=== PATIENT | female | born 1965 | race Caucasian/White ===

== ENCOUNTER 2021-02-16 09:24 | Inpatient (IN) | payer OTHER, SELFPAY ==
[2021-02-16] VITALS (8 sets, daily range): BP systolic 98–135; BP diastolic 56–70; PULSE 87–105; RESP 15–20; TEMP 36.3–37.2; O2SAT 93–98; BMI 42.5
--- NOTE | ~2021-02-16 | CT_ITS ---
EXAMINATION: CT ABDOMEN AND PELVIS WITHOUT CONTRAST CLINICAL INFORMATION: Bloody stool and abdominal pain COMPARISON: None TECHNIQUE: Multidetector volumetric imaging was performed from the superior aspect of the liver through the pubic symphysis. Sagittal and coronal reformatted images were obtained on the technologist's workstation. This CT examination was performed using dose optimization techniques as appropriate, variously including the following: *Automated exposure control *Adjustment of mA and/or kV according to patient size (this includes techniques or standardized protocols for targeted exams where dose is matched to indication/reason for exam; i.e. extremities or head) *Use of iterative reconstruction technique DLP: 972 mGy-cm FINDINGS: LUNG BASES: The visualized lung bases are unremarkable. LIVER, GALLBLADDER, AND BILIARY TREE: The liver is normal in size, shape, and attenuation. No focal hepatic lesion or biliary ductal dilatation is present. The gallbladder has been removed. The PANCREAS: Unremarkable. SPLEEN: Unremarkable. ADRENAL GLANDS: Unremarkable. KIDNEYS AND URETERS: There is a small 2 mm stone in the upper pole of the right kidney. There are 3 small stones in the lower pole of the left kidney, largest measuring 2 x 3 mm. The. Kidneys are otherwise normal. BLADDER: Unremarkable. GASTROINTESTINAL TRACT: The small and large bowel are unremarkable. The appendix is unremarkable. There is a moderate-sized esophageal hernia. ABDOMINAL WALL: There is a small umbilical hernia containing fat. There is small upper midline ventral hernia containing fat.. LYMPH NODES: Normal. VASCULAR: Unremarkable. PELVIC VISCERA: Unremarkable. OSSEOUS STRUCTURES: There are mild degenerative changes of the spine. There is curvature of the lumbar spine to the left. CT/CT abdomen pelvis wo con IMPRESSION: Small bilateral renal stones. Moderate size esophageal hernia.
--- NOTE | ~2021-02-16 | XR_ITS ---
EXAMINATION: XR CHEST CLINICAL INFORMATION: Shortness of breath COMPARISON: None TECHNIQUE: Frontal view of the chest was obtained. FINDINGS: The cardiac silhouette does not appear enlarged. There is an air structure that projects over the lower thoracic spine and cardiac silhouette questionable for an esophageal hernia or air in the distal esophagus. Hilar and mediastinal structures are otherwise unremarkable. The lungs are clear. There is no pleural effusion or pneumothorax. Visualized bony structures are unremarkable. XR/XR chest 1V IMPRESSION: Vertical air density projecting over the lower central chest questionable for an esophageal hernia or air in the distal thoracic esophagus. Otherwise unremarkable exam.
--- NOTE | 2021-02-16 11:47 | ECG_ITS ---
Test Reason : SOB Blood Pressure : / mmHG Vent. Rate : 102 BPM Atrial Rate : 102 BPM P-R Int : 142 ms QRS Dur : 074 ms QT Int : 368 ms P-R-T Axes : 055 035 033 degrees QTc Int : 479 ms Sinus tachycardia Otherwise normal ECG When compared with ECG of 06-FEB-2016 10:42, Vent. rate has increased BY 39 BPM QT has lengthened Referred By: Wallace Stokes Electronically Signed By:NEAL QUARLES
--- NOTE | 2021-02-16 12:09 | ED_ITS ---
HPI - SOB/Dyspnea General Chief Complaint: Dyspnea Stated Complaint: difficulty breathing Time Seen by Provider: 02/16/21 11:37 Source: patient Mode of arrival: ambulatory Limitations: no limitations History of Present Illness HPI Narrative: 55-year-old female history of COPD/asthma, active smoker presented with shortness of breath, patient moved into [facility] recently and ran out of her inhaler wound see her PCP for 3 weeks. Patient has been wheezing since yesterday with difficulty breathing. Patient also has a history of anemia that required transfusion few weeks ago at [facility], patient stated that her hemoglobin initially was 4.1 and after day infusion was 8.7, patient had CT/upper and lower endoscopy at [facility] reportedly the workup was negative. Patient stated that she has been having generalized weakness and fatigue lately, and have noticed dark stool for the past couple days. Related Data Home Medications Medication Instructions Recorded Confirmed albuterol sulfate 2 puff INHALATION Q4H PRN 02/16/21 02/16/21 pxbdmpkiv-krepnale-hpfclzw ala 1 tab PO DAILY 02/16/21 02/16/21 [Biktarvy] bupropion HCl 300 mg PO DAILY 02/16/21 02/16/21 clonazepam 1 mg PO TID 02/16/21 02/16/21 duloxetine 30 mg PO DAILY 02/16/21 02/16/21 duloxetine 60 mg PO DAILY 02/16/21 02/16/21 gabapentin 400 mg PO TID 02/16/21 02/16/21 melatonin 3 mg PO BEDTIME 02/16/21 02/16/21 omeprazole 20 mg PO DAILY@0630 02/16/21 02/16/21 prazosin 2 mg PO BEDTIME 02/16/21 02/16/21 quetiapine [Seroquel] 300 mg PO BEDTIME 02/16/21 02/16/21 sofosbuvir-velpatasvir 1 tab PO DAILY 02/16/21 02/16/21 trazodone 100 - 200 mg PO BEDTIME PRN 02/16/21 02/16/21 ziprasidone HCl 40 mg PO BID 02/16/21 02/16/21 Allergies Allergy/AdvReac Type Severity Reaction Status Date / Time Penicillins [PENICILLINS] Allergy Unknown SOB/HIVES Verified 02/16/21 13:05 codeine AdvReac Nausea and Verified 02/16/21 13:05 Vomiting ketorolac [From Toradol] AdvReac Nausea and Verified 02/16/21 13:05 Vomiting Review of Systems Review of Systems: All other systems are reviewed and are negative Constitutional: Reports as per HPI and Reports no additional constitutional complaints Eyes: Reports as per HPI and Reports no additional eye complaints Reports system reviewed and no additional complaints, except as documented Cardiovascular: Reports as per HPI and Reports no additional cardiovascular c omplaints Respiratory: Reports as per HPI and Reports no additional respiratory complaints Gastrointestinal: Reports as per HPI and Reports no additional gastrointestinal complaints Genitourinary: Reports no additional female genitourinary complaints Musculoskeletal: Reports no additional musculoskeletal complaints Skin/Breast: Reports system reviewed and no additional complaints, except as docu Psychiatric: Reports no additional psychiatric complaints Endocrine: Reports no additional endocrine complaints Hematologic/Lymphatic: Reports no additional hematologic/lymphatic complaints Allergic/Immunologic: Reports no additional allergic/immunologic complaints Reports system reviewed and no additional complaints, except as documented and Reports Abnormal speech present [facility] Past Medical History Medical History Anemia Anxiety Asthma Bipolar 1 disorder Cholecystectomy planned Gastric reflux PTSD (post-traumatic stress disorder) Social History Social History Advance Directives: No Advance Directives Information Provided: Yes Physical Exam Vital Signs: Vital Signs: Last Vital Signs Temp 97.6 F 02/16/21 09:40 Pulse 93 02/16/21 15:02 Resp 20 02/16/21 09:40 BP 115/70 02/16/21 09:40 Pulse Ox 98 02/16/21 09:40 Body Mass Index 42.5 Vital signs have been reviewed as appeared to be correct. Blood pressure normal. Heart rate is elevated. Respiration rate normal. Temperature normal. Oxygen saturation normal. Appearance: Alert. Oriented X3. No acute distress. Head: Normal external exam. Normocephalic. Atraumatic. No Sanchez signs noted. No raccoon eyes noted Eyes: PERRLA. EOMI. Pale Conjunctiva and sclera normal. Eyelids normal. ENT: TM's Normal. Pharynx normal. Uvula midline. Moist mucous membranes. No trismus noted. No drooling noted. No muffled voice noted. Neck: Normal inspection. Neck supple. FROM. No adenopathy. Thyroid Normal. No meningeal signs. No neck mass noted. CVS: Normal heart rate and rhythm. Heart sound normal. No murmurs noted. Pulses normal throughout. Respiratory: No respiratory distress. Painless inspiration. Breath sounds normal. Diffuse bilateral expiratory wheezing, with decreased breathing sounds bilaterally, no rhonchi noted. Chest nontender. Abdomen: Soft and nontender. Bowel sounds normal in all 4 quadrants. No distent ion noted. No organomegaly noted. No visible injury noted. Rectal exam: Dark black stool, guaiac positive Back: No CVA tenderness. Full range of motion noted. Skin: Skin warm and dry. Pale. Normal skin turgor. No rashes/lesions/lacerations noted. Extremities: No lower extremity edema. Extremities exhibit normal range of motion. Extremities nontender. Neuro: Oriented X 3. No motor deficit. No sensory deficit. Reflexes normal. Course Course Course Narrative: Assessment and plan. 55-year-old female came in with symptoms of generalized weakness and fatigue, dark stool, patient found to be anemic. Similar presentation few weeks ago require GI workup reportedly was negative. Will admit the patient for blood transfusion and serial CBC, and GI consult. Patient with history of asthma lung exam with wheezing, patient received bronchodilator. With improvement of the wheezing. Reevaluation(s) Reevaluation #1: Because patient has persistent abdominal pain and decided to repeat CT abdomen pelvis which is unremarkable for reason for her abdominal pain. Will admit the patient Time: 14:16 MDM - SOB/Dyspnea Lab Data Attestation: I reviewed the patient's lab results. Result diagrams: 02/16/21 12:48 02/16/21 12:48 Labs: Lab Results 02/16/21 02/16/21 02/16/21 Range/Units 12:48 12:48 12:48 WBC 3.3 L (4.8-10.8) X10*3/uL RBC 2.60 L (4.20-5.50) X10*6/uL Hgb 6.3 L* (12.0-16.0) g/dl Hct 22.1 L (37-47) % MCV 85.0 (80-98) fL MCH 24.2 L (27.0-33.0) pg MCHC 28.5 L (31.0-35.0) g/dl RDW 14.3 (11.0-16.0) % Plt Count 225 (160-400) X10*3/uL MPV Not Reportable Immature Gran % (Auto) 0.3 (0.0-0.4) % Neut % (Auto) 59.3 (45-73) % Lymph % (Auto) 25.7 (20-40) % Norman % (Auto) 10.2 (2-11) % Eos % (Auto) 3.3 (0-4) % Baso % (Auto) 1.2 (0-2) % Lymph # (Auto) 0.9 L (1.2-4.9) X10*3/uL Norman # (Auto) 0.3 (0.1-1.2) X10*3/uL Eos # (Auto) 0.1 (0.0-0.4) X10*3/uL Baso # (Auto) 0.0 (0.0-0.2) X10*3/uL Abs Immat Gran (auto) 0.01 (0.00-0.03) X10*3/uL Absolute Neuts (auto) 2.0 (2.0-8.3) X10*3/uL Absolute Nucleated RBC 0.020 H (0.0-0.012) X10*3/uL Nucleated RBC % (auto) 0.6 H (0.0-0.2) /100WBC Smear Tech's Comments VERIFIED PT (10.8-13.0) SEC INR (0.9-1.1) APTT (24.1-38.0) SEC Sodium 137 (135-145) mmol/L Potassium 4.0 (3.3-5.1) mmol/L Chloride 103 (96-108) mmol/L Carbon Dioxide 27 (22-29) mmol/L Anion Gap 11 L (12-20) BUN 14 (9-16) mg/dL Creatinine 0.94 (0.5-1.4) mg/dL Estim Creat Clear Calc 81.9 Estimated GFR > 60 Random Glucose 115 (60-115) mg/dL Calcium 8.7 (8.4-10.2) mg/dL Troponin I High Sens < 3.5 (<3.5-17.0) ng/L B-Natriuretic Peptide 26 (<100) pg/mL Lipase 38 (8-78) U/L Stool Occult Blood (NEGATIVE) COVID-19 (ELSI) (Negative) COVID-19 Clin Com Crossmatch 02/16/21 02/16/21 02/16/21 Range/Units 12:48 12:49 13:13 WBC (4.8-10.8) X10*3/uL RBC (4.20-5.50) X10*6/uL Hgb (12.0-16.0) g/dl Hct (37-47) % MCV (80-98) fL MCH (27.0-33.0) pg MCHC (31.0-35.0) g/dl RDW (11.0-16.0) % Plt Count (160-400) X10*3/uL MPV Immature Gran % (Auto) (0.0-0.4) % Neut % (Auto) (45-73) % Lymph % (Auto) (20-40) % Norman % (Auto) (2-11) % Eos % (Auto) (0-4) % Baso % (Auto) (0-2) % Lymph # (Auto) (1.2-4.9) X10*3/uL Norman # (Auto) (0.1-1.2) X10*3/uL Eos # (Auto) (0.0-0.4) X10*3/uL Baso # (Auto) (0.0-0.2) X10*3/uL Abs Immat Gran (auto) (0.00-0.03) X10*3/uL Absolute Neuts (auto) (2.0-8.3) X10*3/uL Absolute Nucleated RBC (0.0-0.012) X10*3/uL Nucleated RBC % (auto) (0.0-0.2) /100WBC Smear Tech's Comments PT 11.2 (10.8-13.0) SEC INR 0.9 (0.9-1.1) APTT 24.7 (24.1-38.0) SEC Sodium (135-145) mmol/L Potassium (3.3-5.1) mmol/L Chloride (96-108) mmol/L Carbon Dioxide (22-29) mmol/L Anion Gap (12-20) BUN (9-16) mg/dL Creatinine (0.5-1.4) mg/dL Estim Creat Clear Calc Estimated GFR Random Glucose (60-115) mg/dL Calcium (8.4-10.2) mg/dL Troponin I High Sens (<3.5-17.0) ng/L B-Natriuretic Peptide (<100) pg/mL Lipase (8-78) U/L Stool Occult Blood POSITIVE (NEGATIVE) COVID-19 (ELSI) Negative (Negative) COVID-19 Clin Com See Note Crossmatch 02/16/21 Range/Units 14:59 WBC (4.8-10.8) X10*3/uL RBC (4.20-5.50) X10*6/uL Hgb (12.0-16.0) g/dl Hct (37-47) % MCV (80-98) fL MCH (27.0-33.0) pg MCHC (31.0-35.0) g/dl RDW (11.0-16.0) % Plt Count (160-400) X10*3/uL MPV Immature Gran % (Auto) (0.0-0.4) % Neut % (Auto) (45-73) % Lymph % (Auto) (20-40) % Norman % (Auto) (2-11) % Eos % (Auto) (0-4) % Baso % (Auto) (0-2) % Lymph # (Auto) (1.2-4.9) X10*3/uL Norman # (Auto) (0.1-1.2) X10*3/uL Eos # (Auto) (0.0-0.4) X10*3/uL Baso # (Auto) (0.0-0.2) X10*3/uL Abs Immat Gran (auto) (0.00-0.03) X10*3/uL Absolute Neuts (auto) (2.0-8.3) X10*3/uL Absolute Nucleated RBC (0.0-0.012) X10*3/uL Nucleated RBC % (auto) (0.0-0.2) /100WBC Smear Tech's Comments PT (10.8-13.0) SEC INR (0.9-1.1) APTT (24.1-38.0) SEC Sodium (135-145) mmol/L Potassium (3.3-5.1) mmol/L Chloride (96-108) mmol/L Carbon Dioxide (22-29) mmol/L Anion Gap (12-20) BUN (9-16) mg/dL Creatinine (0.5-1.4) mg/dL Estim Creat Clear Calc Estimated GFR Random Glucose (60-115) mg/dL Calcium (8.4-10.2) mg/dL Troponin I High Sens (<3.5-17.0) ng/L B-Natriuretic Peptide (<100) pg/mL Lipase (8-78) U/L Stool Occult Blood (NEGATIVE) COVID-19 (ELSI) (Negative) COVID-19 Clin Com Crossmatch See Detail Imaging Data Chest x-ray: Radiologist's impression: The cardiac silhouette does not appear enlarged. There is an air structure that projects over the lower thoracic spine and cardiac silhouette questionable for an esophageal hernia or air in the distal esophagus. Hilar and mediastinal structures are otherwise unremarkable. The lungs are clear. There is no pleural effusion or pneumothorax. Visualized bony structures are unremarkable. CT scan - abdomen: Radiologist's impression: Small bilateral renal stones. Moderate size esophageal hernia. ECG Data Interpretation: Sinus tachycardia at 102 beats per minute, normal axis deviation, normal intervals, no ST-T changes. Critical Care Time Critical Care Time Critical Care Time: Yes Total Critical Care Time: 40 Attestation: I spent 40 minutes providing critical care service to the patient, this including time spent at the bedside to evaluate the patient, reassess the patient, monitoring vital signs, review labs, and radiographic studies, counseling the patient/family, discussing the case with consultants, disposition the patient. Discharge Plan Discharge Clinical Impression: Asthma with exacerbation, Melena, Anemia Patient Disposition: Admitted As Inpatient
[2021-02-16 13:01] LABS: Imm Gran Abs Auto 0.01 X10*3/uL (0.00-0.03); Imm Gran Pct Auto 0.3 % (0.0-0.4); MANUAL DIFF FLAG SCAN; NRBC Pct Auto 0.6 /100WBC (0.0-0.2); PLT CLUMP 1; SCAN SMEAR FLAG 1
[2021-02-16 13:02] LABS: Basophils Percent Auto 1.2 % (0-2); Eosinophils Absolute Auto 0.1 X10*3/uL (0.0-0.4); Eosinophils Percent Auto 3.3 % (0-4); Hematocrit 22.1 % (37-47); Lymphocytes Absolute Auto 0.9 X10*3/uL (1.2-4.9); Lymphocytes Percent Auto 25.7 % (20-40); Mean Corpuscular HGB Conc 28.5 g/dl (31.0-35.0); Monocytes Absolute Auto 0.3 X10*3/uL (0.1-1.2); Monocytes Percent Auto 10.2 % (2-11); Neutrophils Percent Auto 59.3 % (45-73); Red Cell Distribution Width 14.3 % (11.0-16.0); White Blood Count 3.3 X10*3/uL (4.8-10.8)
[2021-02-16] MEDS: Morphine Sulfate 2 MG/ML CARTRIDGE 1 MG IVPUSH ×2 (13:06→15:32)
[2021-02-16 13:08] LABS: INTERNATIONAL NORM RATIO 0.9 (0.9-1.1); Prothrombin Time 11.2 SEC (10.8-13.0)
[2021-02-16] MEDS: predniSONE 20 MG TABLET 40 MG PO (13:09)
[2021-02-16] MEDS: 0.9 % Sodium Chloride 1,000 ML 999 ML IVCONT (13:10)
[2021-02-16 13:11] LABS: Partial Thromboplastin Time 24.7 SEC (24.1-38.0)
[2021-02-16 13:15] LABS: COVID-19 Test Negative (Negative)
[2021-02-16 13:17] LABS: OBS Int Ctl Valid YES; OBS1 POSITIVE (NEGATIVE)
[2021-02-16 13:22] LABS: Hemoglobin 6.3 g/dl (12.0-16.0)
[2021-02-16 13:24] LABS: Mean Corpuscular Hemoglobin 24.2 pg (27.0-33.0)
[2021-02-16 13:33] LABS: Anion Gap 11 (12-20); Blood Urea Nitrogen 14 mg/dL (9-16); Calcium 8.7 mg/dL (8.4-10.2); Carbon Dioxide 27 mmol/L (22-29); Chloride 103 mmol/L (96-108); Creatinine Clr Calc Pharmacy 81.9; Estimated Glomerular Filt Rate > 60; Glucose Random 115 mg/dL (60-115); Lipase 38 U/L (8-78); Sodium 137 mmol/L (135-145)
[2021-02-16 13:36] LABS: B Type Natriuretic Peptide 26 pg/mL (<100); Platelet Count 225 X10*3/uL (160-400); Troponin-I High Sensitivity < 3.5 ng/L (<3.5-17.0)
[2021-02-16 13:37] LABS: SLIDE REVIEW VERIFIED
[2021-02-16] MEDS: Albuterol/Iprat 2.5/0.5MG 3 ML AMPUL.NEB INHALE (15:01)
--- NOTE | 2021-02-16 15:03 | P.HPHOSP_ITS ---
History of Present Illness Date of Service: 02/16/21 55-year-old female patient with a past medical history of chronic anemia, asthma/COPD, GERD, HIV, hep C and bipolar disorder who presents here with melana and anemia. She has history of chronic anemia. She underwent EGD on December 04 2020 with finding suggestive of grade B esophagitis. She had colonoscopy on December 08, 2020 with finding of internal hemorrhoids. She received blood transfusion for symptomatic anemia at that time. Today, her hemoglobin is 6.4 and Hematocrit is 22. She is hemodynamically Review of Systems Review of Systems: Constitutional: No fever Cardiovascular:No chest pain,pressure or discomfort. No palpitations or pedal edema. Respiratory:No shortness of breath, cough or sputum production. Gastrointestinal: Reports no nausea, vomiting or diarrhea. reports melana and abdominal pain Genitourinary: No burning micturition. No urinary frequency or incontinence. Neurologic: No headache, dizziness, syncope, unilateral weakness, numbness or tingling in the extremities. Musculoskeletal: No muscle pain, back pain, joint pain or stiffness. Hematologic: No bleeding or bruising. Psychiatric: depression Endocrine: No reports of sweating. No cold or heat intolerance. No polyuria or polydipsia. All other systems were reviewed and are negative. [facility] Medical History Anemia Anxiety Asthma Bipolar 1 disorder Cholecystectomy planned COPD (chronic obstructive pulmonary disease) Gastric reflux Hepatitis C HIV (human immunodeficiency virus infection) Morbid (severe) obesity due to excess calories PTSD (post-traumatic stress disorder) Surgical History Hx of cholecystectomy Social History Household Members: None Housing: Other Housing Other:: [facility] residential [facility]. Do you presently have visiting nurse or other home services: No Smoking Status: Current some day smoker Tobacco Type: Cigarette Packs Per Day: 0.5 Cigarettes Per Day: 10.0 Years Smoked: 20 Smoked in Last 30 Days: Yes Patient Interested in Nicotine Replacement: No Patient Given Instructions on How to Stop Smoking: No (refused) Second Hand Smoke Exposure: No Use of substances other than those prescribed or required for medical reasons: No Currently Displaying Signs/Symptoms of Drug Intoxication Withdrawal: No Any prior treatment program specific to substance use: Yes Have you been hit, kicked, punched, or otherwise hurt by someone within the past year? If so, by whom?: No Do you feel safe in your current relationship?: No Current Relationship Is there a partner from a previous relationship who is making you feel unsafe now?: No Are you made to feel afraid or neglected: No Spiritual Healthcare Practices: no Adventism Healthcare Practices: no Cultural Healthcare Practices: no Are you DNR?: No Advance Directives: No Advance Directives Information Provided: Yes Do you have thoughts of harming others: None Do you have a plan to hurt others: No Plan Recently lost weight without trying: No Nutrition Risks: No Nutritional Risk Patient : No : No Poor oral hygiene: No service: No Current occupational status: disabled Meds Allergies Allergy/AdvReac Type Severity Reaction Status Date / Time Penicillins [PENICILLINS] Allergy Unknown SOB/HIVES Verified 02/16/21 13:05 codeine AdvReac Nausea and Verified 02/16/21 13:05 Vomiting ketorolac [From Toradol] AdvReac Nausea and Verified 02/16/21 13:05 Vomiting Active Medications: Current Medications Generic Name Dose Route Start Last Admin Trade Name Freq PRN Reason Stop Dose Admin Pharmacy Consult 1 each 02/16/21 11:46 Consult Rx Perform Med Rec MISCELLANE ONCE PRN Consult order Home Medications Medication Instructions Recorded Confirmed Last Taken Type albuterol sulfate 2 puff INHALATION Q4H PRN 02/16/21 02/16/21 Unknown History ddpcamgxy-bgnakjue-ylixhom ala 1 tab PO DAILY 02/16/21 02/16/21 02/16/21 History [Biktarvy] bupropion HCl 300 mg PO DAILY 02/16/21 02/16/21 02/16/21 History clonazepam 1 mg PO TID 02/16/21 02/16/21 02/16/21 History duloxetine 30 mg PO DAILY 02/16/21 02/16/21 02/16/21 History duloxetine 60 mg PO DAILY 02/16/21 02/16/21 02/16/21 History gabapentin 400 mg PO TID 02/16/21 02/16/21 02/16/21 History melatonin 3 mg PO BEDTIME 02/16/21 02/16/21 02/15/21 History omeprazole 20 mg PO DAILY@0630 02/16/21 02/16/21 02/16/21 History prazosin 2 mg PO BEDTIME 02/16/21 02/16/21 02/15/21 History quetiapine [Seroquel] 300 mg PO BEDTIME 02/16/21 02/16/21 02/15/21 History sofosbuvir-velpatasvir 1 tab PO DAILY 02/16/21 02/16/21 02/16/21 History trazodone 100 - 200 mg PO BEDTIME PRN 02/16/21 02/16/21 Unknown History ziprasidone HCl 40 mg PO BID 02/16/21 02/16/21 02/16/21 History Physical Exam Vital Signs and Narrative: Vital Signs: Last Vital Signs Temp 97.6 F 02/16/21 09:40 Pulse 105 H 02/16/21 09:40 Resp 20 02/16/21 09:40 BP 115/70 02/16/21 09:40 Pulse Ox 98 02/16/21 09:40 Body Mass Index 42.5 Constitutional Awake and Alert, No apparent distress Neck Supple, No lymphadenopathy Cardiovascular RRR, No M/R/G, S1 S2, No S3 S4, No pedal edema Respiratory Lungs clear, No respiratory distress Gastrointestinal Non tender, Non-distended Skin No rash Neurological Alert & oriented x3 Psychological Appropriate affect Results Labs CBC and Chem 7: 02/17/21 07:56 02/16/21 12:48 Labs: Laboratory Results - last 24 hr 02/16/21 02/16/21 02/16/21 12:48 12:48 12:48 MCV 85.0 MCH 24.2 L MCHC 28.5 L RDW 14.3 Plt Count 225 MPV Not Reportable Immature Gran % (Auto) 0.3 Neut % (Auto) 59.3 Lymph % (Auto) 25.7 Daniels % (Auto) 10.2 Eos % (Auto) 3.3 Baso % (Auto) 1.2 Lymph # (Auto) 0.9 L Daniels # (Auto) 0.3 Eos # (Auto) 0.1 Baso # (Auto) 0.0 Abs Immat Gran (auto) 0.01 Absolute Neuts (auto) 2.0 Absolute Nucleated RBC 0.020 H Nucleated RBC % (auto) 0.6 H Smear Tech's Comments VERIFIED PT INR APTT Anion Gap 11 L Estim Creat Clear Calc 81.9 Estimated GFR > 60 Random Glucose 115 Calcium 8.7 Troponin I High Sens < 3.5 B-Natriuretic Peptide 26 Lipase 38 Stool Occult Blood COVID-19 (ELSI) COVID-19 Clin Com 02/16/21 02/16/21 02/16/21 12:48 12:49 13:13 MCV MCH MCHC RDW Plt Count MPV Immature Gran % (Auto) Neut % (Auto) Lymph % (Auto) Daniels % (Auto) Eos % (Auto) Baso % (Auto) Lymph # (Auto) Daniels # (Auto) Eos # (Auto) Baso # (Auto) Abs Immat Gran (auto) Absolute Neuts (auto) Absolute Nucleated RBC Nucleated RBC % (auto) Smear Tech's Comments PT 11.2 INR 0.9 APTT 24.7 Anion Gap Estim Creat Clear Calc Estimated GFR Random Glucose Calcium Troponin I High Sens B-Natriuretic Peptide Lipase Stool Occult Blood POSITIVE COVID-19 (ELSI) Negative COVID-19 Clin Com See Note Imaging Radiologist's Impressions: Impressions Chest X-Ray 02/16/21 11:47 IMPRESSION: Vertical air density projecting over the lower central chest questionable for an esophageal hernia or air in the distal thoracic esophagus. Otherwise unremarkable exam. Abdomen/Pelvis CT 02/16/21 13:23 IMPRESSION: Small bilateral renal stones. Moderate size esophageal hernia. Assessment and Plan (1) HIV (human immunodeficiency virus infection): Status: Inactive (2) Acute blood loss anemia: Status: Acute (3) Anemia: Status: Acute (4) Melena: Status: Acute (5) Asthma with exacerbation: Status: Acute (6) COPD (chronic obstructive pulmonary disease): Status: Acute 55-year-old female patient with a past medical history of chronic anemia, asthma/COPD, GERD, HIV, hep C here with Melana, acute blood loss anemia Acute blood loss anemia/Melana. Hemodynamically stable. Transfused 2 units. GI consult. Clear liquid diet and NPO overnight for likely procedure tomorrow. Esophagitis with gastritis (K29.70): Recent EGD suggestive of grade B esophagitis. IV ppi COPD mixed type (J44.9): Stable, no exacerbation Hepatitis C (B19.20): Continue her home medication sofosbuvir/velpatasvir HIV infection (B20): Continue her on Biktarvy MDD (major depressive disorder) (F32.9)/PTSD--continue home medication. Morbid obesity--weight loss advice through exercise and diet watch and DVT prophylaxis; no heparin or Lovenox. Compression device
[2021-02-16] MEDS: ondansetron HCL 4 MG/2 ML VIAL IVPUSH (15:33)
--- NOTE | 2021-02-16 15:35 | PC.NURSE ---
Pt medicated for pain and nausea. Blood band in place and awaiting blood to be ready from blood bank at this time.
[2021-02-16 16:22] LABS: Glucose Urine UA NEG (NEG); Leukocyte Esterase Urine NEG (NEG); Nitrite Urine NEG (NEG); Specific Gravity - Urine 1.025 (1.005-1.025); Urine Blood NEG (NEG); Urine Ketones NEG (NEG); Urine Protein NEG (NEG-TRACE)
--- NOTE | 2021-02-16 16:25 | P.CNGI_ITS ---
History of Present Illness Data of Consult Service Date: 02/16/21 Requesting physician: Lexx Cohen Primary Care Provider: Raul De La Paz MD HPI Reason for consult: Recurrent anemia, GI Bleed 55 YF seen at [facility] earlier today with fatigue and shortness of breath: 55-year-old female history of COPD/asthma, active smoker presented with shortness of breath, patient moved into [facility] recently and ran out of her inhaler wound see her PCP for 3 weeks. Patient has been wheezing since yesterday with difficulty breathing. Patient also has a history of anemia that required transfusion few weeks ago at [facility], patient stated that her hemoglobin initially was 4.1 and after day infusion was 8.7, patient had CT/upper and lower endoscopy at [facility] reportedly the workup was negative. Patient stated that she has been having generalized weakness and fatigue lately, and have noticed dark stool for the past couple days. Patient reports being admitted to [facility] in Nov, 2020 with weakness and dark stools. She had EGD and Colon as noted below. Pt was discharged with outpatient follow-up. Pt did not follow-up since she had to go out of town. She noted fatigue, dizziness and worsening shortness of breath over the past few few days and came to [facility] Patient has a history of COPD and continues to smoke half pack per day. Patient denies use of aspirin or nonsteroidals. She admits to history of peptic ulcer disease a year ago complicated by GI bleed and was started on omeprazole and continues to take it Patient denies known family history of colon polyps, colon cancer or other GI malignancies. 02/16/[address] SCAN SHOWED: Small bilateral renal stones. Moderate size esophageal hernia. PAST GI HISTORY BY REVIEW OF MEDICAL RECORDS: 12/04/20 EGD at [facility] showed: Grade B esophagitis at the GE junction compatible with esophagitis. A large size hiatal hernia from 31 to 37 cm from the incisors A single non-bleeding diverticulum with a large opening was seen in the 2nd portion of the duodenum. This diverticulum was felt to be likely due to healed prior ulcers. 12/08/20 COLONOSCOPY showed small non bleeding internal hemorrhoids. No evidence of lower GI bleeding caustic mailed a of recent bleed identified during colonoscopy. TI was not intubated. Patient was discharged and advised outpatient GI follow-up. Review of Systems Constitutional: Constitutional: Denies fever(s), Denies headache(s) and Denies weight loss Eyes: Eyes: Denies eye discharge and Denies irritation ENT: Reports Normal hearing present, Denies dysphagia, Denies dizziness and Denies headache(s) Cardiovascular: Cardiovascular: Denies chest pain, Denies leg edema, Reports dyspnea and Reports dyspnea on exertion Respiratory: Respiratory: Denies cough, Reports dyspnea, Reports dyspnea on exertion and Reports wheezing Gastrointestinal: Gastrointestinal: Reports abdominal pain, Reports melena, Denies change in bowel habits, Denies dysphagia and Denies heartburn Genitourinary: Genitourinary: Denies difficulty voiding and Denies dysuria Musculoskeletal: Musculoskeletal: Denies back pain and Denies arthralgias Integumentary/Breasts: Skin/Breast: Denies pruritus, Denies rash and Denies jaundice Neurologic: Reports Normal hearing present, Denies Abnormal speech present, Denies dizziness, Denies headache(s) and Denies seizure-like activity Psychiatric: Psychiatric: Denies anxiety, Denies depression and Denies panic attacks Endocrine: Endocrine: Denies cold intolerance, Denies flushing and Denies heat intolerance Hematologic/Lymphatic: Hematologic/Lymphatic: Denies easy bleeding and Denies easy bruising Allergic/Immunologic: Allergic/Immunologic: Reports wheezing PMFSH Past Medical History Medical History Anemia Anxiety Arthritis Asthma Bilateral renal stones Bipolar 1 disorder Chronic anemia COPD (chronic obstructive pulmonary disease) COVID-19 vaccine administered Depression GERD (gastroesophageal reflux disease) Hiatal hernia without gangrene and obstruction HIV (human immunodeficiency virus infection) Hx of anxiety disorder Hx of hepatitis C Morbid (severe) obesity due to excess calories Nicotine dependence, cigarettes, uncomplicated PTSD (post-traumatic stress disorder) Family History Family History Mother Respiratory arrest Father Congestive heart failure Sister No problems noted. Brother No problems noted. Daughter No problems noted. Son No problems noted. Surgical History Surgical History History of section, classical History of cholecystectomy History of colonoscopy (~2020) History of endoscopy (~2020) History of repair of hiatal hernia History of tonsillectomy and adenoidectomy Social History Social History Household Members: None Housing: House Housing Other:: resides at [facility]-will return there post-op Are you a primary pet care assistant to a significant other at home: No Do you presently have visiting nurse or other home services: No Alcohol intake: never Patient Tobacco Use Status: Current everyday Tobacco user Tobacco use type: Cigarette Cigarette Packs Per Day: 0.5 Cigarettes Per Day: 10.0 Years Smoked: 20 Smoked in Last 30 Days: Yes Patient Interested in Nicotine Replacement: Yes Second Hand Smoke Exposure: No Advance Directives: Yes Advance Directives Information Provided: No Advance Directives on File: No Advance Directives Date on File: 03/18/21 service: No Current occupational status: unemployed and disabled Meds Allergies Allergy/AdvReac Type Severity Reaction Status Date / Time Penicillins [PENICILLINS] Allergy Intermediate SOB/HIVES Verified 05/25/21 13:41 codeine AdvReac Intermediate Nausea and Verified 05/25/21 13:41 Vomiting ketorolac [From Toradol] AdvReac Intermediate Nausea and Verified 05/25/21 13:41 Vomiting Active Medications: Current Medications Generic Name Dose Route Start Last Admin Trade Name Freq PRN Reason Stop Dose Admin Pantoprazole Sodium 40 mg 02/16/21 16:00 Pantoprazole Sodium 40 Mg/10 Ml Vial IVPUSH DAILY@0630 [facility] Consult 1 each 02/16/21 11:46 Consult Rx Perform Med Rec MISCELLANE ONCE PRN Consult order Home Medications Medication Instructions Recorded Confirmed Last Taken Type albuterol sulfate 90 mcg/actuation 2 puff INHALATION Q4H PRN 02/16/21 06/25/21 06/25/21 History aerosol inhaler bictegravir 50 mg-emtricitabine 1 tab PO DAILY 02/16/21 06/25/21 06/25/21 History 200 mg-tenofovir alafenam 25 mg tablet (Biktarvy) bupropion HCl 300 mg 24 hr tablet, 300 mg PO DAILY 02/16/21 06/25/21 06/25/21 History extended release clonazepam 1 mg tablet 1 mg PO TID 02/16/21 06/25/21 06/25/21 History duloxetine 30 mg capsule,delayed 30 mg PO DAILY 02/16/21 06/25/21 06/25/21 History release duloxetine 60 mg capsule,delayed 60 mg PO DAILY 02/16/21 06/25/21 06/25/21 History release gabapentin 400 mg capsule 400 mg PO TID 02/16/21 06/25/21 06/25/21 History prazosin 2 mg capsule 4 mg PO BEDTIME 02/16/21 06/25/21 06/24/21 History budesonide-formoterol HFA 80 2 puff INHALATION BID 04/30/21 06/25/21 06/25/21 History mcg-4.5 mcg/actuation aerosol inhaler (Symbicort) quetiapine 400 mg tablet 2 tab PO BEDTIME 05/25/21 06/25/21 06/24/21 History Physical Exam Vital Signs: Vital Signs: Last Vital Signs Temp 99.0 F 02/16/21 15:35 Pulse 94 02/16/21 15:35 Resp 18 02/16/21 15:35 BP 116/69 02/16/21 15:35 Pulse Ox 93 02/16/21 15:35 Body Mass Index 42.5 Const: General: healthy appearing and no acute distress Nutritional Appearance: obese Orientation/consciousness: patient oriented x3 Limitations: no limitations HENMT: Head: Yes normal to inspection Ears: hearing grossly normal bilaterally Mouth: Normal oral and palatal mucosa present Eyes: Sclerae: sclerae normal Pupils: Equal, round and reactive pupils present Neck: Neck: Yes normal visual inspection Chest: Chest palpation & inspection: normal inspection of the chest Resp: Effort & Inspection: normal respiratory effort Auscultation: clear to auscultation bilaterally Cardio: Palpation: normal PMI Rate: regular rate Rhythm: regular rhythm Heart sounds: S1 normal heart sound present, S2 normal heart sound present and no murmurs GI: Palpation (GI): Soft to palpation, Tenderness to palpation present (GI) (upper abdominal tenderness) and No hepatosplenomegaly present Auscultation: normal bowel sounds Rectal Exam - Female: deferred Skin: General skin exam: no rashes or lesions noted Neuro: General: patient oriented x3, gait normal and moves all extremities Cranial nerves: Yes Equal, round and reactive pupils present and Yes Normal hearing present Speech: No Abnormal speech present Psych: Appearance: grossly normal Mental Status: mental status grossly normal Results Labs CBC & Chem 7: 02/18/21 05:49 02/16/21 12:48 Labs: Short CBC 02/16/21 Range/Units 12:48 WBC 3.3 L (4.8-10.8) X10*3/uL Hgb 6.3 L* (12.0-16.0) g/dl Hct 22.1 L (37-47) % Plt Count 225 (160-400) X10*3/uL BMP 02/16/21 12:48 Sodium 137 Potassium 4.0 Chloride 103 Carbon Dioxide 27 BUN 14 Creatinine 0.94 Calcium 8.7 Assessment and Plan (1) Acute blood loss anemia: Status: Resolved (2) COPD (chronic obstructive pulmonary disease): 55 YF with asthma, COPD, HIV, hx of PUD admitted with recurrent anemia, abdominal pain, melena and heme-positive stool. 12/04/20 EGD at [facility] showed a large HH, Grade B esophagitis and a single non- bleeding diverticulum in the 2nd portion of the duodenum. Source of anemia is unclear - she may have recurrent PUD, GI AVM or possible bleeding from duodenal diverticulum RECOMMENDATIONS: 1. Follow H & H and transfuse prn 2. Proceed with Upper endoscopy with SB enteroscopy in the am. Procedure and potential complications including bleeding, perforation, drug reaction, aspiration and misdiagnosis were reviewed with the patient. 3. If small-bowel enteroscopy is non revealing further evaluation with capsule endoscopy will be scheduled
[2021-02-16] MEDS: Pantoprazole Sodium 40 MG/10 ML VIAL IVPUSH (16:27)
[2021-02-16 17:05] LABS: Appearance Urine CLEAR; Color Urine YELLOW
[2021-02-16] MEDS: traMADoL HCL 50 MG TABLET PO (17:38)
--- NOTE | 2021-02-16 17:39 | PC.NURSE ---
Pt medicated for pain and report called to RN on s3. Pt to be transported upstairs by PCT.
[2021-02-16] MEDS: 0.9 % Sodium Chloride Flush 3 ML SYRINGE IVFLUSH ×2 (18:40→23:06)
[2021-02-16] MEDS: Ziprasidone 40 MG CAPSULE PO (20:03)
[2021-02-16] MEDS: Prazosin HCL 1 MG CAPSULE 2 MG PO (20:04)
[2021-02-16] MEDS: clonazePAM 1 MG TABLET PO (20:04)
[2021-02-16] MEDS: QUEtiapine Fumarate 300 MG TABLET PO (20:04)
[2021-02-16] MEDS: Melatonin 3 MG TABLET PO (20:05)
[2021-02-16] MEDS: Gabapentin 400 MG CAPSULE PO (20:05)
[2021-02-16] MEDS: oxyCODONE HCl Immed Release 5 MG TABLET PO (20:52)
[2021-02-17] VITALS (18 sets, daily range): BP systolic 93–150; BP diastolic 50–90; PULSE 78–93; RESP 16–20; TEMP 35.8–36.7; O2SAT 90–99
[2021-02-17] MEDS: Pantoprazole Sodium 40 MG/10 ML VIAL IVPUSH (06:15)
[2021-02-17] MEDS: Ziprasidone 40 MG CAPSULE PO ×2 (08:18→20:03)
[2021-02-17] MEDS: clonazePAM 1 MG TABLET PO ×3 (08:18→20:02)
[2021-02-17] MEDS: Gabapentin 400 MG CAPSULE PO ×3 (08:18→20:04)
[2021-02-17] MEDS: DULoxetine HCl 60 MG CAPSULE.DR PO (08:18)
[2021-02-17] MEDS: DULoxetine HCl 30 MG CAPSULE.DR PO (08:18)
[2021-02-17] MEDS: buPROPion HCl XL 300 MG TAB.ER.24H PO (08:18)
[2021-02-17] MEDS: traMADoL HCL 50 MG TABLET PO (08:18)
[2021-02-17] MEDS: 0.9 % Sodium Chloride Flush 3 ML SYRINGE IVFLUSH (08:19)
[2021-02-17 08:45] LABS: Hematocrit 23.8 % (37-47); Mean Corpuscular HGB Conc 29.4 g/dl (31.0-35.0); Mean Corpuscular Hemoglobin 25.5 pg (27.0-33.0); Mean Corpuscular Volume 86.5 fL (80-98); Mean Platelet Volume 10.2 fL (9.4-12.3); NRBC Pct Auto 0.6 /100WBC (0.0-0.2); Platelet Count 213 X10*3/uL (160-400); Red Blood Count 2.75 X10*6/uL (4.20-5.50); Red Cell Distribution Width 15.1 % (11.0-16.0); White Blood Count 3.5 X10*3/uL (4.8-10.8)
--- NOTE | 2021-02-17 08:54 | MHC.CM.PN ---
PATIENT IS INDEPENDENT WITH ADLS. NO DME OR VNA SERVICES. SHE IS HOPING TO DC WITH NO NEED FOR SERVICES. CASE MANAGEMENT AVAILABLE FOR ANY DISCHARGE NEEDS. HCP DOCUMENTATION IMPORTANCE DISCUSSED. PATIENT WILL CONSIDER AND REACH OUT TO THIS OVERHEAD CRANE TECHNICIAN SHE WAS PREPARING TO LEAVE THE FLOOR FOR A PROCEDURE.
--- NOTE | 2021-02-17 09:20 | P.CONAN_ITS ---
[facility] Active Problems Active Problems: All Active Problems (Updated 02/16/21 @ 15:37 by Lexx hathaway MD) COPD (chronic obstructive pulmonary disease) (Acute) Acute blood loss anemia (Acute) COPD (chronic obstructive pulmonary disease) (Acute) Asthma with exacerbation (Acute) Melena (Acute) Anemia (Acute) Past Medical History Medical History Anemia Anxiety Asthma Bipolar 1 disorder Cholecystectomy planned COPD (chronic obstructive pulmonary disease) Gastric reflux Hepatitis C HIV (human immunodeficiency virus infection) Morbid (severe) obesity due to excess calories PTSD (post-traumatic stress disorder) Surgical History Surgical History Hx of cholecystectomy Social History Social History Household Members: None Housing: Other Housing Other:: [facility] residential program. Do you presently have visiting nurse or other home services: No Smoking Status: Current some day smoker Tobacco Type: Cigarette Packs Per Day: 0.5 Cigarettes Per Day: 10.0 Years Smoked: 20 Smoked in Last 30 Days: Yes Patient Interested in Nicotine Replacement: No Patient Given Instructions on How to Stop Smoking: No (refused) Second Hand Smoke Exposure: No Use of substances other than those prescribed or required for medical reasons: No Currently Displaying Signs/Symptoms of Drug Intoxication Withdrawal: No Any prior treatment program specific to substance use: Yes Have you been hit, kicked, punched, or otherwise hurt by someone within the past year? If so, by whom?: No Do you feel safe in your current relationship?: No Current Relationship Is there a partner from a previous relationship who is making you feel unsafe now?: No Are you made to feel afraid or neglected: No Spiritual Healthcare Practices: no Pentecostal Healthcare Practices: no Cultural Healthcare Practices: no Are you DNR?: No Advance Directives: No Advance Directives Information Provided: Yes Do you have thoughts of harming others: None Do you have a plan to hurt others: No Plan Recently lost weight without trying: No Nutrition Risks: No Nutritional Risk Patient : No : No Poor oral hygiene: No service: No Current occupational status: disabled Meds Allergies Allergy/AdvReac Type Severity Reaction Status Date / Time Penicillins [PENICILLINS] Allergy Unknown SOB/HIVES Verified 02/16/21 13:05 codeine AdvReac Nausea and Verified 02/16/21 13:05 Vomiting ketorolac [From Toradol] AdvReac Nausea and Verified 02/16/21 13:05 Vomiting Active Medications: Current Medications Generic Name Dose Route Start Last Admin Trade Name Freq PRN Reason Stop Dose Admin Albuterol Sulfate 2 puff 02/16/21 18:12 Albuterol Sulfate 90 Mcg 8 Gm Inhaler INHALE Q4H PRN Respiratory Distress Bictegravir/Emtricitabine/Tenofovir 1 tab 02/17/21 09:00 02/17/21 08:18 Bictegrav/Emtricit/Tenofov Ala 1 Tab Tablet PO 1 tab DAILY GEOVANNA Administration Bupropion HCl 300 mg 02/17/21 09:00 02/17/21 08:18 Bupropion Hcl Xl 300 Mg Tab.Er.24h PO 300 mg DAILY GEOVANNA Administration Clonazepam 1 mg 02/16/21 21:00 02/17/21 08:18 Clonazepam 1 Mg Tablet PO 1 mg TID GEOVANNA Administration Duloxetine HCl 30 mg 02/17/21 09:00 02/17/21 08:18 Duloxetine Hcl 30 Mg Capsule. PO 30 mg DAILY GEOVANNA Administration Duloxetine HCl 60 mg 02/17/21 09:00 02/17/21 08:18 Duloxetine Hcl 60 Mg Capsule. PO 60 mg DAILY GEOVANNA Administration Gabapentin 400 mg 02/16/21 21:00 02/17/21 08:18 Gabapentin 400 Mg Capsule PO 400 mg TID GEOVANNA Administration Melatonin 3 mg 02/16/21 21:00 02/16/21 20:05 Melatonin 3 Mg Tablet PO 3 mg BEDTIME GEOVANNA Administration Non-Formulary Medication 1 tab 02/17/21 09:00 Sofosbuvir-Velpatasvir PO DAILY GEOVANNA Omeprazole 20 mg 02/17/21 06:30 Omeprazole 20 Mg Capsule. PO DAILY@0630 [facility] Pantoprazole Sodium 40 mg 02/16/21 16:00 02/17/21 06:15 Pantoprazole Sodium 40 Mg/10 Ml Vial IVPUSH 40 mg DAILY@0630 [facility] Administration Pharmacy Consult 1 each 02/16/21 11:46 Consult Rx Perform Med Rec MISCELLANE ONCE PRN Consult order Prazosin HCl 2 mg 02/16/21 21:00 02/16/21 20:04 Prazosin Hcl 1 Mg Capsule PO 2 mg BEDTIME GEOVANNA Administration Protocol Quetiapine Fumarate 300 mg 02/16/21 21:00 02/16/21 20:04 Quetiapine Fumarate 300 Mg Tablet PO 300 mg BEDTIME GEOVANNA Administration Sodium Chloride 3 ml 02/16/21 18:12 02/17/21 08:19 0.9 % Sodium Chloride Flush 3 Ml Syringe IVFLUSH 3 ml QSHIFT GEOVANNA Administration Tramadol HCl 50 mg 02/16/21 17:17 02/17/21 08:18 Tramadol Hcl 50 Mg Tablet PO 50 mg Q6H PRN Administration Pain, Severe (Pain Scale 7-10) Trazodone HCl 100 - 200 mg 02/16/21 18:12 Trazodone Hcl 100 Mg Tablet PO BEDTIME PRN Sleep Ziprasidone 40 mg 02/16/21 21:00 02/17/21 08:18 Ziprasidone 40 Mg Capsule PO 40 mg BID GEOVANNA Administration Home Medications Medication Instructions Recorded Confirmed Last Taken Type albuterol sulfate 2 puff INHALATION Q4H PRN 02/16/21 02/16/21 Unknown History ytnrnwqnh-atdhwjzk-vmazyck ala 1 tab PO DAILY 02/16/21 02/16/21 02/16/21 History [Biktarvy] bupropion HCl 300 mg PO DAILY 02/16/21 02/16/21 02/16/21 History clonazepam 1 mg PO TID 02/16/21 02/16/21 02/16/21 History duloxetine 30 mg PO DAILY 02/16/21 02/16/21 02/16/21 History duloxetine 60 mg PO DAILY 02/16/21 02/16/21 02/16/21 History gabapentin 400 mg PO TID 02/16/21 02/16/21 02/16/21 History melatonin 3 mg PO BEDTIME 02/16/21 02/16/21 02/15/21 History omeprazole 20 mg PO DAILY@0630 02/16/21 02/16/21 02/16/21 History prazosin 2 mg PO BEDTIME 02/16/21 02/16/21 02/15/21 History quetiapine [Seroquel] 300 mg PO BEDTIME 02/16/21 02/16/21 02/15/21 History sofosbuvir-velpatasvir 1 tab PO DAILY 02/16/21 02/16/21 02/16/21 History trazodone 100 - 200 mg PO BEDTIME PRN 02/16/21 02/16/21 Unknown History ziprasidone HCl 40 mg PO BID 02/16/21 02/16/21 02/16/21 History Exam Exam Date and Time: February 17, 2021 09 Height,Weight and Vital Signs: Height 5 ft 3 in Weight 108.862 kg Last Vital Signs Temp 97.6 F 02/17/21 09:05 Pulse 91 02/17/21 09:05 Resp 20 02/17/21 09:05 BP 109/66 02/17/21 09:05 Pulse Ox 90 L 02/17/21 09:05 Pertinent Lab Results Pertinent Lab Results: Laboratory Tests 02/16/21 02/16/21 02/16/21 12:48 12:48 12:48 WBC 3.3 L RBC 2.60 L Hgb 6.3 L* Hct 22.1 L MCV 85.0 MCH 24.2 L MCHC 28.5 L RDW 14.3 Plt Count 225 MPV Not Reportable Immature Gran % (Auto) 0.3 Neut % (Auto) 59.3 Lymph % (Auto) 25.7 [place] % (Auto) 10.2 Eos % (Auto) 3.3 Baso % (Auto) 1.2 Lymph # (Auto) 0.9 L [place] # (Auto) 0.3 Eos # (Auto) 0.1 Baso # (Auto) 0.0 Abs Immat Gran (auto) 0.01 Absolute Neuts (auto) 2.0 Absolute Nucleated RBC 0.020 H Nucleated RBC % (auto) 0.6 H Smear Tech's Comments VERIFIED PT INR APTT Sodium 137 Potassium 4.0 Chloride 103 Carbon Dioxide 27 Anion Gap 11 L BUN 14 Creatinine 0.94 Estim Creat Clear Calc 81.9 Estimated GFR > 60 Random Glucose 115 Calcium 8.7 Troponin I High Sens < 3.5 B-Natriuretic Peptide 26 Lipase 38 Urine Color Urine Appearance Urine pH Ur Specific [place] Urine Protein Urine Glucose (UA) Urine Ketones Urine Blood Urine Nitrite Ur Leukocyte Esterase Stool Occult Blood COVID-19 (ELSI) COVID-19 Clin Com Blood Type Antibody Screen Antibody Identification Crossmatch Crossmatch ([facility]) Blood Bank Comment 02/16/21 02/16/21 02/16/21 12:48 12:49 13:13 WBC RBC Hgb Hct MCV MCH MCHC RDW Plt Count MPV Immature Gran % (Auto) Neut % (Auto) Lymph % (Auto) [place] % (Auto) Eos % (Auto) Baso % (Auto) Lymph # (Auto) [place] # (Auto) Eos # (Auto) Baso # (Auto) Abs Immat Gran (auto) Absolute Neuts (auto) Absolute Nucleated RBC Nucleated RBC % (auto) Smear Tech's Comments PT 11.2 INR 0.9 APTT 24.7 Sodium Potassium Chloride Carbon Dioxide Anion Gap BUN Creatinine Estim Creat Clear Calc Estimated GFR Random Glucose Calcium Troponin I High Sens B-Natriuretic Peptide Lipase Urine Color Urine Appearance Urine pH Ur Specific [place] Urine Protein Urine Glucose (UA) Urine Ketones Urine Blood Urine Nitrite Ur Leukocyte Esterase Stool Occult Blood POSITIVE COVID-19 (ELSI) Negative COVID-[facility] Com See Note Blood Type Antibody Screen Antibody Identification Crossmatch Crossmatch ([facility]) Blood Bank Comment 02/16/21 02/16/21 02/17/21 14:59 15:57 07:56 WBC 3.5 L RBC 2.75 L Hgb 7.0 L* Hct 23.8 L MCV 86.5 MCH 25.5 L MCHC 29.4 L RDW 15.1 Plt Count 213 MPV 10.2 Immature Gran % (Auto) Neut % (Auto) Lymph % (Auto) [place] % (Auto) Eos % (Auto) Baso % (Auto) Lymph # (Auto) [place] # (Auto) Eos # (Auto) Baso # (Auto) Abs Immat Gran (auto) Absolute Neuts (auto) Absolute Nucleated RBC 0.020 H Nucleated RBC % (auto) 0.6 H Smear Tech's Comments PT INR APTT Sodium Potassium Chloride Carbon Dioxide Anion Gap BUN Creatinine Estim Creat Clear Calc Estimated GFR Random Glucose Calcium Troponin I High Sens B-Natriuretic Peptide Lipase Urine Color YELLOW Urine Appearance CLEAR Urine pH 6.0 Ur Specific [place] 1.025 Urine Protein NEG Urine Glucose (UA) NEG Urine Ketones NEG Urine Blood NEG Urine Nitrite NEG Ur Leukocyte Esterase NEG Stool Occult Blood COVID-19 ([facility]SI) COVID-[facility] Com Blood Type O Positive Antibody Screen POSITIVE Antibody Identification Anti-c Crossmatch See Detail Crossmatch ([facility]) See Detail Blood Bank Comment Technical Airway Mallampati Class: II TM Dist: >3cm Neck ROM: Full Loose/Missing/Broken Teeth: No Heart: RRR Lungs: CTA Assessment and Plan Assessment Anesthesia Assessment: Anesthesia Plan Discussed and Chart Reviewed Final Anesthetic Review NPO: Yes ASA Class: III Final Preanesthetic Review: Meds/Allgs Chart Reviewed, Consent Obtained/Reviewed and Anes Risks/Benef Reviewed Patient Risk: Intermediate Procedure Risk: Intermediate Anesthetic Plan Anesthetic Plan: MAC: Disposition: Standard PACU
[2021-02-17] MEDS: Lactated Ringers 1,000 ML 50 ML IV ×2 (09:45→22:12)
--- NOTE | 2021-02-17 09:51 | P.BOP_ITS ---
Brief Operative Note Date of Service: 02/17/21 Procedure: FLEXIBLE TRANSORAL UPPER GASTROINTESTINAL ENDOSCOPY Consent: Indications for the procedure and potential complications of bleeding, perforation, reaction to medications and missed diagnosis were discussed with the patient and informed consent was obtained. Instrument: Olympus GIF H 190 mid size upper endoscope Monitoring: Vital signs and clinical assessment, continuous EKG monitoring, Pulse oximetry, Carbon Dioxide monitoring and blood pressure monitoring were done throughout the procedure. Procedure: The patient was placed in the left lateral decubitis position and pre-procedure medications were administered and a bite block was placed. The endoscope was inserted into the mouth and advanced under direct vision to the third part of duodenum. A careful inspection was made as the upper endoscope was withdrawn including a retroflexed examination of the proximal stomach; Findings and interventions are described below. Findings: Larynx: Esophagus: GE junction at []. No esophagitis or Mtz Stomach: Mild gastric erythema. Biopsies were obtained. Grade 2 flap valve on retroflexed examination of the cardia. Duodenum: Normal bulb and descending duodenum Intervention: Biopsies as noted above Impression and Post Procedure Diagnosis: Endoscopy Findings: LARYNX: [] ESOPHAGUS: [] STOMACH: [] DUODENUM: [] Plan: Await pathology results Patient has an appointment on []in the GI Clinic with [RONEN Hawk] [Shannon Marie NP] [Alena Martinez M.D.]-. Above findings were reviewed with the patient and [GERD] and [Gastritis] handouts were given in the discharge area Surgeon: Alena Martinez MD Was an Cemetery Keeper used for this Procedure?: No
--- NOTE | 2021-02-17 09:52 | MHC.SHP ---
Pre-Procedural Eval Section A The patient is an INPATIENT: Yes Changes since office visit: Yes New Medical Problems, Yes Changes in Medication and Yes Patient answered all questions; No Cold of Flu in the past 2 weeks The History & Physical has been completed within 30 days and I have reviewed it.: Yes Section B Chief Complaint: GIB, ACUTE BLOOD LOSS ANEMIA Allergies: Allergies Allergy/AdvReac Type Severity Reaction Status Date / Time Penicillins [PENICILLINS] Allergy Unknown SOB/HIVES Verified 02/16/21 13:05 codeine AdvReac Nausea and Verified 02/16/21 13:05 Vomiting ketorolac [From Toradol] AdvReac Nausea and Verified 02/16/21 13:05 Vomiting Plan I have reviewed the history and physical and performed a pertinent physical examination on my patient. No changes have occurred unless specified.
--- NOTE | 2021-02-17 10:00 | PC.NURSE ---
DR Schroeder reviewed. no blood tx from her at this time/hospitalist to handle. resp tx rec. sats 90-93 room air. asthma/copd. lungs little better after treatment per Dr. Schroeder decision with DR. Martinez to postpone at this time until lung sounds are better.
--- NOTE | 2021-02-17 10:09 | HO.ANESPROP2 ---
COUNTS INCLUDE 234 BEDS AT THE [facility] Past Medical History Medical History Anemia Anxiety Asthma Bipolar 1 disorder Cholecystectomy planned COPD (chronic obstructive pulmonary disease) Gastric reflux Hepatitis C HIV (human immunodeficiency virus infection) Morbid (severe) obesity due to excess calories PTSD (post-traumatic stress disorder) Surgical History Surgical History Hx of cholecystectomy Social History Social History Household Members: None Housing: Other Housing Other:: [facility] residential program. Do you presently have visiting nurse or other home services: No Smoking Status: Current some day smoker Tobacco Type: Cigarette Packs Per Day: 0.5 Cigarettes Per Day: 10.0 Years Smoked: 20 Smoked in Last 30 Days: Yes Patient Interested in Nicotine Replacement: No Patient Given Instructions on How to Stop Smoking: No (refused) Second Hand Smoke Exposure: No Use of substances other than those prescribed or required for medical reasons: No Currently Displaying Signs/Symptoms of Drug Intoxication Withdrawal: No Any prior treatment program specific to substance use: Yes Have you been hit, kicked, punched, or otherwise hurt by someone within the past year? If so, by whom?: No Do you feel safe in your current relationship?: No Current Relationship Is there a partner from a previous relationship who is making you feel unsafe now?: No Are you made to feel afraid or neglected: No Spiritual Healthcare Practices: no Zoroastrianism Healthcare Practices: no Cultural Healthcare Practices: no Are you DNR?: No Advance Directives: No Advance Directives Information Provided: Yes Do you have thoughts of harming others: None Do you have a plan to hurt others: No Plan Recently lost weight without trying: No Nutrition Risks: No Nutritional Risk Patient : No : No Poor oral hygiene: No service: No Current occupational status: disabled Meds Allergies Allergy/AdvReac Type Severity Reaction Status Date / Time Penicillins [PENICILLINS] Allergy Unknown SOB/HIVES Verified 02/16/21 13:05 codeine AdvReac Nausea and Verified 02/16/21 13:05 Vomiting ketorolac [From Toradol] AdvReac Nausea and Verified 02/16/21 13:05 Vomiting Home Medications Medication Instructions Recorded Confirmed Last Taken Type albuterol sulfate 2 puff INHALATION Q4H PRN 02/16/21 02/16/21 Unknown History asveqkpms-bokpibvl-kaiwgvb ala 1 tab PO DAILY 02/16/21 02/16/21 02/16/21 History [Biktarvy] bupropion HCl 300 mg PO DAILY 02/16/21 02/16/21 02/16/21 History clonazepam 1 mg PO TID 02/16/21 02/16/21 02/16/21 History duloxetine 30 mg PO DAILY 02/16/21 02/16/21 02/16/21 History duloxetine 60 mg PO DAILY 02/16/21 02/16/21 02/16/21 History gabapentin 400 mg PO TID 02/16/21 02/16/21 02/16/21 History melatonin 3 mg PO BEDTIME 02/16/21 02/16/21 02/15/21 History omeprazole 20 mg PO DAILY@0630 02/16/21 02/16/21 02/16/21 History prazosin 2 mg PO BEDTIME 02/16/21 02/16/21 02/15/21 History quetiapine [Seroquel] 300 mg PO BEDTIME 02/16/21 02/16/21 02/15/21 History sofosbuvir-velpatasvir 1 tab PO DAILY 02/16/21 02/16/21 02/16/21 History trazodone 100 - 200 mg PO BEDTIME PRN 02/16/21 02/16/21 Unknown History ziprasidone HCl 40 mg PO BID 02/16/21 02/16/21 02/16/21 History Exam Airway Mallampati Class: II TM Dist: >3cm Neck ROM: Full Heart: RRR Lungs: CTA Assessment and Plan Assessment Anesthesia Assessment: Anesthesia Plan Discussed and Chart Reviewed Final Anesthetic Review NPO: Yes (Sip water with meds) ASA Class: III Final Preanesthetic Review: No Changes in Pt Med Stat and Consent Obtained/Reviewed Patient Risk: Intermediate Procedure Risk: Intermediate Anesthetic Plan Anesthetic Plan: MAC: Disposition: Standard PACU
--- NOTE | 2021-02-17 11:28 | MHC.CM.PN ---
PER HOSPITALIST ROUNDS, PATIENT WAS SCHEDULED FOR A COLONOSCOPY/EGD, BUT IT WAS CANCELLED FOR TODAY SECONDARY TO PATIENT WHEEZING. ATTEMPT TO BE MADE TOMORROW (02/18/21)
--- NOTE | 2021-02-17 11:45 | HO.PM.IMPN ---
Subjective Subjective Date of Service: 02/17/21 Interval History: Seen in f/u for gib, acute blood loss anemia. Went down for EGD/colo but was cancelled because she was wheezing no further report of rectal bleeding, Review of Systems Gen: no fever Resp: no sob, no cough, wheeze CV: no chest, no PICKETT, no leg edema GI: No n/v, no abd pain Neuro: No confusion Physical Exam Vital Signs: Vital Signs: Last Vital Signs Temp 97.6 F 02/17/21 09:05 Pulse 91 02/17/21 09:05 Resp 20 02/17/21 09:05 BP 109/66 02/17/21 09:05 Pulse Ox 90 L 02/17/21 09:05 Body Mass Index 42.5 Constitutional Awake and Alert, No apparent distress Neck Supple, No lymphadenopathy Cardiovascular RRR, No M/R/G, S1 S2, No S3 S4, No pedal edema Respiratory wheezes, no acessory Gastrointestinal Non tender, Non-distended Skin No rash Neurological Alert & oriented x3 Psychological Appropriate affect Objective Data Current Medications Generic Name Dose Route Start Last Admin Trade Name Freq PRN Reason Stop Dose Admin Albuterol Sulfate 2 puff 02/16/21 18:12 Albuterol Sulfate 90 Mcg 8 Gm Inhaler INHALE Q4H PRN Respiratory Distress Albuterol/Ipratropium 3 ml 02/17/21 12:00 Albuterol/Iprat 2.5/0.5mg 3 Ml Ampul.Neb INHALE RQ4H WHILE AWAKE GEOVANNA Bictegravir/Emtricitabine/Tenofovir 1 tab 02/17/21 09:00 02/17/21 08:18 Bictegrav/Emtricit/Tenofov Ala 1 Tab Tablet PO 1 tab DAILY GEOVANNA Administration Bupropion HCl 300 mg 02/17/21 09:00 02/17/21 08:18 Bupropion Hcl Xl 300 Mg Tab.Er.24h PO 300 mg DAILY GEOVANNA Administration Clonazepam 1 mg 02/16/21 21:00 02/17/21 08:18 Clonazepam 1 Mg Tablet PO 1 mg TID GEOVANNA Administration Duloxetine HCl 30 mg 02/17/21 09:00 02/17/21 08:18 Duloxetine Hcl 30 Mg Capsule.Dr PO 30 mg DAILY GEOVANNA Administration Duloxetine HCl 60 mg 02/17/21 09:00 02/17/21 08:18 Duloxetine Hcl 60 Mg Capsule. PO 60 mg DAILY GEOVANNA Administration Gabapentin 400 mg 02/16/21 21:00 02/17/21 08:18 Gabapentin 400 Mg Capsule PO 400 mg TID GEOVANNA Administration Lactated Ringer's 1,000 mls @ 50 mls/hr 02/17/21 10:00 02/17/21 09:45 Lr IV 50 mls/hr .Q20H GEOVANNA Administration Melatonin 3 mg 02/16/21 21:00 02/16/21 20:05 Melatonin 3 Mg Tablet PO 3 mg BEDTIME GEOVANNA Administration Non-Formulary Medication 1 tab 02/17/21 09:00 Sofosbuvir-Velpatasvir PO DAILY GEOVANNA Omeprazole 20 mg 02/17/21 06:30 Omeprazole 20 Mg Capsule. PO DAILY@0630 [facility] Pantoprazole Sodium 40 mg 02/16/21 16:00 02/17/21 06:15 Pantoprazole Sodium 40 Mg/10 Ml Vial IVPUSH 40 mg DAILY@0630 [facility] Administration Pharmacy Consult 1 each 02/16/21 11:46 Consult Rx Perform Med Rec MISCELLANE ONCE PRN Consult order Prazosin HCl 2 mg 02/16/21 21:00 02/16/21 20:04 Prazosin Hcl 1 Mg Capsule PO 2 mg BEDTIME GEOVANNA Administration Protocol Quetiapine Fumarate 300 mg 02/16/21 21:00 02/16/21 20:04 Quetiapine Fumarate 300 Mg Tablet PO 300 mg BEDTIME GEOVANNA Administration Sodium Chloride 3 ml 02/16/21 18:12 02/17/21 08:19 0.9 % Sodium Chloride Flush 3 Ml Syringe IVFLUSH 3 ml QSHIFT GEOVANNA Administration Tramadol HCl 50 mg 02/16/21 17:17 02/17/21 08:18 Tramadol Hcl 50 Mg Tablet PO 50 mg Q6H PRN Administration Pain, Severe (Pain Scale 7-10) Trazodone HCl 100 - 200 mg 02/16/21 18:12 Trazodone Hcl 100 Mg Tablet PO BEDTIME PRN Sleep Ziprasidone 40 mg 02/16/21 21:00 02/17/21 08:18 Ziprasidone 40 Mg Capsule PO 40 mg BID GEOVANNA Administration Labs CBC & Chem 7: 02/17/21 07:56 02/16/21 12:48 Assessment and Plan (1) HIV (human immunodeficiency virus infection): Status: Inactive (2) Acute blood loss anemia: Status: Acute (3) Anemia: Status: Acute (4) Melena: Status: Acute (5) Asthma with exacerbation: Status: Acute (6) COPD (chronic obstructive pulmonary disease): Status: Acute Assessment and Plan: 55-year-old female patient with a past medical history of chronic anemia, asthma/COPD, GERD, HIV, hep C here with Melana, acute blood loss anemia Acute blood loss anemia/Melana. Hemodynamically stable. H/H went up slighly after transfusion with 1 unit Transfuse 1 more unit Esophagitis with gastritis (K29.70): Recent EGD suggestive of grade B esophagitis. IV ppi COPD mixed type (J44.9): now with exacerbtion, sukhwinder, consider iv steroid Hepatitis C (B19.20): Continue her home medication sofosbuvir/velpatasvir HIV infection (B20): Continue her on Biktarvy MDD (major depressive disorder) (F32.9)/PTSD--continue home medication. Morbid obesity--weight loss advice through exercise and diet watch and DVT prophylaxis; no heparin or Lovenox. Compression device
[2021-02-17] MEDS: Albuterol Sulfate (0.083%) 2.5 MG/3 ML VIAL.NEB INHALE (14:11)
[2021-02-17] MEDS: Albuterol/Iprat 2.5/0.5MG 3 ML AMPUL.NEB INHALE ×2 (16:07→20:30)
[2021-02-17] MEDS: Prazosin HCL 1 MG CAPSULE 2 MG PO (20:02)
[2021-02-17] MEDS: QUEtiapine Fumarate 300 MG TABLET PO (20:03)
[2021-02-17] MEDS: Melatonin 3 MG TABLET PO (20:03)
[2021-02-17] MEDS: traZODone HCL 100 MG TABLET PO (20:03)
[2021-02-17] MEDS: Lactated Ringers 1,000 ML 50 ML IVCONT (22:30)
[2021-02-18] VITALS (7 sets, daily range): BP systolic 99–148; BP diastolic 61–93; PULSE 79–92; RESP 16–22; TEMP 36.1–36.9; O2SAT 94–100
--- NOTE | 2021-02-18 02:27 | PC.NURSE ---
Addendum entered by Sharon Ontiveros RN 02/18/21 03:19: TO CONTINUE WITH PREVIOUS NOTE CONCERNING BLOOD TRANSFUSIONS ON THIS PT, AFTER TALKING WITH NSG SHIFT MANAGER AND THE WAY ORDER PRESENTS, WENT DOWN TO LAB AT 0315 AND SPOKE WITH CANDIS TO CLARIFY PREVIOUS LAB CALL AND SHE STATED NO FURTHER UNITS FOR NOW, PT HAS DIFFERENT ANTIBODIES AND EXTRA UNITS WERE ORDERED FROM [facility]ICULT TO GET IF NEEDED AGAIN. SHE FURTHER STATED SOMETHING ABOUT THEIR CODING SYSTEM TO HAVE THE ORDER LOOK READY . NSG SHIFT MANAGER AND MD UPDATED Original Note: NOTED WITH THIS PATIENT DURING NURSE TO NURSE REPORT AT 2300 THAT SAID PATIENT RECEIVED 2 UNITS RBC'S ON 12-25 TIME. NOTED FOR BLOOD READY IN TAR SECTION AND WHEN 12-25 RN QUESTIONED ABOUT NEED FOR ADDITIONAL, SHE RESPONDED PATIENT ALL SET, MD JUST WANTED THE 2 UNITS, AND ALSO 7-3 RN HAD ALSO RELAYED THAT SAME MESSAGE. DID PLACE CALL TO LAB TO MAKE SURE AND FEMALE WORKER STATED THAT YES THATS IT FOR NOW AND OTHER UNITS ARE IN WAITING , BUT SHE WOULD LOOK FURTHER AND ALERT THIS CAMERA REPAIRER IF ANY CHANGE. ALSO SENT NOTE TO HOSPITALIST ON DUTY TO READ NOTE AND CLARIFY. MD WROTE BACK WILL DEPEND ON NEXT HGB, AND MADE AWARE TO MD THAT WAS SCHEDULED FOR AM. NURSING SHIFT MANAGER ALSO LOOKED AT ORDERS AND UPDATED. SO OVERALL NO CALL BACK FROM LAB, BLOOD PRODUCTS IN WAITING WILL FOLLOW UP IF ADDITIONAL INFORMATION COMES IN, PRESENTLY NOW 0235
[2021-02-18] MEDS: Pantoprazole Sodium 40 MG/10 ML VIAL IVPUSH (05:54)
[2021-02-18 06:49] LABS: Hematocrit 28.6 % (37-47); Hemoglobin 8.9 g/dl (12.0-16.0); Mean Corpuscular HGB Conc 31.1 g/dl (31.0-35.0); Mean Corpuscular Volume 86.7 fL (80-98); Mean Platelet Volume 10.3 fL (9.4-12.3); NRBC Pct Auto 0.7 /100WBC (0.0-0.2); Platelet Count 201 X10*3/uL (160-400); White Blood Count 3.1 X10*3/uL (4.8-10.8)
[2021-02-18] MEDS: Albuterol/Iprat 2.5/0.5MG 3 ML AMPUL.NEB INHALE (08:19)
[2021-02-18] MEDS: clonazePAM 1 MG TABLET PO (09:52)
[2021-02-18] MEDS: Gabapentin 400 MG CAPSULE PO (09:52)
[2021-02-18] MEDS: DULoxetine HCl 60 MG CAPSULE.DR PO (09:52)
[2021-02-18] MEDS: DULoxetine HCl 30 MG CAPSULE.DR PO (09:52)
[2021-02-18] MEDS: buPROPion HCl XL 300 MG TAB.ER.24H PO (09:52)
--- NOTE | 2021-02-18 11:04 | MHC.SHP ---
Pre-Procedural Eval Section A The patient is an INPATIENT: Yes The History & Physical has been completed within 30 days and I have reviewed it.: Yes Section B Chief Complaint: GIB, ACUTE BLOOD LOSS ANEMIA Allergies: Allergies Allergy/AdvReac Type Severity Reaction Status Date / Time Penicillins [PENICILLINS] Allergy Unknown SOB/HIVES Verified 02/16/21 13:05 codeine AdvReac Nausea and Verified 02/16/21 13:05 Vomiting ketorolac [From Toradol] AdvReac Nausea and Verified 02/16/21 13:05 Vomiting Plan Diagnosis/Plan: Unchanged I have reviewed the history and physical and performed a pertinent physical examination on my patient. No changes have occurred unless specified. EGD with possible push enteroscopy
--- NOTE | 2021-02-18 11:16 | PM.OP ---
Brief Operative Note Date of Service: 02/18/21 Pre-op diagnosis: melena Post-op diagnosis: same Procedure: see op note Surgeon: Ana Paula Gregg MD Anesthesia: MAC Was an Baked And Graphite Inspector used for this Procedure?: No Estimated blood loss (mL): 0 Condition: stable Disposition: PACU
--- NOTE | 2021-02-18 11:16 | W.PM.OPN ---
Operative Note Operative Note Date of Service: 02/18/21 Narrative: Procedure Description: EGD FLEXIBLE TRANSORAL UPPER GASTROINTESTINAL ENDOSCOPY UPPER ENDOSCOPY and push enteroscopy Consent: Indications for the procedure and potential complications of bleeding, perforation, reaction to medications and missed diagnosis were discussed with the patient and informed consent was obtained. Instrument: Olympus GIF H 190 J mid size upper endoscope and pediatric colonoscope Monitoring: Vital signs and clinical assessment, continuous EKG monitoring, Pulse oximetry, Carbon Dioxide monitoring and blood pressure monitoring were done throughout the procedure. Procedure: The patient was placed in the left lateral decubitis position and pre-procedure medications were administered and a bite block was placed. The endoscope was inserted into the mouth and advanced under direct vision to the third part of duodenum. A careful inspection was made as the upper endoscope was withdrawn including a retroflexed examination of the proximal stomach; Findings and interventions are described below. Findings: Larynx:normal Esophagus: GE junction and top of gastric folds at 35 cm, diaphragm hiatus at 40 cm, no varices or esophagitis. Stomach: Normal mucosa. Grade 2 flap valve on retroflexed examination of the cardia. 5 cm sliding hiatal hernia noted. Duodenum: Normal bulb and descending duodenum, large diverticulum noted in second part of proximal duodenum Jejunum: Normal, no blood seen, most distal point reached was marked with Ashly Ink Intervention: none, Ashly ink marking Impression/Findings: hiatal hernia duodenal diverticulum PLAN: o/p capsule endoscopy--can go home if she is stable and HGB is maintained.
--- NOTE | 2021-02-18 12:33 | PM.DS ---
DS: Providers Provider Date of Service: 02/18/21 Date of admission: 02/16/21 15:01 Primary care physician: Raul De La Paz MD Consults: 02/16/21 14:56 Consult to Gastroenterology Routine Consulting Provider: [facility] Reason for consultation: GIB, acute blood loss anemia DS: Diagnosis Discharge Diagnosis (1) Acute blood loss anemia: Status: Acute (2) Melena: Status: Acute (3) Anemia: Status: Acute (4) HIV (human immunodeficiency virus infection): Status: Inactive (5) COPD (chronic obstructive pulmonary disease): Status: Acute DS: Medications Discharge Medications Home Medications: Home Medications Medication Instructions Recorded Confirmed albuterol sulfate 2 puff INHALATION Q4H PRN 02/16/21 02/16/21 hzpokekzd-bpgwyzsm-acnndwl ala 1 tab PO DAILY 02/16/21 02/16/21 [Biktarvy] bupropion HCl 300 mg PO DAILY 02/16/21 02/16/21 clonazepam 1 mg PO TID 02/16/21 02/16/21 duloxetine 30 mg PO DAILY 02/16/21 02/16/21 duloxetine 60 mg PO DAILY 02/16/21 02/16/21 gabapentin 400 mg PO TID 02/16/21 02/16/21 melatonin 3 mg PO BEDTIME 02/16/21 02/16/21 omeprazole 20 mg PO DAILY@0630 02/16/21 02/16/21 prazosin 2 mg PO BEDTIME 02/16/21 02/16/21 quetiapine [Seroquel] 300 mg PO BEDTIME 02/16/21 02/16/21 sofosbuvir-velpatasvir 1 tab PO DAILY 02/16/21 02/16/21 trazodone 100 - 200 mg PO BEDTIME PRN 02/16/21 02/16/21 ziprasidone HCl 40 mg PO BID 02/16/21 02/16/21 DS: Summary Hospital Course Hospital Course: Date of Service: 02/16/21 55-year-old female patient with a past medical history of chronic anemia, asthma/COPD, GERD, HIV, hep C and bipolar disorder who presents here with melana and anemia. She has history of chronic anemia. She underwent EGD on December 04 2020 with finding suggestive of grade B esophagitis. She had colonoscopy on December 08, 2020 with finding of internal hemorrhoids. She received blood transfusion for symptomatic anemia at that time. Today, her hemoglobin is 6.4 and Hematocrit is 22. She is hemodynamically. Hospital course: This patient has history of chronic anemia etiology of which is unclear and has had previous workup at [facility] as stated above with EGD and colonoscopy. She presented yet again with self-report of rectal bleeding and hemoglobin of 6.3. She has been transfused 3 units of RBC and her hemoglobin has significantly improved to 8.9 now, and she has not experienced any bleeding during her hospitalization. She was seen in consultation by Dr. Gregg and he underwent EGD today showing no source of bleed. Dr. Gregg is recommending further testing be done on outpatient basis with a capsule endoscopy. It is of note that she this has some period of a wheezing during hospitalization and was treated with bronchodilators and did not required steroid, she has history of COPD and I will prescribed Albuterol HFA upon discharge. Advised weight loss Time Spent with Patient Time attestation: Total time spent providing and/or coordinating discharge services: Discharge coordination time: Greater than 30 minutes Physical Exam Vital Signs: Vital Signs: Last Vital Signs Temp 97.3 F 02/18/21 12:00 Pulse 79 02/18/21 12:00 Resp 16 02/18/21 12:00 BP 144/85 H 02/18/21 12:00 Pulse Ox 97 02/18/21 12:00 Body Mass Index 42.5 Constitutional Awake and Alert, No apparent distress Neck Supple, No lymphadenopathy Cardiovascular RRR, No M/R/G, S1 S2, No S3 S4, No pedal edema Respiratory Lungs clear, No respiratory distress, no more wheezes Gastrointestinal Non tender, Non-distended Skin No rash Neurological Alert & oriented x3 Psychological Appropriate affect DS: Data Data Completed and Pending Labs on day of discharge: Laboratory Results - last 24 hr 02/16/21 02/18/21 14:59 05:49 WBC 3.1 L RBC 3.30 L Hgb 8.9 L D Hct 28.6 L D MCV 86.7 MCH 27.0 MCHC 31.1 RDW 15.0 Plt Count 201 MPV 10.3 Absolute Nucleated RBC 0.020 H Nucleated RBC % (auto) 0.7 H Blood Type O Positive Antibody Screen POSITIVE Antibody Identification Anti-c Crossmatch See Detail Crossmatch (AHG) See Detail Blood Bank Comment Technical Discharge Plan Discharge Anticipated Discharge Date/Time: 02/18/21 12:24 Patient Disposition: Home, Self-Care Discharge Diagnosis: Acute blood loss anemia, rectal bleed Referrals: Ana Paula Gregg MD [Physician] - 1 Week (follow up on gib and to set) Raul De La Paz MD [Primary Care Provider] - 1 Week Discharge Medications: New albuterol sulfate 90 mcg/actuation HFA aerosol inhaler 2 inh inhalation Q6-8H PRN (Reason: shortness of breath or wheezing) Qty: 18 RF: 0 Continued melatonin 3 mg Tablet 3 mg PO BEDTIME RF: 0 trazodone 100 mg Tablet 100 - 200 mg PO BEDTIME PRN (Reason: Sleep) RF: 0 omeprazole 20 mg Capsule,Delayed Release(Dr/Ec) 20 mg PO DAILY@0630 RF: 0 bupropion HCl 300 mg Tablet Extended Release 24 Hr 300 mg PO DAILY RF: 0 duloxetine 30 mg Capsule,Delayed Release(Dr/Ec) 30 mg PO DAILY RF: 0 duloxetine 60 mg Capsule,Delayed Release(Dr/Ec) 60 mg PO DAILY RF: 0 Biktarvy 50-200-25 mg Tablet 1 tab PO DAILY RF: 0 gabapentin 400 mg Capsule 400 mg PO TID RF: 0 clonazepam 1 mg Tablet 1 mg PO TID RF: 0 prazosin 2 mg Capsule 2 mg PO BEDTIME RF: 0 ziprasidone HCl 40 mg Capsule 40 mg PO BID RF: 0 quetiapine [Seroquel] 300 mg Tablet 300 mg PO BEDTIME RF: 0 albuterol sulfate 90 mcg/actuation Hfa Aerosol Inhaler 2 puff INHALATION Q4H PRN (Reason: Respiratory Distress) RF: 0 sofosbuvir-velpatasvir 400-100 mg Tablet 1 tab PO DAILY RF: 0 Discharge Orders: Discharge Order (Routine); Ordered 02/18/21 Ordered By: Lexx Cohen Diet: advance to usual diet Activity on Discharge: As tolerated Stand Alone Forms: Patient Portal Discharge page Care Plan Goals: Acute on chronic anemia, rectal bleed source not clear and will need a further workup in office Health Concerns: Chronic anemia, COPD Plan of Treatment: Follow-up with has signed for capsule endoscopy Assessment: Same as above.
== END 2021-02-18 14:30 | disposition home or self-care (01) | DRG 244 ==
LOC: HO.ED 14:17 → HO.EDOVER 15:09 → HO.S3 16:25
PROVIDERS: Anesthesiology; Internal Medicine Gastroenterology; Admitting Provider Internal Medicine; Emergency Provider Emergency Medicine; PCP Internal Medicine; Visit Provider Internal Medicine
PROC: 0DJ08ZZ Inspection of Upper Intestinal Tract, Via Natural or Artificial Opening Endoscopic (ICD-10-PCS; CPT 43235; principal; 2021-02-18 14:50)
DX: K57.11 Diverticulosis of small intestine without perforation or abscess with bleeding (principal); D62 Acute posthemorrhagic anemia; J44.1 Chronic obstructive pulmonary disease with (acute) exacerbation; J45.901 Unspecified asthma with (acute) exacerbation; E66.01 Morbid (severe) obesity due to excess calories; Z68.41 Body mass index [BMI] 40.0-44.9, adult; F17.210 Nicotine dependence, cigarettes, uncomplicated; F32.9 Major depressive disorder, single episode, unspecified; F43.10 Post-traumatic stress disorder, unspecified; K44.9 Diaphragmatic hernia without obstruction or gangrene; K21.9 Gastro-esophageal reflux disease without esophagitis; Z71.6 Tobacco abuse counseling; Z21 Asymptomatic human immunodeficiency virus [HIV] infection status; Z20.822 Contact with and (suspected) exposure to COVID-19; Z88.0 Allergy status to penicillin; Z88.5 Allergy status to narcotic agent; Z79.899 Other long term (current) drug therapy
CPT/HCPCS: 36415; 71045; 74176; 80048; 81003; 82272; 83690; 83880; 84484; 85025; 85027; 85060; 85610; 85730; 86850; 86870; 86885; 86900; 86901; 86902; 86920; 86922; 87635; 93005; 94640; 96374; 96375; 99285; 99291; J2270; J2405; P9016

== ENCOUNTER → 2021-03-06 08:15 | Outpatient (BNVA) | payer OTHER, SELFPAY | PROVIDERS: PCP Internal Medicine; Visit Provider Internal Medicine Gastroenterology | DX: D64.9 Anemia, unspecified (principal) | CPT/HCPCS: 91110 ==

== ENCOUNTER 2021-03-17 18:28 | Emergency (ER) | payer OTHER, SELFPAY | END 2021-03-17 20:07 | disposition left against medical advice (07) | PROVIDERS: Emergency Provider Emergency Medicine; PCP Internal Medicine | DX: R42 Dizziness and giddiness (principal) ==

== ENCOUNTER 2021-03-18 08:21 | Inpatient (IN) | payer OTHER, SELFPAY ==
[2021-03-18] VITALS (12 sets, daily range): BP systolic 96–122; BP diastolic 26–98; PULSE 83–104; RESP 16–20; TEMP 36.2–36.7; O2SAT 90–98; BMI 38.2
--- NOTE | ~2021-03-18 | XR_ITS ---
EXAMINATION: XR CHEST CLINICAL INFORMATION: Coffee-ground emesis. COMPARISON: Chest 02/16/2021 TECHNIQUE: Frontal view of the chest was obtained. FINDINGS: No significant abnormality is noted involving the heart, lungs, mediastinum, bony thorax or soft tissues. XR/XR chest 1V IMPRESSION: Unremarkable chest exam. No change from 02/16/2021
--- NOTE | 2021-03-18 09:01 | ECG_ITS ---
Test Reason : DIZZINESS Blood Pressure : / mmHG Vent. Rate : 090 BPM Atrial Rate : 090 BPM P-R Int : 162 ms QRS Dur : 078 ms QT Int : 366 ms P-R-T Axes : 038 030 030 degrees QTc Int : 447 ms Normal sinus rhythm Low voltage QRS Borderline ECG When compared with ECG of 16-FEB-2021 12:13, No significant change was found Referred By: Nga Albarado Electronically Signed By:Daniel Muir
[2021-03-18 09:42] LABS: Glucose Urine UA NEG (NEG); Leukocyte Esterase Urine NEG (NEG); Nitrite Urine NEG (NEG); Urine Blood NEG (NEG); Urine Ketones NEG (NEG); Urine Protein NEG (NEG-TRACE)
[2021-03-18 09:45] LABS: Basophils Percent Auto 1.2 % (0-2); Eosinophils Absolute Auto 0.1 X10*3/uL (0.0-0.4); Eosinophils Percent Auto 2.7 % (0-4); Hematocrit 31.3 % (37-47); Hemoglobin 9.6 g/dl (12.0-16.0); Imm Gran Abs Auto 0.01 X10*3/uL (0.00-0.03); Imm Gran Pct Auto 0.4 % (0.0-0.4); Lymphocytes Absolute Auto 0.8 X10*3/uL (1.2-4.9); Lymphocytes Percent Auto 30.4 % (20-40); MANUAL DIFF FLAG SCAN; Mean Corpuscular HGB Conc 30.7 g/dl (31.0-35.0); Mean Corpuscular Hemoglobin 26.1 pg (27.0-33.0); Mean Corpuscular Volume 85.1 fL (80-98); Monocytes Absolute Auto 0.3 X10*3/uL (0.1-1.2); Monocytes Percent Auto 10.9 % (2-11); Neutrophils Absolute Auto 1.4 X10*3/uL (2.0-8.3); Neutrophils Percent Auto 54.4 % (45-73); PLT CLUMP 1; Red Blood Count 3.68 X10*6/uL (4.20-5.50); Red Cell Distribution Width 16.2 % (11.0-16.0); SCAN SMEAR FLAG 1
[2021-03-18 09:47] LABS: OBS Int Ctl Valid YES; OBS1 NEGATIVE (NEGATIVE)
[2021-03-18 09:48] LABS: Appearance Urine CLEAR; Color Urine YELLOW
[2021-03-18 09:51] LABS: Partial Thromboplastin Time 36.3 SEC (24.1-38.0)
[2021-03-18 10:00] LABS: Lactic Acid 1.2 mmol/L (0.5-2.0)
[2021-03-18 10:02] LABS: COVID-19 Test Negative (Negative); IDNOW Serial# 08D9AD1C
[2021-03-18 10:05] LABS: Amphetamine Screen Urine Not Detected (Not Detect); Barbiturates, Urine Not Detected (Not Detect); Benzodiazepines Screen Urine POSITIVE (Not Detect); Cannabinoid Screen Urine Not Detected (Not Detect); Cocaine Screen Urine Not Detected (Not Detect); Opiate Screen Urine Not Detected (Not Detect); Phencyclidine Screen Urine Not Detected (Not Detect)
[2021-03-18] MEDS: 0.9 % Sodium Chloride 1,000 ML 999 ML IVCONT ×2 (10:11→13:22)
[2021-03-18] MEDS: ondansetron HCL 4 MG/2 ML VIAL IVPUSH ×2 (10:11→15:53)
[2021-03-18] MEDS: Magnesium Hydrox/Alum Hydrox 30 ML ORAL.SUSP PO (10:12)
[2021-03-18] MEDS: Lidocaine HCl Viscous 2 % 15 ML SOLUTION MUCOUS MEM (10:12)
[2021-03-18] MEDS: Famotidine/PF 20 MG/2 ML VIAL IVPUSH (10:12)
[2021-03-18 10:18] LABS: Alanine Aminotransferase 16 U/L (0-31); Albumin Level 4.2 g/dL (3.5-5.0); Alkaline Phosphatase 84 U/L (39-117); Anion Gap 13 (12-20); Aspartate Amino Transferase 26 U/L (5-31); Bilirubin Direct 0.2 mg/dL (0.0-0.5); Bilirubin Total 0.5 mg/dL (0.0-1.0); Blood Urea Nitrogen 10 mg/dL (9-16); Calcium 9.3 mg/dL (8.4-10.2); Carbon Dioxide 27 mmol/L (22-29); Chloride 103 mmol/L (96-108); Creatinine Clr Calc Pharmacy 74.7; Estimated Glomerular Filt Rate > 60; Glucose Random 105 mg/dL (60-115); Lipase 25 U/L (8-78); Magnesium 1.9 mg/dL (1.6-2.6); Sodium 139 mmol/L (135-145)
--- NOTE | 2021-03-18 10:20 | ED.GENADULT ---
HPI - General Adult General Chief complaint: General Medical Stated complaint: weakness, dizziness, abd pain Time Seen by Provider: 03/18/21 08:48 Source: patient Mode of arrival: ambulatory History of Present Illness HPI narrative: 55-year-old female with a past medical history of anemia, anxiety, asthma, bipolar, cholecystectomy, COPD, hepatitis-C, HIV, melena, morbid obesity, PTSD, presenting to the ED complaining of coffee-ground emesis x1 week, upper abdominal pain, and lightheadedness. Reports generalized fatigue. Denies taking anticoagulation. Denies diarrhea, constipation, melena, hematochezia, chest pain, shortness of breath, dysuria/hematuria Of note patient was recently admitted to our facility for anemia/with unknown source of bleeding requiring blood transfusions, prior to this admission was at [place] for similar incidents. Onset (ago): week(s) Related Data Home Medications Medication Instructions Recorded Confirmed Biktarvy 1 tab PO DAILY 02/16/21 03/18/21 albuterol sulfate 2 puff INHALATION Q4H PRN 02/16/21 03/18/21 bupropion HCl 300 mg PO DAILY 02/16/21 03/18/21 clonazepam 1 mg PO TID 02/16/21 03/18/21 duloxetine 30 mg PO DAILY 02/16/21 03/18/21 duloxetine 60 mg PO DAILY 02/16/21 03/18/21 gabapentin 400 mg PO TID 02/16/21 03/18/21 melatonin 3 mg PO BEDTIME 02/16/21 03/18/21 omeprazole 20 mg PO DAILY@0630 02/16/21 03/18/21 prazosin 2 mg PO BEDTIME 02/16/21 03/18/21 quetiapine [Seroquel] 300 mg PO BEDTIME 02/16/21 03/18/21 trazodone 100 - 200 mg PO BEDTIME PRN 02/16/21 03/18/21 ziprasidone HCl 40 mg PO BID 02/16/21 03/18/21 Allergies Allergy/AdvReac Type Severity Reaction Status Date / Time Penicillins [PENICILLINS] Allergy Unknown SOB/HIVES Verified 03/06/21 08:53 codeine AdvReac Nausea and Verified 03/06/21 08:53 Vomiting ketorolac [From Toradol] AdvReac Nausea and Verified 03/06/21 08:53 Vomiting Review of Systems Review of Systems: Constitutional: No Fever, No Chills, + Fatigue, No Malaise ENT/Mouth: No Ear Pain, No sore throat, No Swallowing Difficulty Eyes: No Eye Pain, No Vision Changes Cardiovascular: No Chest Pain, No SOB, No Edema Respiratory: No Cough, No Dyspnea Gastrointestinal: + Nausea, + Vomiting, No Diarrhea, No Constipation, + Abdominal pain, No Hematochezia, No Melena Genitourinary: No Dysuria, No Urinary Frequency, No Hematuria Musculoskeletal: No joint pain, No Myalgias, No Joint Swelling Skin: No Skin Lesions, No rash Neuro: No Weakness, No Numbness, No Paresthesias, + Lightheadedness, No Headache Yes all other systems are reviewed and are negative [facility] Past Medical History Attestation statement: The following information was validated with the patient. Medical History Anemia Anemia Anxiety Asthma Bipolar 1 disorder Cholecystectomy planned COPD (chronic obstructive pulmonary disease) COPD (chronic obstructive pulmonary disease) Gastric reflux Hepatitis C HIV (human immunodeficiency virus infection) Melena Morbid (severe) obesity due to excess calories PTSD (post-traumatic stress disorder) Surgical History Hx of cholecystectomy Social History Social History Household Members: None Housing: Other Housing Other:: [facility] residential program. Do you presently have visiting nurse or other home services: No Alcohol intake: never Patient Tobacco Use Status: Current everyday Tobacco user Cigarette Packs Per Day: 0.5 Cigarettes Per Day: 10.0 Years Smoked: 20 Second Hand Smoke Exposure: No Use of substances other than those prescribed or required for medical reasons: No Advance Directives: Yes Advance Directives Information Provided: Yes Advance Directives on File: No Patient : No service: No Current occupational status: disabled Physical Exam Vital Signs: Vital Signs: Last Vital Signs Temp 98.0 F 03/18/21 14:06 Pulse 93 03/18/21 14:06 Resp 17 03/18/21 14:06 BP 116/63 03/18/21 14:06 Pulse Ox 96 06/02/21 14:06 Body Mass Index 38.2 Const: General: cooperative, healthy appearing and no acute distress Orientation/consciousness: patient oriented x3 Limitations: no limitations HENMT: Head: Yes normal to inspection Ears: hearing grossly normal bilaterally General nose exam: Normal external nose present Face and sinus: Yes normal facial exam Eyes: General: appearance normal, both eyes and all related structures EOM: EOMs intact bilaterally Neck: Neck: Yes normal visual inspection Resp: Effort & Inspection: normal respiratory effort Auscultation: clear to auscultation bilaterally, no rales, no rhonchi and wheezes expiratory wheezes and lower bilaterally Cardio: Rate: regular rate Heart sounds: S1 normal heart sound present and S2 normal heart sound present GI: Inspection: Yes normal to inspection Palpation (GI): Soft to palpation, Tenderness to palpation present (GI) in the epigastrum, no guarding and not rigid Rectal Exam - Female: heme negative stool : General: Yes no CVA tenderness Back/Spine/Pelvis: Back: no CVA tenderness Skin: Rashes: no rashes Wounds: no wounds Neuro: General: patient oriented x3 Gait exam (Neuro): Normal gait present Extrem: General: Yes normal to inspection Course Course Course Narrative: -chronic leukopenia 2.6, H&H better than baseline with a hemoglobin 9.6/31.3, occult stool negative >> due to patient's symptoms will obtain 4 hour repeat -labs otherwise unremarkable XR chest 1V IMPRESSION: Unremarkable chest exam. No change from 02/16/2021 -1432--H&H to a slight drop to 8.8/29.2 after about 1.5L IVF. Case discussed with patient's GI MD Marysol who recommended admission for EGD tomorrow. Patient will be NPO -1500--patient admitted to hospitalist team for further management Medical Decision Making MDM Narrative Medical decision making narrative: 55-year-old female with a past medical history of anemia, anxiety, asthma, bipolar, cholecystectomy, COPD, hepatitis-C, HIV, melena, morbid obesity, PTSD, presenting to the ED complaining of coffee-ground emesis x1 week, upper abdominal pain, and lightheadedness. On exam VSS, NAD, nontoxic, abdomen soft with epigastric TTP, no melena/red stool on rectal. Concern for UGIB vs occult GIB vs anemia. Rule out metabolic/infectious etiology. Low concern for, appendicitis, diverticulitis Plan: EKG, labs, UA, IVF, occult stool, reassessed. Will refrain from repeat CT at this time as patient recently with CT due to similar symptoms both at [facility] and [place] that were unremarkable Lab Data Result diagrams: 03/18/21 13:56 03/18/21 09:29 Labs: Lab Results 03/18/21 03/18/21 03/18/21 Range/Units 09:19 09:19 09:20 WBC (4.8-10.8) X10*3/uL RBC (4.20-5.50) X10*6/uL Hgb (12.0-16.0) g/dl Hct (37-47) % MCV (80-98) fL MCH (27.0-33.0) pg MCHC (31.0-35.0) g/dl RDW (11.0-16.0) % Plt Count MPV Immature Gran % (Auto) (0.0-0.4) % Neut % (Auto) (45-73) % Lymph % (Auto) (20-40) % [place] % (Auto) (2-11) % Eos % (Auto) (0-4) % Baso % (Auto) (0-2) % Lymph # (Auto) (1.2-4.9) X10*3/uL [place] # (Auto) (0.1-1.2) X10*3/uL Eos # (Auto) (0.0-0.4) X10*3/uL Baso # (Auto) (0.0-0.2) X10*3/uL Abs Immat Gran (auto) (0.00-0.03) X10*3/uL Absolute Neuts (auto) (2.0-8.3) X10*3/uL Absolute Nucleated RBC (0.0-0.012) X10*3/uL Nucleated RBC % (auto) (0.0-0.2) /100WBC Smear Tech's Comments PT (10.8-13.0) SEC INR (0.9-1.1) APTT (24.1-38.0) SEC Sodium (135-145) mmol/L Potassium (3.3-5.1) mmol/L Chloride (96-108) mmol/L Carbon Dioxide (22-29) mmol/L Anion Gap (12-20) BUN (9-16) mg/dL Creatinine (0.5-1.4) mg/dL Estim Creat Clear Calc Estimated GFR Random Glucose (60-115) mg/dL Lactic Acid (0.5-2.0) mmol/L Calcium (8.4-10.2) mg/dL Magnesium (1.6-2.6) mg/dL Total Bilirubin (0.0-1.0) mg/dL Direct Bilirubin (0.0-0.5) mg/dL AST (5-31) U/L ALT (0-31) U/L Alkaline Phosphatase (39-117) U/L Troponin I High Sens (<3.5-17.0) ng/L Total Protein (6.5-8.0) g/dL Albumin (3.5-5.0) g/dL Lipase (8-78) U/L Urine Color YELLOW Urine Appearance CLEAR Urine pH 6.0 (5.0-8.0) Ur Specific [place] 1.010 (1.005-1.025) Urine Protein NEG (NEG-TRACE) MG/DL Urine Glucose (UA) NEG (NEG) MG/DL Urine Ketones NEG (NEG) MG/DL Urine Blood NEG (NEG) Urine Nitrite NEG (NEG) Ur Leukocyte Esterase NEG (NEG) Stool Occult Blood (NEGATIVE) Urine Opiates Screen Not Detected (Not Detect) Ur Barbiturates Screen Not Detected (Not Detect) Ur Phencyclidine Scrn Not Detected (Not Detect) Ur Amphetamines Screen Not Detected (Not Detect) U Benzodiazepines Scrn POSITIVE H (Not Detect) Urine Cocaine Screen Not Detected (Not Detect) U Marijuana (THC) Screen Not Detected (Not Detect) COVID-19 (ELSI) Negative (Negative) COVID-19 Clin Com See Note Blood Type Antibody Screen Antibody Identification Crossmatch (AHG) 03/18/21 03/18/21 03/18/21 Range/Units 09:29 09:29 09:29 WBC 2.6 L (4.8-10.8) X10*3/uL RBC 3.68 L (4.20-5.50) X10*6/uL Hgb 9.6 L (12.0-16.0) g/dl Hct 31.3 L (37-47) % MCV 85.1 (80-98) fL MCH 26.1 L (27.0-33.0) pg MCHC 30.7 L (31.0-35.0) g/dl RDW 16.2 H (11.0-16.0) % Plt Count TNP MPV TNP Immature Gran % (Auto) 0.4 (0.0-0.4) % Neut % (Auto) 54.4 (45-73) % Lymph % (Auto) 30.4 (20-40) % [place] % (Auto) 10.9 (2-11) % Eos % (Auto) 2.7 (0-4) % Baso % (Auto) 1.2 (0-2) % Lymph # (Auto) 0.8 L (1.2-4.9) X10*3/uL [place] # (Auto) 0.3 (0.1-1.2) X10*3/uL Eos # (Auto) 0.1 (0.0-0.4) X10*3/uL Baso # (Auto) 0.0 (0.0-0.2) X10*3/uL Abs Immat Gran (auto) 0.01 (0.00-0.03) X10*3/uL Absolute Neuts (auto) 1.4 L (2.0-8.3) X10*3/uL Absolute Nucleated RBC 0.000 (0.0-0.012) X10*3/uL Nucleated RBC % (auto) 0.0 (0.0-0.2) /100WBC Smear Tech's Comments VERIFIED PT 12.0 (10.8-13.0) SEC INR 1.0 (0.9-1.1) APTT 36.3 D (24.1-38.0) SEC Sodium 139 (135-145) mmol/L Potassium 4.0 (3.3-5.1) mmol/L Chloride 103 (96-108) mmol/L Carbon Dioxide 27 (22-29) mmol/L Anion Gap 13 (12-20) BUN 10 (9-16) mg/dL Creatinine 0.97 (0.5-1.4) mg/dL Estim Creat Clear Calc 74.7 Estimated GFR > 60 Random Glucose 105 (60-115) mg/dL Lactic Acid (0.5-2.0) mmol/L Calcium 9.3 D (8.4-10.2) mg/dL Magnesium 1.9 (1.6-2.6) mg/dL Total Bilirubin 0.5 (0.0-1.0) mg/dL Direct Bilirubin 0.2 (0.0-0.5) mg/dL AST 26 (5-31) U/L ALT 16 (0-31) U/L Alkaline Phosphatase 84 (39-117) U/L Troponin I High Sens (<3.5-17.0) ng/L Total Protein 7.0 (6.5-8.0) g/dL Albumin 4.2 (3.5-5.0) g/dL Lipase 25 (8-78) U/L Urine Color Urine Appearance Urine pH (5.0-8.0) Ur Specific [place] (1.005-1.025) Urine Protein (NEG-TRACE) MG/DL Urine Glucose (UA) (NEG) MG/DL Urine Ketones (NEG) MG/DL Urine Blood (NEG) Urine Nitrite (NEG) Ur Leukocyte Esterase (NEG) Stool Occult Blood (NEGATIVE) Urine Opiates Screen (Not Detect) Ur Barbiturates Screen (Not Detect) Ur Phencyclidine Scrn (Not Detect) Ur Amphetamines Screen (Not Detect) U Benzodiazepines Scrn (Not Detect) Urine Cocaine Screen (Not Detect) U Marijuana (THC) Screen (Not Detect) COVID-19 (ELSI) (Negative) COVID-19 Clin Com Blood Type Antibody Screen Antibody Identification Crossmatch (AHG) 03/18/21 03/18/21 03/18/21 Range/Units 09:29 09:29 09:29 WBC (4.8-10.8) X10*3/uL RBC (4.20-5.50) X10*6/uL Hgb (12.0-16.0) g/dl Hct (37-47) % MCV (80-98) fL MCH (27.0-33.0) pg MCHC (31.0-35.0) g/dl RDW (11.0-16.0) % Plt Count MPV Immature Gran % (Auto) (0.0-0.4) % Neut % (Auto) (45-73) % Lymph % (Auto) (20-40) % [place] % (Auto) (2-11) % Eos % (Auto) (0-4) % Baso % (Auto) (0-2) % Lymph # (Auto) (1.2-4.9) X10*3/uL [place] # (Auto) (0.1-1.2) X10*3/uL Eos # (Auto) (0.0-0.4) X10*3/uL Baso # (Auto) (0.0-0.2) X10*3/uL Abs Immat Gran (auto) (0.00-0.03) X10*3/uL Absolute Neuts (auto) (2.0-8.3) X10*3/uL Absolute Nucleated RBC (0.0-0.012) X10*3/uL Nucleated RBC % (auto) (0.0-0.2) /100WBC Smear Tech's Comments PT (10.8-13.0) SEC INR (0.9-1.1) APTT (24.1-38.0) SEC Sodium (135-145) mmol/L Potassium (3.3-5.1) mmol/L Chloride (96-108) mmol/L Carbon Dioxide (22-29) mmol/L Anion Gap (12-20) BUN (9-16) mg/dL Creatinine (0.5-1.4) mg/dL Estim Creat Clear Calc Estimated GFR Random Glucose (60-115) mg/dL Lactic Acid 1.2 (0.5-2.0) mmol/L Calcium (8.4-10.2) mg/dL Magnesium (1.6-2.6) mg/dL Total Bilirubin (0.0-1.0) mg/dL Direct Bilirubin (0.0-0.5) mg/dL AST (5-31) U/L ALT (0-31) U/L Alkaline Phosphatase (39-117) U/L Troponin I High Sens < 3.5 (<3.5-17.0) ng/L Total Protein (6.5-8.0) g/dL Albumin (3.5-5.0) g/dL Lipase (8-78) U/L Urine Color Urine Appearance Urine pH (5.0-8.0) Ur Specific [place] (1.005-1.025) Urine Protein (NEG-TRACE) MG/DL Urine Glucose (UA) (NEG) MG/DL Urine Ketones (NEG) MG/DL Urine Blood (NEG) Urine Nitrite (NEG) Ur Leukocyte Esterase (NEG) Stool Occult Blood (NEGATIVE) Urine Opiates Screen (Not Detect) Ur Barbiturates Screen (Not Detect) Ur Phencyclidine Scrn (Not Detect) Ur Amphetamines Screen (Not Detect) U Benzodiazepines Scrn (Not Detect) Urine Cocaine Screen (Not Detect) U Marijuana (THC) Screen (Not Detect) COVID-19 (ELSI) (Negative) COVID-19 Clin Com Blood Type O Positive Antibody Screen POSITIVE Antibody Identification Anti-c Crossmatch (AHG) See Detail 03/18/21 03/18/21 Range/Units 09:35 13:56 WBC 2.7 L (4.8-10.8) X10*3/uL RBC 3.36 L (4.20-5.50) X10*6/uL Hgb 8.8 L (12.0-16.0) g/dl Hct 29.2 L (37-47) % MCV 86.9 (80-98) fL MCH 26.2 L (27.0-33.0) pg MCHC 30.1 L (31.0-35.0) g/dl RDW 16.1 H (11.0-16.0) % Plt Count 145 L D MPV 10.0 Immature Gran % (Auto) 0.4 (0.0-0.4) % Neut % (Auto) 50.9 (45-73) % Lymph % (Auto) 32.5 (20-40) % [place] % (Auto) 11.3 H (2-11) % Eos % (Auto) 3.4 (0-4) % Baso % (Auto) 1.5 (0-2) % Lymph # (Auto) 0.9 L (1.2-4.9) X10*3/uL [place] # (Auto) 0.3 (0.1-1.2) X10*3/uL Eos # (Auto) 0.1 (0.0-0.4) X10*3/uL Baso # (Auto) 0.0 (0.0-0.2) X10*3/uL Abs Immat Gran (auto) 0.01 (0.00-0.03) X10*3/uL Absolute Neuts (auto) 1.4 L (2.0-8.3) X10*3/uL Absolute Nucleated RBC 0.000 (0.0-0.012) X10*3/uL Nucleated RBC % (auto) 0.0 (0.0-0.2) /100WBC Smear Tech's Comments PT (10.8-13.0) SEC INR (0.9-1.1) APTT (24.1-38.0) SEC Sodium (135-145) mmol/L Potassium (3.3-5.1) mmol/L Chloride (96-108) mmol/L Carbon Dioxide (22-29) mmol/L Anion Gap (12-20) BUN (9-16) mg/dL Creatinine (0.5-1.4) mg/dL Estim Creat Clear Calc Estimated GFR Random Glucose (60-115) mg/dL Lactic Acid (0.5-2.0) mmol/L Calcium (8.4-10.2) mg/dL Magnesium (1.6-2.6) mg/dL Total Bilirubin (0.0-1.0) mg/dL Direct Bilirubin (0.0-0.5) mg/dL AST (5-31) U/L ALT (0-31) U/L Alkaline Phosphatase (39-117) U/L Troponin I High Sens (<3.5-17.0) ng/L Total Protein (6.5-8.0) g/dL Albumin (3.5-5.0) g/dL Lipase (8-78) U/L Urine Color Urine Appearance Urine pH (5.0-8.0) Ur Specific [place] (1.005-1.025) Urine Protein (NEG-TRACE) MG/DL Urine Glucose (UA) (NEG) MG/DL Urine Ketones (NEG) MG/DL Urine Blood (NEG) Urine Nitrite (NEG) Ur Leukocyte Esterase (NEG) Stool Occult Blood NEGATIVE (NEGATIVE) Urine Opiates Screen (Not Detect) Ur Barbiturates Screen (Not Detect) Ur Phencyclidine Scrn (Not Detect) Ur Amphetamines Screen (Not Detect) U Benzodiazepines Scrn (Not Detect) Urine Cocaine Screen (Not Detect) U Marijuana (THC) Screen (Not Detect) COVID-19 (ELSI) (Negative) COVID-19 Clin Com Blood Type Antibody Screen Antibody Identification Crossmatch (AHG) Discharge Plan Discharge Clinical Impression: Anemia Qualifiers: Anemia type: unspecified type Qualified Code(s): D64.9 - Anemia, unspecified Patient Disposition: Admitted As Inpatient
[2021-03-18 10:39] LABS: White Blood Count 2.6 X10*3/uL (4.8-10.8)
[2021-03-18 10:41] LABS: SLIDE REVIEW VERIFIED
[2021-03-18] MEDS: Albuterol/Iprat 2.5/0.5MG 3 ML AMPUL.NEB INHALE (10:44)
[2021-03-18 11:30] LABS: Troponin-I High Sensitivity < 3.5 ng/L (<3.5-17.0)
[2021-03-18 14:00] LABS: MANUAL DIFF FLAG NO
[2021-03-18 14:06] LABS: Basophils Percent Auto 1.5 % (0-2); Eosinophils Absolute Auto 0.1 X10*3/uL (0.0-0.4); Eosinophils Percent Auto 3.4 % (0-4); Hematocrit 29.2 % (37-47); Hemoglobin 8.8 g/dl (12.0-16.0); Imm Gran Abs Auto 0.01 X10*3/uL (0.00-0.03); Imm Gran Pct Auto 0.4 % (0.0-0.4); Lymphocytes Absolute Auto 0.9 X10*3/uL (1.2-4.9); Lymphocytes Percent Auto 32.5 % (20-40); Mean Corpuscular HGB Conc 30.1 g/dl (31.0-35.0); Mean Corpuscular Hemoglobin 26.2 pg (27.0-33.0); Mean Corpuscular Volume 86.9 fL (80-98); Monocytes Absolute Auto 0.3 X10*3/uL (0.1-1.2); Monocytes Percent Auto 11.3 % (2-11); Neutrophils Absolute Auto 1.4 X10*3/uL (2.0-8.3); Neutrophils Percent Auto 50.9 % (45-73); Platelet Count 145 X10*3/uL (160-400); Red Blood Count 3.36 X10*6/uL (4.20-5.50); Red Cell Distribution Width 16.1 % (11.0-16.0); White Blood Count 2.7 X10*3/uL (4.8-10.8)
[2021-03-18 15:25] LABS: COVID-19 Test Negative (Negative); IDNOW Serial# 08D9AD1C
[2021-03-18] MEDS: Pantoprazole Sodium 40 MG/10 ML VIAL 80 MG IVPUSH (15:52)
[2021-03-18] MEDS: Pantoprazole Sodium 80 MG in 0.9 % Sodium Chloride 80 ML 10 MG IV ×2 (15:52→20:16)
--- NOTE | 2021-03-18 16:12 | P.HPHOSP_ITS ---
History of Present Illness Date of Service: 03/18/21 Chief Complaint: coffee-ground emesis. 55-year-old female patient with a past medical history of chronic anemia, asthma/COPD, GERD, HIV, hep C and bipolar disorder who presents here with coffee ground emesis per her report. She underwent EGD at [facility] on December 04 2020 with finding suggestive of grade B esophagitis. She had colonoscopy at [facility] on December 08, 2020 with finding of internal hemorrhoids. She was admitted [facility] to 02/18 with melana, anemia that required transfusion for Hgb of 6 and underwent EGD at time by Dr. Gregg and noted to have duodenal diverticula and no bleeding. She had outpatient capsule endoscopy on outpatient basis and found to be unremarkable. She presents today stating that she has been having coffee ground emesis for a week, her H/H is well within he baseline and no such episode noted in the ED. He is getting IV PPI and Dr. Gregg is planing another EGD tomorrow. She is complaining of some stomach pain. There is no air under the diaphram on CXR and seems comfortable and hemodynamically stable without tachycardia. Review of Systems 2 Review of Systems: Gen: no fever Resp: no sob, no cough CV: no chest, no PICKETT, no leg edema GI: + n/v, + abd pain Neuro: No confusion Yes all other systems are reviewed and are negative [facility] Medical History (Updated 03/18/21 @ 16:28 by Lexx Cohen MD) Anemia Anxiety Asthma Bipolar 1 disorder Cholecystectomy planned COPD (chronic obstructive pulmonary disease) COPD (chronic obstructive pulmonary disease) Gastric reflux Hepatitis C HIV (human immunodeficiency virus infection) Melena Morbid (severe) obesity due to excess calories PTSD (post-traumatic stress disorder) Surgical History Hx of cholecystectomy Social History Household Members: None Housing: Other Housing Other:: [facility] residential program. Do you presently have visiting nurse or other home services: No Alcohol intake: never Patient Tobacco Use Status: Current everyday Tobacco user Cigarette Packs Per Day: 0.5 Cigarettes Per Day: 10.0 Years Smoked: 20 Second Hand Smoke Exposure: No Use of substances other than those prescribed or required for medical reasons: No Advance Directives: Yes Advance Directives Information Provided: Yes Advance Directives on File: No Patient : No service: No Current occupational status: disabled Meds Allergies Allergy/AdvReac Type Severity Reaction Status Date / Time Penicillins [PENICILLINS] Allergy Unknown SOB/HIVES Verified 03/06/21 08:53 codeine AdvReac Nausea and Verified 03/06/21 08:53 Vomiting ketorolac [From Toradol] AdvReac Nausea and Verified 03/06/21 08:53 Vomiting Active Medications: Current Medications Generic Name Dose Route Start Last Admin Trade Name Freq PRN Reason Stop Dose Admin Pantoprazole Sodium 80 mg/ 100 mls @ 10 mls/hr 03/18/21 15:45 03/18/21 15:52 Sodium Chloride IV 8 mg/hr .Q10H GEOVANNA 10 mls/hr Administration 8 MG/HR Pharmacy Consult 1 each 03/18/21 08:59 Consult Rx Perform Med Rec MISCELLANE ONCE PRN Consult order Sodium Chloride 3 ml 03/19/21 00:00 0.9 % Sodium Chloride Flush 3 Ml [facility] Medications Medication Instructions Recorded Confirmed Last Taken Type Biktarvy 1 tab PO DAILY 02/16/21 03/18/21 03/18/21 History albuterol sulfate 2 puff INHALATION Q4H PRN 02/16/21 03/18/21 Unknown History bupropion HCl 300 mg PO DAILY 02/16/21 03/18/21 03/18/21 History clonazepam 1 mg PO TID 02/16/21 03/18/21 03/18/21 History duloxetine 30 mg PO DAILY 02/16/21 03/18/21 03/18/21 History duloxetine 60 mg PO DAILY 02/16/21 03/18/21 03/18/21 History gabapentin 400 mg PO TID 02/16/21 03/18/21 03/18/21 History melatonin 3 mg PO BEDTIME 02/16/21 03/18/21 03/17/21 History omeprazole 20 mg PO DAILY@0630 02/16/21 03/18/21 03/18/21 History prazosin 2 mg PO BEDTIME 02/16/21 03/18/21 03/17/21 History quetiapine [Seroquel] 300 mg PO BEDTIME 02/16/21 03/18/21 03/17/21 History trazodone 100 - 200 mg PO BEDTIME PRN 02/16/21 03/18/21 Unknown History ziprasidone HCl 40 mg PO BID 02/16/21 03/18/21 03/18/21 History Physical Exam Vital Signs and Narrative: Vital Signs: Last Vital Signs Temp 98.0 F 03/18/21 14:06 Pulse 88 03/18/21 15:08 Resp 16 03/18/21 15:08 BP 122/69 03/18/21 15:08 Pulse Ox 96 03/18/21 15:08 Body Mass Index 38.2 Const: Other: Constitutional Awake and Alert, No apparent distress Neck Supple, No lymphadenopathy Cardiovascular RRR, No M/R/G, S1 S2, No S3 S4, No pedal edema Respiratory Lungs clear, No respiratory distress Gastrointestinal Non tender, Non-distended, rectal exam deffered Skin No rash Neurological Alert & oriented x3 Psychological Appropriate affect Results Labs CBC and Chem 7: 03/18/21 13:56 03/18/21 09:29 Labs: Laboratory Results - last 24 hr 03/18/21 03/18/21 03/18/21 09:19 09:19 09:20 Hgb MCV MCH MCHC RDW Plt Count MPV Immature Gran % (Auto) Neut % (Auto) Lymph % (Auto) [place] % (Auto) Eos % (Auto) Baso % (Auto) Lymph # (Auto) [place] # (Auto) Eos # (Auto) Baso # (Auto) Abs Immat Gran (auto) Absolute Neuts (auto) Absolute Nucleated RBC Nucleated RBC % (auto) Smear Tech's Comments PT INR APTT Anion Gap Estim Creat Clear Calc Estimated GFR Random Glucose Lactic Acid Calcium Magnesium Total Bilirubin Direct Bilirubin AST ALT Alkaline Phosphatase Troponin I High Sens Total Protein Albumin Lipase Urine Color YELLOW Urine Appearance CLEAR Urine pH 6.0 Ur Specific [place] 1.010 Urine Protein NEG Urine Glucose (UA) NEG Urine Ketones NEG Urine Blood NEG Urine Nitrite NEG Ur Leukocyte Esterase NEG Stool Occult Blood Urine Opiates Screen Not Detected Ur Barbiturates Screen Not Detected Ur Phencyclidine Scrn Not Detected Ur Amphetamines Screen Not Detected U Benzodiazepines Scrn POSITIVE H Urine Cocaine Screen Not Detected U Marijuana (THC) Screen Not Detected COVID-19 (ELSI) Negative COVID-19 Clin Com See Note Blood Type Antibody Screen Antibody Identification Crossmatch ([facility]) 03/18/21 03/18/21 03/18/21 09:29 09:29 09:29 Hgb 9.6 L MCV 85.1 MCH 26.1 L MCHC 30.7 L RDW 16.2 H Plt Count TNP MPV TNP Immature Gran % (Auto) 0.4 Neut % (Auto) 54.4 Lymph % (Auto) 30.4 [place] % (Auto) 10.9 Eos % (Auto) 2.7 Baso % (Auto) 1.2 Lymph # (Auto) 0.8 L [place] # (Auto) 0.3 Eos # (Auto) 0.1 Baso # (Auto) 0.0 Abs Immat Gran (auto) 0.01 Absolute Neuts (auto) 1.4 L Absolute Nucleated RBC 0.000 Nucleated RBC % (auto) 0.0 Smear Tech's Comments VERIFIED PT 12.0 INR 1.0 APTT 36.3 D Anion Gap 13 Estim Creat Clear Calc 74.7 Estimated GFR > 60 Random Glucose 105 Lactic Acid Calcium 9.3 D Magnesium 1.9 Total Bilirubin 0.5 Direct Bilirubin 0.2 AST 26 ALT 16 Alkaline Phosphatase 84 Troponin I High Sens Total Protein 7.0 Albumin 4.2 Lipase 25 Urine Color Urine Appearance Urine pH Ur Specific [place] Urine Protein Urine Glucose (UA) Urine Ketones Urine Blood Urine Nitrite Ur Leukocyte Esterase Stool Occult Blood Urine Opiates Screen Ur Barbiturates Screen Ur Phencyclidine Scrn Ur Amphetamines Screen U Benzodiazepines Scrn Urine Cocaine Screen U Marijuana (THC) Screen COVID-19 ([facility]) COVID-19 Clin Com Blood Type Antibody Screen Antibody Identification Crossmatch ([facility]) 03/18/21 03/18/21 03/18/21 09:29 09:29 09:29 Hgb MCV MCH MCHC RDW Plt Count MPV Immature Gran % (Auto) Neut % (Auto) Lymph % (Auto) [place] % (Auto) Eos % (Auto) Baso % (Auto) Lymph # (Auto) [place] # (Auto) Eos # (Auto) Baso # (Auto) Abs Immat Gran (auto) Absolute Neuts (auto) Absolute Nucleated RBC Nucleated RBC % (auto) Smear Tech's Comments PT INR APTT Anion Gap Estim Creat Clear Calc Estimated GFR Random Glucose Lactic Acid 1.2 Calcium Magnesium Total Bilirubin Direct Bilirubin AST ALT Alkaline Phosphatase Troponin I High Sens < 3.5 Total Protein Albumin Lipase Urine Color Urine Appearance Urine pH Ur Specific [place] Urine Protein Urine Glucose (UA) Urine Ketones Urine Blood Urine Nitrite Ur Leukocyte Esterase Stool Occult Blood Urine Opiates Screen Ur Barbiturates Screen Ur Phencyclidine Scrn Ur Amphetamines Screen U Benzodiazepines Scrn Urine Cocaine Screen U Marijuana (THC) Screen COVID-19 ([facility]SI) COVID-19 Clin Com Blood Type O Positive Antibody Screen POSITIVE Antibody Identification Anti-c Crossmatch ([facility]) See Detail 03/18/21 03/18/21 03/18/21 09:35 13:56 15:04 Hgb 8.8 L MCV 86.9 MCH 26.2 L MCHC 30.1 L RDW 16.1 H Plt Count 145 L D MPV 10.0 Immature Gran % (Auto) 0.4 Neut % (Auto) 50.9 Lymph % (Auto) 32.5 [place] % (Auto) 11.3 H Eos % (Auto) 3.4 Baso % (Auto) 1.5 Lymph # (Auto) 0.9 L [place] # (Auto) 0.3 Eos # (Auto) 0.1 Baso # (Auto) 0.0 Abs Immat Gran (auto) 0.01 Absolute Neuts (auto) 1.4 L Absolute Nucleated RBC 0.000 Nucleated RBC % (auto) 0.0 Smear Tech's Comments PT INR APTT Anion Gap Estim Creat Clear Calc Estimated GFR Random Glucose Lactic Acid Calcium Magnesium Total Bilirubin Direct Bilirubin AST ALT Alkaline Phosphatase Troponin I High Sens Total Protein Albumin Lipase Urine Color Urine Appearance Urine pH Ur Specific [place] Urine Protein Urine Glucose (UA) Urine Ketones Urine Blood Urine Nitrite Ur Leukocyte Esterase Stool Occult Blood NEGATIVE Urine Opiates Screen Ur Barbiturates Screen Ur Phencyclidine Scrn Ur Amphetamines Screen U Benzodiazepines Scrn Urine Cocaine Screen U Marijuana (THC) Screen COVID-19 (ELSI) Negative COVID-19 Clin Com See Note Blood Type Antibody Screen Antibody Identification Crossmatch ([facility]) Imaging Radiologist's Impressions: Impressions Chest X-Ray 03/18/21 09:02 IMPRESSION: Unremarkable chest exam. No change from 02/16/2021 Assessment and Plan (1) Anemia: Qualifiers: Anemia type: unspecified type Qualified Code(s): D64.9 - Anemia, unspec ified Status: Acute (2) Coffee ground emesis: Status: Acute 55-year-old female patient with a past medical history of chronic anemia, asthma/COPD, GERD, HIV, hep C here with coffee ground emesis and chronic anemia Acute on chronic anemia Hemodynamically stable. She has has had multiple work up in the past as stated. Presently would hold transfusion. Treat with IV PPI. EGD planned for tomorrow. Check H/H frequently, avoid ASA, heparin. Transfuse if Hgb < 7, Clear liquid diet and NPO overnight for EGD tomorrow. Esophagitis with gastritis (K29.70): history of esophagitis, PPI COPD mixed type (J44.9): Stable, no exacerbation Hepatitis C (B19.20): Continue her home medication sofosbuvir/velpatasvir HIV infection (B20): Continue her on Biktarvy MDD (major depressive disorder) (F32.9)/PTSD--continue home medication. Morbid obesity--weight loss advice through exercise and diet watch DVT: compression device, Full code
[2021-03-18] MEDS: Gabapentin 400 MG CAPSULE PO (20:25)
[2021-03-18] MEDS: traZODone HCL 100 MG TABLET PO (20:25)
[2021-03-18] MEDS: Ziprasidone 40 MG CAPSULE PO (20:26)
[2021-03-18] MEDS: Melatonin 3 MG TABLET PO (20:26)
[2021-03-18] MEDS: QUEtiapine Fumarate 300 MG TABLET PO (20:26)
[2021-03-18] MEDS: clonazePAM 1 MG TABLET PO (20:26)
[2021-03-18] MEDS: Prazosin HCL 1 MG CAPSULE 2 MG PO (20:27)
--- NOTE | 2021-03-18 23:54 | PM.GICN ---
History of Present Illness Data of Consult Service Date: 03/18/21 Requesting physician: Lexx Cohen Primary Care Provider: Raul De La Paz MD HPI Reason for consult: coffee ground emesis 55-year-old female w hx of chronic anemia, asthma/COPD, GERD, HIV, hep C and bipolar disorder who I am seeing for assessment for coffee ground emesis Patient has had epigastric pain without radiaiton for last several days with nausea and coffee ground emesis. Denies dysphagia, fevers, or chills. no jaundice or dark urine. no constipation or diarrhea. Had been doing ok prior to this, Not been on iron supplement or taking pepto bismuth. Denies taking aspirin or nsaids before today She had EGD 02/2021 for severe anemia and melena with no active bleeding source seen, hiatal hernia was noted with duodenal diverticulum. Capsule endoscopy was also done recently, again no lesions or bleeding was noted. She underwent EGD at [facility] on December 04 2020 with finding suggestive of grade B esophagitis. She had colonoscopy at [facility] on December 08, 2020 with finding of internal hemorrhoids. Labs-chronic anemia- Hgb around 9 g/dl similar to last lab from prior d/c 02/2021 Review of Systems Review of Systems: Constitutional : No Weight loss, No Fever, No Chills ENT/Mouth : No sore throat, No Rhinorrhea Eyes: No Swelling, No Redness Cardiovascular : No Chest Pain, No SOB, No Edema Respiratory : No Cough, No Sputum, No Wheezing Gastrointestinal : see HPI Genitourinary : NO Dysuria, No Urinary Frequency, No Hematuria, No Urgency Musculoskeletal : No joint pain, No Myalgias, No Joint Swelling Skin : No Skin Lesions, No rash Neuro : No Weakness, No Numbness, No Dizziness, No Headache Psych : No Anxiety/Panic, No Depression at this time Heme/Lymph: No Bruising, No Lymphadenopathy Endocrine : No Polyuria, No Polydipsia All other systems reviewed and are negative. [facility] Past Medical History Medical History (Updated 03/18/21 @ 16:28 by Lexx Cohen MD) Anemia Anxiety Asthma Bipolar 1 disorder Cholecystectomy planned COPD (chronic obstructive pulmonary disease) COPD (chronic obstructive pulmonary disease) Gastric reflux Hepatitis C HIV (human immunodeficiency virus infection) Melena Morbid (severe) obesity due to excess calories PTSD (post-traumatic stress disorder) Surgical History Surgical History Hx of cholecystectomy Social History Social History Household Members: None Housing: House Housing Other:: [facility] residential program. Do you presently have visiting nurse or other home services: No Alcohol intake: never Patient Tobacco Use Status: Current everyday Tobacco user Cigarette Packs Per Day: 0.5 Cigarettes Per Day: 10.0 Years Smoked: 20 Smoked in Last 30 Days: Yes Patient Interested in Nicotine Replacement: No Patient Given Instructions on How to Stop Smoking: No Second Hand Smoke Exposure: No Use of substances other than those prescribed or required for medical reasons: No Currently Displaying Signs/Symptoms of Drug Intoxication Withdrawal: No Have you been hit, kicked, punched, or otherwise hurt by someone within the past year? If so, by whom?: No Do you feel safe in your current relationship?: Yes Is there a partner from a previous relationship who is making you feel unsafe now?: No Are you made to feel afraid or neglected: No Advance Directives: Yes Advance Directives Information Provided: Yes Advance Directives on File: No Advance Directives Date on File: 03/18/21 Do you have thoughts of harming others: None Do you have a plan to hurt others: No Plan Recently lost weight without trying: No Nutrition Risks: No Nutritional Risk Patient : No : No Poor oral hygiene: No service: No Current occupational status: disabled Meds Allergies Allergy/AdvReac Type Severity Reaction Status Date / Time Penicillins [PENICILLINS] Allergy Unknown SOB/HIVES Verified 03/06/21 08:53 codeine AdvReac Nausea and Verified 03/06/21 08:53 Vomiting ketorolac [From Toradol] AdvReac Nausea and Verified 03/06/21 08:53 Vomiting Active Medications: Current Medications Generic Name Dose Route Start Last Admin Trade Name Freq PRN Reason Stop Dose Admin Albuterol Sulfate 2 puff 03/18/21 16:34 Albuterol Sulfate 90 Mcg 8 Gm Inhaler INHALE Q4H PRN Respiratory Distress Bictegravir/Emtricitabine/Tenofovir 1 tab 03/19/21 09:00 Bictegrav/Emtricit/Tenofov Ala 1 Tab Tablet PO DAILY GEOVANNA Bupropion HCl 300 mg 03/19/21 09:00 Bupropion Hcl Xl 300 Mg Tab.Er.24h PO DAILY GEOVANNA Clonazepam 1 mg 03/18/21 21:00 03/18/21 20:26 Clonazepam 1 Mg Tablet PO 1 mg TID GEOVANNA Administration Duloxetine HCl 30 mg 03/19/21 09:00 Duloxetine Hcl 30 Mg Capsule. PO DAILY GEOVANNA Duloxetine HCl 60 mg 03/19/21 09:00 Duloxetine Hcl 60 Mg Capsule. PO DAILY GEOVANNA Gabapentin 400 mg 03/18/21 21:00 03/18/21 20:25 Gabapentin 400 Mg Capsule PO 400 mg TID GEOVANNA Administration Pantoprazole Sodium 80 mg/ 100 mls @ 10 mls/hr 03/18/21 20:00 03/18/21 20:16 Sodium Chloride IV 8 mg/hr .Q10H GEOVANNA 10 mls/hr Administration 8 MG/HR Melatonin 3 mg 03/18/21 21:00 03/18/21 20:26 Melatonin 3 Mg Tablet PO 3 mg BEDTIME GEOVANNA Administration Omeprazole 20 mg 03/19/21 06:30 Omeprazole 20 Mg Capsule. PO DAILY@0630 [facility] Pharmacy Consult 1 each 03/18/21 08:59 Consult Rx Perform Med Rec MISCELLANE ONCE PRN Consult order Prazosin HCl 2 mg 03/18/21 21:00 03/18/21 20:27 Prazosin Hcl 1 Mg Capsule PO 2 mg BEDTIME GEOVANNA Administration Protocol Quetiapine Fumarate 300 mg 03/18/21 21:00 03/18/21 20:26 Quetiapine Fumarate 300 Mg Tablet PO 300 mg BEDTIME GEOVANNA Administration Sodium Chloride 3 ml 03/19/21 00:00 0.9 % Sodium Chloride Flush 3 Ml Syringe IVFLUSH QSHIFT [facility] Trazodone HCl 100 - 200 mg 03/18/21 16:34 03/18/21 20:25 Trazodone Hcl 100 Mg Tablet PO 200 mg BEDTIME PRN Administration Sleep Ziprasidone 40 mg 03/18/21 21:00 03/18/21 20:26 Ziprasidone 40 Mg Capsule PO 40 mg BID GEOVANNA Administration Home Medications Medication Instructions Recorded Confirmed Last Taken Type Biktarvy 1 tab PO DAILY 02/16/21 03/18/21 03/18/21 History albuterol sulfate 2 puff INHALATION Q4H PRN 02/16/21 03/18/21 Unknown History bupropion HCl 300 mg PO DAILY 02/16/21 03/18/21 03/18/21 History clonazepam 1 mg PO TID 02/16/21 03/18/21 03/18/21 History duloxetine 30 mg PO DAILY 02/16/21 03/18/21 03/18/21 History duloxetine 60 mg PO DAILY 02/16/21 03/18/21 03/18/21 History gabapentin 400 mg PO TID 02/16/21 03/18/21 03/18/21 History melatonin 3 mg PO BEDTIME 02/16/21 03/18/21 03/17/21 History omeprazole 20 mg PO DAILY@0630 02/16/21 03/18/21 03/18/21 History prazosin 2 mg PO BEDTIME 02/16/21 03/18/21 03/17/21 History quetiapine [Seroquel] 300 mg PO BEDTIME 02/16/21 03/18/21 03/17/21 History trazodone 100 - 200 mg PO BEDTIME PRN 02/16/21 03/18/21 Unknown History ziprasidone HCl 40 mg PO BID 02/16/21 03/18/21 03/18/21 History Physical Exam Vital Signs: Vital Signs: Last Vital Signs Temp 97.2 F 03/18/21 19:33 Pulse 83 03/18/21 20:27 Resp 20 03/18/21 19:33 BP 115/59 L 03/18/21 20:27 Pulse Ox 98 03/18/21 19:33 Body Mass Index 38.2 Const: General: cooperative, healthy appearing and no acute distress Orientation/consciousness: patient oriented x3 Limitations: no limitations HENMT: Head: Yes normal to inspection Ears: hearing grossly normal bilaterally General nose exam: Normal external nose present Face and sinus: Yes normal facial exam Eyes: General: appearance normal, both eyes and all related structures EOM: EOMs intact bilaterally Neck: Neck: Yes normal visual inspection Resp: Effort & Inspection: normal respiratory effort Auscultation: clear to auscultation bilaterally, no rales, no rhonchi and wheezes expiratory wheezes and lower bilaterally Cardio: Rate: regular rate Heart sounds: S1 normal heart sound present and S2 normal heart sound present GI: Inspection: Yes normal to inspection Palpation (GI): Soft to palpation, Tenderness to palpation present (GI) in the epigastrum, no guarding and not rigid Rectal Exam - Female: heme negative stool : General: Yes no CVA tenderness Back/Spine/Pelvis: Back: no CVA tenderness Skin: Rashes: no rashes Wounds: no wounds Neuro: General: patient oriented x3 Gait exam (Neuro): Normal gait present Extrem: General: Yes normal to inspection Psych: Appearance: grossly normal Results Labs CBC & Chem 7: 03/18/21 13:56 03/18/21 09:29 Labs: Short CBC 03/18/21 03/18/21 Range/Units 09:29 13:56 WBC 2.6 L 2.7 L (4.8-10.8) X10*3/uL Hgb 9.6 L 8.8 L (12.0-16.0) g/dl Hct 31.3 L 29.2 L (37-47) % Plt Count TNP 145 L D BMP 03/18/21 09:29 Sodium 139 Potassium 4.0 Chloride 103 Carbon Dioxide 27 BUN 10 Creatinine 0.97 Calcium 9.3 D Liver Function 03/18/21 Range/Units 09:29 Total Bilirubin 0.5 (0.0-1.0) mg/dL Direct Bilirubin 0.2 (0.0-0.5) mg/dL AST 26 (5-31) U/L ALT 16 (0-31) U/L Alkaline Phosphatase 84 (39-117) U/L Albumin 4.2 (3.5-5.0) g/dL Urine 03/18/21 Range/Units 09:19 Urine Color YELLOW Urine Appearance CLEAR Urine pH 6.0 (5.0-8.0) Ur Specific [place] 1.010 (1.005-1.025) Urine Protein NEG (NEG-TRACE) MG/DL Urine Glucose (UA) NEG (NEG) MG/DL Assessment and Plan (1) Coffee ground emesis: Status: Acute (2) Anemia: Qualifiers: Anemia type: unspecified type Qualified Code(s): D64.9 - Anemia, unspecified Status: Acute 1/ Recurrent upper GI sx with melena in past and chronic anemia, does have moderate sized hiatal hernia, may have ariana erosions or dieulafoy not seen on recent testing, or MW tear and nausea from the hernia or medications PLAN / anti emetics 2/ transfuse if HGB<7 g/dl 3/ repeat EGD tomorrow for evaluation 4/ check iron studies, b12, folate, trend CBC Procedures Date of Service Date of Service: 03/18/21
[2021-03-19] VITALS: BP 96/60; PULSE 89; RESP 16; TEMP 36.2; O2SAT 94
[2021-03-19] MEDS: Pantoprazole Sodium 80 MG in 0.9 % Sodium Chloride 80 ML 10 MG IV (05:46)
[2021-03-19 07:21] VITALS: BP 104/59; PULSE 100; RESP 17; TEMP 36.3; O2SAT 95
[2021-03-19 07:22] LABS: Hematocrit 30.5 % (37-47); Mean Corpuscular HGB Conc 29.5 g/dl (31.0-35.0); Mean Corpuscular Hemoglobin 25.6 pg (27.0-33.0); Mean Corpuscular Volume 86.9 fL (80-98); Mean Platelet Volume 9.4 fL (9.4-12.3); Platelet Count 185 X10*3/uL (160-400); Red Blood Count 3.51 X10*6/uL (4.20-5.50)
[2021-03-19 07:28] LABS: White Blood Count 2.4 X10*3/uL (4.8-10.8)
--- NOTE | 2021-03-19 09:54 | MHC.CM.PN ---
CM MET WITH PT WHO REPORTS SHE IS CURRENTLY LIVING IN A [facility] IN [place]. PT REPORTS SHE IS ALSO ACTIVE WITH [facility], PT REPORTS SHE USES A NEBULIZER AND NO OTHER DME. PT CONFIRMS HER PCP IS MARISELA MARTIN. PT DOES NOT HAVE A HCP AND DECLINES TO COMPLETE ONE TODAY. CURRENT DC PLAN IS TO RETURN TO [facility] VIA PROGRAM STAFF
[2021-03-19 11:57] VITALS: BP 114/82; PULSE 84; RESP 18; TEMP 36.9; O2SAT 94
--- NOTE | 2021-03-19 12:47 | MHC.SHP ---
Pre-Procedural Eval Section A The patient is an INPATIENT: Yes The History & Physical has been completed within 30 days and I have reviewed it.: Yes Section B Chief Complaint: Coffee Ground Emesis, anemia Allergies: Allergies Allergy/AdvReac Type Severity Reaction Status Date / Time Penicillins [PENICILLINS] Allergy Unknown SOB/HIVES Verified 03/06/21 08:53 codeine AdvReac Nausea and Verified 03/06/21 08:53 Vomiting ketorolac [From Toradol] AdvReac Nausea and Verified 03/06/21 08:53 Vomiting Plan I have reviewed the history and physical and performed a pertinent physical examination on my patient. No changes have occurred unless specified.
--- NOTE | 2021-03-19 12:48 | P.BOP_ITS ---
Brief Operative Note Date of Service: 03/19/21 Pre-op diagnosis: coffee ground emesis Post-op diagnosis: same Procedure: see op note Surgeon: Ana Paula Gregg MD Anesthesia: MAC Was an Outdoor [employer] used for this Procedure?: No Estimated blood loss (mL): 0 Condition: stable Disposition: PACU
--- NOTE | 2021-03-19 12:49 | W.PM.OPN ---
Operative Note Operative Note Date of Service: 03/19/21 Narrative: Procedure Description: EGD FLEXIBLE TRANSORAL UPPER GASTROINTESTINAL ENDOSCOPY UPPER ENDOSCOPY Consent: Indications for the procedure and potential complications of bleeding, perforation, reaction to medications and missed diagnosis were discussed with the patient and informed consent was obtained. Instrument: Olympus GIF H 190 J mid size upper endoscope Monitoring: Vital signs and clinical assessment, continuous EKG monitoring, Pulse oximetry, Carbon Dioxide monitoring and blood pressure monitoring were done throughout the procedure. Procedure: The patient was placed in the left lateral decubitis position and pre-procedure medications were administered and a bite block was placed. The endoscope was inserted into the mouth and advanced under direct vision to the third part of duodenum. A careful inspection was made as the upper endoscope was withdrawn including a retroflexed examination of the proximal stomach; Findings and interventions are described below. Findings: Larynx:normal Esophagus: GE junction at 43 cm, diaphragm hiatus at 35 cm, no varices or esophagitis. 8 cm fixed hiatal hernia noted, no bleeding or blood noted. Stomach: Normal mucosa. hiatal hernia noted on retroflexion. Duodenum: Normal bulb and descending duodenum, large diverticulum noted in second part of proximal duodenum Intervention: none Impression/Findings: large hiatal hernia, maybe causing her symptoms PLAN: GERD precautions hi dose PPi and sucralfate BID refer Dr Luna for eval for hernia repair, may help her symptoms.
[2021-03-19 13:23] VITALS: BP 119/72; PULSE 88; RESP 16; TEMP 36.7; O2SAT 93
--- NOTE | 2021-03-19 13:32 | HO.ANESPROP2 ---
[facility] Active Problems Active Problems: All Active Problems (Updated 03/18/21 @ 16:28 by Lexx Cohen MD) Coffee ground emesis (Acute) Anemia (Acute) COPD (chronic obstructive pulmonary disease) (Acute) Past Medical History Medical History Anemia Anxiety Asthma Bipolar 1 disorder Cholecystectomy planned COPD (chronic obstructive pulmonary disease) COPD (chronic obstructive pulmonary disease) Gastric reflux Hepatitis C HIV (human immunodeficiency virus infection) Melena Morbid (severe) obesity due to excess calories PTSD (post-traumatic stress disorder) Surgical History Surgical History Hx of cholecystectomy Social History Social History Household Members: None Housing: House Housing Other:: [facility] residential program. Do you presently have visiting nurse or other home services: No Alcohol intake: never Patient Tobacco Use Status: Current everyday Tobacco user Cigarette Packs Per Day: 0.5 Cigarettes Per Day: 10.0 Years Smoked: 20 Smoked in Last 30 Days: Yes Patient Interested in Nicotine Replacement: No Patient Given Instructions on How to Stop Smoking: No Second Hand Smoke Exposure: No Use of substances other than those prescribed or required for medical reasons: No Currently Displaying Signs/Symptoms of Drug Intoxication Withdrawal: No Have you been hit, kicked, punched, or otherwise hurt by someone within the past year? If so, by whom?: No Do you feel safe in your current relationship?: Yes Is there a partner from a previous relationship who is making you feel unsafe now?: No Are you made to feel afraid or neglected: No Are you DNR?: No Advance Directives: Yes Advance Directives Information Provided: Yes Advance Directives on File: No Advance Directives Date on File: 03/18/21 Do you have thoughts of harming others: None Do you have a plan to hurt others: No Plan Recently lost weight without trying: No Nutrition Risks: No Nutritional Risk Patient : No : No Poor oral hygiene: No service: No Current occupational status: unemployed and disabled Meds Allergies Allergy/AdvReac Type Severity Reaction Status Date / Time Penicillins [PENICILLINS] Allergy Unknown SOB/HIVES Verified 03/06/21 08:53 codeine AdvReac Nausea and Verified 03/06/21 08:53 Vomiting ketorolac [From Toradol] AdvReac Nausea and Verified 03/06/21 08:53 Vomiting Active Medications: Current Medications Generic Name Dose Route Start Last Admin Trade Name Jarrod PRN Reason Stop Dose Admin Albuterol Sulfate 2 puff 03/18/21 16:34 Albuterol Sulfate 90 Mcg 8 Gm Inhaler INHALE Q4H PRN Respiratory Distress Bictegravir/Emtricitabine/Tenofovir 1 tab 03/19/21 09:00 03/19/21 08:05 Bictegrav/Emtricit/Tenofov Ala 1 Tab Tablet PO Not Given DAILY GEOVANNA Bupropion HCl 300 mg 03/19/21 09:00 03/19/21 08:05 Bupropion Hcl Xl 300 Mg Tab.Er.24h PO Not Given DAILY GEOVANNA Clonazepam 1 mg 03/18/21 21:00 03/19/21 08:05 Clonazepam 1 Mg Tablet PO Not Given TID GEOVANNA Duloxetine HCl 30 mg 03/19/21 09:00 03/19/21 08:05 Duloxetine Hcl 30 Mg Capsule. PO Not Given DAILY GEOVANNA Duloxetine HCl 60 mg 03/19/21 09:00 03/19/21 08:05 Duloxetine Hcl 60 Mg Capsule. PO Not Given DAILY GEOVANNA Gabapentin 400 mg 03/18/21 21:00 03/19/21 08:05 Gabapentin 400 Mg Capsule PO Not Given TID GEOVANNA Pantoprazole Sodium 80 mg/ 100 mls @ 10 mls/hr 03/18/21 20:00 03/19/21 05:46 Sodium Chloride IV 8 mg/hr .Q10H GEOVANNA 10 mls/hr Administration 8 MG/HR Melatonin 3 mg 03/18/21 21:00 03/18/21 20:26 Melatonin 3 Mg Tablet PO 3 mg BEDTIME GEOVANNA Administration Omeprazole 20 mg 03/19/21 06:30 03/19/21 05:46 Omeprazole 20 Mg Capsule. PO Not Given DAILY@0630 [facility] Pharmacy Consult 1 each 03/18/21 08:59 Consult Rx Perform Med Rec MISCELLANE ONCE PRN Consult order Prazosin HCl 2 mg 03/18/21 21:00 03/18/21 20:27 Prazosin Hcl 1 Mg Capsule PO 2 mg BEDTIME GEOVANNA Administration Protocol Quetiapine Fumarate 300 mg 03/18/21 21:00 03/18/21 20:26 Quetiapine Fumarate 300 Mg Tablet PO 300 mg BEDTIME GEOVANNA Administration Sodium Chloride 3 ml 03/19/21 00:00 03/19/21 08:04 0.9 % Sodium Chloride Flush 3 Ml Syringe IVFLUSH Not Given QSHIFT GEOVANNA Trazodone HCl 100 - 200 mg 03/18/21 16:34 03/18/21 20:25 Trazodone Hcl 100 Mg Tablet PO 200 mg BEDTIME PRN Administration Sleep Ziprasidone 40 mg 03/18/21 21:00 03/19/21 08:06 Ziprasidone 40 Mg Capsule PO Not Given BID [facility] Home Medications Medication Instructions Recorded Confirmed Last Taken Type Biktarvy 1 tab PO DAILY 02/16/21 03/18/21 03/18/21 History albuterol sulfate 2 puff INHALATION Q4H PRN 02/16/21 03/18/21 Unknown History bupropion HCl 300 mg PO DAILY 02/16/21 03/18/21 03/18/21 History clonazepam 1 mg PO TID 02/16/21 03/18/21 03/18/21 History duloxetine 30 mg PO DAILY 02/16/21 03/18/21 03/18/21 History duloxetine 60 mg PO DAILY 02/16/21 03/18/21 03/18/21 History gabapentin 400 mg PO TID 02/16/21 03/18/21 03/18/21 History melatonin 3 mg PO BEDTIME 02/16/21 03/18/21 03/17/21 History omeprazole 20 mg PO DAILY@0630 02/16/21 03/18/21 03/18/21 History prazosin 2 mg PO BEDTIME 02/16/21 03/18/21 03/17/21 History quetiapine [Seroquel] 300 mg PO BEDTIME 02/16/21 03/18/21 03/17/21 History trazodone 100 - 200 mg PO BEDTIME PRN 02/16/21 03/18/21 Unknown History ziprasidone HCl 40 mg PO BID 02/16/21 03/18/21 03/18/21 History Exam Exam Date and Time: March 19, 2021 1332 Height,Weight and Vital Signs: Height 5 ft 3 in Weight 98 kg Last Vital Signs Temp 98.0 F 03/19/21 13:23 Pulse 88 03/19/21 13:23 Resp 16 03/19/21 13:23 BP 119/72 03/19/21 13:23 Pulse Ox 93 03/19/21 13:23 Pertinent Lab Results Pertinent Lab Results: Laboratory Tests 03/18/21 03/18/21 03/18/21 09:19 09:19 09:20 WBC RBC Hgb Hct MCV MCH MCHC RDW Plt Count MPV Immature Gran % (Auto) Neut % (Auto) Lymph % (Auto) [place] % (Auto) Eos % (Auto) Baso % (Auto) Lymph # (Auto) [place] # (Auto) Eos # (Auto) Baso # (Auto) Abs Immat Gran (auto) Absolute Neuts (auto) Absolute Nucleated RBC Nucleated RBC % (auto) Smear Tech's Comments PT INR APTT Sodium Potassium Chloride Carbon Dioxide Anion Gap BUN Creatinine Estim Creat Clear Calc Estimated GFR Random Glucose Lactic Acid Calcium Magnesium Total Bilirubin Direct Bilirubin AST ALT Alkaline Phosphatase Troponin I High Sens Total Protein Albumin Lipase Urine Color YELLOW Urine Appearance CLEAR Urine pH 6.0 Ur Specific [place] 1.010 Urine Protein NEG Urine Glucose (UA) NEG Urine Ketones NEG Urine Blood NEG Urine Nitrite NEG Ur Leukocyte Esterase NEG Stool Occult Blood Urine Opiates Screen Not Detected Ur Barbiturates Screen Not Detected Ur Phencyclidine Scrn Not Detected Ur Amphetamines Screen Not Detected U Benzodiazepines Scrn POSITIVE H Urine Cocaine Screen Not Detected U Marijuana (THC) Screen Not Detected COVID-19 (ELSI) Negative COVID-19 Clin Com See Note Blood Type Antibody Screen Antibody Identification Crossmatch (AHG) 03/18/21 03/18/21 03/18/21 09:29 09:29 09:29 WBC 2.6 L RBC 3.68 L Hgb 9.6 L Hct 31.3 L MCV 85.1 MCH 26.1 L MCHC 30.7 L RDW 16.2 H Plt Count TNP MPV TNP Immature Gran % (Auto) 0.4 Neut % (Auto) 54.4 Lymph % (Auto) 30.4 [place] % (Auto) 10.9 Eos % (Auto) 2.7 Baso % (Auto) 1.2 Lymph # (Auto) 0.[address] [place] # (Auto) 0.3 Eos # (Auto) 0.1 Baso # (Auto) 0.0 Abs Immat Gran (auto) 0.01 Absolute Neuts (auto) 1.4 L Absolute Nucleated RBC 0.000 Nucleated RBC % (auto) 0.0 Smear Tech's Comments VERIFIED PT 12.0 INR 1.0 APTT 36.3 D Sodium 139 Potassium 4.0 Chloride 103 Carbon Dioxide 27 Anion Gap 13 BUN 10 Creatinine 0.97 Estim Creat Clear Calc 74.7 Estimated GFR > 60 Random Glucose 105 Lactic Acid Calcium 9.3 D Magnesium 1.9 Total Bilirubin 0.5 Direct Bilirubin 0.2 AST 26 ALT 16 Alkaline Phosphatase 84 Troponin I High Sens Total Protein 7.0 Albumin 4.2 Lipase 25 Urine Color Urine Appearance Urine pH Ur Specific [place] Urine Protein Urine Glucose (UA) Urine Ketones Urine Blood Urine Nitrite Ur Leukocyte Esterase Stool Occult Blood Urine Opiates Screen Ur Barbiturates Screen Ur Phencyclidine Scrn Ur Amphetamines Screen U Benzodiazepines Scrn Urine Cocaine Screen U Marijuana (THC) Screen COVID-19 (ELSI) COVID-19 Clin Com Blood Type Antibody Screen Antibody Identification Crossmatch (G) 03/18/21 03/18/21 03/18/21 09:29 09:29 09:29 WBC RBC Hgb Hct MCV MCH MCHC RDW Plt Count MPV Immature Gran % (Auto) Neut % (Auto) Lymph % (Auto) [place] % (Auto) Eos % (Auto) Baso % (Auto) Lymph # (Auto) [facility] # (Auto) Eos # (Auto) Baso # (Auto) Abs Immat Gran (auto) Absolute Neuts (auto) Absolute Nucleated RBC Nucleated RBC % (auto) Smear Tech's Comments PT INR APTT Sodium Potassium Chloride Carbon Dioxide Anion Gap BUN Creatinine Estim Creat Clear Calc Estimated GFR Random Glucose Lactic Acid 1.2 Calcium Magnesium Total Bilirubin Direct Bilirubin AST ALT Alkaline Phosphatase Troponin I High Sens < 3.5 Total Protein Albumin Lipase Urine Color Urine Appearance Urine pH Ur Specific [place] Urine Protein Urine Glucose (UA) Urine Ketones Urine Blood Urine Nitrite Ur Leukocyte Esterase Stool Occult Blood Urine Opiates Screen Ur Barbiturates Screen Ur Phencyclidine Scrn Ur Amphetamines Screen U Benzodiazepines Scrn Urine Cocaine Screen U Marijuana (THC) Screen COVID-19 (ELSI) COVID-19 Clin Com Blood Type O Positive Antibody Screen POSITIVE Antibody Identification Anti-c Crossmatch (G) See Detail 03/18/21 03/18/21 03/18/21 09:35 13:56 15:04 WBC 2.7 L RBC 3.36 L Hgb 8.8 L Hct 29.2 L MCV 86.9 MCH 26.2 L MCHC 30.1 L RDW 16.1 H Plt Count 145 L D MPV 10.0 Immature Gran % (Auto) 0.4 Neut % (Auto) 50.9 Lymph % (Auto) 32.5 [facility] % (Auto) 11.3 H Eos % (Auto) 3.4 Baso % (Auto) 1.5 Lymph # (Auto) 0.[address] [place] # (Auto) 0.3 Eos # (Auto) 0.1 Baso # (Auto) 0.0 Abs Immat Gran (auto) 0.01 Absolute Neuts (auto) 1.4 L Absolute Nucleated RBC 0.000 Nucleated RBC % (auto) 0.0 Smear Tech's Comments PT INR APTT Sodium Potassium Chloride Carbon Dioxide Anion Gap BUN Creatinine Estim Creat Clear Calc Estimated GFR Random Glucose Lactic Acid Calcium Magnesium Total Bilirubin Direct Bilirubin AST ALT Alkaline Phosphatase Troponin I High Sens Total Protein Albumin Lipase Urine Color Urine Appearance Urine pH Ur Specific [place] Urine Protein Urine Glucose (UA) Urine Ketones Urine Blood Urine Nitrite Ur Leukocyte Esterase Stool Occult Blood NEGATIVE Urine Opiates Screen Ur Barbiturates Screen Ur Phencyclidine Scrn Ur Amphetamines Screen U Benzodiazepines Scrn Urine Cocaine Screen U Marijuana (THC) Screen COVID-19 (ELSI) Negative COVID-19 Clin Com See Note Blood Type Antibody Screen Antibody Identification Crossmatch (AHG) 03/19/21 06:45 WBC 2.4 L RBC 3.51 L Hgb 9.0 L Hct 30.5 L MCV 86.9 MCH 25.6 L MCHC 29.5 L RDW 16.0 Plt Count 185 D MPV 9.4 Immature Gran % (Auto) Neut % (Auto) Lymph % (Auto) [facility] % (Auto) Eos % (Auto) Baso % (Auto) Lymph # (Auto) [facility] # (Auto) Eos # (Auto) Baso # (Auto) Abs Immat Gran (auto) Absolute Neuts (auto) Absolute Nucleated RBC 0.000 Nucleated RBC % (auto) 0.0 Smear Tech's Comments PT INR APTT Sodium Potassium Chloride Carbon Dioxide Anion Gap BUN Creatinine Estim Creat Clear Calc Estimated GFR Random Glucose Lactic Acid Calcium Magnesium Total Bilirubin Direct Bilirubin AST ALT Alkaline Phosphatase Troponin I High Sens Total Protein Albumin Lipase Urine Color Urine Appearance Urine pH Ur Specific [place] Urine Protein Urine Glucose (UA) Urine Ketones Urine Blood Urine Nitrite Ur Leukocyte Esterase Stool Occult Blood Urine Opiates Screen Ur Barbiturates Screen Ur Phencyclidine Scrn Ur Amphetamines Screen U Benzodiazepines Scrn Urine Cocaine Screen U Marijuana (THC) Screen COVID-19 (ELSI) COVID-19 Clin Com Blood Type Antibody Screen Antibody Identification Crossmatch (AHG) Airway Mallampati Class: II TM Dist: >3cm Neck ROM: Full Assessment and Plan Assessment Anesthesia Assessment: Anesthesia Plan Discussed and Chart Reviewed Final Anesthetic Review NPO: Yes ASA Class: III Final Preanesthetic Review: No Changes in Pt Med Stat, Meds/Allgs Chart Reviewed, Consent Obtained/Reviewed and Anes Risks/Benef Reviewed Patient Risk: Intermediate Procedure Risk: Low Assessment/Block/Sedation in SS: Assess/Block/Sedation-SS Anesthetic Plan Anesthetic Plan: MAC: Disposition: Standard PACU
[2021-03-19 13:37] VITALS: BP 134/86; PULSE 81; RESP 16; O2SAT 94
[2021-03-19] MEDS: clonazePAM 1 MG TABLET PO (14:28)
[2021-03-19] MEDS: Gabapentin 400 MG CAPSULE PO (14:28)
--- NOTE | 2021-03-19 15:19 | PM.DS ---
DS: Providers Provider Date of Service: 03/19/21 Date of admission: 03/18/21 16:08 Primary care physician: Raul De La Paz MD DS: Diagnosis Discharge Diagnosis (1) Coffee ground emesis: Status: Acute (2) Anemia: Status: Acute DS: Medications Discharge Medications Home Medications: Home Medications Medication Instructions Recorded Confirmed Biktarvy 1 tab PO DAILY 02/16/21 03/18/21 albuterol sulfate 2 puff INHALATION Q4H PRN 02/16/21 03/18/21 bupropion HCl 300 mg PO DAILY 02/16/21 03/18/21 clonazepam 1 mg PO TID 02/16/21 03/18/21 duloxetine 30 mg PO DAILY 02/16/21 03/18/21 duloxetine 60 mg PO DAILY 02/16/21 03/18/21 gabapentin 400 mg PO TID 02/16/21 03/18/21 melatonin 3 mg PO BEDTIME 02/16/21 03/18/21 omeprazole 20 mg PO DAILY@0630 02/16/21 03/18/21 prazosin 2 mg PO BEDTIME 02/16/21 03/18/21 quetiapine [Seroquel] 300 mg PO BEDTIME 02/16/21 03/18/21 trazodone 100 - 200 mg PO BEDTIME PRN 02/16/21 03/18/21 ziprasidone HCl 40 mg PO BID 02/16/21 03/18/21 DS: Summary Hospital Course Hospital Course: Hospital course: Patient was observed in hospital overnight, she did not need transfusion, and H/H remain stabble and did not have any eiposde of vomitting, coffee ground otherwise whilst she was here. Treated with IV PPI. The next day Dr. Gregg did EGD and noted to have large hiatal hernia, maybe causing her symptoms. Dr. Gregg recommends high dose PPI and Sucralfate and referal to Dr. Pedroza for possible surgical repair. She is advised again to loose weight via diet and exercise Time Spent with Patient Time attestation: Total time spent providing and/or coordinating discharge services: Discharge coordination time: Greater than 30 minutes Quality: Stroke Does the patient have a stroke diagnosis?: No Physical Exam Vital Signs: Vital Signs: Last Vital Signs Temp 98.0 F 03/19/21 13:23 Pulse 81 03/19/21 13:37 Resp 16 03/19/21 13:37 BP 134/86 03/19/21 13:37 Pulse Ox 94 03/19/21 13:37 Body Mass Index 38.2 DS: Data Data Completed and Pending Completed studies during hospitalization [Text1]: Procedures Excision of Stomach, Pylorus, Via Natural or Artificial Opening Endoscopic, Diagnostic (02/16/21) Inspection of Upper Intestinal Tract, Via Natural or Artificial Opening Endoscopic (02/16/21) Transfusion of Nonautologous Red Blood Cells into Peripheral Vein, Percutaneous Approach (02/16/21) Labs on day of discharge: Laboratory Results - last 24 hr 03/18/21 03/19/21 15:04 06:45 WBC 2.4 L RBC 3.51 L Hgb 9.0 L Hct 30.5 L MCV 86.9 MCH 25.6 L MCHC 29.5 L RDW 16.0 Plt Count 185 D MPV 9.4 Absolute Nucleated RBC 0.000 Nucleated RBC % (auto) 0.0 COVID-19 (ELSI) Negative COVID-19 Clin Com See Note Discharge Plan Discharge Anticipated Discharge Date/Time: 03/19/21 15:28 Patient Disposition: Home, Self-Care Discharge Diagnosis: Anemia Referrals: Raul De La Paz MD [Primary Care Provider] - 1 Week Barbara Pedroza MD [Physician] - 1 Week Ana Paula Gregg MD [Physician] - 1 Week Discharge Medications: New sucralfate 1 gram tablet 1 g PO BID Qty: 60 RF: 0 Continued melatonin 3 mg Tablet 3 mg PO BEDTIME RF: 0 trazodone 100 mg Tablet 100 - 200 mg PO BEDTIME PRN (Reason: Sleep) RF: 0 bupropion HCl 300 mg Tablet Extended Release 24 Hr 300 mg PO DAILY RF: 0 duloxetine 30 mg Capsule,Delayed Release(Dr/Ec) 30 mg PO DAILY RF: 0 duloxetine 60 mg Capsule,Delayed Release(Dr/Ec) 60 mg PO DAILY RF: 0 Biktarvy 50-200-25 mg Tablet 1 tab PO DAILY RF: 0 gabapentin 400 mg Capsule 400 mg PO TID RF: 0 clonazepam 1 mg Tablet 1 mg PO TID RF: 0 prazosin 2 mg Capsule 2 mg PO BEDTIME RF: 0 ziprasidone HCl 40 mg Capsule 40 mg PO BID RF: 0 quetiapine [Seroquel] 300 mg Tablet 300 mg PO BEDTIME RF: 0 albuterol sulfate 90 mcg/actuation Hfa Aerosol Inhaler 2 puff INHALATION Q4H PRN (Reason: Respiratory Distress) RF: 0 omeprazole 20 mg Capsule,Delayed Release(Dr/Ec) 20 mg PO DAILY@0630 Qty: 60 RF: 0 Discharge Orders: Discharge Order (Routine); Ordered 03/19/21 Ordered By: Lexx Cohen Diet: advance to usual diet Activity on Discharge: As tolerated Stand Alone Forms: Patient Portal Discharge page Care Plan Goals: Prevent rehospitalization and control anemia Health Concerns: chronic anemia Plan of Treatment: Take Prilosec and Sucralfate as recommended and follow up with your Doctor in a week, follow up with Dr. Leonard for hiatal hernia Assessment: See above
[2021-03-19 15:26] VITALS: BP 132/89; PULSE 81; RESP 20; TEMP 36.1; O2SAT 94
--- NOTE | 2021-03-19 15:55 | MHC.CM.PN ---
PT CLEARED TO DC BACK TO [facility] TODAY. [facility] STAFF WILL TRANSPORT
== END 2021-03-19 17:00 | disposition home or self-care (01) | DRG 254 ==
LOC: HO.ED 14:39 → HO.EDOVER 16:17 → HO.S3 17:23
PROVIDERS: Internal Medicine Gastroenterology; Physician Assistant; Admitting Provider Internal Medicine; Emergency Provider Internal Medicine; PCP Internal Medicine; Visit Provider Internal Medicine
PROC: 0DJ08ZZ Inspection of Upper Intestinal Tract, Via Natural or Artificial Opening Endoscopic (ICD-10-PCS; CPT 43235; principal; 2021-03-19 14:30)
DX: K44.9 Diaphragmatic hernia without obstruction or gangrene (principal); E66.01 Morbid (severe) obesity due to excess calories; Z21 Asymptomatic human immunodeficiency virus [HIV] infection status; B19.20 Unspecified viral hepatitis C without hepatic coma; F17.210 Nicotine dependence, cigarettes, uncomplicated; K21.9 Gastro-esophageal reflux disease without esophagitis; D64.9 Anemia, unspecified; J44.9 Chronic obstructive pulmonary disease, unspecified; Z20.822 Contact with and (suspected) exposure to COVID-19; Z68.38 Body mass index [BMI] 38.0-38.9, adult; Z71.6 Tobacco abuse counseling; Z88.0 Allergy status to penicillin; Z88.5 Allergy status to narcotic agent; Z79.899 Other long term (current) drug therapy
CPT/HCPCS: 36415; 71045; 80048; 80076; 80307; 81003; 82272; 83605; 83690; 83735; 84484; 85025; 85027; 85610; 85730; 86850; 86870; 86900; 86901; 86902; 86920; 86922; 87635; 93005; 94640; 96374; 96375; 99285; J2250; J2405

== ENCOUNTER → 2021-03-24 10:05 | Outpatient (BNVA) | payer OTHER, SELFPAY | PROVIDERS: PCP Internal Medicine; Visit Provider Internal Medicine Gastroenterology | DX: K92.0 Hematemesis (principal) | CPT/HCPCS: 99212 ==

== ENCOUNTER → 2021-04-17 12:39 | Outpatient (BNVA) | payer OTHER, SELFPAY | PROVIDERS: PCP Internal Medicine; Visit Provider Surgery | DX: K44.9 Diaphragmatic hernia without obstruction or gangrene (principal); D64.9 Anemia, unspecified; E66.01 Morbid (severe) obesity due to excess calories; F17.210 Nicotine dependence, cigarettes, uncomplicated; Z68.42 Body mass index [BMI] 45.0-49.9, adult; Z88.5 Allergy status to narcotic agent; Z88.0 Allergy status to penicillin; Z88.8 Allergy status to other drugs, medicaments and biological substances; Z79.899 Other long term (current) drug therapy | CPT/HCPCS: 99202 ==

== ENCOUNTER 2021-05-06 08:50 | Day surgery (SDC) | payer OTHER, SELFPAY ==
--- NOTE | 2021-04-29 10:54 | ECG_ITS ---
Test Reason : SOB Blood Pressure : / mmHG Vent. Rate : 096 BPM Atrial Rate : 096 BPM P-R Int : 162 ms QRS Dur : 074 ms QT Int : 340 ms P-R-T Axes : 052 047 036 degrees QTc Int : 429 ms Normal sinus rhythm Normal ECG When compared with ECG of 18-MAR-2021 09:14, No significant change was found Referred By: Barbara Pedroza Electronically Signed By:Daniel Muir
[2021-04-29 11:14] LABS: MANUAL DIFF FLAG NO
[2021-04-29 11:25] LABS: Basophils Percent Auto 0.9 % (0-2); Eosinophils Absolute Auto 0.1 X10*3/uL (0.0-0.4); Eosinophils Percent Auto 3.7 % (0-4); Hematocrit 29.5 % (37-47); Hemoglobin 8.7 g/dl (12.0-16.0); Imm Gran Abs Auto 0.01 X10*3/uL (0.00-0.03); Imm Gran Pct Auto 0.3 % (0.0-0.4); Lymphocytes Absolute Auto 0.8 X10*3/uL (1.2-4.9); Lymphocytes Percent Auto 23.6 % (20-40); Mean Corpuscular HGB Conc 29.5 g/dl (31.0-35.0); Mean Corpuscular Hemoglobin 24.4 pg (27.0-33.0); Mean Corpuscular Volume 82.6 fL (80-98); Mean Platelet Volume 9.4 fL (9.4-12.3); Monocytes Absolute Auto 0.3 X10*3/uL (0.1-1.2); Neutrophils Absolute Auto 2.2 X10*3/uL (2.0-8.3); Neutrophils Percent Auto 63.5 % (45-73); Platelet Count 239 X10*3/uL (160-400); Red Blood Count 3.57 X10*6/uL (4.20-5.50); Red Cell Distribution Width 15.1 % (11.0-16.0); White Blood Count 3.5 X10*3/uL (4.8-10.8)
[2021-04-29 11:36] LABS: INTERNATIONAL NORM RATIO 0.9 (0.9-1.1); Prothrombin Time 10.7 SEC (9.9-13.0)
[2021-04-29 11:38] LABS: Partial Thromboplastin Time 34.3 SEC (24.1-38.0)
[2021-04-29 12:00] LABS: Glucose Urine UA NEG (NEG); Leukocyte Esterase Urine NEG (NEG); Nitrite Urine NEG (NEG); Urine Blood NEG (NEG); Urine Ketones NEG (NEG); Urine Protein NEG (NEG-TRACE)
[2021-04-29 12:03] LABS: Appearance Urine HAZY; Color Urine YELLOW
[2021-04-29 12:26] LABS: Anion Gap 13 (12-20); Blood Urea Nitrogen 15 mg/dL (9-16); Carbon Dioxide 27 mmol/L (22-29); Chloride 103 mmol/L (96-108); Estimated Glomerular Filt Rate 51; Glucose Random 111 mg/dL (60-115); Potassium 4.6 mmol/L (3.3-5.1); Sodium 138 mmol/L (135-145)
[2021-04-30 13:09] VITALS: BMI 46.5
--- NOTE | 2021-05-05 09:22 | P.CONAN_ITS ---
Documented by User: Miriam Jean-Baptiste 05/05/21 10:39 HPI - Anesthesia Eval Consult details Narrative: 55yo F for Laparoscopic Hiatal Hernia Repair, Poss Open, Poss Biological Mesh Placement chronic anemia - baseline Hgb ~8.9. Per Dr Pedroza, likely r/t hiatal based on GI work up. Case reviewed with Dr Douglass. Repeat CBC DOS. Possible preop transfusion. PMFSH Active Problems Active Problems: All Active Problems (Updated 04/30/21 @ 13:16 by Lucille Almaraz) Chronic anemia (Acute) Preoperative examination (Acute) Hiatal hernia without gangrene and obstruction (Acute) COPD (chronic obstructive pulmonary disease) (Acute) Past Medical History Medical History Anemia Anxiety Arthritis Asthma Bilateral renal stones Bipolar 1 disorder COPD (chronic obstructive pulmonary disease) COVID-19 vaccine administered Depression GERD (gastroesophageal reflux disease) Hiatal hernia without gangrene and obstruction HIV (human immunodeficiency virus infection) Hx of anxiety disorder Hx of hepatitis C Morbid (severe) obesity due to excess calories Nicotine dependence, cigarettes, uncomplicated PTSD (post-traumatic stress disorder) Family History Family History Mother Respiratory arrest Father Congestive heart failure Sister No problems noted. Brother No problems noted. Daughter No problems noted. Son No problems noted. Surgical History Surgical History History of section, classical History of cholecystectomy History of colonoscopy (~2020) History of endoscopy (~2020) History of tonsillectomy and adenoidectomy Social History Social History Household Members: None Housing: House Housing Other:: resides at [facility]-will return there post-op Are you a primary mall plant caretaker to a significant other at home: No Do you presently have visiting nurse or other home services: No Alcohol intake: never Patient Tobacco Use Status: Current everyday Tobacco user Tobacco use type: Cigarette Cigarette Packs Per Day: 0.5 Cigarettes Per Day: 10 Years Smoked: 20 Second Hand Smoke Exposure: No Use of substances other than those prescribed or required for medical reasons: No Have you been hit, kicked, punched, or otherwise hurt by someone within the past year? If so, by whom?: No Are you DNR?: No Advance Directives: Yes Advance Directives Information Provided: Yes Advance Directives on File: Yes Advance Directives Date on File: 03/18/21 Recently lost weight without trying: No Eating poorly because of decreased appetite: No Nutrition Risks: No Nutritional Risk Patient : No FDLMP: N/A Poor oral hygiene: No (has some broken teeth) service: No Current occupational status: unemployed and disabled Meds Allergies Allergy/AdvReac Type Severity Reaction Status Date / Time Penicillins [PENICILLINS] Allergy Intermediate SOB/HIVES Verified 04/30/21 13:20 codeine AdvReac Intermediate Nausea and Verified 04/30/21 13:20 Vomiting ketorolac [From Toradol] AdvReac Intermediate Nausea and Verified 04/30/21 13:20 Vomiting Home Medications Medication Instructions Recorded Confirmed Last Taken Type Biktarvy 1 tab PO DAILY 02/16/21 04/30/21 05/06/21 History albuterol sulfate 2 puff INHALATION Q4H PRN 02/16/21 04/30/21 05/06/21 History bupropion HCl 300 mg PO DAILY 02/16/21 04/30/21 05/06/21 History clonazepam 1 mg PO TID 02/16/21 04/30/21 05/06/21 History duloxetine 30 mg PO DAILY 02/16/21 04/30/21 05/06/21 History duloxetine 60 mg PO DAILY 02/16/21 04/30/21 05/06/21 History gabapentin 400 mg PO TID 02/16/21 04/30/21 05/06/21 History prazosin 4 mg PO BEDTIME 02/16/21 04/30/21 03/17/21 History trimethobenzamide 300 mg capsule 300 mg PO Q6H PRN cap 04/17/21 04/30/21 Unknown History budesonide-formoterol [Symbicort] 2 puff INHALATION BID 04/30/21 04/30/21 05/06/21 History quetiapine [Seroquel] 2 tab PO BEDTIME 04/30/21 04/30/21 Unknown History Exam Exam Date and Time: May 05, [id number] Height,Weight and Vital Signs: Height 5 ft 3 in Weight 119.295 kg Pertinent Lab Results Pertinent Lab Results: Laboratory Tests 04/29/21 04/29/21 04/29/21 11:00 11:00 11:00 WBC 3.5 L RBC 3.57 L Hgb 8.7 L Hct 29.5 L MCV 82.6 MCH 24.4 L MCHC 29.5 L RDW 15.1 Plt Count 239 D MPV 9.4 Immature Gran % (Auto) 0.3 Neut % (Auto) 63.5 Lymph % (Auto) 23.6 Gaines % (Auto) 8.0 Eos % (Auto) 3.7 Baso % (Auto) 0.9 Lymph # (Auto) 0.8 L Gaines # (Auto) 0.3 Eos # (Auto) 0.1 Baso # (Auto) 0.0 Abs Immat Gran (auto) 0.01 Absolute Neuts (auto) 2.2 Absolute Nucleated RBC 0.000 Nucleated RBC % (auto) 0.0 PT 10.7 INR 0.9 APTT 34.3 Sodium 138 Potassium 4.6 Chloride 103 Carbon Dioxide 27 Anion Gap 13 BUN 15 Creatinine 1.11 Estim Creat Clear Calc TNP Estimated GFR 51 Random Glucose 111 Calcium 9.0 Urine Color Urine Appearance Urine pH Ur Specific [place] Urine Protein Urine Glucose (UA) Urine Ketones Urine Blood Urine Nitrite Ur Leukocyte Esterase 04/29/21 11:32 WBC RBC Hgb Hct MCV MCH MCHC RDW Plt Count MPV Immature Gran % (Auto) Neut % (Auto) Lymph % (Auto) Gaines % (Auto) Eos % (Auto) Baso % (Auto) Lymph # (Auto) Gaines # (Auto) Eos # (Auto) Baso # (Auto) Abs Immat Gran (auto) Absolute Neuts (auto) Absolute Nucleated RBC Nucleated RBC % (auto) PT INR APTT Sodium Potassium Chloride Carbon Dioxide Anion Gap BUN Creatinine Estim Creat Clear Calc Estimated GFR Random Glucose Calcium Urine Color YELLOW Urine Appearance HAZY Urine pH 7.0 Ur Specific [place] 1.020 Urine Protein NEG Urine Glucose (UA) NEG Urine Ketones NEG Urine Blood NEG Urine Nitrite NEG Ur Leukocyte Esterase NEG Narrative Narrative: EKG 04/29/21 Vent. Rate : 096 BPM Atrial Rate : 096 BPM P-R Int : 162 ms QRS Dur : 074 ms QT Int : 340 ms P-R-T Axes : 052 047 036 degrees QTc Int : 429 ms Normal sinus rhythm Normal ECG When compared with ECG of 18-MAR-2021 09:14, No significant change was found Assessment and Plan Assessment Anesthesia Assessment: Chart Reviewed Documented by User: Zuleyma Schroeder 05/06/21 11:05 PMFSH Past Medical History Medical History Anemia Anxiety Arthritis Asthma Bilateral renal stones Bipolar 1 disorder COPD (chronic obstructive pulmonary disease) COVID-19 vaccine administered Depression GERD (gastroesophageal reflux disease) Hiatal hernia without gangrene and obstruction HIV (human immunodeficiency virus infection) Hx of anxiety disorder Hx of hepatitis C Morbid (severe) obesity due to excess calories Nicotine dependence, cigarettes, uncomplicated PTSD (post-traumatic stress disorder) Family History Family History Mother Respiratory arrest Father Congestive heart failure Sister No problems noted. Brother No problems noted. Daughter No problems noted. Son No problems noted. Surgical History Surgical History History of section, classical History of cholecystectomy History of colonoscopy (~2020) History of endoscopy (~2020) History of tonsillectomy and adenoidectomy Social History Social History Household Members: None Housing: House Housing Other:: resides at [facility]-will return there post-op Are you a primary mall plant caretaker to a significant other at home: No Do you presently have visiting nurse or other home services: No Alcohol intake: never Patient Tobacco Use Status: Current everyday Tobacco user Tobacco use type: Cigarette Cigarette Packs Per Day: 0.5 Cigarettes Per Day: 10 Years Smoked: 20 Second Hand Smoke Exposure: No Use of substances other than those prescribed or required for medical reasons: No Have you been hit, kicked, punched, or otherwise hurt by someone within the past year? If so, by whom?: No Are you DNR?: No Advance Directives: Yes Advance Directives Information Provided: Yes Advance Directives on File: Yes Advance Directives Date on File: 03/18/21 Recently lost weight without trying: No Eating poorly because of decreased appetite: No Nutrition Risks: No Nutritional Risk Patient : No FDLMP: N/A Poor oral hygiene: No (has some broken teeth) service: No Current occupational status: unemployed and disabled Meds Allergies Allergy/AdvReac Type Severity Reaction Status Date / Time Penicillins [PENICILLINS] Allergy Intermediate SOB/HIVES Verified 04/30/21 13:20 codeine AdvReac Intermediate Nausea and Verified 04/30/21 13:20 Vomiting ketorolac [From Toradol] AdvReac Intermediate Nausea and Verified 04/30/21 13:20 Vomiting Home Medications Medication Instructions Recorded Confirmed Last Taken Type Biktarvy 1 tab PO DAILY 02/16/21 04/30/21 05/06/21 History albuterol sulfate 2 puff INHALATION Q4H PRN 02/16/21 04/30/21 05/06/21 History bupropion HCl 300 mg PO DAILY 02/16/21 04/30/21 05/06/21 History clonazepam 1 mg PO TID 02/16/21 04/30/21 05/06/21 History duloxetine 30 mg PO DAILY 02/16/21 04/30/21 05/06/21 History duloxetine 60 mg PO DAILY 02/16/21 04/30/21 05/06/21 History gabapentin 400 mg PO TID 02/16/21 04/30/21 05/06/21 History prazosin 4 mg PO BEDTIME 02/16/21 04/30/21 03/17/21 History trimethobenzamide 300 mg capsule 300 mg PO Q6H PRN cap 04/17/21 04/30/21 Unknown History budesonide-formoterol [Symbicort] 2 puff INHALATION BID 04/30/21 04/30/21 05/06/21 History quetiapine [Seroquel] 2 tab PO BEDTIME 04/30/21 04/30/21 Unknown History Exam Airway Mallampati Class: II TM Dist: >3cm Neck ROM: Full Loose/Missing/Broken Teeth: No Heart: RRR Lungs: CTA Assessment and Plan Assessment Anesthesia Assessment: Anesthesia Plan Discussed and Chart Reviewed Final Anesthetic Review NPO: Yes ASA Class: III Final Preanesthetic Review: Meds/Allgs Chart Reviewed, Consent Obtained/Reviewed and Anes Risks/Benef Reviewed Patient Risk: Intermediate Procedure Risk: Intermediate Anesthetic Plan Anesthetic Plan: GA Disposition: Standard PACU
--- NOTE | 2021-05-05 15:55 | MHC.SHP ---
Pre-Procedural Eval Section A Date of Service: 05/05/21 Section B Chief Complaint: Diaphragmatic Hernia w/o Obstruction or Gangrene Allergies: Allergies Allergy/AdvReac Type Severity Reaction Status Date / Time Penicillins [PENICILLINS] Allergy Intermediate SOB/HIVES Verified 04/30/21 13:20 codeine AdvReac Intermediate Nausea and Verified 04/30/21 13:20 Vomiting ketorolac [From Toradol] AdvReac Intermediate Nausea and Verified 04/30/21 13:20 Vomiting Plan I have reviewed the history and physical and performed a pertinent physical examination on my patient. No changes have occurred unless specified.
[2021-05-06] VITALS (13 sets, daily range): BP systolic 114–154; BP diastolic 69–97; PULSE 84–89; RESP 16–18; TEMP 36.3–36.6; O2SAT 91–100
[2021-05-06 09:50] LABS: COVID-19 Test Negative (Negative); IDNOW Serial# 9DD0AD1C
[2021-05-06 10:02] LABS: Hematocrit 28.3 % (37-47); Hemoglobin 8.4 g/dl (12.0-16.0); Mean Corpuscular HGB Conc 29.7 g/dl (31.0-35.0); Mean Corpuscular Hemoglobin 24.4 pg (27.0-33.0); Mean Corpuscular Volume 82.3 fL (80-98); Mean Platelet Volume 9.6 fL (9.4-12.3); Platelet Count 222 X10*3/uL (160-400); Red Blood Count 3.44 X10*6/uL (4.20-5.50); White Blood Count 3.1 X10*3/uL (4.8-10.8)
[2021-05-06] MEDS: Lactated Ringers 1,000 ML 100 ML IVCONT (10:46)
[2021-05-06] MEDS: Clindamycin Phosphate/D5W 900 MG/50 ML PIGGYBACK 50 MG IV (10:54)
--- NOTE | 2021-05-06 15:53 | P.OP_ITS ---
Operative Note Operative Note Date of Service: 05/06/21 Narrative: Patient was brought to the operating room placed on the table in supine position. General anesthesia was induced. The abdomen was prepped and draped in normal sterile fashion using ChloraPrep. Patient had artery received 900 mg of clindamycin preoperatively and normal DVT prophylaxis was instituted. A safety time-out was performed. Next a mixture of 1% lidocaine with epinephrine 0.25% Marcaine plain was used to anesthetize the planned incision site in the left upper quadrant. A 11. Scalpel used to make a 5 mm left upper quadrant subcostal surgical incision through which a Veress needle was placed intra-abdominal. Three pops were heard going to the fascia. The saline drop test was used to confirm that the Veress needle was intra-abdominal . The abdominal cavity was insufflated to 15 mm of mercury. Next the Optiview technique was used to place a 5 mm port in the patient's left upper quadrant . We then performed a KATELYN block on the right side of the patient's abdomen. We then placed a Quinn liver tractor the subxiphoid position under direct vision and used this to hold up the left lobe of the liver to the anterior abdominal wall. We secured the liver tractor to the bed using the liver retr actor park. We then placed a 5 mm port in the patient's right upper quadrant and a 12 mm port in the epigastrium under direct vision. We then performed the same KATELYN block on the left side of the abdomen. We placed 1 additional 5 mm port in the patient's left upper quadrant just lateral to the placement of the 1st 5 mm left upper quadrant port. Next we placed the patient in reverse Trendelenburg positioning. We could visualize a large paraesophageal hernia with a portion of the stomach and a large amount of fat residing within the chest. The hiatal opening was very large about 10 cm in length and 6 cm in width. We took down the adhesions of the stomach and hernia sac to the phrenoesophageal ligament circumferentially. Once the phrenoesophageal ligament was cleared circumferentially especially posteriorly we used a Viry drain around the GE junction and secured the ends to each other using a Endoknot. We used the Viry as a fulcrum to retract the GE junction in order to get the posterior and anterior hiatus closed. We closed the posterior hiatus with a total of one 2-0 Ethibond sutures. We closed the anterior hiatus with a total of four 2-0 Ethibond sutures. The stomach was lying in the abdomen without any tension. We then let down the Quinn liver tractor removed from the abdomen. We closed the 12 mm port site with a single suture of 0 Maxon using a laparoscopic suture passer. We removed the left upper quadrant ports under direct vision there was no bleeding noted from these port sites. We desufflated the abdomen through the last remaining port removed last ports and laparoscopic. We reapproximated all skin incisions with a 4 Monocryl subcuticular stitch. We cleaned and dried the skin incisions and applied Dermabond skin glue to all skin incisions. All counts were correct at the end the case there were no complications. The patient was awake and in stable condition prior to extubation and transfer to the recovery room.
--- NOTE | 2021-05-06 15:56 | PM.OP ---
Brief Operative Note Date of Service: 05/06/21 Pre-op diagnosis: Morbid obesity, BMI 46.5, large paraesophageal hernia, chronic anemia Post-op diagnosis: same Procedure: Laparoscopic repair and reduction of large paraesophageal hernia Implants: None Surgeon: Barbara Pedroza MD Anesthesia: GETA Was an Pattern Cutter used for this Procedure?: Yes Pattern Cutter: Eloise Orourke Estimated blood loss (mL): 5 Pathology: other (Hernia sac) Condition: stable Disposition: PACU
[2021-05-06] MEDS: fentaNYL citrate/PF 100 MCG/2 ML VIAL 50 MCG IVPUSH (16:19)
[2021-05-06] MEDS: oxyCODONE HCl Immed Release 5 MG TABLET PO (17:23)
== END 2021-05-06 18:40 | disposition home or self-care (01) ==
PROVIDERS: Nurse Practitioner; PCP Internal Medicine; Visit Provider Surgery
PROC: 0BQT4ZZ Repair Diaphragm, Percutaneous Endoscopic Approach (ICD-10-PCS; CPT 43281; principal; 2021-05-06 11:50)
DX: K44.9 Diaphragmatic hernia without obstruction or gangrene (principal); D64.9 Anemia, unspecified; K21.9 Gastro-esophageal reflux disease without esophagitis; J44.9 Chronic obstructive pulmonary disease, unspecified; B20 Human immunodeficiency virus [HIV] disease; E66.01 Morbid (severe) obesity due to excess calories; F31.9 Bipolar disorder, unspecified; F43.10 Post-traumatic stress disorder, unspecified; Z79.899 Other long term (current) drug therapy; Z88.0 Allergy status to penicillin; Z88.8 Allergy status to other drugs, medicaments and biological substances; F17.210 Nicotine dependence, cigarettes, uncomplicated; Z86.19 Personal history of other infectious and parasitic diseases; Z20.822 Contact with and (suspected) exposure to COVID-19
CPT/HCPCS: 43281; 36415; 80048; 81003; 85025; 85027; 85610; 85730; 86850; 86870; 86885; 86900; 86901; 86902; 86920; 86922; 87635; 88302; 93005; C1776; J0131; J0690; J1100; J2250; J2370; J2405; J2550; J3010

== ENCOUNTER → 2021-05-15 11:07 | Outpatient (BNVA) | payer OTHER, SELFPAY | PROVIDERS: PCP Internal Medicine; Referring Provider Internal Medicine; Visit Provider Surgery | DX: Z48.815 Encounter for surgical aftercare following surgery on the digestive system (principal); R11.0 Nausea; F17.210 Nicotine dependence, cigarettes, uncomplicated; Z87.19 Personal history of other diseases of the digestive system | CPT/HCPCS: 99212 ==

== ENCOUNTER 2021-05-25 13:21 | Inpatient (IN) | payer OTHER, SELFPAY ==
[2021-05-25] VITALS (13 sets, daily range): BP systolic 91–161; BP diastolic 57–110; PULSE 73–113; RESP 13–18; TEMP 36.1–36.9; O2SAT 92–98; BMI 46.0
--- NOTE | ~2021-05-25 | XR_ITS ---
EXAMINATION: XR CHEST CLINICAL INFORMATION: Shortness of breath COMPARISON: Chest radiographs 03/18/2021, 02/16/2021 TECHNIQUE: Portable upright AP view of the chest was obtained. FINDINGS: There is no hyperinflation, pneumothorax, pleural reaction, or effusion. No focal airspace consolidation or groundglass opacity. The costophrenic sulci are clear. The heart is within normal size for portable AP view. The vascularity is normal. The hilar and mediastinal contours are unremarkable. No visible acute bony abnormality. XR/XR chest 1V IMPRESSION: Unremarkable examination.
--- NOTE | ~2021-05-25 | CT_ITS ---
EXAMINATION: CT ANGIOGRAM OF THE CHEST WITH AND WITHOUT CONTRAST (CT PULMONARY ANGIOGRAM FOR PE) CLINICAL INFORMATION: Shortness of breath COMPARISON: Chest x-ray of same day TECHNIQUE: Prior to contrast administration, noncontrast localization images were obtained. Subsequently, multidetector volumetric imaging was performed from the thoracic inlet to below the diaphragms following the administration of 85 mL Omnipaque 350 intravenous contrast. No contrast reaction reported Sagittal, coronal, and MIP oblique sagittal reformatted images were obtained on the CT workstation, uploaded to PACS, and reviewed. This CT examination was performed using dose optimization techniques as appropriate, variously including the following: *Automated exposure control *Adjustment of mA and/or kV according to patient size (this includes techniques or standardized protocols for targeted exams where dose is matched to indication/reason for exam; i.e. extremities or head) *Use of iterative reconstruction technique Total exam dose-length product 425 mGy-cm FINDINGS: QUALITY OF STUDY/CONTRAST BOLUS: Satisfactory. There is some limitation due to motion artifact. PULMONARY ARTERIES: No central or segmental pulmonary emboli. There was a question of synechiae abnormal filling defects however this is towards fifth and sixth order branching and appears to be artifact. THORACIC AORTA: No aneurysm or dissection. LUNG: No focal consolidation, nodules or masses. Central airways patent. There is central airway bronchial thickening present without evidence of bronchiectasis. PLEURA: No pleural effusion or pneumothorax. MEDIASTINUM: Normal heart size. No pericardial effusion. No hilar or mediastinal lymphadenopathy. No evidence of septal bowing or right heart strain. CHEST WALL/AXILLA: No axillary or internal mammary lymphadenopathy. OSSEOUS STRUCTURES: No acute or suspicious osseous abnormality. UPPER ABDOMEN: Unremarkable. No reflux of contrast into the hepatic veins to suggest elevated right heart pressures. CT/CT angio chest PE protocol IMPRESSION: No evidence of acute pulmonary artery embolus. No evidence of thoracic aortic aneurysm or dissection. VTE: negative
--- NOTE | ~2021-05-25 | CT_ITS ---
EXAMINATION: CT ABDOMEN AND PELVIS WITH CONTRAST CLINICAL INFORMATION: Abdominal pain. Status post hernia surgery 20 days ago. COMPARISON: February 16, 2021 TECHNIQUE: Multidetector volumetric images were obtained from the superior aspect of the liver through the pubic symphysis following administration 85 mL of Omnipaque 350 intravenous contrast. Sagittal and coronal reformatted images were obtained on the technologist's workstation. Oral contrast: No This CT examination was performed using dose optimization techniques as appropriate, variously including the following: *Automated exposure control *Adjustment of mA and/or kV according to patient size (this includes techniques or standardized protocols for targeted exams where dose is matched to indication/reason for exam; i.e. extremities or head) *Use of iterative reconstruction technique DLP: 1122 mGy-cm FINDINGS: LUNG BASES: The visualized lung bases are unremarkable. No pleural or pericardial effusion. LIVER, GALLBLADDER, AND BILIARY TREE: There is mild hepatomegaly present. No focal mass or intrahepatic bile duct dilatation is identified. There does appear to be some degree of fatty infiltration of the liver. Status post cholecystectomy PANCREAS: Unremarkable. SPLEEN: Unremarkable. ADRENAL GLANDS: Unremarkable. KIDNEYS AND URETERS: There is a 2 mm nonobstructing calculus within the right upper pole. No hydronephrosis identified. No hydroureter. No focal mass is seen. There is a 3 mm and 2, 2 mm calculi present within the lower pole of the left kidney. No hydronephrosis. No focal mass. No hydroureter. BLADDER: Unremarkable. GASTROINTESTINAL TRACT: No dilated loops of large or small bowel are evident. No free air or free fluid. There is some mild stranding within the fat adjacent to the gastroesophageal junction of uncertain significance. There is no evidence of acute diverticulitis. The appendix appears unremarkable. No pericolonic inflammatory change. ABDOMINAL WALL: There is hazy density seen about the midline rectus musculature in the supraumbilical region without abnormal fluid collection. This is seen both in the peritoneal cavity as well as in the subcutaneous tissues this was not evident on prior study and question whether this may be postoperative in nature. LYMPH NODES: No lymphadenopathy is appreciated. There is a rim calcified pelvic density measuring approximately 9 mm in diameter adjacent to the left side of the urinary bladder and loops of small bowel. This may represent calcified lymph node. VASCULAR: Unremarkable. PELVIC VISCERA: Unremarkable. OSSEOUS STRUCTURES: No destructive bony lesions identified. Multilevel degenerative disc disease is seen. CT/CT abdomen pelvis w con IMPRESSION: Mild hepatomegaly with fatty infiltration. Bilateral nonobstructing nephrolithiasis. Nonspecific fat stranding about the gastroesophageal junction. Hazy density about the midline anterior abdominal wall which may be postoperative in nature. No evidence of ileus or obstruction.
--- NOTE | 2021-05-25 13:52 | ECG_ITS ---
Test Reason : DIZZINESS Blood Pressure : / mmHG Vent. Rate : 084 BPM Atrial Rate : 084 BPM P-R Int : 180 ms QRS Dur : 078 ms QT Int : 362 ms P-R-T Axes : 044 019 026 degrees QTc Int : 427 ms Normal sinus rhythm Low voltage QRS Cannot rule out Anterior infarct , age undetermined Abnormal ECG When compared with ECG of 25-MAY-2021 13:57, No significant change was found Referred By: Leonarda Sellers Electronically Signed By:HARINI MARCIAL MD
--- NOTE | 2021-05-25 13:57 | ED_ITS ---
HPI - Syncope General Chief Complaint: Dizziness Stated Complaint: DIZZINESS,FALL Time Seen by Provider: 05/25/21 13:46 History of Present Illness HPI narrative: Patient is 55 years old history of smoking history of COPD. History of hiatal hernia. Had hiatal hernia surgery done approximately 20 days ago. Did not have good p.o. intake. She was eating less than normal. Now when she got up this morning he felt lightheaded. When she ambulates she had chest pain going to the arm. No diaphoresis. Patient then proceeded to have a near syncopal episode. No recent stress test. Patient from home. No coughing no congestion or upper respiratory symptoms. No diaphoresis. No similar symptoms in the past. No bloody stool. MD complaint: loss of consciousness Onset (ago): minute(s) Related Data Home Medications Medication Instructions Recorded Confirmed albuterol sulfate 90 mcg/actuation 2 puff INHALATION Q4H PRN 02/16/21 05/25/21 aerosol inhaler bictegravir 50 mg-emtricitabine 1 tab PO DAILY 02/16/21 05/25/21 200 mg-tenofovir alafenam 25 mg tablet (Biktarvy) bupropion HCl 300 mg 24 hr tablet, 300 mg PO DAILY 02/16/21 05/25/21 extended release clonazepam 1 mg tablet 1 mg PO TID 02/16/21 05/25/21 duloxetine 30 mg capsule,delayed 30 mg PO DAILY 02/16/21 05/25/21 release duloxetine 60 mg capsule,delayed 60 mg PO DAILY 02/16/21 05/25/21 release gabapentin 400 mg capsule 400 mg PO TID 02/16/21 05/25/21 prazosin 2 mg capsule 4 mg PO BEDTIME 02/16/21 05/25/21 budesonide-formoterol HFA 80 2 puff INHALATION BID 04/30/21 05/25/21 mcg-4.5 mcg/actuation aerosol inhaler (Symbicort) acetaminophen 500 mg tablet 1,000 mg PO Q6H PRN 05/25/21 05/25/21 quetiapine 400 mg tablet 2 tab PO BEDTIME 05/25/21 05/25/21 Previous Rx's Medication Instructions Recorded famotidine 40 mg tablet 40 mg PO BEDTIME #60 tab 03/24/21 pantoprazole 40 mg tablet,delayed 40 mg PO DAILY #60 tab 03/24/21 release docusate sodium 100 mg capsule 100 mg PO BID #30 cap 05/06/21 (Colace) dicyclomine 10 mg capsule 10 mg PO BID #60 cap 05/18/21 ondansetron 4 mg disintegrating 4 mg PO Q6H PRN #20 tab 05/22/21 tablet Allergies Allergy/AdvReac Type Severity Reaction Status Date / Time Penicillins [PENICILLINS] Allergy Intermediate SOB/HIVES Verified 05/25/21 13:41 codeine AdvReac Intermediate Nausea and Verified 05/25/21 13:41 Vomiting ketorolac [From Toradol] AdvReac Intermediate Nausea and Verified 05/25/21 13:41 Vomiting Review of Systems Review of Systems: Constitutional: No Weight loss, No Fever, No Chills, No Night Sweats, No Fatigue, No Malaise ENT/Mouth: No Hearing loss, No Ear Pain, No Nasal Congestion, No Sinus Pain, No Hoarseness, No sore throat, No Rhinorrhea, No Swallowing Difficulty Eyes: No Eye Pain, No Swelling, No Redness, No Foreign Body, No Discharge, No Vision Changes Cardiovascular: No Chest Pain, No SOB, No Dyspnea on Exertion, No Orthopnea, No Edema, No Palpitations Respiratory: No Cough, No Sputum, No Wheezing, No Smoke Exposure, No Dyspnea Gastrointestinal: No Nausea, No Vomiting, No Diarrhea, No Constipation, No abdominal Pain, No Hematochezia, No Melena Genitourinary: no irregular bleeding, No Dysuria, No Urinary Frequency, No Hematuria, No Urinary Incontinence, No Urgency, No Flank Pain, No Urinary Flow Changes, No Hesitancy Musculoskeletal: No joint pain, No Myalgias, No Joint Swelling Skin: No Skin Lesions, No rash Neuro: No Weakness, No Numbness, No Paresthesias, positive Loss of Consciousness, positive Dizziness, No Headache Psych: No Anxiety/Panic, No Depression, No SI/HI/AH/VH, No Social Issues, Heme/Lymph: No Bruising, No Bleeding,No Lymphadenopathy Endocrine: No Polyuria, No Polydipsia, No Temperature Intolerance [facility] Past Medical History Attestation statement: The following information was validated with the patient. Medical History Anemia Anxiety Arthritis Asthma Bilateral renal stones Bipolar 1 disorder COPD (chronic obstructive pulmonary disease) COVID-19 vaccine administered Depression GERD (gastroesophageal reflux disease) Hiatal hernia without gangrene and obstruction HIV (human immunodeficiency virus infection) Hx of anxiety disorder Hx of hepatitis C Morbid (severe) obesity due to excess calories Nicotine dependence, cigarettes, uncomplicated PTSD (post-traumatic stress disorder) Surgical History History of section, classical History of cholecystectomy History of colonoscopy (~2020) History of endoscopy (~2020) History of repair of hiatal hernia History of tonsillectomy and adenoidectomy Family History Family History Mother Respiratory arrest Father Congestive heart failure Sister No problems noted. Brother No problems noted. Daughter No problems noted. Son No problems noted. Social History Social History Household Members: None Housing: House Housing Other:: resides at [facility]-will return there post-op Are you a primary animal caretaker to a significant other at home: No Do you presently have visiting nurse or other home services: No Alcohol intake: never Patient Tobacco Use Status: Current everyday Tobacco user Tobacco use type: Cigarette Cigarette Packs Per Day: 0.5 Cigarettes Per Day: 10 Years Smoked: 20 Second Hand Smoke Exposure: No Advance Directives: Yes Advance Directives on File: Yes Advance Directives Date on File: 03/18/21 Patient : No service: No Current occupational status: unemployed and disabled Physical Exam Vital Signs: Vital Signs: Last Vital Signs Temp 98.5 F 05/25/21 13:41 Pulse 81 05/25/21 17:08 Resp 18 05/25/21 17:08 BP 127/66 05/25/21 17:08 Pulse Ox 95 05/25/21 17:08 Body Mass Index 46.0 Appearance: Alert. Oriented X3. No acute distress. Eyes: Pupils equal, round and reactive to light. ENT: Pharynx normal. Neck: Normal inspection. Neck supple. No lymph nodes noted. No crepitus CVS: Normal heart rate and rhythm. Pulses normal. Normal S1 and S2 Respiratory: No respiratory distress. Breath sounds normal. No Wheezing. No rales Abdomen: Soft and nontender. No rigidity. No distention. good BS x4 Skin: Skin warm and dry. Normal skin color. Normal skin turgor. Extremities: No lower extremity edema. Neurovascular intact to all extremities. No Lacerations. No Rash Neuro: Oriented X 3. No motor deficit. No sensory deficit. Moving all extermities. No slurred speech MDM - Syncope MDM Narrative Medical decision making narrative: patient ambulated then had chest pain. Going to the arm. Positive syncope. Positive recent surgery [address] scan of the chest was grossly negative for any acute evidence of pulmonary emboli. CT scan of the abdomen pelvis did not have any acute findings. Patient's hemoglobin is 10. Patient's electrolytes unremarkable troponin was negative. Had pain going to the arm at the time. Will discuss with hospitalist team for admission observation. Currently in stable condition. Patient's EKG showed a sinus pattern heart rate is 85 OK QRS QT within normal limits is no acute ST segment elevation noted. Medical Records Attestation: I reviewed the patient's medical records. Lab Data Attestation: I reviewed the patient's lab results. Result diagrams: 05/25/21 14:21 05/25/21 14:21 Labs: Lab Results 05/25/21 0805/25/21 Range/Units 14:21 14:21 14:21 WBC 3.8 L (4.8-10.8) X10*3/uL RBC 4.04 L (4.20-5.50) X10*6/uL Hgb 10.0 L (12.0-16.0) g/dl Hct 33.5 L (37-47) % MCV 82.9 (80-98) fL MCH 24.8 L (27.0-33.0) pg MCHC 29.9 L (31.0-35.0) g/dl RDW 16.7 H (11.0-16.0) % Plt Count 304 D (160-400) X10*3/uL MPV 9.3 L (9.4-12.3) fL Immature Gran % (Auto) 0.3 (0.0-0.4) % Neut % (Auto) 57.6 (45-73) % Lymph % (Auto) 28.4 (20-40) % Mills % (Auto) 10.8 (2-11) % Eos % (Auto) 2.1 (0-4) % Baso % (Auto) 0.8 (0-2) % Lymph # (Auto) 1.1 L (1.2-4.9) X10*3/uL Mills # (Auto) 0.4 (0.1-1.2) X10*3/uL Eos # (Auto) 0.1 (0.0-0.4) X10*3/uL Baso # (Auto) 0.0 (0.0-0.2) X10*3/uL Abs Immat Gran (auto) 0.01 (0.00-0.03) X10*3/uL Absolute Neuts (auto) 2.2 (2.0-8.3) X10*3/uL Absolute Nucleated RBC 0.000 (0.0-0.012) X10*3/uL Nucleated RBC % (auto) 0.0 (0.0-0.2) /100WBC PT 10.6 (9.9-13.0) SEC INR 0.9 (0.9-1.1) D-Dimer 475 NG/ML Sodium 140 (135-145) mmol/L Potassium 4.6 (3.3-5.1) mmol/L Chloride 102 (96-108) mmol/L Carbon Dioxide 30 H (22-29) mmol/L Anion Gap 13 (12-20) BUN 15 (9-16) mg/dL Creatinine 1.18 (0.5-1.4) mg/dL Estim Creat Clear Calc 68.4 Estimated GFR 48 Random Glucose 96 (60-115) mg/dL Calcium 9.5 (8.4-10.2) mg/dL Total Bilirubin 0.4 (0.0-1.0) mg/dL AST 27 (5-31) U/L ALT 18 (0-31) U/L Alkaline Phosphatase 111 D (39-117) U/L Troponin I High Sens (<3.5-17.0) ng/L B-Natriuretic Peptide (<100) pg/mL Total Protein 7.8 (6.5-8.0) g/dL Albumin 4.6 (3.5-5.0) g/dL Lipase 70 (8-78) U/L Coronavirus (PCR) (Negative) Influenza Type A (PCR) (Negative) Influenza Type B (PCR) (Negative) RSV RNA Qual (PCR) (Negative) 05/25/21 05/25/21 05/25/21 Range/Units 14:21 14:21 14:45 WBC (4.8-10.8) X10*3/uL RBC (4.20-5.50) X10*6/uL Hgb (12.0-16.0) g/dl Hct (37-47) % MCV (80-98) fL MCH (27.0-33.0) pg MCHC (31.0-35.0) g/dl RDW (11.0-16.0) % Plt Count (160-400) X10*3/uL MPV (9.4-12.3) fL Immature Gran % (Auto) (0.0-0.4) % Neut % (Auto) (45-73) % Lymph % (Auto) (20-40) % Mills % (Auto) (2-11) % Eos % (Auto) (0-4) % Baso % (Auto) (0-2) % Lymph # (Auto) (1.2-4.9) X10*3/uL Mills # (Auto) (0.1-1.2) X10*3/uL Eos # (Auto) (0.0-0.4) X10*3/uL Baso # (Auto) (0.0-0.2) X10*3/uL Abs Immat Gran (auto) (0.00-0.03) X10*3/uL Absolute Neuts (auto) (2.0-8.3) X10*3/uL Absolute Nucleated RBC (0.0-0.012) X10*3/uL Nucleated RBC % (auto) (0.0-0.2) /100WBC PT (9.9-13.0) SEC INR (0.9-1.1) D-Dimer NG/ML Sodium (135-145) mmol/L Potassium (3.3-5.1) mmol/L Chloride (96-108) mmol/L Carbon Dioxide (22-29) mmol/L Anion Gap (12-20) BUN (9-16) mg/dL Creatinine (0.5-1.4) mg/dL Estim Creat Clear Calc Estimated GFR Random Glucose (60-115) mg/dL Calcium (8.4-10.2) mg/dL Total Bilirubin (0.0-1.0) mg/dL AST (5-31) U/L ALT (0-31) U/L Alkaline Phosphatase (39-117) U/L Troponin I High Sens < 3.5 (<3.5-17.0) ng/L B-Natriuretic Peptide 26 (<100) pg/mL Total Protein (6.5-8.0) g/dL Albumin (3.5-5.0) g/dL Lipase (8-78) U/L Coronavirus (PCR) NEGATIVE (Negative) Influenza Type A (PCR) NEGATIVE (Negative) Influenza Type B (PCR) NEGATIVE (Negative) RSV RNA Qual (PCR) NEGATIVE (Negative)
[2021-05-25] MEDS: ondansetron HCL 4 MG/2 ML VIAL IVPUSH ×2 (14:23→21:23)
[2021-05-25] MEDS: Aspirin 325 MG TABLET PO (14:23)
[2021-05-25] MEDS: 0.9 % Sodium Chloride 1,000 ML 999 ML IV (14:23)
[2021-05-25 14:27] LABS: MANUAL DIFF FLAG NO
[2021-05-25 14:34] LABS: Basophils Percent Auto 0.8 % (0-2); Eosinophils Absolute Auto 0.1 X10*3/uL (0.0-0.4); Eosinophils Percent Auto 2.1 % (0-4); Hematocrit 33.5 % (37-47); Imm Gran Abs Auto 0.01 X10*3/uL (0.00-0.03); Imm Gran Pct Auto 0.3 % (0.0-0.4); Lymphocytes Absolute Auto 1.1 X10*3/uL (1.2-4.9); Lymphocytes Percent Auto 28.4 % (20-40); Mean Corpuscular HGB Conc 29.9 g/dl (31.0-35.0); Mean Corpuscular Hemoglobin 24.8 pg (27.0-33.0); Mean Corpuscular Volume 82.9 fL (80-98); Mean Platelet Volume 9.3 fL (9.4-12.3); Monocytes Absolute Auto 0.4 X10*3/uL (0.1-1.2); Monocytes Percent Auto 10.8 % (2-11); Neutrophils Absolute Auto 2.2 X10*3/uL (2.0-8.3); Neutrophils Percent Auto 57.6 % (45-73); Platelet Count 304 X10*3/uL (160-400); Red Blood Count 4.04 X10*6/uL (4.20-5.50); Red Cell Distribution Width 16.7 % (11.0-16.0); White Blood Count 3.8 X10*3/uL (4.8-10.8)
[2021-05-25 14:39] LABS: INTERNATIONAL NORM RATIO 0.9 (0.9-1.1); Prothrombin Time 10.6 SEC (9.9-13.0)
[2021-05-25 14:42] LABS: D Dimer 475 NG/ML
[2021-05-25 14:59] LABS: Alanine Aminotransferase 18 U/L (0-31); Albumin Level 4.6 g/dL (3.5-5.0); Alkaline Phosphatase 111 U/L (39-117); Anion Gap 13 (12-20); Aspartate Amino Transferase 27 U/L (5-31); Bilirubin Total 0.4 mg/dL (0.0-1.0); Blood Urea Nitrogen 15 mg/dL (9-16); Calcium 9.5 mg/dL (8.4-10.2); Carbon Dioxide 30 mmol/L (22-29); Chloride 102 mmol/L (96-108); Creatinine Clr Calc Pharmacy 68.4; Estimated Glomerular Filt Rate 48; Glucose Random 96 mg/dL (60-115); Lipase 70 U/L (8-78); Potassium 4.6 mmol/L (3.3-5.1); Sodium 140 mmol/L (135-145); Total Protein 7.8 g/dL (6.5-8.0)
[2021-05-25 15:02] LABS: B Type Natriuretic Peptide 26 pg/mL (<100); Troponin-I High Sensitivity < 3.5 ng/L (<3.5-17.0)
[2021-05-25 15:48] LABS: Influenza A PCR NEGATIVE (Negative); Influenza B PCR NEGATIVE (Negative); Resp Syncy Virus RNA Qual PCR NEGATIVE (Negative); SARS COV2 PCR INHOUSE NEGATIVE (Negative)
[2021-05-25] MEDS: iohexoL 350 MG/ML 100 ML INFUS..BTL 85 ML IV (15:52)
--- NOTE | 2021-05-25 17:02 | ECG_ITS ---
Test Reason : SYNCOPE Blood Pressure : / mmHG Vent. Rate : 083 BPM Atrial Rate : 083 BPM P-R Int : 152 ms QRS Dur : 074 ms QT Int : 370 ms P-R-T Axes : 021 026 024 degrees QTc Int : 434 ms Normal sinus rhythm Low voltage QRS Borderline ECG When compared with ECG of 29-APR-2021 11:11, No significant change was found Referred By: Leonarda Sellers Electronically Signed By:HARINI MARCIAL MD
[2021-05-25] MEDS: HYDROmorphone HCl 0.5 MG/0.5 ML SYRINGE IVPUSH (17:07)
--- NOTE | 2021-05-25 17:40 | PHA.MEDREC ---
Pharmacy Consult ? Medication Reconciliation Pharmacy has completed the medication reconciliation. Pt takes famotidine QHS, and pantoprazole QAM
[2021-05-25 18:51] LABS: Troponin-I High Sensitivity < 3.5 ng/L (<3.5-17.0)
[2021-05-25 19:56] LABS: Glucose Urine UA NEG (NEG); Leukocyte Esterase Urine NEG (NEG); Nitrite Urine NEG (NEG); Specific Gravity - Urine 1.015 (1.005-1.025); Urine Blood NEG (NEG); Urine Ketones NEG (NEG); Urine Protein NEG (NEG-TRACE)
[2021-05-25 19:57] LABS: Appearance Urine CLEAR; Color Urine YELLOW
[2021-05-25] MEDS: Morphine Sulfate 4 MG/ML CARTRIDGE IVPUSH (21:23)
[2021-05-25] MEDS: QUEtiapine Fumarate 200 MG TABLET 800 MG PO (21:25)
[2021-05-25] MEDS: Enoxaparin Sodium 40 MG/0.4 ML SYRINGE SUBCUT (21:25)
[2021-05-25] MEDS: Prazosin HCL 1 MG CAPSULE 4 MG PO (21:26)
[2021-05-25] MEDS: Docusate Sodium 100 MG CAPSULE PO (21:27)
[2021-05-25] MEDS: Gabapentin 400 MG CAPSULE PO (21:28)
[2021-05-25] MEDS: Famotidine 20 MG TABLET 40 MG PO (21:28)
[2021-05-25] MEDS: Dicyclomine HCl 10 MG CAPSULE PO (21:28)
[2021-05-25] MEDS: clonazePAM 1 MG TABLET PO (21:28)
[2021-05-25 22:11] LABS: RBC Urine 0-2 /HPF (0); Squamous Epithelial Cell Urine 1+ /LPF; WBC Urine 0-2 /HPF (0-4)
--- NOTE | 2021-05-25 22:47 | PC.NURSE ---
awaiting return call from [facility] [place].
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
--- NOTE | 2021-05-25 23:07 | PC.NURSE ---
Pt reports slight dizziness with change in position but denies CP and has been sleeping on and off. skin pwd. nsr on monitor. awaits transfer to floor/
[2021-05-26] VITALS (11 sets, daily range): BP systolic 82–132; BP diastolic 44–75; PULSE 76–120; RESP 16–20; TEMP 36.1–37.2; O2SAT 81–98; BMI 46.2
[2021-05-26] MEDS: Morphine Sulfate 4 MG/ML CARTRIDGE IVPUSH ×5 (00:37→20:46)
[2021-05-26] MEDS: Omeprazole 20 MG CAPSULE.DR PO (05:50)
[2021-05-26 06:36] LABS: MANUAL DIFF FLAG NO
[2021-05-26 07:02] LABS: Basophils Percent Auto 0.8 % (0-2); Eosinophils Absolute Auto 0.1 X10*3/uL (0.0-0.4); Eosinophils Percent Auto 4.4 % (0-4); Hematocrit 28.8 % (37-47); Hemoglobin 8.3 g/dl (12.0-16.0); Lymphocytes Absolute Auto 0.9 X10*3/uL (1.2-4.9); Lymphocytes Percent Auto 36.3 % (20-40); Mean Corpuscular HGB Conc 28.8 g/dl (31.0-35.0); Mean Corpuscular Hemoglobin 24.7 pg (27.0-33.0); Mean Corpuscular Volume 85.7 fL (80-98); Mean Platelet Volume 9.6 fL (9.4-12.3); Monocytes Absolute Auto 0.3 X10*3/uL (0.1-1.2); Monocytes Percent Auto 13.1 % (2-11); Neutrophils Absolute Auto 1.1 X10*3/uL (2.0-8.3); Neutrophils Percent Auto 45.4 % (45-73); Platelet Count 205 X10*3/uL (160-400); Red Blood Count 3.36 X10*6/uL (4.20-5.50); Red Cell Distribution Width 16.9 % (11.0-16.0)
[2021-05-26 07:08] LABS: White Blood Count 2.5 X10*3/uL (4.8-10.8)
[2021-05-26 07:38] LABS: Anion Gap 15 (12-20); Blood Urea Nitrogen 18 mg/dL (9-16); Calcium 8.5 mg/dL (8.4-10.2); Carbon Dioxide 21 mmol/L (22-29); Chloride 105 mmol/L (96-108); Creatinine Clr Calc Pharmacy 63.2; Estimated Glomerular Filt Rate 44; Glucose Random 114 mg/dL (60-115); Potassium 3.9 mmol/L (3.3-5.1); Sodium 137 mmol/L (135-145)
[2021-05-26] MEDS: Fluticasone/Vilanterol 100/25 BLST.W.DEV 1 PUFF INHALE (07:40)
[2021-05-26] MEDS: buPROPion HCl XL 300 MG TAB.ER.24H PO (08:48)
[2021-05-26] MEDS: DULoxetine HCl 30 MG CAPSULE.DR PO (08:48)
[2021-05-26] MEDS: Dicyclomine HCl 10 MG CAPSULE PO ×2 (08:48→20:45)
[2021-05-26] MEDS: Docusate Sodium 100 MG CAPSULE PO ×2 (08:48→20:46)
[2021-05-26] MEDS: DULoxetine HCl 60 MG CAPSULE.DR PO (08:48)
[2021-05-26] MEDS: Gabapentin 400 MG CAPSULE PO ×3 (08:48→20:45)
[2021-05-26] MEDS: clonazePAM 1 MG TABLET PO ×3 (08:49→20:46)
[2021-05-26] MEDS: 0.9 % Sodium Chloride Flush 3 ML SYRINGE IVFLUSH (08:49)
--- NOTE | 2021-05-26 09:41 | P.CONGS_ITS ---
History of Present Illness Consult details Consult date: 05/26/21 Reason for consult: other (Epigastric pain) Requesting physician: Sybil Mclean Narrative: This is a 55-year-old lady with history of HIV and hepatitis-C as well as morbid obesity who underwent a laparoscopic hiatal hernia repair on 05/06/2021 with me. Patient was seen last week in postoperative follow-up and was doing relatively well with the exception of mild chronic nausea and some mild epigastric discomfort. Patient reports she is not vomiting and is moving her bowels without difficulty. Patient was brought in to the emergency department yesterday after she had a syncopal episode with a reported loss of consciousness. She reported having dizziness and then weakness and then her legs buckled underneath her. Patient was seen in the emergency department and completely worked up with cardiac workup which has been negative. Patient had a chest CT with PE protocol which was negative for pulmonary embolism. Patient also had a CT scan abdomen and pelvis which was relatively normal without any evidence postoperative complications and no evidence of hiatal hernia recurrence. Patient does report being on Carafate pills until about 3 days ago when she ran out of the medication. She does take Protonix on a regular basis. These medications were given to her by her chainstitch pants outseamer here at [facility]. Patient reports she was taking the Carafate elix initially which worked very well and she had no epigastric pain when she was taking that medication. The insurance stopped covering the elix form and have been giving her pill form and she reports she has had epigastric pain ever since she has been taking the pill form. Patient is a smoker and smokes 6-10 cigarettes on a daily basis. She reports she last smoked yesterday and smoked 2 cigarettes. She has nicotine patches in plans to quit smoking but had not started the quitting effort. Patient reports her dizziness has improved but she has not been out of bed since admission. She denies any fever, chills, or chest pain. She did report having chest pain yesterday which was in the left upper chest and radiated to her left arm but that resolved when she was in the emergency depa rtment. Patient does have some mild shortness of breath with exertion. All laboratory values have been stable. Review of Systems Constitutional: Constitutional: Denies chills, Reports difficulty sleeping, Denies excessive sweating, Reports fatigue, Denies fever(s), Denies headache(s), Reports lethargy, Denies night sweats, Reports weakness and Denies weight loss Eyes: Eyes: Denies blurry vision, Denies diplopia and Denies eye discharge ENT: Reports Normal hearing present, Denies change in voice, Denies he adache(s), Denies neck mass, Denies sore throat, Denies throat swelling and Denies tongue swelling Cardiovascular: Cardiovascular: Denies chest pain, Denies chest pain at rest, Denies chest pain with activity, Reports Epigastric Pain, Reports syncope, Denies edema, Denies leg edema, Reports lightheadedness, Reports Loss of Consciousness, Reports radiating jaw, neck or arm pain and Reports dyspnea on exertion Respiratory: Respiratory: Reports cough, Reports excessive phlegm production, Reports dyspnea on exertion, Denies stridor and Reports wheezing Gastrointestinal: Gastrointestinal: Reports abdominal pain (Epigastric), Denies melena, Denies bloating, Denies hematochezia, Denies constipation, Denies heartburn, Reports nausea and Denies vomiting Genitourinary: Genitourinary: Denies hematuria, Denies dysuria, Denies urinary incontinence, Denies urinary hesitancy and Denies urinary urgency Musculoskeletal: Musculoskeletal: Reports back pain, Reports arthralgias and Denies muscle weakness Integumentary/Breasts: Skin/Breast: Denies breast swelling, Denies breast pa in, Denies breast mass, Denies change in pigmentation, Denies new lesions and Denies rash Neurologic: Reports Normal hearing present, Denies confusion, Reports syncope, Denies headache(s), Denies lack of coordination, Denies focal weakness, Denies paresthesias and Reports weakness Psychiatric: Psychiatric: Reports anxiety, Denies confusion and Denies depression Endocrine: Endocrine: Denies cold intolerance, Denies excessive sweating and Reports fatigue Hematologic/Lymphatic: Hematologic/Lymphatic: Denies easy bleeding, Denies easy bruising and Denies lymphadenopathy Allergic/Immunologic: Allergic/Immunologic: Denies urticaria, Denies throat swelling, Denies tongue swelling and Reports wheezing PMFSH Past Medical History Medical History Anemia Anxiety Arthritis Asthma Bilateral renal stones Bipolar 1 disorder COPD (chronic obstructive pulmonary disease) COVID-19 vaccine administered Depression GERD (gastroesophageal reflux disease) Hiatal hernia without gangrene and obstruction HIV (human immunodeficiency virus infection) Hx of anxiety disorder Hx of hepatitis C Morbid (severe) obesity due to excess calories Nicotine dependence, cigarettes, uncomplicated PTSD (post-traumatic stress disorder) Family History Family History Mother Respiratory arrest Father Congestive heart failure Sister No problems noted. Brother No problems noted. Daughter No problems noted. Son No problems noted. Surgical History Surgical History History of section, classical History of cholecystectomy History of colonoscopy (~2020) History of endoscopy (~2020) History of repair of hiatal hernia History of tonsillectomy and adenoidectomy Social History Social History Household Members: None Housing: House Housing Other:: resides at [facility]-will return there post-op Are you a primary live in caregiver to a significant other at home: No Do you presently have visiting nurse or other home services: No Alcohol intake: never Patient Tobacco Use Status: Current everyday Tobacco user Tobacco use type: Cigarette Cigarette Packs Per Day: 0.5 Cigarettes Per Day: 10.0 Years Smoked: 20 Second Hand Smoke Exposure: No Use of substances other than those prescribed or required for medical reasons: No Currently Displaying Signs/Symptoms of Drug Intoxication Withdrawal: No Have you been hit, kicked, punched, or otherwise hurt by someone within the past year? If so, by whom?: No Do you feel safe in your current relationship?: Yes Is there a partner from a previous relationship who is making you feel unsafe now?: No Are you made to feel afraid or neglected: No Advance Directives: Yes Advance Directives on File: Yes Advance Directives Date on File: 03/18/21 Do you have thoughts of harming others: None Do you have a plan to hurt others: No Plan Recently lost weight without trying: No How much weight loss: Not applicable Eating poorly because of decreased appetite: No Nutrition screen score: 0 Nutrition Risks: No Nutritional Risk Patient : No : No Poor oral hygiene: No service: No Current occupational status: unemployed and disabled Meds Allergies Allergy/AdvReac Type Severity Reaction Status Date / Time Penicillins [PENICILLINS] Allergy Intermediate SOB/HIVES Verified 05/25/21 13:41 codeine AdvReac Intermediate Nausea and Verified 05/25/21 13:41 Vomiting ketorolac [From Toradol] AdvReac Intermediate Nausea and Verified 05/25/21 13:41 Vomiting Active Medications: Current Medications Generic Name Dose Route Start Last Admin Trade Name Freq PRN Reason Stop Dose Admin Acetaminophen 650 mg 05/25/21 20:50 Acetaminophen 325 Mg Tablet PO Q6H PRN Pain, Mild (Pain Scale 1-3) Albuterol Sulfate 2 puff 05/25/21 20:50 Albuterol Sulfate 90 Mcg 8 Gm Inhaler INHALE Q4H PRN Respiratory Distress Bictegravir/Emtricitabine/Tenofovir 1 tab 05/26/21 09:00 05/26/21 08:48 Bictegrav/Emtricit/Tenofov Ala 1 Tab Tablet PO 1 tab DAILY GEOVANNA Administration Bupropion HCl 300 mg 05/26/21 09:00 05/26/21 08:48 Bupropion Hcl Xl 300 Mg Tab.Er.24h PO 300 mg DAILY GEOVANNA Administration Clonazepam 1 mg 05/25/21 21:00 05/26/21 08:49 Clonazepam 1 Mg Tablet PO 1 mg TID GEOVANNA Administration Dicyclomine HCl 10 mg 05/25/21 21:00 05/26/21 08:48 Dicyclomine Hcl 10 Mg Capsule PO 10 mg BID GEOVANNA Administration Docusate Sodium 100 mg 05/25/21 21:00 05/26/21 08:48 Docusate Sodium 100 Mg Capsule PO 100 mg BID GEOVANNA Administration Duloxetine HCl 30 mg 05/26/21 09:00 05/26/21 08:48 Duloxetine Hcl 30 Mg Capsule. PO 30 mg DAILY GEOVANNA Administration Duloxetine HCl 60 mg 05/26/21 09:00 05/26/21 08:48 Duloxetine Hcl 60 Mg Capsule. PO 60 mg DAILY GEOVANNA Administration Enoxaparin Sodium 40 mg 05/25/21 20:50 05/25/21 21:25 Enoxaparin Sodium 40 Mg/0.4 Ml Syringe SUBCUT 40 mg Q24H GEOVANNA Administration Famotidine 40 mg 05/25/21 21:00 05/25/21 21:28 Famotidine 20 Mg Tablet PO 40 mg BEDTIME GEOVANNA Administration Fluticasone/Vilanterol 1 puff 05/26/21 08:00 05/26/21 07:40 Fluticasone/Vilanterol 100/25 Blst.W.Dev INHALE 1 puff RDAILY GEVOANNA Administration Gabapentin 400 mg 05/25/21 21:00 05/26/21 08:48 Gabapentin 400 Mg Capsule PO 400 mg TID GEOVANNA Administration Morphine Sulfate 4 mg 05/25/21 20:50 05/26/21 05:50 Morphine Sulfate 4 Mg/Ml Cartridge IVPUSH 4 mg Q4H PRN Administration Pain, Severe (Pain Scale 7-10) Ondansetron HCl 4 mg 05/25/21 20:50 05/25/21 21:23 Ondansetron Hcl 4 Mg/2 Ml Vial IVPUSH 4 mg Q8H PRN Administration Nausea and Vomiting Pantoprazole Sodium 40 mg 05/26/21 06:30 05/26/21 06:46 Pantoprazole Sodium 40 Mg/10 Ml Vial IVPUSH Not Given BID@1130,3190 [facility] Consult 1 each 05/25/21 17:00 Consult Rx Perform Med Rec MISCELLANE ONCE PRN Consult order Prazosin HCl 4 mg 05/25/21 21:00 05/25/21 21:26 Prazosin Hcl 1 Mg Capsule PO 4 mg BEDTIME [facility] Administration Protocol Quetiapine Fumarate 800 mg 05/26/21 21:00 Quetiapine Fumarate 400 Mg Tablet PO BEDTIME [facility] Sodium Chloride 3 ml 05/26/21 00:00 05/26/21 08:49 0.9 % Sodium Chloride Flush 3 Ml Syringe IVFLUSH 3 ml QSHIFT [facility] Administration Home Medications Medication Instructions Recorded Confirmed Last Taken Type albuterol sulfate 90 mcg/actuation 2 puff INHALATION Q4H PRN 02/16/21 05/25/21 05/25/21 History aerosol inhaler bictegravir 50 mg-emtricitabine 1 tab PO DAILY 02/16/21 05/25/21 05/25/21 History 200 mg-tenofovir alafenam 25 mg tablet (Biktarvy) bupropion HCl 300 mg 24 hr tablet, 300 mg PO DAILY 02/16/21 05/25/21 05/25/21 History extended release clonazepam 1 mg tablet 1 mg PO TID 02/16/21 05/25/21 05/25/21 History duloxetine 30 mg capsule,delayed 30 mg PO DAILY 02/16/21 05/25/21 05/25/21 History release duloxetine 60 mg capsule,delayed 60 mg PO DAILY 02/16/21 05/25/21 05/25/21 History release gabapentin 400 mg capsule 400 mg PO TID 02/16/21 05/25/21 05/25/21 History prazosin 2 mg capsule 4 mg PO BEDTIME 02/16/21 05/25/21 05/24/21 History budesonide-formoterol HFA 80 2 puff INHALATION BID 04/30/21 05/25/21 05/25/21 History mcg-4.5 mcg/actuation aerosol inhaler (Symbicort) acetaminophen 500 mg tablet 1,000 mg PO Q6H PRN 05/25/21 05/25/21 05/25/21 History quetiapine 400 mg tablet 2 tab PO BEDTIME 05/25/21 05/25/21 05/24/21 History Physical Exam Vital Signs: Vital Signs: Last Vital Signs Temp 97.3 F 05/26/21 08:00 Pulse 76 05/26/21 08:00 Resp 18 05/26/21 08:00 BP 101/58 L 05/26/21 08:00 Pulse Ox 95 05/26/21 08:00 Body Mass Index 46.2 Const: General: No confusion Nutritional Appearance: well nourished and obese Orientation/consciousness: patient oriented x3 and No confusion HENMT: Head: Yes normal to inspection, Yes normocephalic and Yes atraumatic Ears: hearing grossly normal bilaterally Mouth: Normal oral and palatal mu cosa present Teeth and gingiva: dentition normal Throat: Yes posterior oropharynx normal Eyes: General: appearance normal, both eyes and all related structures Eyelids: Yes eyelids normal EOM: EOMs intact bilaterally Neck: Neck: Yes normal visual inspection, Yes full ROM, Yes trachea midline and Yes no JVD Thyroid: Thyroid normal Lymphatic: no lymphadenopathy noted Resp: Effort & Inspection: normal respiratory effort and able to speak in complete sentences Auscultation: clear to auscultation bilaterally Cardio: Jugular venous distension: no JVD Rate: regular rate Heart sounds: S1 normal heart sound present, S2 normal heart sound present, no click, no gallops and no murmurs GI: Inspection: Yes normal to inspection, No distended, No incision and Yes obesity Palpation (GI): Soft to palpation, Tenderness to palpation present (GI) (Mild tenderness to deep palpation in epigastrium), no guarding, not rigid, no hernias and no masses Percussion: Yes normal to percussion Rectal Exam - Female: deferred Skin: Lesions: no lesions Rashes: no rashes Neuro: General: patient oriented x3 and No confusion Cranial nerves: Yes Normal hearing present Extrem: General: Yes normal to inspection, Yes full ROM, Yes no clubbing, cyanosis or edema and Yes no calf tenderness Psych: Appearance: grossly normal Mental Status: mental status grossly normal Speech and movement: Normal speech and movement present Affect: normal affect Attitude: cooperative Results Labs Result diagrams: 05/26/21 05:46 05/26/21 05:46 Labs: Abnormal lab results 05/25/21 05/25/21 05/26/21 Range/Units 14:21 14:21 05:46 WBC 3.8 L 2.5 L (4.8-10.8) X10*3/uL RBC 4.04 L 3.36 L (4.20-5.50) X10*6/uL Hgb 10.0 L 8.3 L (12.0-16.0) g/dl Hct 33.5 L 28.8 L (37-47) % MCH 24.8 L 24.7 L (27.0-33.0) pg MCHC 29.9 L 28.8 L (31.0-35.0) g/dl RDW 16.7 H 16.9 H (11.0-16.0) % MPV 9.3 L (9.4-12.3) fL Walker % (Auto) 13.1 H (2-11) % Eos % (Auto) 4.4 H (0-4) % Lymph # (Auto) 1.1 L 0.9 L (1.2-4.9) X10*3/uL Absolute Neuts (auto) 1.1 L (2.0-8.3) X10*3/uL Carbon Dioxide 30 H (22-29) mmol/L BUN (9-16) mg/dL 05/26/21 Range/Units 05:46 WBC (4.8-10.8) X10*3/uL RBC (4.20-5.50) X10*6/uL Hgb (12.0-16.0) g/dl Hct (37-47) % MCH (27.0-33.0) pg MCHC (31.0-35.0) g/dl RDW (11.0-16.0) % MPV (9.4-12.3) fL Walker % (Auto) (2-11) % Eos % (Auto) (0-4) % Lymph # (Auto) (1.2-4.9) X10*3/uL Absolute Neuts (auto) (2.0-8.3) X10*3/uL Carbon Dioxide 21 L (22-29) mmol/L BUN 18 H (9-16) mg/dL Short CBC 05/25/21 05/26/21 Range/Units 14:21 05:46 WBC 3.8 L 2.5 L (4.8-10.8) X10*3/uL Hgb 10.0 L 8.3 L (12.0-16.0) g/dl Hct 33.5 L 28.8 L (37-47) % Plt Count 304 D 205 D (160-400) X10*3/uL BMP 05/25/21 05/26/21 14:21 05:46 Sodium 140 137 Potassium 4.6 3.9 Chloride 102 105 Carbon Dioxide 30 H 21 L BUN 15 18 H Creatinine 1.18 1.28 Calcium 9.5 8.5 D Liver Function 05/25/21 Range/Units 14:21 Total Bilirubin 0.4 (0.0-1.0) mg/dL AST 27 (5-31) U/L ALT 18 (0-31) U/L Alkaline Phosphatase 111 D (39-117) U/L Albumin 4.6 (3.5-5.0) g/dL Urine 05/25/21 Range/Units 19:48 Urine Color YELLOW Urine Appearance CLEAR Urine pH 6.0 (5.0-8.0) Ur Specific [place] 1.015 (1.005-1.025) Urine Protein NEG (NEG-TRACE) MG/DL Urine Glucose (UA) NEG (NEG) MG/DL All other labs normal. Imaging Abdomen CT scan report/results: report reviewed and image reviewed CT scan - chest: report reviewed and image reviewed CT scan - pelvis: report reviewed and image reviewed Assessment and Plan (1) Gastritis: Status: Acute This is a 55-year-old lady who is status post a laparoscopic hiatal hernia repair almost 1 month ago who continues to have some epigastric discomfort and some baseline nausea. Patient is a smoker and was encouraged to quit smoking. She reports that she will quit smoking. Patient has been out of her Carafate pills for the past 3 days. She reports that the pills were not working as well as the Carafate elixir. I recommend changing to Carafate elixir 1 g 4 times daily. There is no evidence of abnormality on CT scan of the chest or the abdomen and pelvis. I have discussed this with the hospitalist caring for the patient. It does not appear that there is any cardiac etiology to the patient's discomfort as well. There is no indication for any surgical intervention. Once patient is stable from the medical standpoint and cardiac workup is complete patient should be discharged home and should follow up with both Dr. Gregg and myself as an outpatient. I spent about 45 minutes with this patient reviewing CT scan results CT scan imaging laboratory values performed history and physical exam and documenting. Procedures Date of Service Date of Service: 05/26/21
--- NOTE | 2021-05-26 11:07 | HO.PM.IMPN ---
Subjective Subjective Date of Service: 05/26/21 Interval History: Complaining of epigastric pain, no nausea, no vomiting no acute issues since admission. Review of Systems General no headache, no dizziness no fever chills. CVS no chest pain, no palpitation. Respiratory no cough ,no sob. Gastrointestinal no nausea no vomiting, epigastric pain Physical Exam Vital Signs: Vital Signs: Last Vital Signs Temp 97.4 F 05/26/21 11:04 Pulse 82 05/26/21 11:04 Resp 18 05/26/21 11:04 BP 105/61 05/26/21 11:04 Pulse Ox 98 05/26/21 11:04 Body Mass Index 46.2 General resting comfortably in no acute distress. Neck supple no JVD. CVS regular rate rhythm, Respiratory lungs clear to auscultation, no respiratory distress, no wheeze, no rhonchi. Gastrointestinal abdomen soft, epigastric tentenderness, bowel sounds audible, no guarding , no rigidity. Extremities no edema. Neuro nonfocal ,speech clear. Skin no rash Objective Data Current Medications Generic Name Dose Route Start Last Admin Trade Name Freq PRN Reason Stop Dose Admin Acetaminophen 650 mg 05/25/21 20:50 Acetaminophen 325 Mg Tablet PO Q6H PRN Pain, Mild (Pain Scale 1-3) Albuterol Sulfate 2 puff 05/25/21 20:50 Albuterol Sulfate 90 Mcg 8 Gm Inhaler INHALE Q4H PRN Respiratory Distress Bictegravir/Emtricitabine/Tenofovir 1 tab 05/26/21 09:00 05/26/21 08:48 Bictegrav/Emtricit/Tenofov Ala 1 Tab Tablet PO 1 tab DAILY GEOVANNA Administration Bupropion HCl 300 mg 05/26/21 09:00 05/26/21 08:48 Bupropion Hcl Xl 300 Mg Tab.Er.24h PO 300 mg DAILY GEOVANNA Administration Clonazepam 1 mg 05/25/21 21:00 05/26/21 08:49 Clonazepam 1 Mg Tablet PO 1 mg TID GEOVANNA Administration Dicyclomine HCl 10 mg 05/25/21 21:00 05/26/21 08:48 Dicyclomine Hcl 10 Mg Capsule PO 10 mg BID GEOVANNA Administration Docusate Sodium 100 mg 05/25/21 21:00 05/26/21 08:48 Docusate Sodium 100 Mg Capsule PO 100 mg BID GEOVANNA Administration Duloxetine HCl 30 mg 05/26/21 09:00 05/26/21 08:48 Duloxetine Hcl 30 Mg Capsule. PO 30 mg DAILY GEOVANNA Administration Duloxetine HCl 60 mg 05/26/21 09:00 05/26/21 08:48 Duloxetine Hcl 60 Mg Capsule. PO 60 mg DAILY GEOVANNA Administration Enoxaparin Sodium 40 mg 05/25/21 20:50 05/25/21 21:25 Enoxaparin Sodium 40 Mg/0.4 Ml Syringe SUBCUT 40 mg Q24H GEOVANNA Administration Famotidine 40 mg 05/25/21 21:00 05/25/21 21:28 Famotidine 20 Mg Tablet PO 40 mg BEDTIME GEOVANNA Administration Fluticasone/Vilanterol 1 puff 05/26/21 08:00 05/26/21 07:40 Fluticasone/Vilanterol 100/25 Blst.W.Dev INHALE 1 puff RDAILY GEOVANNA Administration Gabapentin 400 mg 05/25/21 21:00 05/26/21 08:48 Gabapentin 400 Mg Capsule PO 400 mg TID GEOVANNA Administration Morphine Sulfate 4 mg 05/25/21 20:50 05/26/21 05:50 Morphine Sulfate 4 Mg/Ml Cartridge IVPUSH 4 mg Q4H PRN Administration Pain, Severe (Pain Scale 7-10) Ondansetron HCl 4 mg 05/25/21 20:50 05/25/21 21:23 Ondansetron Hcl 4 Mg/2 Ml Vial IVPUSH 4 mg Q8H PRN Administration Nausea and Vomiting Pantoprazole Sodium 40 mg 05/26/21 06:30 05/26/21 06:46 Pantoprazole Sodium 40 Mg/10 Ml Vial IVPUSH Not Given BID@[id number] [facility] Pharmacy Consult 1 each 05/25/21 17:00 Consult Rx Perform Med Rec MISCELLANE ONCE PRN Consult order Prazosin HCl 4 mg 05/25/21 21:00 05/25/21 21:26 Prazosin Hcl 1 Mg Capsule PO 4 mg BEDTIME [facility] Administration Protocol Quetiapine Fumarate 800 mg 05/26/21 21:00 Quetiapine Fumarate 400 Mg Tablet PO BEDTIME [facility] Sodium Chloride 3 ml 05/26/21 00:00 05/26/21 08:49 0.9 % Sodium Chloride Flush 3 Ml Syringe IVFLUSH 3 ml QSHIFT GEOVANNA Administration Labs CBC & Chem 7: 05/26/21 05:46 05/26/21 05:46 Labs: Laboratory Results - last 24 hr 05/25/21 05/25/21 05/25/21 14:21 14:21 14:21 MCV 82.9 MCH 24.8 L MCHC 29.9 L RDW 16.7 H Plt Count 304 D MPV 9.3 L Immature Gran % (Auto) 0.3 Neut % (Auto) 57.6 Lymph % (Auto) 28.4 Placer % (Auto) 10.8 Eos % (Auto) 2.1 Baso % (Auto) 0.8 Lymph # (Auto) 1.1 L Placer # (Auto) 0.4 Eos # (Auto) 0.1 Baso # (Auto) 0.0 Abs Immat Gran (auto) 0.01 Absolute Neuts (auto) 2.2 Absolute Nucleated RBC 0.000 Nucleated RBC % (auto) 0.0 PT 10.6 INR 0.9 D-Dimer 475 Anion Gap 13 Estim Creat Clear Calc 68.4 Estimated GFR 48 Random Glucose 96 Calcium 9.5 Total Bilirubin 0.4 AST 27 ALT 18 Alkaline Phosphatase 111 D Troponin I High Sens B-Natriuretic Peptide Total Protein 7.8 Albumin 4.6 Lipase 70 Urine Color Urine Appearance Urine pH Ur Specific [place] Urine Protein Urine Glucose (UA) Urine Ketones Urine Blood Urine Nitrite Ur Leukocyte Esterase Urine RBC Urine WBC Ur Squamous Epith Cells Urine Bacteria Coronavirus (PCR) Influenza Type A (PCR) Influenza Type B (PCR) RSV RNA Qual (PCR) 05/25/21 05/25/21 05/25/21 14:21 14:21 14:45 MCV MCH MCHC RDW Plt Count MPV Immature Gran % (Auto) Neut % (Auto) Lymph % (Auto) Placer % (Auto) Eos % (Auto) Baso % (Auto) Lymph # (Auto) Placer # (Auto) Eos # (Auto) Baso # (Auto) Abs Immat Gran (auto) Absolute Neuts (auto) Absolute Nucleated RBC Nucleated RBC % (auto) PT INR D-Dimer Anion Gap Estim Creat Clear Calc Estimated GFR Random Glucose Calcium Total Bilirubin AST ALT Alkaline Phosphatase Troponin I High Sens < 3.5 B-Natriuretic Peptide 26 Total Protein Albumin Lipase Urine Color Urine Appearance Urine pH Ur Specific [place] Urine Protein Urine Glucose (UA) Urine Ketones Urine Blood Urine Nitrite Ur Leukocyte Esterase Urine RBC Urine WBC Ur Squamous Epith Cells Urine Bacteria Coronavirus (PCR) NEGATIVE Influenza Type A (PCR) NEGATIVE Influenza Type B (PCR) NEGATIVE RSV RNA Qual (PCR) NEGATIVE 05/25/21 05/25/21 05/26/21 18:09 19:48 05:46 MCV 85.7 MCH 24.7 L MCHC 28.8 L RDW 16.9 H Plt Count 205 D MPV 9.6 Immature Gran % (Auto) 0.0 Neut % (Auto) 45.4 Lymph % (Auto) 36.3 Placer % (Auto) 13.1 H Eos % (Auto) 4.4 H Baso % (Auto) 0.8 Lymph # (Auto) 0.9 L Placer # (Auto) 0.3 Eos # (Auto) 0.1 Baso # (Auto) 0.0 Abs Immat Gran (auto) 0.00 Absolute Neuts (auto) 1.1 L Absolute Nucleated RBC 0.000 Nucleated RBC % (auto) 0.0 PT INR D-Dimer Anion Gap Estim Creat Clear Calc Estimated GFR Random Glucose Calcium Total Bilirubin AST ALT Alkaline Phosphatase Troponin I High Sens < 3.5 B-Natriuretic Peptide Total Protein Albumin Lipase Urine Color YELLOW Urine Appearance CLEAR Urine pH 6.0 Ur Specific [place] 1.015 Urine Protein NEG Urine Glucose (UA) NEG Urine Ketones NEG Urine Blood NEG Urine Nitrite NEG Ur Leukocyte Esterase NEG Urine RBC 0-2 Urine WBC 0-2 Ur Squamous Epith Cells 1+ Urine Bacteria NONE Coronavirus (PCR) Influenza Type A (PCR) Influenza Type B (PCR) RSV RNA Qual (PCR) 05/26/21 05:46 MCV MCH MCHC RDW Plt Count MPV Immature Gran % (Auto) Neut % (Auto) Lymph % (Auto) Placer % (Auto) Eos % (Auto) Baso % (Auto) Lymph # (Auto) Placer # (Auto) Eos # (Auto) Baso # (Auto) Abs Immat Gran (auto) Absolute Neuts (auto) Absolute Nucleated RBC Nucleated RBC % (auto) PT INR D-Dimer Anion Gap 15 Estim Creat Clear Calc 63.2 Estimated GFR 44 Random Glucose 114 Calcium 8.5 D Total Bilirubin AST ALT Alkaline Phosphatase Troponin I High Sens B-Natriuretic Peptide Total Protein Albumin Lipase Urine Color Urine Appearance Urine pH Ur Specific [place] Urine Protein Urine Glucose (UA) Urine Ketones Urine Blood Urine Nitrite Ur Leukocyte Esterase Urine RBC Urine WBC Ur Squamous Epith Cells Urine Bacteria Coronavirus (PCR) Influenza Type A (PCR) Influenza Type B (PCR) RSV RNA Qual (PCR) Assessment and Plan (1) Gastritis: Status: Acute (2) Epigastric abdominal pain: Status: Acute (3) Syncope: Status: Acute (4) History of repair of hiatal hernia: Status: Acute (5) Chronic anemia: Status: Acute (6) COPD (chronic obstructive pulmonary disease): Status: Acute Assessment and Plan: 55-year-old female with extensive past medical history as above who recently underwent hiatal hernia repair in April presents to the hospital syncopal episode and complaining of abdominal pain as well as chest pain. # syncope - possibly vasovagal secondary to epigastric pain, had symptoms of dizziness prior to fall syncope case monitor showed no arrhythmia, orthostatic studies not consistent with orthostatic hypotension but patient has low blood pressure and tachycardia,likely due to dehydration Will treat with IV fluids, will hold off on further cardiac workup # epigastric abdominal pain with history of repair of hiatal hernia - abdominal CT/pelvis shows fat stranding around the gastroesophageal junction most likely related to recent surgery Pain likely related to gastritis - patient seen by Dr. Luna, she recommend to treat patient with liquid Carafate and PPI, patient has been strongly recommended to abstain from smoking # chest pain - troponin negative x 2, pain is localized to epigastric region, EKG negative for ischemic changes suggestive of ACS, no further cardiac workup warranted. # chronic anemia - stable, follow CBC #? bipolar disorder/PTSD/anxiety/depression - continue home medications # HIV - continue Biktarvy DVT prophylaxis: lovenox Quality Stroke Does the patient have a stroke diagnosis?: No VTE Prior VTE?: No VTE Risk Level:: Medical - moderate - high VTE Device Contraindication: Treatment Not Indicated VTE Drug Contraindication: N/A - Med Ordered
[2021-05-26] MEDS: 0.9 % Sodium Chloride 1,000 ML 100 ML IVCONT (11:43)
--- NOTE | 2021-05-26 11:47 | MHC.CM.PN ---
met with pt who explins tht she lives at the [facility] where she receives therapy she will get a ride back [facility] when dcd
[2021-05-26] MEDS: Sucralfate Oral Suspension 1 GM/10 ML ORAL.SUSP PO ×2 (14:26→20:45)
[2021-05-26] MEDS: ondansetron HCL 4 MG/2 ML VIAL IVPUSH (14:28)
[2021-05-26] MEDS: Omeprazole 40 MG CAPSULE.DR PO (16:40)
[2021-05-26] MEDS: Enoxaparin Sodium 40 MG/0.4 ML SYRINGE SUBCUT (20:42)
[2021-05-26] MEDS: QUEtiapine Fumarate 400 MG TABLET 800 MG PO (20:43)
[2021-05-26] MEDS: Prazosin HCL 1 MG CAPSULE 4 MG PO (20:45)
[2021-05-26] MEDS: Famotidine 20 MG TABLET 40 MG PO (20:45)
[2021-05-26] MEDS: Prochlorperazine Edisylate 10 MG/2 ML VIAL 5 MG IVPUSH (21:45)
[2021-05-27 03:24] VITALS: BP 122/59; PULSE 94; RESP 16; TEMP 37.4; O2SAT 90
[2021-05-27] MEDS: Omeprazole 40 MG CAPSULE.DR PO (06:01)
[2021-05-27 07:25] LABS: Hematocrit 28.6 % (37-47); Hemoglobin 8.3 g/dl (12.0-16.0); Mean Corpuscular Hemoglobin 24.3 pg (27.0-33.0); Mean Corpuscular Volume 83.6 fL (80-98); Mean Platelet Volume 9.2 fL (9.4-12.3); Platelet Count 230 X10*3/uL (160-400); Red Blood Count 3.42 X10*6/uL (4.20-5.50); Red Cell Distribution Width 16.3 % (11.0-16.0)
[2021-05-27 07:28] LABS: White Blood Count 2.2 X10*3/uL (4.8-10.8)
[2021-05-27 07:39] VITALS: BP 122/77; PULSE 100; RESP 18; TEMP 36.9; O2SAT 93
[2021-05-27] MEDS: Fluticasone/Vilanterol 100/25 BLST.W.DEV 1 PUFF INHALE (07:46)
[2021-05-27 07:49] VITALS: PULSE 96; O2SAT 95
[2021-05-27] MEDS: Sucralfate Oral Suspension 1 GM/10 ML ORAL.SUSP PO ×2 (09:14→13:09)
[2021-05-27] MEDS: 0.9 % Sodium Chloride Flush 3 ML SYRINGE IVFLUSH (09:14)
[2021-05-27] MEDS: buPROPion HCl XL 300 MG TAB.ER.24H PO (09:15)
[2021-05-27] MEDS: DULoxetine HCl 60 MG CAPSULE.DR PO (09:15)
[2021-05-27] MEDS: Dicyclomine HCl 10 MG CAPSULE PO (09:15)
[2021-05-27] MEDS: clonazePAM 1 MG TABLET PO (09:15)
[2021-05-27] MEDS: Docusate Sodium 100 MG CAPSULE PO (09:16)
[2021-05-27] MEDS: Gabapentin 400 MG CAPSULE PO (09:16)
[2021-05-27] MEDS: DULoxetine HCl 30 MG CAPSULE.DR PO (09:16)
[2021-05-27] MEDS: Morphine Sulfate 4 MG/ML CARTRIDGE IVPUSH (09:32)
[2021-05-27] MEDS: ondansetron HCL 4 MG/2 ML VIAL IVPUSH (09:32)
[2021-05-27 11:27] VITALS: BP 125/71; PULSE 96; RESP 20; TEMP 36.9; O2SAT 93
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
--- NOTE | 2021-05-27 13:06 | MHC.CM.PN ---
pt will return to the [facility] pt reports that [facility] will transport her
== END 2021-05-27 14:25 | disposition home or self-care (01) | DRG 241 ==
LOC: HO.ED 17:11 → HO.EDOVER 20:57 → HO.IMC 21:53
PROVIDERS: Admitting Provider Internal Medicine; Emergency Provider Emergency Medicine Emergency Medical Services; PCP Internal Medicine; Visit Provider Hospitalist
DX: K29.70 Gastritis, unspecified, without bleeding (principal); E66.01 Morbid (severe) obesity due to excess calories; I95.9 Hypotension, unspecified; F31.9 Bipolar disorder, unspecified; F17.210 Nicotine dependence, cigarettes, uncomplicated; D64.9 Anemia, unspecified; J44.9 Chronic obstructive pulmonary disease, unspecified; F43.10 Post-traumatic stress disorder, unspecified; Z71.6 Tobacco abuse counseling; E86.0 Dehydration; Z21 Asymptomatic human immunodeficiency virus [HIV] infection status; Z68.42 Body mass index [BMI] 45.0-49.9, adult; Z20.822 Contact with and (suspected) exposure to COVID-19; Z88.0 Allergy status to penicillin; Z88.5 Allergy status to narcotic agent; Z79.899 Other long term (current) drug therapy
CPT/HCPCS: 0241U; 36415; 71045; 71275; 74177; 80048; 80053; 81001; 83690; 83880; 84484; 85025; 85027; 85379; 85610; 93005; 96361; 96374; 96375; 99219; 99285; J1170; J1650; J2270; J2405; Q9967

== ENCOUNTER 2021-06-25 10:26 | Inpatient (IN) | payer OTHER, SELFPAY ==
--- NOTE | 2021-06-25 | ECG_ITS ---
Test Reason : CP Blood Pressure : / mmHG Vent. Rate : 084 BPM Atrial Rate : 084 BPM P-R Int : 158 ms QRS Dur : 078 ms QT Int : 356 ms P-R-T Axes : 018 027 028 degrees QTc Int : 420 ms Normal sinus rhythm Low voltage QRS Cannot rule out Anterior infarct (cited on or before 25-MAY-2021) Abnormal ECG When compared with ECG of 25-MAY-2021 17:06, No significant change was found Referred By: Generic ED Physician Electronically Signed By:SAMANTA AMADO
--- NOTE | ~2021-06-25 | XR_ITS ---
EXAMINATION: XR CHEST CLINICAL INFORMATION: Chest pain COMPARISON: Previous chest x-ray most recent May 2021 TECHNIQUE: Frontal view of the chest was obtained. FINDINGS: The cardiac and mediastinal contours are stable. The lungs are clear. There is no pleural effusion or pneumothorax. Bony structures are unremarkable. XR/XR chest 1V IMPRESSION: No evidence for acute disease in the chest.
--- NOTE | ~2021-06-25 | CT_ITS ---
EXAMINATION: CT ABDOMEN AND PELVIS WITH CONTRAST CLINICAL INFORMATION: Upper abdominal pain. Recent hernia repair. COMPARISON: Previous CT of the abdomen and pelvis most recent May 2021 TECHNIQUE: Multidetector volumetric images were obtained from the superior aspect of the liver through the pubic symphysis following administration 85 mL of Omnipaque 350 intravenous contrast. Sagittal and coronal reformatted images were obtained on the technologist's workstation. Oral contrast: Yes This CT examination was performed using dose optimization techniques as appropriate, variously including the following: *Automated exposure control *Adjustment of mA and/or kV according to patient size (this includes techniques or standardized protocols for targeted exams where dose is matched to indication/reason for exam; i.e. extremities or head) *Use of iterative reconstruction technique DLP: 1287 mGy-cm FINDINGS: LUNG BASES: The visualized lung bases are unremarkable. LIVER, GALLBLADDER, AND BILIARY TREE: The liver is normal in size, shape, and attenuation. No focal hepatic lesion or biliary ductal dilatation is present. The gallbladder has been removed. PANCREAS: Unremarkable. SPLEEN: Unremarkable. ADRENAL GLANDS: Unremarkable. KIDNEYS AND URETERS: The small bilateral renal stones. BLADDER: Unremarkable. GASTROINTESTINAL TRACT: There is some stranding of the fat seen surrounding the GE junction probably related to postsurgical change. No abnormal air collection or contrast is suggested leak or abscess. The stomach is unremarkable. Small and large bowel is unremarkable. The appendix is unremarkable. ABDOMINAL WALL: No significant hernia is appreciated. There is fat stranding seen adjacent to the upper mid abdominal wall just superficial to deep to the rectus muscle/linea alba. This is unchanged from May 2021 exam. LYMPH NODES: Normal. VASCULAR: Unremarkable. PELVIC VISCERA: Unremarkable. OSSEOUS STRUCTURES: Mild degenerative changes. CT/CT abdomen pelvis w con IMPRESSION: Mild stranding of the fat surrounding the GE junction probably representing postsurgical change. No evidence of abscess or leak is seen. Bilateral small renal stones.
[2021-06-25 11:37] VITALS: BP 143/98; PULSE 79; RESP 16; TEMP 37; O2SAT 98; BMI 44.2
--- NOTE | 2021-06-25 12:14 | ED.CHESTPAIN ---
HPI - Chest Pain General Chief Complaint: Chest Pain Stated Complaint: CHEST PAIN Time Seen by Provider: 06/25/21 11:55 Source: patient Mode of arrival: ambulatory Limitations: no limitations History of Present Illness HPI narrative: 56 yo female with past medical history of gastritis (on protonix 40, famotidine 40, carafate ACHS daily), KEN, anxiety, asthma, bipolar disorder, COPD, hepatitis C, HIV, PTSD, obesity here with complaints of upper abdominal pain (epigastric) which radiates to chest described as burning and pressure for 1-2 days with 3 episodes of coffee ground emesis. NO black or bloody stools, fevers, chills. No NSAID use, pepto use, iron sup or ASA. Had EGD 02/2021 for anemia with no active bleeding noted but hiatal hernia noted. Capsule study negative bleeding. Underwent lap hiatal hernia repair by Dr Hill on 05/06. Related Data Home Medications Medication Instructions Recorded Confirmed albuterol sulfate 90 mcg/actuation 2 puff INHALATION Q4H PRN 02/16/21 05/25/21 aerosol inhaler bictegravir 50 mg-emtricitabine 1 tab PO DAILY 02/16/21 05/25/21 200 mg-tenofovir alafenam 25 mg tablet (Biktarvy) bupropion HCl 300 mg 24 hr tablet, 300 mg PO DAILY 02/16/21 05/25/21 extended release clonazepam 1 mg tablet 1 mg PO TID 02/16/21 05/25/21 duloxetine 30 mg capsule,delayed 30 mg PO DAILY 02/16/21 05/25/21 release duloxetine 60 mg capsule,delayed 60 mg PO DAILY 02/16/21 05/25/21 release gabapentin 400 mg capsule 400 mg PO TID 02/16/21 05/25/21 prazosin 2 mg capsule 4 mg PO BEDTIME 02/16/21 05/25/21 budesonide-formoterol HFA 80 2 puff INHALATION BID 04/30/21 05/25/21 mcg-4.5 mcg/actuation aerosol inhaler (Symbicort) acetaminophen 500 mg tablet 1,000 mg PO Q6H PRN 05/25/21 05/25/21 quetiapine 400 mg tablet 2 tab PO BEDTIME 05/25/21 05/25/21 Previous Rx's Medication Instructions Recorded famotidine 40 mg tablet 40 mg PO BEDTIME #60 tab 03/24/21 pantoprazole 40 mg tablet,delayed 40 mg PO DAILY #60 tab 03/24/21 release docusate sodium 100 mg capsule 100 mg PO BID #30 cap 05/06/21 (Colace) ondansetron 4 mg disintegrating 4 mg PO Q6H PRN #20 tab 05/22/21 tablet nicotine 7 mg/24 hr daily 7 mg TRANSDERMAL DAILY #30 ea 05/27/21 transdermal patch sucralfate 100 mg/mL oral 1 g PO QIDACHS #240 ml 05/27/21 suspension dicyclomine 10 mg capsule 10 mg PO BID #60 cap 06/15/21 Allergies Allergy/AdvReac Type Severity Reaction Status Date / Time Penicillins [PENICILLINS] Allergy Intermediate SOB/HIVES Verified 05/25/21 13:41 codeine AdvReac Intermediate Nausea and Verified 05/25/21 13:41 Vomiting ketorolac [From Toradol] AdvReac Intermediate Nausea and Verified 05/25/21 13:41 Vomiting Review of Systems Review of Systems: Yes all other systems are reviewed and are negative Constitutional: Constitutional: Reports no additional constitutional complaints, Denies body ache(s), Denies chills, Denies fever(s), Denies headache(s) and Denies weakness Eyes: Eyes: Reports no additional eye complaints and Denies change in vision ENT: Reports system reviewed and no additional complaints, except as documented, Denies dizziness, Denies headache(s), Denies nasal congestion, Denies nasal discharge and Denies neck pain Cardiovascular: Cardiovascular: Reports no additional cardiovascular complaints, Reports chest pain, Denies leg edema and Denies dyspnea Respiratory: Respiratory: Reports no additional respiratory complaints, Denies cough and Denies dyspnea Gastrointestinal: Gastrointestinal: Reports no additional gastrointestinal complaints, Reports abdominal pain, Denies melena, Denies hematochezia, Reports coffee ground emesis, Denies diarrhea, Reports nausea and Reports vomiting Genitourinary: Genitourinary: Reports no additional female genitourinary complaints and Denies urinary incontinence Musculoskeletal: Musculoskeletal: Reports no additional musculoskeletal complaints, Denies back pain, Denies arthralgias, Denies joint swelling, Denies neck pain, Denies numbness and Denies tingling Integumentary/Breasts: Skin/Breast: Reports system reviewed and no additional complaints, except as docu and Denies rash Neurologic: Reports system reviewed and no additional complaints, except as documented, Denies Abnormal speech present, Denies dizziness, Denies headache(s), Denies numbness, Denies tingling and Denies weakness PMFSH Past Medical History Attestation statement: The following information was validated with the patient. Source: old records reviewed and nursing notes reviewed Medical History Anemia Anxiety Arthritis Asthma Bilateral renal stones Bipolar 1 disorder Chronic anemia COPD (chronic obstructive pulmonary disease) COVID-19 vaccine administered Depression GERD (gastroesophageal reflux disease) Hiatal hernia without gangrene and obstruction HIV (human immunodeficiency virus infection) Hx of anxiety disorder Hx of hepatitis C Morbid (severe) obesity due to excess calories Nicotine dependence, cigarettes, uncomplicated PTSD (post-traumatic stress disorder) Surgical History History of section, classical History of cholecystectomy History of colonoscopy (~2020) History of endoscopy (~2020) History of repair of hiatal hernia History of tonsillectomy and adenoidectomy Family History Family History Mother Respiratory arrest Father Congestive heart failure Sister No problems noted. Brother No problems noted. Daughter No problems noted. Son No problems noted. Social History Social History Household Members: None Housing: House Housing Other:: resides at [facility]-will return there post-op Are you a primary pediatric critical care nurse to a significant other at home: No Do you presently have visiting nurse or other home services: No Alcohol intake: never Patient Tobacco Use Status: Current everyday Tobacco user Tobacco use type: Cigarette Cigarette Packs Per Day: 0.5 Cigarettes Per Day: 10.0 Years Smoked: 20 Second Hand Smoke Exposure: No Advance Directives: Yes Advance Directives Information Provided: No Advance Directives on File: No Advance Directives Date on File: 03/18/21 service: No Current occupational status: unemployed and disabled Physical Exam Vital Signs: Vital Signs: Last Vital Signs Temp 98.6 F 06/25/21 11:37 Pulse 79 06/25/21 11:37 Resp 16 06/25/21 11:37 BP 143/98 H 06/25/21 11:37 Pulse Ox 98 06/25/21 11:37 Body Mass Index 44.2 Const: General: cooperative, healthy appearing, comfortable and no acute distress Orientation/consciousness: patient oriented x3 Limitations: no limitations HENMT: Head: Yes normal to inspection Ears: hearing grossly normal bilaterally General nose exam: Normal external nose present Face and sinus: Yes normal facial exam Mouth: Normal oral and palatal mucosa present Throat: Yes posterior oropharynx normal Eyes: General: appearance normal, both eyes and all related structures Pupils: Equal, round and reactive pupils present Neck: Neck: Yes normal visual inspection Chest: Chest palpation & inspection: normal inspection of the chest Resp: Effort & Inspection: normal respiratory effort Auscultation: clear to auscultation bilaterally Cardio: Rate: regular rate Rhythm: regular rhythm Peripheral pulses: Peripheral pulses 2+ throughout GI: Inspection: Yes normal to inspection Palpation (GI): Soft to palpation and Tenderness to palpation present (GI) (mod epigastric tendnerness with no rebound or guarding ) Auscultation: normal bowel sounds Back/Spine/Pelvis: Thoracic/Lumbar Spine: thoracic and lumbar spine normal to inspection Skin: General skin exam: no rashes or lesions noted Neuro: General: patient oriented x3, no focal motor deficits and normal sensation to monofilament Cranial nerves: Yes Equal, round and reactive pupils present Cognition (Neuro): normal cognition Speech: No Abnormal speech present Gait exam (Neuro): Normal gait present Motor exam (neuro): 5/5 motor strength present throughout Extrem: General: Yes normal to inspection, Yes no pedal edema and Yes no calf tenderness Course Course Course Narrative: 56 yo female with known gastritis, h/o gastric ulcer per patient on a PPI, carafate with recent EGD which showed no active bleeding here with upper abdominal pain, nausea/vomiting coffee ground emesis. WIll need labs, EKG, CXR< occult stool 1330-Labs show improving hgb/hct from previous (10.6, 34.5) previously on 05/27/21 8.3/28.6. Occult stool negative. Continued pain despite pepcid, zofran and morphine. Will repeat dose of analgesia. No vomiting episodes here. d/w GI 1415-D/w with Dr Gregg. Recommended CT oral contrast d/t recent hernia repair. Likely admission for obs and possible endo in morning 1720- IMPRESSION: Mild stranding of the fat surrounding the GE junction probably representing postsurgical change. No evidence of abscess or leak is seen. Bilateral small renal stones. Dr. Gregg from GI was updated. Recommended treating with Carafate and PPI. Admission for observation and possible endoscopy and morning. Dr. Hill was updated per GI request as she is recently post-op. Spoke to Kasandra HARDWICK who accepted admission to the medicine service MDM - Chest Pain MDM Narrative Medical decision making narrative: acs, gastritis, upper GI bleed Medical Records Data Attestation: I reviewed the patient's medical records. Lab Data Attestation: I reviewed the patient's lab results. Result diagrams: 06/25/21 12:23 06/25/21 12:23 Labs: Lab Results 06/25/21 06/25/21 06/25/21 Range/Units 12:23 12:23 12:23 WBC 3.5 L (4.8-10.8) X10*3/uL RBC 3.97 L (4.20-5.50) X10*6/uL Hgb 10.6 L D (12.0-16.0) g/dl Hct 34.5 L D (37-47) % MCV 86.9 (80-98) fL MCH 26.7 L (27.0-33.0) pg MCHC 30.7 L (31.0-35.0) g/dl RDW 20.9 H (11.0-16.0) % Plt Count 240 (160-400) X10*3/uL MPV 9.0 L (9.4-12.3) fL Immature Gran % (Auto) 0.3 (0.0-0.4) % Neut % (Auto) 50.4 (45-73) % Lymph % (Auto) 28.8 (20-40) % [place] % (Auto) 9.4 (2-11) % Eos % (Auto) 9.7 H (0-4) % Baso % (Auto) 1.4 (0-2) % Lymph # (Auto) 1.0 L (1.2-4.9) X10*3/uL [place] # (Auto) 0.3 (0.1-1.2) X10*3/uL Eos # (Auto) 0.3 (0.0-0.4) X10*3/uL Baso # (Auto) 0.1 (0.0-0.2) X10*3/uL Abs Immat Gran (auto) 0.01 (0.00-0.03) X10*3/uL Absolute Neuts (auto) 1.8 L (2.0-8.3) X10*3/uL Absolute Nucleated RBC 0.000 (0.0-0.012) X10*3/uL Nucleated RBC % (auto) 0.0 (0.0-0.2) /100WBC Sodium 138 (135-145) mmol/L Potassium 4.1 (3.3-5.1) mmol/L Chloride 103 (96-108) mmol/L Carbon Dioxide 27 (22-29) mmol/L Anion Gap 12 (12-20) BUN 12 (9-16) mg/dL Creatinine 1.18 (0.5-1.4) mg/dL Estim Creat Clear Calc 66.0 Estimated GFR 48 Random Glucose 95 (60-115) mg/dL Lactic Acid 0.8 (0.5-2.0) mmol/L Calcium 9.3 D (8.4-10.2) mg/dL Magnesium 2.2 (1.6-2.6) mg/dL Total Bilirubin 0.5 (0.0-1.0) mg/dL Direct Bilirubin 0.2 (0.0-0.5) mg/dL AST 33 H (5-31) U/L ALT 16 (0-31) U/L Alkaline Phosphatase 115 (39-117) U/L Troponin I High Sens (<3.5-17.0) ng/L Total Protein 7.0 (6.5-8.0) g/dL Albumin 4.4 (3.5-5.0) g/dL Lipase (8-78) U/L Stool Occult Blood (NEGATIVE) COVID-19 (ELSI) (Negative) COVID-19 Clin Com 06/25/21 06/25/21 06/25/21 Range/Units 12:23 12:23 12:23 WBC (4.8-10.8) X10*3/uL RBC (4.20-5.50) X10*6/uL Hgb (12.0-16.0) g/dl Hct (37-47) % MCV (80-98) fL MCH (27.0-33.0) pg MCHC (31.0-35.0) g/dl RDW (11.0-16.0) % Plt Count (160-400) X10*3/uL MPV (9.4-12.3) fL Immature Gran % (Auto) (0.0-0.4) % Neut % (Auto) (45-73) % Lymph % (Auto) (20-40) % [place] % (Auto) (2-11) % Eos % (Auto) (0-4) % Baso % (Auto) (0-2) % Lymph # (Auto) (1.2-4.9) X10*3/uL [place] # (Auto) (0.1-1.2) X10*3/uL Eos # (Auto) (0.0-0.4) X10*3/uL Baso # (Auto) (0.0-0.2) X10*3/uL Abs Immat Gran (auto) (0.00-0.03) X10*3/uL Absolute Neuts (auto) (2.0-8.3) X10*3/uL Absolute Nucleated RBC (0.0-0.012) X10*3/uL Nucleated RBC % (auto) (0.0-0.2) /100WBC Sodium (135-145) mmol/L Potassium (3.3-5.1) mmol/L Chloride (96-108) mmol/L Carbon Dioxide (22-29) mmol/L Anion Gap (12-20) BUN (9-16) mg/dL Creatinine (0.5-1.4) mg/dL Estim Creat Clear Calc Estimated GFR Random Glucose (60-115) mg/dL Lactic Acid (0.5-2.0) mmol/L Calcium (8.4-10.2) mg/dL Magnesium (1.6-2.6) mg/dL Total Bilirubin (0.0-1.0) mg/dL Direct Bilirubin (0.0-0.5) mg/dL AST (5-31) U/L ALT (0-31) U/L Alkaline Phosphatase (39-117) U/L Troponin I High Sens < 3.5 (<3.5-17.0) ng/L Total Protein (6.5-8.0) g/dL Albumin (3.5-5.0) g/dL Lipase 28 (8-78) U/L Stool Occult Blood (NEGATIVE) COVID-19 (ELSI) Negative (Negative) COVID-19 Clin Com See Note 06/25/21 Range/Units 12:23 WBC (4.8-10.8) X10*3/uL RBC (4.20-5.50) X10*6/uL Hgb (12.0-16.0) g/dl Hct (37-47) % MCV (80-98) fL MCH (27.0-33.0) pg MCHC (31.0-35.0) g/dl RDW (11.0-16.0) % Plt Count (160-400) X10*3/uL MPV (9.4-12.3) fL Immature Gran % (Auto) (0.0-0.4) % Neut % (Auto) (45-73) % Lymph % (Auto) (20-40) % [place] % (Auto) (2-11) % Eos % (Auto) (0-4) % Baso % (Auto) (0-2) % Lymph # (Auto) (1.2-4.9) X10*3/uL [place] # (Auto) (0.1-1.2) X10*3/uL Eos # (Auto) (0.0-0.4) X10*3/uL Baso # (Auto) (0.0-0.2) X10*3/uL Abs Immat Gran (auto) (0.00-0.03) X10*3/uL Absolute Neuts (auto) (2.0-8.3) X10*3/uL Absolute Nucleated RBC (0.0-0.012) X10*3/uL Nucleated RBC % (auto) (0.0-0.2) /100WBC Sodium (135-145) mmol/L Potassium (3.3-5.1) mmol/L Chloride (96-108) mmol/L Carbon Dioxide (22-29) mmol/L Anion Gap (12-20) BUN (9-16) mg/dL Creatinine (0.5-1.4) mg/dL Estim Creat Clear Calc Estimated GFR Random Glucose (60-115) mg/dL Lactic Acid (0.5-2.0) mmol/L Calcium (8.4-10.2) mg/dL Magnesium (1.6-2.6) mg/dL Total Bilirubin (0.0-1.0) mg/dL Direct Bilirubin (0.0-0.5) mg/dL AST (5-31) U/L ALT (0-31) U/L Alkaline Phosphatase (39-117) U/L Troponin I High Sens (<3.5-17.0) ng/L Total Protein (6.5-8.0) g/dL Albumin (3.5-5.0) g/dL Lipase (8-78) U/L Stool Occult Blood NEGATIVE (NEGATIVE) COVID-19 (ELSI) (Negative) COVID-19 Clin Com Imaging Data CT scan - abdomen: Attestation: I personally reviewed and interpreted this imaging study as follows: Radiologist's impression: EXAMINATION: CT ABDOMEN AND PELVIS WITH CONTRAST? CLINICAL INFORMATION: Upper abdominal pain. Recent hernia repair.? COMPARISON: Previous CT of the abdomen and pelvis most recent May 2021? TECHNIQUE: Multidetector volumetric images were obtained from the superior aspect of the liver through the pubic symphysis following administration 85 mL of Omnipaque 350 intravenous contrast. Sagittal and coronal reformatted images were obtained on the technologist's workstation.? Oral contrast: Yes This CT examination was performed using dose optimization techniques as appropriate, variously including the following: *Automated exposure control *Adjustment of mA and/or kV according to patient size (this includes techniques or standardized protocols for targeted exams where dose is matched to indication/reason for exam; i.e. extremities or head) *Use of iterative reconstruction technique DLP: 1287 mGy-cm FINDINGS: LUNG BASES: The visualized lung bases are unremarkable.? LIVER, GALLBLADDER, AND BILIARY TREE: The liver is normal in size, shape, and attenuation. No focal hepatic lesion or biliary ductal dilatation is present. The gallbladder has been removed. PANCREAS: Unremarkable.? SPLEEN: Unremarkable.? ADRENAL GLANDS: Unremarkable.? KIDNEYS AND URETERS: The small bilateral renal stones. BLADDER: Unremarkable.? GASTROINTESTINAL TRACT: There is some stranding of the fat seen surrounding the GE junction probably related to postsurgical change. No abnormal air collection or contrast is suggested leak or abscess. The stomach is unremarkable. Small and large bowel is unremarkable. The appendix is unremarkable.? ABDOMINAL WALL: No significant hernia is appreciated. There is fat stranding seen adjacent to the upper mid abdominal wall just superficial to deep to the rectus muscle/linea alba. This is unchanged from May 2021 exam. LYMPH NODES: Normal. VASCULAR: Unremarkable. PELVIC VISCERA: Unremarkable.? OSSEOUS STRUCTURES: Mild degenerative changes. CT/CT abdomen pelvis w con IMPRESSION: Mild stranding of the fat surrounding the GE junction probably representing postsurgical change. No evidence of abscess or leak is seen. Bilateral small renal stones. ECG Data ECG #1: Attestation: I personally reviewed and interpreted this ECG as follows: ECG interpretation date: 06/25/21 ECG interpretation time: 10:28 Interpretation: NSR with rate 84, normal pr, normal qrs, normal qtc Discharge Plan Discharge Clinical Impression: Nausea, Epigastric abdominal pain Patient Disposition: Admitted As Inpatient
[2021-06-25 12:29] LABS: MANUAL DIFF FLAG NO
[2021-06-25 12:34] LABS: Basophils Absolute Auto 0.1 X10*3/uL (0.0-0.2); Basophils Percent Auto 1.4 % (0-2); Eosinophils Absolute Auto 0.3 X10*3/uL (0.0-0.4); Eosinophils Percent Auto 9.7 % (0-4); Hematocrit 34.5 % (37-47); Hemoglobin 10.6 g/dl (12.0-16.0); Imm Gran Abs Auto 0.01 X10*3/uL (0.00-0.03); Imm Gran Pct Auto 0.3 % (0.0-0.4); Lymphocytes Percent Auto 28.8 % (20-40); Mean Corpuscular HGB Conc 30.7 g/dl (31.0-35.0); Mean Corpuscular Hemoglobin 26.7 pg (27.0-33.0); Mean Corpuscular Volume 86.9 fL (80-98); Monocytes Absolute Auto 0.3 X10*3/uL (0.1-1.2); Monocytes Percent Auto 9.4 % (2-11); Neutrophils Absolute Auto 1.8 X10*3/uL (2.0-8.3); Neutrophils Percent Auto 50.4 % (45-73); Platelet Count 240 X10*3/uL (160-400); Red Blood Count 3.97 X10*6/uL (4.20-5.50); Red Cell Distribution Width 20.9 % (11.0-16.0); White Blood Count 3.5 X10*3/uL (4.8-10.8)
[2021-06-25] MEDS: Morphine Sulfate 4 MG/ML CARTRIDGE IVPUSH ×2 (12:34→22:27)
[2021-06-25] MEDS: ondansetron HCL 4 MG/2 ML VIAL IVPUSH ×2 (12:34→16:25)
[2021-06-25] MEDS: Famotidine/PF 20 MG/2 ML VIAL IVPUSH (12:34)
[2021-06-25 12:41] LABS: OBS Int Ctl Valid YES; OBS1 NEGATIVE (NEGATIVE)
[2021-06-25 12:44] LABS: Lactic Acid 0.8 mmol/L (0.5-2.0)
[2021-06-25 12:49] LABS: Alanine Aminotransferase 16 U/L (0-31); Albumin Level 4.4 g/dL (3.5-5.0); Alkaline Phosphatase 115 U/L (39-117); Anion Gap 12 (12-20); Aspartate Amino Transferase 33 U/L (5-31); Bilirubin Direct 0.2 mg/dL (0.0-0.5); Bilirubin Total 0.5 mg/dL (0.0-1.0); Blood Urea Nitrogen 12 mg/dL (9-16); Calcium 9.3 mg/dL (8.4-10.2); Carbon Dioxide 27 mmol/L (22-29); Chloride 103 mmol/L (96-108); Estimated Glomerular Filt Rate 48; Glucose Random 95 mg/dL (60-115); Magnesium 2.2 mg/dL (1.6-2.6); Potassium 4.1 mmol/L (3.3-5.1); Sodium 138 mmol/L (135-145)
[2021-06-25 12:50] LABS: Lipase 28 U/L (8-78)
[2021-06-25 12:52] LABS: COVID-19 Test Negative (Negative)
[2021-06-25 12:56] LABS: Troponin-I High Sensitivity < 3.5 ng/L (<3.5-17.0)
[2021-06-25] MEDS: HYDROmorphone HCl 1 MG/ML SYRINGE 0.5 MG IVPUSH (13:56)
[2021-06-25] MEDS: HYDROmorphone HCl 0.5 MG/0.5 ML SYRINGE IVPUSH (16:25)
[2021-06-25] MEDS: clonazePAM 1 MG TABLET PO ×2 (16:25→21:05)
--- NOTE | 2021-06-25 17:44 | PM.GICN ---
History of Present Illness Data of Consult Service Date: 06/25/21 Requesting physician: Bailey Lehman Primary Care Provider: Lucian Hightower DMD HPI Reason for consult: coffee ground emesis ? 56-year-old female w hx of chronic anemia, asthma/COPD, GERD, HIV, hep C and bipolar disorder who I am seeing for assessment for coffee ground emesis She had several days of poor appetite with epigastric pain like a stabbing sensation 10/10 as well as chest heaviness with some mild SOB, but no cough, small amounts of yellow sputum. She denies melena, or rectal bleeding but did have 3 episodes of coffee ground emesis today. denies fever, Denies taking aspirin or nsaids before today or pepto bismuth. Of note she had lap hiatal hernia repair by Dr Hill on 05/06 with large paraesophageal hernia noted, 10x 6 cm defect noted thru which the hernia was arising. EGD 03/2021-- 8 cm hiatal hernia, with duodenal diverticulum She had EGD 02/2021 for severe anemia and melena with no active bleeding source seen, hiatal hernia was noted with duodenal diverticulum. Capsule endoscopy was also done, again no lesions or bleeding was noted. ?She underwent EGD at [facility] on December 04 2020 with finding? suggestive of grade B esophagitis.? She had colonoscopy at [facility] on December 08, 2020 with finding? of internal hemorrhoids. Labs-chronic anemia- Hgb around 9-11 g/dl range and HGB today is close to this. CT scan todat with stranding around GEJ, no acute findings. tn neg and ecg unremarkable Review of Systems Review of Systems: Yes all other systems are reviewed and are negative Constitutional: Constitutional: Reports no additional constitutional complaints, Denies body ache(s), Denies chills, Denies fever(s), Denies headache(s) and Denies weakness Eyes: Eyes: Reports no additional eye complaints and Denies change in vision ENT: Reports system reviewed and no additional complaints, except as documented, Denies dizziness, Denies headache(s), Denies nasal congestion, Denies nasal discharge and Denies neck pain Cardiovascular: Cardiovascular: Reports no additional cardiovascular complaints, Reports chest pain, Denies leg edema and Denies dyspnea Respiratory: Respiratory: Denies cough and Denies dyspnea Gastrointestinal: Gastrointestinal: Reports no additional gastrointestinal complaints, Reports abdominal pain, Denies melena, Denies hematochezia, Reports coffee ground emesis, Denies diarrhea, Reports nausea and Reports vomiting Musculoskeletal: Musculoskeletal: Reports no additional musculoskeletal complaints, Denies back pain, Denies arthralgias, Denies joint swelling, Denies neck pain, Denies numbness and Denies tingling Integumentary/Breasts: Skin/Breast: Reports system reviewed and no additional complaints, except as docu and Denies rash Neurologic: Reports system reviewed and no additional complaints, except as documented, Denies Abnormal speech present, Denies dizziness, Denies headache(s), Denies numbness, Denies tingling and Denies weakness PMFSH Past Medical History Medical History Anemia Anxiety Arthritis Asthma Bilateral renal stones Bipolar 1 disorder Chronic anemia COPD (chronic obstructive pulmonary disease) COVID-19 vaccine administered Depression GERD (gastroesophageal reflux disease) Hiatal hernia without gangrene and obstruction HIV (human immunodeficiency virus infection) Hx of anxiety disorder Hx of hepatitis C Morbid (severe) obesity due to excess calories Nicotine dependence, cigarettes, uncomplicated PTSD (post-traumatic stress disorder) Family History Family History Mother Respiratory arrest Father Congestive heart failure Sister No problems noted. Brother No problems noted. Daughter No problems noted. Son No problems noted. Surgical History Surgical History History of section, classical History of cholecystectomy History of colonoscopy (~2020) History of endoscopy (~2020) History of repair of hiatal hernia History of tonsillectomy and adenoidectomy Social History Social History Household Members: None Housing: House Housing Other:: resides at [facility]-will return there post-op Are you a primary palliative care nurse to a significant other at home: No Do you presently have visiting nurse or other home services: No Alcohol intake: never Patient Tobacco Use Status: Current everyday Tobacco user Tobacco use type: Cigarette Cigarette Packs Per Day: 0.5 Cigarettes Per Day: 10.0 Years Smoked: 20 Second Hand Smoke Exposure: No Advance Directives: Yes Advance Directives Information Provided: No Advance Directives on File: No Advance Directives Date on File: 03/18/21 service: No Current occupational status: unemployed and disabled Meds Allergies Allergy/AdvReac Type Severity Reaction Status Date / Time Penicillins [PENICILLINS] Allergy Intermediate SOB/HIVES Verified 05/25/21 13:41 codeine AdvReac Intermediate Nausea and Verified 05/25/21 13:41 Vomiting ketorolac [From Toradol] AdvReac Intermediate Nausea and Verified 05/25/21 13:41 Vomiting Active Medications: Current Medications Generic Name Dose Route Start Last Admin Trade Name Freq PRN Reason Stop Dose Admin Pharmacy Consult 1 each 06/25/21 16:16 Consult Rx Perform Med Rec MISCELLANE ONCE PRN Consult order Home Medications Medication Instructions Recorded Confirmed Last Taken Type albuterol sulfate 90 mcg/actuation 2 puff INHALATION Q4H PRN 02/16/21 05/25/21 05/25/21 History aerosol inhaler bictegravir 50 mg-emtricitabine 1 tab PO DAILY 02/16/21 05/25/21 05/25/21 History 200 mg-tenofovir alafenam 25 mg tablet (Biktarvy) bupropion HCl 300 mg 24 hr tablet, 300 mg PO DAILY 02/16/21 05/25/21 05/25/21 History extended release clonazepam 1 mg tablet 1 mg PO TID 02/16/21 05/25/21 05/25/21 History duloxetine 30 mg capsule,delayed 30 mg PO DAILY 02/16/21 05/25/21 05/25/21 History release duloxetine 60 mg capsule,delayed 60 mg PO DAILY 02/16/21 05/25/21 05/25/21 History release gabapentin 400 mg capsule 400 mg PO TID 02/16/21 05/25/21 05/25/21 History prazosin 2 mg capsule 4 mg PO BEDTIME 02/16/21 05/25/21 05/24/21 History budesonide-formoterol HFA 80 2 puff INHALATION BID 04/30/21 05/25/21 05/25/21 History mcg-4.5 mcg/actuation aerosol inhaler (Symbicort) acetaminophen 500 mg tablet 1,000 mg PO Q6H PRN 0805/25/21 05/25/21 History quetiapine 400 mg tablet 2 tab PO BEDTIME 05/25/21 05/25/21 05/24/21 History Physical Exam Vital Signs: Vital Signs: Last Vital Signs Temp 98.6 F 06/25/21 11:37 Pulse 79 06/25/21 11:37 Resp 16 06/25/21 11:37 BP 143/98 H 06/25/21 11:37 Pulse Ox 98 06/25/21 11:37 Body Mass Index 44.2 Const: General: cooperative, healthy appearing, comfortable and no acute distress Orientation/consciousness: patient oriented x3 Limitations: no limitations HENMT: Head: Yes normal to inspection Ears: hearing grossly normal bilaterally General nose exam: Normal external nose present Face and sinus: Yes normal facial exam Mouth: Normal oral and palatal mucosa present Throat: Yes posterior oropharynx normal Eyes: General: appearance normal, both eyes and all related structures Pupils: Equal, round and reactive pupils present Neck: Neck: Yes normal visual inspection Chest: Chest palpation & inspection: normal inspection of the chest Resp: Effort & Inspection: normal respiratory effort Auscultation: wheezes Cardio: Rate: regular rate Rhythm: regular rhythm Peripheral pulses: Peripheral pulses 2+ throughout GI: Inspection: Yes normal to inspection Palpation (GI): Soft to palpation and Tenderness to palpation present (GI) (mod epigastric tendnerness with no rebound or guarding ) Auscultation: normal bowel sounds Back/Spine/Pelvis: Thoracic/Lumbar Spine: thoracic and lumbar spine normal to inspection Skin: General skin exam: no rashes or lesions noted Neuro: General: patient oriented x3, no focal motor deficits and normal sensation to monofilament Cranial nerves: Yes Equal, round and reactive pupils present Cognition (Neuro): normal cognition Speech: No Abnormal speech present Gait exam (Neuro): Normal gait present Motor exam (neuro): 5/5 motor strength present throughout Extrem: General: Yes normal to inspection, Yes no pedal edema and Yes no calf tenderness Results Labs CBC & Chem 7: 06/25/21 12:23 06/25/21 12:23 Labs: Short CBC 06/25/21 Range/Units 12:23 WBC 3.5 L (4.8-10.8) X10*3/uL Hgb 10.6 L D (12.0-16.0) g/dl Hct 34.5 L D (37-47) % Plt Count 240 (160-400) X10*3/uL BMP 06/25/21 12:23 Sodium 138 Potassium 4.1 Chloride 103 Carbon Dioxide 27 BUN 12 Creatinine 1.18 Calcium 9.3 D Liver Function 06/25/21 Range/Units 12:23 Total Bilirubin 0.5 (0.0-1.0) mg/dL Direct Bilirubin 0.2 (0.0-0.5) mg/dL AST 33 H (5-31) U/L ALT 16 (0-31) U/L Alkaline Phosphatase 115 (39-117) U/L Albumin 4.4 (3.5-5.0) g/dL Imaging CT scan - abdomen: Attestation: I personally reviewed and interpreted this imaging study as follows: My impression: esophageal stranding, thickening, no fluid collections Assessment and Plan (1) Epigastric abdominal pain: Status: Acute 1/ Chronic anemia a baseline with epigastric pain and coffe ground emesis, ddx; peptic ulcer disease, gastroenteritis, gastroparesis, esophagitis, no evidence of wound breakdown since sugery or fluid collection or post surgical abscess etc PLAN: 1/ Since HGB stable no emergent need for EGD at this time 2/ would admit for observation, rx with carafate and IV PPI, if better next 24 hrs then O/p EGD next week, otherwise can consider in patient testing 3/ cont to trend HGB Procedures Date of Service Date of Service: 06/25/21
--- NOTE | 2021-06-25 17:48 | PM.IMCN ---
History of Present Illness Data of Consult Service Date: 06/25/21 Primary Care Provider: Lucian Hightower DMD HPI Reason for consult: Epigastric abdominal pain, coffee-ground emesis This is a 56 year oldfemale with past medical history of gastritis, KEN, anxiety, asthma, bipolar disorder, COPD, hepatitis C, HIV, PTSD, obesity who presents to the emergency department with complaints of upper abdominal pain. The pain is located in the epigastric region and has been present for 1-2 days. It is described as severe in nature and she is requesting Dilaudid. It is associated with 3 episodes of coffee ground emesis. She reports a few episodes of diarrhea which is nonbloody. She denies associated fevers, chills. She denies use of any NSAIDs or alcohol. She Hhad EGD 02/2021 for anemia with no active bleeding noted but hiatal hernia noted. Capsule study negative bleeding. She underwent lap hiatal hernia repair by Dr Hill on 05/06. Today her lab work is unremarkable and her H/H is actually above her recent baseline. She denies any vomiting since this morning although does report ongoing nausea. She underwent CT scan of the abdomen/pelvis which was unrevealing. She was seen by GI in the emergency department who recommended admission overnight for observation with likely EGD in the morning. Review of Systems Review of Systems: Yes all other systems are reviewed and are negative Constitutional: Constitutional: Denies chills and Denies fever(s) Cardiovascular: Cardiovascular: Denies chest pain Respiratory: Respiratory: Denies cough Gastrointestinal: Gastrointestinal: Reports abdominal pain, Denies melena, Reports diarrhea, Reports nausea and Reports hematemesis [facility] Medical History Anemia Anxiety Arthritis Asthma Bilateral renal stones Bipolar 1 disorder Chronic anemia COPD (chronic obstructive pulmonary disease) COVID-19 vaccine administered Depression GERD (gastroesophageal reflux disease) Hiatal hernia without gangrene and obstruction HIV (human immunodeficiency virus infection) Hx of anxiety disorder Hx of hepatitis C Morbid (severe) obesity due to excess calories Nicotine dependence, cigarettes, uncomplicated PTSD (post-traumatic stress disorder) Family History Mother Respiratory arrest Father Congestive heart failure Sister No problems noted. Brother No problems noted. Daughter No problems noted. Son No problems noted. Surgical History History of section, classical History of cholecystectomy History of colonoscopy (~2020) History of endoscopy (~2020) History of repair of hiatal hernia History of tonsillectomy and adenoidectomy Social History Household Members: None Housing: House Housing Other:: resides at [facility]-will return there post-op Are you a primary tree care foreman to a significant other at home: No Do you presently have visiting nurse or other home services: No Alcohol intake: never Patient Tobacco Use Status: Current everyday Tobacco user Tobacco use type: Cigarette Cigarette Packs Per Day: 0.5 Cigarettes Per Day: 10.0 Years Smoked: 20 Smoked in Last 30 Days: Yes Patient Interested in Nicotine Replacement: Yes Second Hand Smoke Exposure: No Advance Directives: Yes Advance Directives Information Provided: No Advance Directives on File: No Advance Directives Date on File: 03/18/21 service: No Current occupational status: unemployed and disabled Meds Allergies Allergy/AdvReac Type Severity Reaction Status Date / Time Penicillins [PENICILLINS] Allergy Intermediate SOB/HIVES Verified 05/25/21 13:41 codeine AdvReac Intermediate Nausea and Verified 05/25/21 13:41 Vomiting ketorolac [From Toradol] AdvReac Intermediate Nausea and Verified 05/25/21 13:41 Vomiting Active Medications: Current Medications Generic Name Dose Route Start Last Admin Trade Name Nedq PRN Reason Stop Dose Admin Pharmacy Consult 1 each 06/25/21 16:16 Consult Rx Perform Med Rec MISCELLANE ONCE PRN Consult order Home Medications Medication Instructions Recorded Confirmed Last Taken Type albuterol sulfate 90 mcg/actuation 2 puff INHALATION Q4H PRN 02/16/21 06/25/21 06/25/21 History aerosol inhaler bictegravir 50 mg-emtricitabine 1 tab PO DAILY 02/16/21 06/25/21 06/25/21 History 200 mg-tenofovir alafenam 25 mg tablet (Biktarvy) bupropion HCl 300 mg 24 hr tablet, 300 mg PO DAILY 02/16/21 06/25/21 06/25/21 History extended release clonazepam 1 mg tablet 1 mg PO TID 02/16/21 06/25/21 06/25/21 History duloxetine 30 mg capsule,delayed 30 mg PO DAILY 02/16/21 06/25/21 06/25/21 History release duloxetine 60 mg capsule,delayed 60 mg PO DAILY 02/16/21 06/25/21 06/25/21 History release gabapentin 400 mg capsule 400 mg PO TID 02/16/21 06/25/21 06/25/21 History prazosin 2 mg capsule 4 mg PO BEDTIME 02/16/21 06/25/21 06/24/21 History budesonide-formoterol HFA 80 2 puff INHALATION BID 04/30/21 06/25/21 06/25/21 History mcg-4.5 mcg/actuation aerosol inhaler (Symbicort) quetiapine 400 mg tablet 2 tab PO BEDTIME 05/25/21 06/25/21 06/24/21 History Physical Exam Vital Signs and Narrative: Vital Signs: Last Vital Signs Temp 98.6 F 06/25/21 11:37 Pulse 79 06/25/21 11:37 Resp 16 06/25/21 11:37 BP 143/98 H 06/25/21 11:37 Pulse Ox 98 06/25/21 11:37 Body Mass Index 44.2 Const: General: comfortable, no acute distress, awake and Physically active Nutritional Appearance: well nourished Orientation/consciousness: patient oriented x3 HENMT: Head: Yes normocephalic and Yes atraumatic Eyes: Sclerae: sclerae normal Chest: Chest palpation & inspection: normal inspection of the chest Resp: Other: Scattered wheezing Effort & Inspection: normal respiratory effort Auscultation: wheezes Cardio: Rate: regular rate Rhythm: regular rhythm GI: Other: Abdomen soft, mild tenderness to palpation in the epigastric region. Abdomen nondistended, no guarding. Positive bowel sounds Neuro: General: patient oriented x3 Cranial nerves: Yes CN's II-XII intact bilaterally and Yes Bilaterally intact EOM present Results Labs CBC and Chem 7: 06/26/21 05:12 06/26/21 05:12 Labs: Laboratory Results - last 24 hr 06/25/21 06/25/21 06/25/21 12:23 12:23 12:23 MCV 86.9 MCH 26.7 L MCHC 30.7 L RDW 20.9 H Plt Count 240 MPV 9.0 L Immature Gran % (Auto) 0.3 Neut % (Auto) 50.4 Lymph % (Auto) 28.8 Cotton % (Auto) 9.4 Eos % (Auto) 9.7 H Baso % (Auto) 1.4 Lymph # (Auto) 1.0 L Cotton # (Auto) 0.3 Eos # (Auto) 0.3 Baso # (Auto) 0.1 Abs Immat Gran (auto) 0.01 Absolute Neuts (auto) 1.8 L Absolute Nucleated RBC 0.000 Nucleated RBC % (auto) 0.0 Anion Gap 12 Estim Creat Clear Calc 66.0 Estimated GFR 48 Random Glucose 95 Lactic Acid 0.8 Calcium 9.3 D Magnesium 2.2 Total Bilirubin 0.5 Direct Bilirubin 0.2 AST 33 H ALT 16 Alkaline Phosphatase 115 Troponin I High Sens Total Protein 7.0 Albumin 4.4 Lipase Stool Occult Blood COVID-19 (ELSI) COVID-19 Clin Com 06/25/21 06/25/21 06/25/21 12:23 12:23 12:23 MCV MCH MCHC RDW Plt Count MPV Immature Gran % (Auto) Neut % (Auto) Lymph % (Auto) Cotton % (Auto) Eos % (Auto) Baso % (Auto) Lymph # (Auto) Cotton # (Auto) Eos # (Auto) Baso # (Auto) Abs Immat Gran (auto) Absolute Neuts (auto) Absolute Nucleated RBC Nucleated RBC % (auto) Anion Gap Estim Creat Clear Calc Estimated GFR Random Glucose Lactic Acid Calcium Magnesium Total Bilirubin Direct Bilirubin AST ALT Alkaline Phosphatase Troponin I High Sens < 3.5 Total Protein Albumin Lipase 28 Stool Occult Blood COVID-19 (ELSI) Negative COVID-19 Clin Com See Note 06/25/21 12:23 MCV MCH MCHC RDW Plt Count MPV Immature Gran % (Auto) Neut % (Auto) Lymph % (Auto) Cotton % (Auto) Eos % (Auto) Baso % (Auto) Lymph # (Auto) Cotton # (Auto) Eos # (Auto) Baso # (Auto) Abs Immat Gran (auto) Absolute Neuts (auto) Absolute Nucleated RBC Nucleated RBC % (auto) Anion Gap Estim Creat Clear Calc Estimated GFR Random Glucose Lactic Acid Calcium Magnesium Total Bilirubin Direct Bilirubin AST ALT Alkaline Phosphatase Troponin I High Sens Total Protein Albumin Lipase Stool Occult Blood NEGATIVE COVID-19 (ELSI) COVID-19 Clin Com Imaging Radiologist's Impressions: Impressions Chest X-Ray 06/25/21 12:53 IMPRESSION: No evidence for acute disease in the chest. Abdomen/Pelvis CT 06/25/21 14:14 IMPRESSION: Mild stranding of the fat surrounding the GE junction probably representing postsurgical change. No evidence of abscess or leak is seen. Bilateral small renal stones. Assessment and Plan (1) Epigastric abdominal pain: Status: Acute THis is a 56 yo female with past medical history of gastritis (on protonix 40, famotidine 40, carafate ACHS daily), KEN, anxiety, asthma, bipolar disorder, COPD, hepatitis C, HIV, PTSD, obesity s/p lap hiatal hernia repair by Dr Hill on 05/06 who presents to the emergency department with epigastric abdominal pain and coffee-ground emesis Upper GI bleeding h/o gastritis H/H at baseline, no indication for blood transfusion Seen by GI, plan for EGD in a.m. IV PPI, Carafate Clear liquid diet, NPO at midnight Tobacco dependence Nicotine replacement therapy Med reconciliation pending at the time of admission DVT prophylaxis-mechanical devices due to GI bleeding Attending physician Dr. Mclean
[2021-06-25 18:46] VITALS: BP 112/58; PULSE 76; RESP 20; TEMP 36.8; O2SAT 97
[2021-06-25 20:37] VITALS: BP 133/71; PULSE 91; RESP 18; TEMP 36.6; O2SAT 96
[2021-06-25 21:04] VITALS: BP 133/71; PULSE 91
[2021-06-25] MEDS: Prazosin HCL 1 MG CAPSULE 4 MG PO (21:04)
[2021-06-25] MEDS: Dicyclomine HCl 10 MG CAPSULE PO (21:05)
[2021-06-25] MEDS: QUEtiapine Fumarate 200 MG TABLET 800 MG PO (21:05)
[2021-06-25] MEDS: Lactated Ringers 1,000 ML 80 ML IVCONT (21:07)
[2021-06-25] MEDS: Albuterol/Iprat 2.5/0.5MG 3 ML AMPUL.NEB INHALE (21:25)
[2021-06-25 21:30] VITALS: PULSE 90; O2SAT 95
[2021-06-25] MEDS: Sucralfate Oral Suspension 1 GM/10 ML ORAL.SUSP PO (23:32)
[2021-06-26] VITALS (11 sets, daily range): BP systolic 90–129; BP diastolic 49–76; PULSE 78–103; RESP 16–19; TEMP 36.2–37.6; O2SAT 90–98
[2021-06-26] MEDS: Pantoprazole Sodium 40 MG/10 ML VIAL IVPUSH ×2 (05:30→16:23)
[2021-06-26 05:42] LABS: MANUAL DIFF FLAG NO
[2021-06-26 05:47] LABS: Basophils Percent Auto 1.2 % (0-2); Eosinophils Absolute Auto 0.2 X10*3/uL (0.0-0.4); Eosinophils Percent Auto 7.6 % (0-4); Hematocrit 32.2 % (37-47); Hemoglobin 9.7 g/dl (12.0-16.0); Imm Gran Abs Auto 0.01 X10*3/uL (0.00-0.03); Imm Gran Pct Auto 0.4 % (0.0-0.4); Lymphocytes Absolute Auto 0.6 X10*3/uL (1.2-4.9); Lymphocytes Percent Auto 22.7 % (20-40); Mean Corpuscular HGB Conc 30.1 g/dl (31.0-35.0); Mean Corpuscular Hemoglobin 26.4 pg (27.0-33.0); Mean Corpuscular Volume 87.7 fL (80-98); Mean Platelet Volume 9.1 fL (9.4-12.3); Monocytes Absolute Auto 0.3 X10*3/uL (0.1-1.2); Monocytes Percent Auto 10.4 % (2-11); Neutrophils Absolute Auto 1.5 X10*3/uL (2.0-8.3); Neutrophils Percent Auto 57.7 % (45-73); Platelet Count 197 X10*3/uL (160-400); Red Blood Count 3.67 X10*6/uL (4.20-5.50); Red Cell Distribution Width 20.8 % (11.0-16.0)
[2021-06-26 05:48] LABS: White Blood Count 2.5 X10*3/uL (4.8-10.8)
[2021-06-26 06:20] LABS: Anion Gap 14 (12-20); Blood Urea Nitrogen 12 mg/dL (9-16); Calcium 8.9 mg/dL (8.4-10.2); Carbon Dioxide 25 mmol/L (22-29); Chloride 103 mmol/L (96-108); Creatinine Clr Calc Pharmacy 75.7; Estimated Glomerular Filt Rate 56; Glucose Random 104 mg/dL (60-115); Potassium 3.9 mmol/L (3.3-5.1); Sodium 138 mmol/L (135-145)
[2021-06-26] MEDS: DULoxetine HCl 30 MG CAPSULE.DR PO (08:17)
[2021-06-26] MEDS: DULoxetine HCl 60 MG CAPSULE.DR PO (08:17)
[2021-06-26] MEDS: clonazePAM 1 MG TABLET PO ×3 (08:17→20:14)
[2021-06-26] MEDS: buPROPion HCl XL 300 MG TAB.ER.24H PO (08:17)
[2021-06-26] MEDS: ondansetron HCL 4 MG/2 ML VIAL IVPUSH (08:17)
[2021-06-26] MEDS: Dicyclomine HCl 10 MG CAPSULE PO ×2 (08:17→20:14)
[2021-06-26] MEDS: Sucralfate Oral Suspension 1 GM/10 ML ORAL.SUSP PO ×4 (08:17→20:14)
[2021-06-26] MEDS: Lactated Ringers 1,000 ML 80 ML IVCONT (08:18)
[2021-06-26] MEDS: Gabapentin 400 MG CAPSULE PO ×3 (08:37→20:14)
--- NOTE | 2021-06-26 08:39 | PC.NURSE ---
Skin assessment completed today. Patient has healed surgical incisions on abdomen. No other skin issues noted at this time.
[2021-06-26] MEDS: Fluticasone/Vilanterol 100/25 BLST.W.DEV 1 PUFF INHALE (08:44)
[2021-06-26] MEDS: Albuterol/Iprat 2.5/0.5MG 3 ML AMPUL.NEB INHALE ×3 (08:44→19:36)
--- NOTE | 2021-06-26 13:41 | P.PNIM_ITS ---
Subjective Subjective Date of Service: 06/26/21 Interval History: Seen and examined this morning Follow-up for coffee-ground emesis/possible GI bleed Patient still with epigastric abdominal pain and nausea. Denies any further episodes of hematemesis. Denies diarrhea Oxygen saturation documented as 90% this morning. Patient denies any shortness of breath or cough. Review of Systems Review of Systems: Yes all other systems are reviewed and are negative Constitutional Constitutional: Denies chills and Denies fever(s) Cardiovascular Cardiovascular: Denies chest pain Respiratory Respiratory: Denies cough Gastrointestinal Epigastric abdominal pain Physical Exam Vital Signs: Vital Signs: Last Vital Signs Temp 98.8 F 06/26/21 11:50 Pulse 92 06/26/21 13:34 Resp 18 06/26/21 11:50 BP 116/74 06/26/21 11:50 Pulse Ox 98 06/26/21 11:50 Body Mass Index 44.2 Const: General: comfortable, no acute distress, awake and Physically active Nutritional Appearance: well nourished Orientation/consciousness: patient oriented x3 HENMT: Head: Yes normocephalic and Yes atraumatic Eyes: Sclerae: sclerae normal Chest: Chest palpation & inspection: normal inspection of the chest Resp: Other: Scattered wheezing Effort & Inspection: normal respiratory effort and no respiratory distress Auscultation: wheezes Cardio: Rate: regular rate Rhythm: regular rhythm GI: Other: Abdomen soft, mild tenderness to palpation in the epigastric region. Abdomen nondistended, no guarding. Positive bowel sounds Neuro: General: patient oriented x3 Cranial nerves: Yes CN's II-XII intact bilaterally and Yes Bilaterally intact EOM present Extrem: Other: no edema Objective Data Active Medications Acetaminophen (Acetaminophen 325 Mg Tablet) 650 mg PO Q6H PRN PRN Reason: Pain, Mild (Pain Scale 1-3) Al Hydroxide/Mg Hydroxide (Magnesium Hydrox/Alum Hydrox 30 Ml Oral.Susp) 30 ml PO Q6H PRN PRN Reason: Dyspepsia Albuterol Sulfate (Albuterol Sulfate 90 Mcg 8 Gm Inhaler) 2 puff INHALE Q4H PRN PRN Reason: Respiratory Distress Albuterol/Ipratropium (Albuterol/Iprat 2.5/0.5mg 3 Ml Ampul.Neb) 3 ml INHALE RQ6H WHILE AWAKE GEOVANNA Last Admin: 06/26/21 13:33 Dose: 3 ml Documented by: [place] Bupropion HCl (Bupropion Hcl Xl 300 Mg Tab.Er.24h) 300 mg PO DAILY [facility] Last Admin: 06/26/21 08:17 Dose: 300 mg Documented by: ANDREW Clonazepam (Clonazepam 1 Mg Tablet) 1 mg PO TID [facility] Last Admin: 06/26/21 08:17 Dose: 1 mg Documented by: ANDREW Dicyclomine HCl (Dicyclomine Hcl 10 Mg Capsule) 10 mg PO BID [facility] Last Admin: 06/26/21 08:17 Dose: 10 mg Documented by: ANDREW Docusate Sodium (Docusate Sodium 100 Mg Capsule) 100 mg PO DAILY PRN PRN Reason: Constipation Duloxetine HCl (Duloxetine Hcl 30 Mg Capsule.Dr) 30 mg PO DAILY [facility] Last Admin: 06/26/21 08:17 Dose: 30 mg Documented by: ANDREW Duloxetine HCl (Duloxetine Hcl 60 Mg Capsule.Dr) 60 mg PO DAILY [facility] Last Admin: 06/26/21 08:17 Dose: 60 mg Documented by: ANDREW Fluticasone/Vilanterol (Fluticasone/Vilanterol 100/25 Blst.W.Dev) 1 puff INHALE DAILY [facility] Last Admin: 06/26/21 08:44 Dose: 1 puff Documented by: [place] Gabapentin (Gabapentin 400 Mg Capsule) 400 mg PO TID [facility] Last Admin: 06/26/21 08:37 Dose: 400 mg Documented by: ANDREW Lactated Ringer's (Lr) 1,000 mls @ 100 mls/hr IVCONT .Q10H [facility] Last Infusion: 06/26/21 12:55 Dose: 0 mls/hr Documented by: ANDREW Magnesium Hydroxide (Milk Of Magnesia 30 Ml Oral.Susp) 30 ml PO DAILY PRN PRN Reason: Constipation Melatonin (Melatonin 3 Mg Tablet) 3 mg PO BEDTIME PRN PRN Reason: Insomnia Methylprednisolone Sodium Succinate (Methylprednisolone Sod Succ 40 Mg/Ml Vial) 40 mg IVPUSH Q12H [facility] Nicotine (Nicotine 14 Mg Patch.Td24) 14 mg TRANSDERMA DAILY [facility] Last Admin: 06/26/21 08:20 Dose: Not Given Documented by: ANDREW Non-Admin Reason: Patient Refused Ondansetron HCl (Ondansetron Hcl 4 Mg/2 Ml Vial) 4 mg IVPUSH Q8H PRN PRN Reason: Nausea and Vomiting Last Admin: 06/26/21 08:17 Dose: 4 mg Documented by: ANDREW Pantoprazole Sodium (Pantoprazole Sodium 40 Mg/10 Ml Vial) 40 mg IVPUSH BID@0630,1630 [facility] Last Admin: 06/26/21 05:30 Dose: 40 mg Documented by: SOCORRO Pharmacy Consult (Consult Rx Perform Med Rec) 1 each MISCELLANE ONCE PRN PRN Reason: Consult order Prazosin HCl (Prazosin Hcl 1 Mg Capsule) 4 mg PO BEDTIME [facility]; Protocol Last Admin: 06/25/21 21:04 Dose: 4 mg Documented by: SOCORRO Quetiapine Fumarate (Quetiapine Fumarate 200 Mg Tablet) 800 mg PO BEDTIME [facility] Last Admin: 06/25/21 21:05 Dose: 800 mg Documented by: SOCORRO Sodium Chloride (0.9 % Sodium Chloride Flush 3 Ml Syringe) 3 ml IVFLUSH QSHIFT [facility] Last Admin: 06/26/21 08:19 Dose: Not Given Documented by: ANDREW Non-Admin Reason: IV Running Sucralfate (Sucralfate Oral Suspension 1 Gm/10 Ml Oral.Susp) 1 gm PO QIDACHS [facility] Last Admin: 06/26/21 11:50 Dose: 1 gm Documented by: ANDREW Labs CBC & Chem 7: 06/26/21 05:12 06/26/21 05:12 Labs: Laboratory Results - last 24 hr 06/26/21 06/26/21 05:12 05:12 MCV 87.7 MCH 26.4 L MCHC 30.1 L RDW 20.8 H Plt Count 197 MPV 9.1 L Immature Gran % (Auto) 0.4 Neut % (Auto) 57.7 Lymph % (Auto) 22.7 Person % (Auto) 10.4 Eos % (Auto) 7.6 H Baso % (Auto) 1.2 Lymph # (Auto) 0.6 L Person # (Auto) 0.3 Eos # (Auto) 0.2 Baso # (Auto) 0.0 Abs Immat Gran (auto) 0.01 Absolute Neuts (auto) 1.5 L Absolute Nucleated RBC 0.000 Nucleated RBC % (auto) 0.0 Anion Gap 14 Estim Creat Clear Calc 75.7 Estimated GFR 56 Random Glucose 104 Calcium 8.9 Assessment and Plan (1) Gastritis: Status: Acute (2) Asthma exacerbation with COPD (chronic obstructive pulmonary disease): Status: Acute (3) Epigastric abdominal pain: Status: Acute (4) Nausea: Status: Acute Assessment and Plan: THis is a 56 yo female with past medical history of gastritis, anxiety, asthma, bipolar disorder, COPD, hepatitis C, HIV, PTSD, obesity s/p lap hiatal hernia repair by Dr Hill on 05/06 who presents to the emergency department with epigastric abdominal pain and coffee-ground emesis Upper GI bleeding Still with abdominal pain, no further episodes of hematemesis h/o gastritis H/H at baseline, no indication for blood transfusion at this time Seen by GI, plan for inpatient EGD likely Tuesday Continue IV PPI, Carafate Clear liquid diet, IVF Acute asthma/COPD exacerbation Continue scheduled breathing treatments Will start systemic steroids Continue home inhalers Tobacco dependence Nicotine replacement therapy Mood Continue gabapentin, Seroquel, Cymbalta, Klonopin Morbid obesity BMI 44.3. His weight is likely contributing to overall medical illness including episode of hypoxia as patient likely has component of obesity hypoventilation. DVT prophylaxis-mechanical devices due to GI bleeding Attending physician Dr. Meza Quality Stroke Does the patient have a stroke diagnosis?: No VTE Prior VTE?: No VTE Risk Level:: Medical - moderate - high VTE Device Contraindication: N/A - Device Ordered VTE Drug Contraindication: Treatment Not Indicated
[2021-06-26] MEDS: methylPREDNISolone Sod Succ 40 MG/ML VIAL IVPUSH (14:15)
[2021-06-26] MEDS: QUEtiapine Fumarate 200 MG TABLET 800 MG PO (20:14)
[2021-06-26] MEDS: Prazosin HCL 1 MG CAPSULE 4 MG PO (20:14)
[2021-06-26] MEDS: 0.9 % Sodium Chloride Flush 3 ML SYRINGE IVFLUSH (20:15)
[2021-06-27] VITALS (9 sets, daily range): BP systolic 104–159; BP diastolic 58–84; PULSE 59–88; RESP 17–20; TEMP 36–36.9; O2SAT 90–99
[2021-06-27] MEDS: methylPREDNISolone Sod Succ 40 MG/ML VIAL IVPUSH ×2 (01:47→14:17)
[2021-06-27 05:45] LABS: Hematocrit 38.1 % (37-47); Hemoglobin 11.6 g/dl (12.0-16.0); Mean Corpuscular HGB Conc 30.4 g/dl (31.0-35.0); Mean Corpuscular Hemoglobin 26.7 pg (27.0-33.0); Mean Corpuscular Volume 87.6 fL (80-98); Mean Platelet Volume 9.5 fL (9.4-12.3); Platelet Count 238 X10*3/uL (160-400); Red Blood Count 4.35 X10*6/uL (4.20-5.50); Red Cell Distribution Width 20.2 % (11.0-16.0); White Blood Count 3.9 X10*3/uL (4.8-10.8)
[2021-06-27] MEDS: Lactated Ringers 1,000 ML 80 ML IVCONT ×2 (06:23→14:19)
[2021-06-27] MEDS: Sucralfate Oral Suspension 1 GM/10 ML ORAL.SUSP PO ×4 (06:24→19:56)
[2021-06-27] MEDS: Pantoprazole Sodium 40 MG/10 ML VIAL IVPUSH ×2 (06:24→17:00)
[2021-06-27] MEDS: Fluticasone/Vilanterol 100/25 BLST.W.DEV 1 PUFF INHALE (07:50)
[2021-06-27] MEDS: Albuterol/Iprat 2.5/0.5MG 3 ML AMPUL.NEB INHALE ×2 (07:50→19:24)
[2021-06-27] MEDS: 0.9 % Sodium Chloride Flush 3 ML SYRINGE IVFLUSH ×2 (10:28→17:00)
[2021-06-27] MEDS: buPROPion HCl XL 300 MG TAB.ER.24H PO (10:29)
[2021-06-27] MEDS: clonazePAM 1 MG TABLET PO ×3 (10:29→19:58)
[2021-06-27] MEDS: Gabapentin 400 MG CAPSULE PO ×3 (10:29→19:58)
[2021-06-27] MEDS: DULoxetine HCl 60 MG CAPSULE.DR PO (10:29)
[2021-06-27] MEDS: Dicyclomine HCl 10 MG CAPSULE PO ×2 (10:29→19:58)
[2021-06-27] MEDS: DULoxetine HCl 30 MG CAPSULE.DR PO (10:29)
[2021-06-27] MEDS: ondansetron HCL 4 MG/2 ML VIAL IVPUSH (10:38)
[2021-06-27] MEDS: Magnesium Hydrox/Alum Hydrox 30 ML ORAL.SUSP PO (10:38)
[2021-06-27] MEDS: Acetaminophen 325 MG TABLET 650 MG PO (10:38)
--- NOTE | 2021-06-27 10:41 | HO.PM.IMPN ---
Subjective Subjective Date of Service: 06/27/21 Interval History: Seen and examined this morning Follow-up for acute asthma/COPD exacerbation, epigastric abdominal pain, anemia Still having some epigastric abdominal pain although patient reports that is improving The patient denies any shortness of breath, some SOB with exertion, she denies any cough, fever, chills. Patient intermittently noted to have o2 sats of 90% Review of Systems Review of Systems: Yes all other systems are reviewed and are negative Constitutional Constitutional: Denies chills and Denies fever(s) Cardiovascular Cardiovascular: Denies chest pain Respiratory Respiratory: Denies cough Physical Exam Vital Signs: Vital Signs: Last Vital Signs Temp 97.5 F 06/27/21 07:54 Pulse 82 06/27/21 07:54 Resp 18 06/27/21 07:54 BP 127/84 06/27/21 07:54 Pulse Ox 90 L 06/27/21 07:54 Body Mass Index 44.2 Const: General: comfortable, no acute distress, awake and Physically active Nutritional Appearance: well nourished Orientation/consciousness: patient oriented x3 HENMT: Head: Yes normocephalic and Yes atraumatic Eyes: Sclerae: sclerae normal Chest: Chest palpation & inspection: normal inspection of the chest Resp: Other: few expiratory wheezes Effort & Inspection: normal respiratory effort and no respiratory distress Auscultation: wheezes Cardio: Rate: regular rate Rhythm: regular rhythm GI: Other: Abdomen soft, mild tenderness to palpation in the epigastric region. Abdomen nondistended, no guarding. Positive bowel sounds Neuro: General: patient oriented x3 Cranial nerves: Yes CN's II-XII intact bilaterally and Yes Bilaterally intact EOM present Extrem: Other: no edema Objective Data Active Medications Acetaminophen (Acetaminophen 325 Mg Tablet) 650 mg PO Q6H PRN PRN Reason: Pain, Mild (Pain Scale 1-3) Last Admin: 06/27/21 10:38 Dose: 650 mg Documented by: BRAD Al Hydroxide/Mg Hydroxide (Magnesium Hydrox/Alum Hydrox 30 Ml Oral.Susp) 30 ml PO Q6H PRN PRN Reason: Dyspepsia Last Admin: 06/27/21 10:38 Dose: 30 ml Documented by: BRAD Albuterol Sulfate (Albuterol Sulfate 90 Mcg 8 Gm Inhaler) 2 puff INHALE Q4H PRN PRN Reason: Respiratory Distress Albuterol/Ipratropium (Albuterol/Iprat 2.5/0.5mg 3 Ml Ampul.Neb) 3 ml INHALE RQ6H WHILE AWAKE [facility] Last Admin: 06/27/21 07:50 Dose: 3 ml Documented by: COLETTE Bictegravir/Emtricitabine/Tenofovir (Bictegrav/Emtricit/Tenofov Ala 1 Tab Tablet) 1 tab PO DAILY [facility] Last Admin: 06/27/21 10:30 Dose: 1 tab Documented by: BRAD Bupropion HCl (Bupropion Hcl Xl 300 Mg Tab.Er.24h) 300 mg PO DAILY [facility] Last Admin: 06/27/21 10:29 Dose: 300 mg Documented by: BRAD Clonazepam (Clonazepam 1 Mg Tablet) 1 mg PO TID [facility] Last Admin: 06/27/21 10:29 Dose: 1 mg Documented by: BRAD Dicyclomine HCl (Dicyclomine Hcl 10 Mg Capsule) 10 mg PO BID [facility] Last Admin: 06/27/21 10:29 Dose: 10 mg Documented by: BRAD Docusate Sodium (Docusate Sodium 100 Mg Capsule) 100 mg PO DAILY PRN PRN Reason: Constipation Duloxetine HCl (Duloxetine Hcl 30 Mg Capsule.Dr) 30 mg PO DAILY [facility] Last Admin: 06/27/21 10:29 Dose: 30 mg Documented by: BRAD Duloxetine HCl (Duloxetine Hcl 60 Mg Capsule.Dr) 60 mg PO DAILY [facility] Last Admin: 06/27/21 10:29 Dose: 60 mg Documented by: BRAD Fluticasone/Vilanterol (Fluticasone/Vilanterol 100/25 Blst.W.Dev) 1 puff INHALE DAILY [facility] Last Admin: 06/27/21 07:50 Dose: 1 puff Documented by: COLETTE Gabapentin (Gabapentin 400 Mg Capsule) 400 mg PO TID [facility] Last Admin: 06/27/21 10:29 Dose: 400 mg Documented by: BRAD Lactated Ringer's (Lr) 1,000 mls @ 100 mls/hr IVCONT .Q10H [facility] Last Admin: 06/27/21 06:23 Dose: 80 mls/hr Documented by: NAJMA Magnesium Hydroxide (Milk Of Magnesia 30 Ml Oral.Susp) 30 ml PO DAILY PRN PRN Reason: Constipation Melatonin (Melatonin 3 Mg Tablet) 3 mg PO BEDTIME PRN PRN Reason: Insomnia Methylprednisolone Sodium Succinate (Methylprednisolone Sod Succ 40 Mg/Ml Vial) 40 mg IVPUSH Q12H [facility] Last Admin: 06/27/21 01:47 Dose: 40 mg Documented by: NAJMA Nicotine (Nicotine 14 Mg Patch.Td24) 14 mg TRANSDERMA DAILY [facility] Last Admin: 06/27/21 10:30 Dose: Not Given Documented by: BRAD Non-Admin Reason: Patient Refused Ondansetron HCl (Ondansetron Hcl 4 Mg/2 Ml Vial) 4 mg IVPUSH Q8H PRN PRN Reason: Nausea and Vomiting Last Admin: 06/27/21 10:38 Dose: 4 mg Documented by: BRAD Pantoprazole Sodium (Pantoprazole Sodium 40 Mg/10 Ml Vial) 40 mg IVPUSH BID@0630,1630 [facility] Last Admin: 06/27/21 06:24 Dose: 40 mg Documented by: NAJMA Pharmacy Consult (Consult Rx Perform Med Rec) 1 each MISCELLANE ONCE PRN PRN Reason: Consult order Prazosin HCl (Prazosin Hcl 1 Mg Capsule) 4 mg PO BEDTIME [facility]; Protocol Last Admin: 06/26/21 20:14 Dose: 4 mg Documented by: NAJMA Quetiapine Fumarate (Quetiapine Fumarate 200 Mg Tablet) 800 mg PO BEDTIME [facility] Last Admin: 06/26/21 20:14 Dose: 800 mg Documented by: NAJMA Sodium Chloride (0.9 % Sodium Chloride Flush 3 Ml Syringe) 3 ml IVFLUSH QSHIFT [facility] Last Admin: 06/27/21 10:28 Dose: 3 ml Documented by: BRAD Sucralfate (Sucralfate Oral Suspension 1 Gm/10 Ml Oral.Susp) 1 gm PO QIDACHS [facility] Last Admin: 06/27/21 06:24 Dose: 1 gm Documented by: NAJMA Labs CBC & Chem 7: 06/27/21 05:33 06/26/21 05:12 Labs: Laboratory Results - last 24 hr 06/27/21 05:33 MCV 87.6 MCH 26.7 L MCHC 30.4 L RDW 20.2 H Plt Count 238 MPV 9.5 Absolute Nucleated RBC 0.000 Nucleated RBC % (auto) 0.0 Assessment and Plan (1) Asthma exacerbation with COPD (chronic obstructive pulmonary disease): Status: Acute (2) Morbid obesity with BMI of 40.0-44.9, adult: Status: Acute (3) Epigastric abdominal pain: Status: Acute Assessment and Plan: THis is a 56 yo female with past medical history of gastritis, anxiety, asthma, bipolar disorder, COPD, hepatitis C, HIV, PTSD, obesity s/p lap hiatal hernia repair by Dr Hill on 05/06 who presents to the emergency department with epigastric abdominal pain and coffee-ground emesis Upper GI bleeding Still with abdominal pain/ improving; no further episodes of hematemesis h/o gastritis H/H at baseline, no indication for blood transfusion at this time Seen by GI, plan for inpatient EGD likely Tuesday Continue IV PPI, Carafate Clear liquid diet, IVF Acute asthma/COPD exacerbation Improving Continue scheduled breathing treatments Continue systemic steroids Continue home inhalers Tobacco dependence Nicotine replacement therapy Smoking cessation advised Mood Continue gabapentin, Seroquel, Cymbalta, Klonopin HIV Biktarvy Morbid obesity BMI 44.3. His weight is likely contributing to overall medical illness including intermittent desaturations as patient likely has component of obesity hypoventilation and possible undiagnosed JASMIN DVT prophylaxis-mechanical devices due to GI bleeding Attending physician Dr. Cohen Quality Stroke Does the patient have a stroke diagnosis?: No VTE Prior VTE?: No VTE Risk Level:: Medical - moderate - high VTE Device Contraindication: N/A - Device Ordered VTE Drug Contraindication: Treatment Not Indicated
--- NOTE | 2021-06-27 10:46 | PC.NURSE ---
Pt c/o epigastric pain and nausea. PRN tylenol, zofran, and milk of mag given
--- NOTE | 2021-06-27 10:55 | MHC.CM.PN ---
CM MET WITH PT WHO REPORTS SHE LIVES AT THE [facility] IN [place]. SHE REPORTS SHE IS INDEPENDENT WITH ALL CARE AND MOBILITY AND USES ONLY A NEBULIZER FOR DME. PT DENIES HAVING ANY IN [facility] BUT ATTENDS [facility] FOR MH TREATMENT. PT CONFIRMS HER PCP IS CHARO DELONG AND DECLINES TO COMPLETE A HCP OBS NOTICE DELIVERED CURRENT DC PLAN IS RETURN TO THE [facility] VIA PROGRAM STAFF
--- NOTE | 2021-06-27 17:17 | PC.NURSE ---
P patient refuses sequentials I RONEN Basilio notified E encouraged ambulation
[2021-06-27] MEDS: QUEtiapine Fumarate 200 MG TABLET 800 MG PO (19:56)
[2021-06-27] MEDS: Prazosin HCL 1 MG CAPSULE 4 MG PO (19:57)
[2021-06-28] VITALS (10 sets, daily range): BP systolic 122–155; BP diastolic 65–99; PULSE 71–88; RESP 16–18; TEMP 36.2–36.8; O2SAT 90–100
[2021-06-28] MEDS: methylPREDNISolone Sod Succ 40 MG/ML VIAL IVPUSH (00:35)
[2021-06-28] MEDS: 0.9 % Sodium Chloride Flush 3 ML SYRINGE IVFLUSH ×2 (00:39→10:56)
[2021-06-28] MEDS: Lactated Ringers 1,000 ML 80 ML IVCONT ×2 (03:11→10:56)
--- NOTE | 2021-06-28 03:42 | PC.NURSE ---
Patient reported increased pain this evening, after reporting eating a snickers bar. Patient has only had clear liquid diet order until NPO. Patient instructed on NPO status after midnight.
[2021-06-28] MEDS: Pantoprazole Sodium 40 MG/10 ML VIAL IVPUSH (05:27)
[2021-06-28 06:48] LABS: Hematocrit 34.8 % (37-47); Hemoglobin 10.8 g/dl (12.0-16.0); Mean Corpuscular Hemoglobin 26.9 pg (27.0-33.0); Mean Corpuscular Volume 86.8 fL (80-98); Mean Platelet Volume 9.8 fL (9.4-12.3); Platelet Count 226 X10*3/uL (160-400); Red Blood Count 4.01 X10*6/uL (4.20-5.50); Red Cell Distribution Width 20.6 % (11.0-16.0); White Blood Count 6.3 X10*3/uL (4.8-10.8)
[2021-06-28] MEDS: Acetaminophen 325 MG TABLET 650 MG PO (07:30)
[2021-06-28] MEDS: Gabapentin 400 MG CAPSULE PO (07:31)
[2021-06-28] MEDS: DULoxetine HCl 30 MG CAPSULE.DR PO (07:31)
[2021-06-28] MEDS: buPROPion HCl XL 300 MG TAB.ER.24H PO (07:31)
[2021-06-28] MEDS: DULoxetine HCl 60 MG CAPSULE.DR PO (07:31)
[2021-06-28] MEDS: ondansetron HCL 4 MG/2 ML VIAL IVPUSH (07:32)
[2021-06-28] MEDS: clonazePAM 1 MG TABLET PO (07:32)
[2021-06-28] MEDS: Dicyclomine HCl 10 MG CAPSULE PO (07:32)
[2021-06-28] MEDS: Fluticasone/Vilanterol 100/25 BLST.W.DEV 1 PUFF INHALE (07:54)
[2021-06-28] MEDS: Albuterol/Iprat 2.5/0.5MG 3 ML AMPUL.NEB INHALE (07:54)
--- NOTE | 2021-06-28 09:02 | MHC.SHP ---
Pre-Procedural Eval Section A Date of Service: 06/28/21 The patient is an INPATIENT: Yes The History & Physical has been completed within 30 days and I have reviewed it.: Yes Section B Chief Complaint: epigastric abdominal pain Allergies: Allergies Allergy/AdvReac Type Severity Reaction Status Date / Time Penicillins [PENICILLINS] Allergy Intermediate SOB/HIVES Verified 05/25/21 13:41 codeine AdvReac Intermediate Nausea and Verified 05/25/21 13:41 Vomiting ketorolac [From Toradol] AdvReac Intermediate Nausea and Verified 05/25/21 13:41 Vomiting Plan Diagnosis/Plan: Unchanged I have reviewed the history and physical and performed a pertinent physical examination on my patient. No changes have occurred unless specified.
--- NOTE | 2021-06-28 09:42 | HO.ANESPROP2 ---
FORMERLY [facility] Active Problems Active Problems: All Active Problems (Updated 06/27/21 @ 11:03 by RONEN Dominique) Morbid obesity with BMI of 40.0-44.9, adult (Acute) Asthma exacerbation with COPD (chronic obstructive pulmonary disease) (Acute) Gastritis (Acute) Epigastric abdominal pain (Acute) Nausea (Acute) Preoperative examination (Acute) Hiatal hernia without gangrene and obstruction (Acute) Past Medical History Medical History Anemia Anxiety Arthritis Asthma Bilateral renal stones Bipolar 1 disorder Chronic anemia COPD (chronic obstructive pulmonary disease) COVID-19 vaccine administered Depression GERD (gastroesophageal reflux disease) Hiatal hernia without gangrene and obstruction HIV (human immunodeficiency virus infection) Hx of anxiety disorder Hx of hepatitis C Morbid (severe) obesity due to excess calories Nicotine dependence, cigarettes, uncomplicated PTSD (post-traumatic stress disorder) Family History Family History Mother Respiratory arrest Father Congestive heart failure Sister No problems noted. Brother No problems noted. Daughter No problems noted. Son No problems noted. Surgical History Surgical History History of section, classical History of cholecystectomy History of colonoscopy (~2020) History of endoscopy (~2020) History of repair of hiatal hernia History of tonsillectomy and adenoidectomy Social History Social History Household Members: None Housing: House Housing Other:: resides at [facility]-will return there post-op Are you a primary rn urgent care to a significant other at home: No Do you presently have visiting nurse or other home services: No Alcohol intake: never Patient Tobacco Use Status: Current everyday Tobacco user Tobacco use type: Cigarette Cigarette Packs Per Day: 0.5 Cigarettes Per Day: 10.0 Years Smoked: 20 Smoked in Last 30 Days: Yes Patient Interested in Nicotine Replacement: Yes Second Hand Smoke Exposure: No Advance Directives: Yes Advance Directives Information Provided: No Advance Directives on File: No Advance Directives Date on File: 03/18/21 service: No Current occupational status: unemployed and disabled Meds Allergies Allergy/AdvReac Type Severity Reaction Status Date / Time Penicillins [PENICILLINS] Allergy Intermediate SOB/HIVES Verified 05/25/21 13:41 codeine AdvReac Intermediate Nausea and Verified 05/25/21 13:41 Vomiting ketorolac [From Toradol] AdvReac Intermediate Nausea and Verified 05/25/21 13:41 Vomiting Active Medications: Current Medications Generic Name Dose Route Start Last Admin Trade Name Freq PRN Reason Stop Dose Admin Acetaminophen 650 mg 06/25/21 20:26 06/28/21 07:30 Acetaminophen 325 Mg Tablet PO 650 mg Q6H PRN Administration Pain, Mild (Pain Scale 1-3) Al Hydroxide/Mg Hydroxide 30 ml 06/25/21 20:26 06/27/21 10:38 Magnesium Hydrox/Alum Hydrox 30 Ml Oral.Susp PO 30 ml Q6H PRN Administration Dyspepsia Albuterol Sulfate 2 puff 06/25/21 20:26 Albuterol Sulfate 90 Mcg 8 Gm Inhaler INHALE Q4H PRN Respiratory Distress Albuterol/Ipratropium 3 ml 06/25/21 20:26 06/28/21 07:54 Albuterol/Iprat 2.5/0.5mg 3 Ml Ampul.Neb INHALE 3 ml RQ6H WHILE AWAKE GEOVANNA Administration Bictegravir/Emtricitabine/Tenofovir 1 tab 06/27/21 09:00 06/28/21 07:31 Bictegrav/Emtricit/Tenofov Ala 1 Tab Tablet PO 1 tab DAILY GEOVANNA Administration Bupropion HCl 300 mg 06/26/21 09:00 06/28/21 07:31 Bupropion Hcl Xl 300 Mg Tab.Er.24h PO 300 mg DAILY GEOVANNA Administration Clonazepam 1 mg 06/25/21 21:00 06/28/21 07:32 Clonazepam 1 Mg Tablet PO 1 mg TID GEOVANNA Administration Dicyclomine HCl 10 mg 06/25/21 21:00 06/28/21 07:32 Dicyclomine Hcl 10 Mg Capsule PO 10 mg BID GEOVANNA Administration Docusate Sodium 100 mg 06/25/21 20:26 Docusate Sodium 100 Mg Capsule PO DAILY PRN Constipation Duloxetine HCl 30 mg 06/26/21 09:00 06/28/21 07:31 Duloxetine Hcl 30 Mg Capsule.Dr PO 30 mg DAILY GEOVANNA Administration Duloxetine HCl 60 mg 06/26/21 09:00 06/28/21 07:31 Duloxetine Hcl 60 Mg Capsule.Dr PO 60 mg DAILY GEOVANNA Administration Fluticasone/Vilanterol 1 puff 06/26/21 09:00 06/28/21 07:54 Fluticasone/Vilanterol 100/25 Blst.W.Dev INHALE 1 puff DAILY GEOVANNA Administration Gabapentin 400 mg 06/26/21 09:00 06/28/21 07:31 Gabapentin 400 Mg Capsule PO 400 mg TID GEOVANNA Administration Lactated Ringer's 1,000 mls @ 100 mls/hr 06/25/21 20:26 06/28/21 03:11 Lr IVCONT 80 mls/hr .Q10H GEOVANNA Administration Lidocaine/Diphenhydr/Alum/Mg/Simeth 10 ml 06/27/21 12:30 06/28/21 07:37 Mag&Al/Sim/Diphenhyd/Lidocaine 10 Ml Oral.Susp PO Not Given BID [facility] Protocol Magnesium Hydroxide 30 ml 06/25/21 20:26 Milk Of Magnesia 30 Ml Oral.Susp PO DAILY PRN Constipation Melatonin 3 mg 06/25/21 20:26 Melatonin 3 Mg Tablet PO BEDTIME PRN Insomnia Methylprednisolone Sodium Succinate 40 mg 06/26/21 13:30 06/28/21 00:35 Methylprednisolone Sod Succ 40 Mg/Ml Vial IVPUSH 06/28/21 23:59 40 mg Q12H GEOVANNA Administration Nicotine 14 mg 06/26/21 09:00 06/28/21 07:36 Nicotine 14 Mg Patch.Td24 TRANSDERMA Not Given DAILY [facility] Ondansetron HCl 4 mg 06/25/21 20:26 06/28/21 07:32 Ondansetron Hcl 4 Mg/2 Ml Vial IVPUSH 4 mg Q8H PRN Administration Nausea and Vomiting Pantoprazole Sodium 40 mg 06/26/21 06:30 06/28/21 05:27 Pantoprazole Sodium 40 Mg/10 Ml Vial IVPUSH 40 mg BID@0630,1630 [facility] Administration Pharmacy Consult 1 each 06/25/21 16:16 Consult Rx Perform Med Rec MISCELLANE ONCE PRN Consult order Prazosin HCl 4 mg 06/25/21 21:00 06/27/21 19:57 Prazosin Hcl 1 Mg Capsule PO 4 mg BEDTIME GEOVANNA Administration Protocol Prednisone 40 mg 06/29/21 09:00 Prednisone 20 Mg Tablet PO DAILY [facility] Quetiapine Fumarate 800 mg 06/25/21 21:00 06/27/21 19:56 Quetiapine Fumarate 200 Mg Tablet PO 800 mg BEDTIME [facility] Administration Sodium Chloride 3 ml 06/26/21 00:00 06/28/21 07:21 0.9 % Sodium Chloride Flush 3 Ml Syringe IVFLUSH Not Given QSHIFT [facility] Sucralfate 1 gm 06/25/21 21:00 06/28/21 07:20 Sucralfate Oral Suspension 1 Gm/10 Ml Oral.Susp PO Not Given QIDACHS [facility] Home Medications Medication Instructions Recorded Confirmed Last Taken Type albuterol sulfate 90 mcg/actuation 2 puff INHALATION Q4H PRN 02/16/21 06/25/21 06/25/21 History aerosol inhaler bictegravir 50 mg-emtricitabine 1 tab PO DAILY 02/16/21 06/25/21 06/25/21 History 200 mg-tenofovir alafenam 25 mg tablet (Biktarvy) bupropion HCl 300 mg 24 hr tablet, 300 mg PO DAILY 02/16/21 06/25/21 06/25/21 History extended release clonazepam 1 mg tablet 1 mg PO TID 02/16/21 06/25/21 06/25/21 History duloxetine 30 mg capsule,delayed 30 mg PO DAILY 02/16/21 06/25/21 06/25/21 History release duloxetine 60 mg capsule,delayed 60 mg PO DAILY 02/16/21 06/25/21 06/25/21 History release gabapentin 400 mg capsule 400 mg PO TID 02/16/21 06/25/21 06/25/21 History prazosin 2 mg capsule 4 mg PO BEDTIME 02/16/21 06/25/21 06/24/21 History budesonide-formoterol HFA 80 2 puff INHALATION BID 04/30/21 06/25/21 06/25/21 History mcg-4.5 mcg/actuation aerosol inhaler (Symbicort) quetiapine 400 mg tablet 2 tab PO BEDTIME 05/25/21 06/25/21 06/24/21 History Exam Exam Date and Time: June 28, [id number] Height,Weight and Vital Signs: Height 5 ft 3 in Weight 113.398 kg Last Vital Signs Temp 98.1 F 06/28/21 07:22 Pulse 75 06/28/21 07:55 Resp 18 06/28/21 07:22 BP 132/69 06/28/21 07:22 Pulse Ox 91 L 06/28/21 07:22 Pertinent Lab Results Pertinent Lab Results: Laboratory Tests 06/25/21 06/25/21 06/25/21 12:23 12:23 12:23 WBC 3.5 L RBC 3.97 L Hgb 10.6 L D Hct 34.5 L D MCV 86.9 MCH 26.7 L MCHC 30.7 L RDW 20.9 H Plt Count 240 MPV 9.0 L Immature Gran % (Auto) 0.3 Neut % (Auto) 50.4 Lymph % (Auto) 28.8 [place] % (Auto) 9.4 Eos % (Auto) 9.7 H Baso % (Auto) 1.4 Lymph # (Auto) 1.0 L [place] # (Auto) 0.3 Eos # (Auto) 0.3 Baso # (Auto) 0.1 Abs Immat Gran (auto) 0.01 Absolute Neuts (auto) 1.8 L Absolute Nucleated RBC 0.000 Nucleated RBC % (auto) 0.0 Sodium 138 Potassium 4.1 Chloride 103 Carbon Dioxide 27 Anion Gap 12 BUN 12 Creatinine 1.18 Estim Creat Clear Calc 66.0 Estimated GFR 48 Random Glucose 95 Lactic Acid 0.8 Calcium 9.3 D Magnesium 2.2 Total Bilirubin 0.5 Direct Bilirubin 0.2 AST 33 H ALT 16 Alkaline Phosphatase 115 Troponin I High Sens Total Protein 7.0 Albumin 4.4 Lipase Stool Occult Blood COVID-19 (ELSI) COVID-19 Clin Com 06/25/21 06/25/21 06/25/21 12:23 12:23 12:23 WBC RBC Hgb Hct MCV MCH MCHC RDW Plt Count MPV Immature Gran % (Auto) Neut % (Auto) Lymph % (Auto) [place] % (Auto) Eos % (Auto) Baso % (Auto) Lymph # (Auto) [place] # (Auto) Eos # (Auto) Baso # (Auto) Abs Immat Gran (auto) Absolute Neuts (auto) Absolute Nucleated RBC Nucleated RBC % (auto) Sodium Potassium Chloride Carbon Dioxide Anion Gap BUN Creatinine Estim Creat Clear Calc Estimated GFR Random Glucose Lactic Acid Calcium Magnesium Total Bilirubin Direct Bilirubin AST ALT Alkaline Phosphatase Troponin I High Sens < 3.5 Total Protein Albumin Lipase 28 Stool Occult Blood COVID-19 (ELSI) Negative COVID-19 Clin Com See Note 06/25/21 06/26/21 06/26/21 12:23 05:12 05:12 WBC 2.5 L RBC 3.67 L Hgb 9.7 L Hct 32.2 L MCV 87.7 MCH 26.4 L MCHC 30.1 L RDW 20.8 H Plt Count 197 MPV 9.1 L Immature Gran % (Auto) 0.4 Neut % (Auto) 57.7 Lymph % (Auto) 22.7 [place] % (Auto) 10.4 Eos % (Auto) 7.6 H Baso % (Auto) 1.2 Lymph # (Auto) 0.6 L [place] # (Auto) 0.3 Eos # (Auto) 0.2 Baso # (Auto) 0.0 Abs Immat Gran (auto) 0.01 Absolute Neuts (auto) 1.5 L Absolute Nucleated RBC 0.000 Nucleated RBC % (auto) 0.0 Sodium 138 Potassium 3.9 Chloride 103 Carbon Dioxide 25 Anion Gap 14 BUN 12 Creatinine 1.03 Estim Creat Clear Calc 75.7 Estimated GFR 56 Random Glucose 104 Lactic Acid Calcium 8.9 Magnesium Total Bilirubin Direct Bilirubin AST ALT Alkaline Phosphatase Troponin I High Sens Total Protein Albumin Lipase Stool Occult Blood NEGATIVE COVID-19 (ELSI) COVID-19 Clin Com 06/27/21 06/28/21 05:33 05:25 WBC 3.9 L 6.3 RBC 4.35 4.01 L Hgb 11.6 L 10.8 L Hct 38.1 34.8 L MCV 87.6 86.8 MCH 26.7 L 26.9 L MCHC 30.4 L 31.0 RDW 20.2 H 20.6 H Plt Count 238 226 MPV 9.5 9.8 Immature Gran % (Auto) Neut % (Auto) Lymph % (Auto) [place] % (Auto) Eos % (Auto) Baso % (Auto) Lymph # (Auto) [place] # (Auto) Eos # (Auto) Baso # (Auto) Abs Immat Gran (auto) Absolute Neuts (auto) Absolute Nucleated RBC 0.000 0.000 Nucleated RBC % (auto) 0.0 0.0 Sodium Potassium Chloride Carbon Dioxide Anion Gap BUN Creatinine Estim Creat Clear Calc Estimated GFR Random Glucose Lactic Acid Calcium Magnesium Total Bilirubin Direct Bilirubin AST ALT Alkaline Phosphatase Troponin I High Sens Total Protein Albumin Lipase Stool Occult Blood COVID-19 (ELSI) COVID-19 Clin Com Airway Mallampati Class: III TM Dist: >3cm Neck ROM: Full
--- NOTE | 2021-06-28 09:46 | PM.OP ---
Brief Operative Note Date of Service: 06/28/21 Pre-op diagnosis: pain and coffee ground emesis Post-op diagnosis: same Procedure: see op note Surgeon: Ana Paula Gregg MD Anesthesia: MAC Was an Treatment Supervisor used for this Procedure?: No Estimated blood loss (mL): 0 Condition: stable Disposition: PACU
--- NOTE | 2021-06-28 09:46 | W.PM.OPN ---
Operative Note Operative Note Date of Service: 06/28/21 Narrative: Procedure Description: EGD FLEXIBLE TRANSORAL UPPER GASTROINTESTINAL ENDOSCOPY UPPER ENDOSCOPY Consent: Indications for the procedure and potential complications of bleeding, perforation, reaction to medications and missed diagnosis were discussed with the patient and informed consent was obtained. Instrument: Olympus GIF H 190 J mid size upper endoscope Monitoring: Vital signs and clinical assessment, continuous EKG monitoring, Pulse oximetry, Carbon Dioxide monitoring and blood pressure monitoring were done throughout the procedure. Procedure: The patient was placed in the left lateral decubitis position and pre-procedure medications were administered and a bite block was placed. The endoscope was inserted into the mouth and advanced under direct vision to the third part of duodenum. A careful inspection was made as the upper endoscope was withdrawn including a retroflexed examination of the proximal stomach; Findings and interventions are described below. Findings: Larynx:normal Esophagus: GE junction at 35 cm, diaphragm hiatus at 37 cm, consistent with 2 cm hiatal hernia, no varices or esophagitis. A non obstructive schatzki ring noted. Stomach: Patchy gastric erythema. Grade 2 flap valve on retroflexed examination of the cardia. Debris and bile noted in the stomach body incl tablet material. The pylorus was very tight and the EGD scope was gently pushed through with some heme noted around the edge of the outlet. A 14 mm balloon was then used to stretch the gastric outlet. Duodenum: Normal bulb and descending duodenum, large diverticulum noted at the duodenal sweep. Intervention: balloon dilation of gastric outlet Impression/Findings: hiatla hernia schatzki ring gastric outlet obstruction s/p dilation PLAN: cont with PPI, pantoprazole 40 mg PO daily advance diet as tolerated f/u outpatient
--- NOTE | 2021-06-28 10:15 | P.PNIM_ITS ---
Subjective Subjective Date of Service: 06/28/21 Interval History: seen and examined this morning follow up for asthma/copd exacerbation. no sob, no cough persistent epigastric abdominal pain. no vomiting, no diarrhea plan for EGD today Review of Systems Review of Systems: Yes all other systems are reviewed and are negative Constitutional Constitutional: Denies chills and Denies fever(s) Cardiovascular Cardiovascular: Denies chest pain Respiratory Respiratory: Denies cough Physical Exam Vital Signs: Vital Signs: Last Vital Signs Temp 97.1 F 06/28/21 10:00 Pulse 85 06/28/21 10:05 Resp 18 06/28/21 10:05 BP 152/88 H 06/28/21 10:05 Pulse Ox 95 06/28/21 10:05 Body Mass Index 44.2 Const: General: cooperative, healthy appearing, comfortable, no acute distress, awake and Physically active Nutritional Appearance: obese Orientation/consciousness: patient oriented x3 HENMT: Head: Yes normocephalic and Yes atraumatic Eyes: Sclerae: sclerae normal Pupils: Equal, round and reactive pupils present Chest: Chest palpation & inspection: normal inspection of the chest Resp: Effort & Inspection: normal respiratory effort and no respiratory distress Auscultation: clear to auscultation bilaterally Cardio: Rate: regular rate Rhythm: regular rhythm GI: Other: Abdomen soft, mild tenderness to palpation in the epigastric region. Abdomen nondistended, no guarding. Positive bowel sounds Neuro: General: patient oriented x3 Cranial nerves: Yes CN's II-XII intact bilaterally, Yes Equal, round and reactive pupils present and Yes Bilaterally intact EOM present Extrem: Other: no leg edema Objective Data Active Medications Acetaminophen (Acetaminophen 325 Mg Tablet) 650 mg PO Q6H PRN PRN Reason: Pain, Mild (Pain Scale 1-3) Last Admin: 06/28/21 07:30 Dose: 650 mg Documented by: TANA Acetaminophen (Acetaminophen 325 Mg Tablet) 650 mg PO ONCE PRN PRN Reason: Pain, Mild (Pain Scale 1-3) Al Hydroxide/Mg Hydroxide (Magnesium Hydrox/Alum Hydrox 30 Ml Oral.Susp) 30 ml PO Q6H PRN PRN Reason: Dyspepsia Last Admin: 06/27/21 10:38 Dose: 30 ml Documented by: BRAD Albuterol Sulfate (Albuterol Sulfate 90 Mcg 8 Gm Inhaler) 2 puff INHALE Q4H PRN PRN Reason: Respiratory Distress Albuterol/Ipratropium (Albuterol/Iprat 2.5/0.5mg 3 Ml Ampul.Neb) 3 ml INHALE RQ6H WHILE AWAKE [facility] Last Admin: 06/28/21 07:54 Dose: 3 ml Documented by: COLETTE Bictegravir/Emtricitabine/Tenofovir (Bictegrav/Emtricit/Tenofov Ala 1 Tab Tablet) 1 tab PO DAILY [facility] Last Admin: 06/28/21 07:31 Dose: 1 tab Documented by: TANA Bupropion HCl (Bupropion Hcl Xl 300 Mg Tab.Er.24h) 300 mg PO DAILY [facility] Last Admin: 06/28/21 07:31 Dose: 300 mg Documented by: TANA Clonazepam (Clonazepam 1 Mg Tablet) 1 mg PO TID [facility] Last Admin: 06/28/21 07:32 Dose: 1 mg Documented by: TANA Dicyclomine HCl (Dicyclomine Hcl 10 Mg Capsule) 10 mg PO BID [facility] Last Admin: 06/28/21 07:32 Dose: 10 mg Documented by: TANA Docusate Sodium (Docusate Sodium 100 Mg Capsule) 100 mg PO DAILY PRN PRN Reason: Constipation Duloxetine HCl (Duloxetine Hcl 30 Mg Capsule.) 30 mg PO DAILY [facility] Last Admin: 06/28/21 07:31 Dose: 30 mg Documented by: TANA Duloxetine HCl (Duloxetine Hcl 60 Mg Capsule.) 60 mg PO DAILY [facility] Last Admin: 06/28/21 07:31 Dose: 60 mg Documented by: TANA Fluticasone/Vilanterol (Fluticasone/Vilanterol 100/25 Blst.W.Dev) 1 puff INHALE DAILY [facility] Last Admin: 06/28/21 07:54 Dose: 1 puff Documented by: COLETTE Gabapentin (Gabapentin 400 Mg Capsule) 400 mg PO TID [facility] Last Admin: 06/28/21 07:31 Dose: 400 mg Documented by: TANA Lactated Ringer's (Lr) 1,000 mls @ 100 mls/hr IVCONT .Q10H [facility] Last Admin: 06/28/21 03:11 Dose: 80 mls/hr Documented by: HO.MENM Lactated Ringer's (Lr) 1,000 mls @ 100 mls/hr IVCONT .Q10H [facility] Lidocaine/Diphenhydr/Alum/Mg/Simeth (Mag&Al/Sim/Diphenhyd/Lidocaine 10 Ml Oral.Susp) 10 ml PO BID [facility]; Protocol Last Admin: 06/28/21 07:37 Dose: Not Given Documented by: TANA Non-Admin Reason: Patient Refused Magnesium Hydroxide (Milk Of Magnesia 30 Ml Oral.Susp) 30 ml PO DAILY PRN PRN Reason: Constipation Melatonin (Melatonin 3 Mg Tablet) 3 mg PO BEDTIME PRN PRN Reason: Insomnia Methylprednisolone Sodium Succinate (Methylprednisolone Sod Succ 40 Mg/Ml Vial) 40 mg IVPUSH Q12H [facility] Stop: 06/28/21 23:59 Last Admin: 06/28/21 00:35 Dose: 40 mg Documented by: STEFF Nicotine (Nicotine 14 Mg Patch.Td24) 14 mg TRANSDERMA DAILY [facility] Last Admin: 06/28/21 07:36 Dose: Not Given Documented by: TANA Non-Admin Reason: Patient Refused Ondansetron HCl (Ondansetron Hcl 4 Mg/2 Ml Vial) 4 mg IVPUSH Q8H PRN PRN Reason: Nausea and Vomiting Last Admin: 06/28/21 07:32 Dose: 4 mg Documented by: TANA Pantoprazole Sodium (Pantoprazole Sodium 40 Mg/10 Ml Vial) 40 mg IVPUSH BID@0630,1630 [facility] Last Admin: 06/28/21 05:27 Dose: 40 mg Documented by: GAMALIEL Pharmacy Consult (Consult Rx Perform Med Rec) 1 each MISCELLANE ONCE PRN PRN Reason: Consult order Prazosin HCl (Prazosin Hcl 1 Mg Capsule) 4 mg PO BEDTIME [facility]; Protocol Last Admin: 06/27/21 19:57 Dose: 4 mg Documented by: STEFF Prednisone (Prednisone 20 Mg Tablet) 40 mg PO DAILY [facility] Quetiapine Fumarate (Quetiapine Fumarate 200 Mg Tablet) 800 mg PO BEDTIME [facility] Last Admin: 06/27/21 19:56 Dose: 800 mg Documented by: STEFF Sodium Chloride (0.9 % Sodium Chloride Flush 3 Ml Syringe) 3 ml IVFLUSH QSHIFT [facility] Last Admin: 06/28/21 07:21 Dose: Not Given Documented by: TANA Non-Admin Reason: IV Running Sucralfate (Sucralfate Oral Suspension 1 Gm/10 Ml Oral.Susp) 1 gm PO QIDACHS [facility] Last Admin: 06/28/21 07:20 Dose: Not Given Documented by: TANA Non-Admin Reason: NPO Labs CBC & Chem 7: 06/28/21 05:25 06/26/21 05:12 Labs: Laboratory Results - last 24 hr 06/28/21 05:25 MCV 86.8 MCH 26.9 L MCHC 31.0 RDW 20.6 H Plt Count 226 MPV 9.8 Absolute Nucleated RBC 0.000 Nucleated RBC % (auto) 0.0 Assessment and Plan (1) Asthma exacerbation with COPD (chronic obstructive pulmonary disease): Status: Acute (2) Epigastric abdominal pain: Status: Acute (3) Morbid obesity with BMI of 40.0-44.9, adult: Status: Acute (4) Nausea: Status: Acute Assessment and Plan: THis is a 56 yo female with past medical history of gastritis, anxiety, asthma, bipolar disorder, COPD, hepatitis C, HIV, PTSD, obesity s/p lap hiatal hernia repair by Dr Hill on 05/06 who presents to the emergency department with epigastric abdominal pain and coffee-ground emesis Upper GI bleeding/Epigastric abdominal Pain Still with abdominal pain/ improving; no further episodes of hematemesis h/o gastritis H/H at baseline, no indication for blood transfusion at this time Seen by GI, plan for inpatient EGD today - further management based on outcome Continue IV PPI, Carafate Acute asthma/COPD exacerbation Improving Continue scheduled breathing treatments Continue systemic steroids, transition to po prednisone in am Continue home inhalers Tobacco dependence Nicotine replacement therapy Smoking cessation advised Mood Continue gabapentin, Seroquel, Cymbalta, Klonopin HIV Biktarvy Morbid obesity BMI 44.3. His weight is likely contributing to overall medical illness including intermittent desaturations as patient likely has component of obesity hypoventilation and possible undiagnosed JASMIN. Consider outpatient sleep study DVT prophylaxis-mechanical devices due to GI bleeding Attending physician Dr. Cohen Quality Stroke Does the patient have a stroke diagnosis?: No VTE Prior VTE?: No VTE Risk Level:: Medical - moderate - high VTE Device Contraindication: N/A - Device Ordered VTE Drug Contraindication: Treatment Not Indicated
--- NOTE | 2021-06-28 12:39 | PM.DS ---
DS: Providers Provider Date of Service: 06/28/21 <RONEN Dominique - Last Filed: 06/28/21 15:24> Date of admission: 06/25/21 17:48 <RONEN Dominique - Last Filed: 06/28/21 15:24> Primary care physician: Lucian Hightower DMD <RONEN Dominique - Last Filed: 06/28/21 15:24> Consults: 06/25/21 17:26 Consult to Gastroenterology Stat Consulting Provider: Ana Paula Gregg Reason for consultation: coffee ground emesis <RONEN Dominqiue - Last Filed: 06/28/21 15:24> Attending physician on discharge: Lexx Cohen <RONEN Dominique - Last Filed: 06/28/21 15:24> DS: Diagnosis Discharge Diagnosis (1) Asthma exacerbation with COPD (chronic obstructive pulmonary disease): Status: Acute <RONEN Dominique - Last Filed: 06/28/21 15:24> (2) Epigastric abdominal pain: Status: Acute <RONEN Dominique - Last Filed: 06/28/21 15:24> (3) Morbid obesity with BMI of 40.0-44.9, adult: Status: Acute <RONEN Dominique - Last Filed: 06/28/21 15:24> (4) Nausea: Status: Acute <RONEN Dominique - Last Filed: 06/28/21 15:24> (5) Partial gastric outlet obstruction: Status: Acute <RONEN Dominique - Last Filed: 06/28/21 15:24> DS: Summary Hospital Course Hospital Course: From H&P on day of admission This is a 56 year old female with past medical history of gastritis, KEN, anxiety, asthma, bipolar disorder, COPD, hepatitis C, HIV, PTSD, obesity who presents to the emergency department with complaints? of upper abdominal pain.? The pain is located in the epigastric region and has been present for 1-2 days.? It is described as severe in nature and she is requesting Dilaudid. It is associated with 3 episodes of coffee ground emesis.? She reports a few episodes of diarrhea which is nonbloody.? She denies associated fevers, chills.? She denies use of any NSAIDs or alcohol.? She Hhad EGD 02/2021 for anemia with no active bleeding noted but hiatal hernia noted. Capsule study negative bleeding. She underwent lap hiatal hernia repair by Dr Hill on 05/06.? Today her lab work is unremarkable and her H/H is actually above her recent baseline.? She denies any vomiting since this morning although does report ongoing nausea.? She underwent CT scan of the abdomen/pelvis which was unrevealing.? She was seen by GI in the emergency department who recommended admission overnight for observation with likely EGD in the morning. Hematemesis/epigastric abdominal pain Patient had no further episodes of hematemesis following admission. She was started on IV PPI and oral Carafate and clear liquid diet. Her epigastric abdominal pain slowly improved. On June 28 she underwent EGD, showing hiatal hernia/Schatzki ring/gastric outlet obstruction status post dilation. No evidence of bleeding was noted. GI recommended to advance her diet, she was able to tolerate a regular diet. She is feeling better and is eager to return home. She will be discharged today with plans to follow-up with GI as outpatient. She should continue taking her PPI and Carafate daily. Acute asthma/COPD exacerbation Patient was started on IV Solu-Medrol and transition to oral prednisone. She will be discharged home with 3 more days of oral prednisone. She had a few episodes of desaturation her oxygen to around 90%. This is thought to be secondary to hypoventilation and possible undiagnosed JASMIN. She is encouraged to follow-up with a slots manager following discharge. Can consider outpatient sleep study to evaluate for sleep apnea. <RONEN Dominique - Last Filed: 06/28/21 15:24> Time Spent with Patient Time attestation: Total time spent providing and/or coordinating discharge services: <RONEN Dominqiue - Last Filed: 06/28/21 15:24> Discharge coordination time: Greater than 30 minutes <RONEN Dominique - Last Filed: 06/28/21 15:24> Quality: Stroke Does the patient have a stroke diagnosis?: No <RONEN Dominique - Last Filed: 06/28/21 15:24> Physical Exam Vital Signs: Vital Signs: Last Vital Signs Temp 98.2 F 06/28/21 11:53 Pulse 88 06/28/21 11:53 Resp 18 06/28/21 11:53 BP 139/72 06/28/21 11:53 Pulse Ox 94 06/28/21 12:31 Body Mass Index 44.2 <RONEN Dominique - Last Filed: 06/28/21 15:24> Const: General: cooperative, healthy appearing, comfortable, no acute distress, awake and Physically active <RONEN Dominique - Last Filed: 06/28/21 15:24> Nutritional Appearance: obese <RONEN Dominique - Last Filed: 06/28/21 15:24> Orientation/consciousness: patient oriented x3 <RONEN Dominique - Last Filed: 06/28/21 15:24> HENMT: Head: Yes normocephalic and Yes atraumatic <RONEN Dominique - Last Filed: 06/28/21 15:24> Eyes: Sclerae: sclerae normal <RONEN Dominique - Last Filed: 06/28/21 15:24> Pupils: Equal, round and reactive pupils present <RONEN Dominique - Last Filed: 06/28/21 15:24> Chest: Chest palpation & inspection: normal inspection of the chest <RONEN Dominique - Last Filed: 06/28/21 15:24> Resp: Effort & Inspection: normal respiratory effort and no respiratory distress <RONEN Dominique - Last Filed: 06/28/21 15:24> Auscultation: clear to auscultation bilaterally <RONEN Dominique - Last Filed: 06/28/21 15:24> Cardio: Rate: regular rate <RONEN Dominique - Last Filed: 06/28/21 15:24> Rhythm: regular rhythm <RONEN Dominique - Last Filed: 06/28/21 15:24> GI: Other: Abdomen soft, mild tenderness to palpation in the epigastric region. Abdomen nondistended, no guarding. Positive bowel sounds <RONEN Dominique - Last Filed: 06/28/21 15:24> Neuro: General: patient oriented x3 <RONEN Dominique - Last Filed: 06/28/21 15:24> Cranial nerves: Yes CN's II-XII intact bilaterally, Yes Equal, round and reactive pupils present and Yes Bilaterally intact EOM present <RONEN Dominique - Last Filed: 06/28/21 15:24> Extrem: Other: no leg edema <RONEN Dominique - Last Filed: 06/28/21 15:24> DS: Data Data Completed and Pending Completed studies during hospitalization [Text1]: Procedures Excision of Stomach, Pylorus, Via Natural or Artificial Opening Endoscopic, Diagnostic (02/16/21) Inspection of Upper Intestinal Tract, Via Natural or Artificial Opening Endoscopic (03/18/21) Transfusion of Nonautologous Red Blood Cells into Peripheral Vein, Percutaneous Approach (02/16/21) <RONEN Dominique - Last Filed: 06/28/21 15:24> Labs on day of discharge: Laboratory Results - last 24 hr 06/28/21 05:25 WBC 6.3 RBC 4.01 L Hgb 10.8 L Hct 34.8 L MCV 86.8 MCH 26.9 L MCHC 31.0 RDW 20.6 H Plt Count 226 MPV 9.8 Absolute Nucleated RBC 0.000 Nucleated RBC % (auto) 0.0 <RONEN Dominique - Last Filed: 06/28/21 15:24> Discharge Plan Discharge Patient Disposition: Home, Self-Care <RONEN Dominique - Last Filed: 06/28/21 15:24> Discharge Diagnosis: Hematemesis acute asthma/copd exacerbation Hiatal hernia/schatzki ring gastric outlet obstruction s/p dilation <RONEN Dominique - Last Filed: 06/28/21 15:24> Hematemesis acute asthma/copd exacerbation Hiatal hernia/schatzki ring gastric outlet obstruction s/p dilation <Lexx Cohen MD - Last Filed: 06/29/21 08:44> Referrals: Ana Paula Gregg MD [Physician] - 1 Week <RONEN Dominique - Last Filed: 06/28/21 15:24> Discharge Medications: New prednisone 20 mg tablet 40 mg PO DAILY 3 Days Qty: 6 RF: 0 ondansetron 4 mg tablet,disintegrating 4 mg PO Q8H PRN (Reason: nausea and vomiting) Qty: 20 RF: 0 Continued dicyclomine 10 mg capsule 10 mg PO BID Qty: 60 RF: 1 quetiapine 400 mg tablet 2 tab PO BEDTIME RF: 0 sucralfate 100 mg/mL Suspension 1 g PO QIDACHS Qty: 240 RF: 0 bupropion HCl 300 mg Tablet Extended Release 24 Hr 300 mg PO DAILY RF: 0 duloxetine 30 mg Capsule,Delayed Release(Dr/Ec) 30 mg PO DAILY RF: 0 duloxetine 60 mg Capsule,Delayed Release(Dr/Ec) 60 mg PO DAILY RF: 0 Biktarvy 50-200-25 mg Tablet 1 tab PO DAILY RF: 0 gabapentin 400 mg Capsule 400 mg PO TID RF: 0 clonazepam 1 mg Tablet 1 mg PO TID RF: 0 prazosin 2 mg Capsule 4 mg PO BEDTIME RF: 0 albuterol sulfate 90 mcg/actuation Hfa Aerosol Inhaler 2 puff INHALATION Q4H PRN (Reason: Respiratory Distress) RF: 0 budesonide-formoterol [Symbicort] 80-4.5 mcg/actuation Hfa Aerosol Inhaler 2 puff INHALATION BID RF: 0 pantoprazole 40 mg tablet,delayed release (DR/EC) 40 mg PO DAILY Qty: 60 RF: 3 famotidine 40 mg tablet 40 mg PO BEDTIME Qty: 60 RF: 1 <RONEN Dominique - Last Filed: 06/28/21 15:24> Discharge Orders: Discharge Order (Routine); Ordered 06/28/21 Ordered By: Kasandra Basilio <RONEN Dominique - Last Filed: 06/28/21 15:24> Activity on Discharge: As tolerated <RONEN Dominique - Last Filed: 06/28/21 15:24> As tolerated <Lexx Cohen MD - Last Filed: 06/29/21 08:44> Stand Alone Forms: Patient Portal Discharge page, Work/School Release <RONEN Dominique - Last Filed: 06/28/21 15:24> Care Plan Goals: See below <RONEN Dominique - Last Filed: 06/28/21 15:24> Health Concerns: Hematemesis Hiatal hernia/Schatzki ring/gastric outlet obstruction status post dilation Asthma/COPD exacerbation <RONEN Dominique - Last Filed: 06/28/21 15:24> Plan of Treatment: Take entire course of prednisone Call to schedule follow-up appointment with PCP. Consider referral to pulmonology and outpatient sleep study to evaluate for sleep apnea. Call to schedule follow-up appointment with Dr. Gregg Continue to take pantoprazole daily Can take Zofran short term as needed for nausea <RONEN Dominique - Last Filed: 06/28/21 15:24> Assessment: See discharge summary I evaluated the patient and discussed finding, management and disposition with midlevel provider and I agree with finding, plan and disposition as above? <RONEN Dominique - Last Filed: 06/28/21 15:24> Discharge Date/Time: 06/28/21 13:13 <RONEN Dominique - Last Filed: 06/28/21 15:24>
--- NOTE | 2021-06-28 13:36 | MHC.CM.PN ---
PT CLEARED TO DC TODAY, BACK TO [facility] WITH NO SERVICES
--- NOTE | 2021-06-29 09:08 | HO.POSTANES ---
Post Anesthesia Evaluation Post Anesthesia Evaluation Vital Signs: VSS Anesthesia: Monitored Mental Status: Awake Pain Control: Satisfactory Nausea/Vomiting: None Hydration: Adequate Anesthesia-Related Issues: No Anes. Related Issues
== END 2021-06-28 13:13 | disposition home or self-care (01) | DRG 254 ==
LOC: HO.ED 17:27 → HO.S3 06-28 12:39 → HO.EDOVER 09-14 09:37
PROVIDERS: Internal Medicine Gastroenterology; Nurse Practitioner Family; Admitting Provider Physician Assistant Medical; Emergency Provider Emergency Medicine; PCP Dentist Oral and Maxillofacial Surgery; Visit Provider Physician Assistant Medical
PROC: 0DJ08ZZ Inspection of Upper Intestinal Tract, Via Natural or Artificial Opening Endoscopic (ICD-10-PCS; CPT 43235; principal; 2021-06-28 09:00)
DX: K31.1 Adult hypertrophic pyloric stenosis (principal); K92.0 Hematemesis; B20 Human immunodeficiency virus [HIV] disease; J44.1 Chronic obstructive pulmonary disease with (acute) exacerbation; J45.901 Unspecified asthma with (acute) exacerbation; Z68.41 Body mass index [BMI] 40.0-44.9, adult; K22.2 Esophageal obstruction; D50.9 Iron deficiency anemia, unspecified; F41.9 Anxiety disorder, unspecified; K29.70 Gastritis, unspecified, without bleeding; F31.9 Bipolar disorder, unspecified; B19.20 Unspecified viral hepatitis C without hepatic coma; F43.10 Post-traumatic stress disorder, unspecified; F17.210 Nicotine dependence, cigarettes, uncomplicated; Z20.822 Contact with and (suspected) exposure to COVID-19; Z79.899 Other long term (current) drug therapy; Z71.6 Tobacco abuse counseling; E66.2 Morbid (severe) obesity with alveolar hypoventilation; Z71.3 Dietary counseling and surveillance
CPT/HCPCS: 43245; 36415; 71045; 74177; 80048; 80076; 82272; 83605; 83690; 83735; 84484; 85025; 85027; 87635; 93005; 94640; 96361; 96374; 96375; 96376; 99285; C1726; J1170; J2270; J2405; J2550; J2920

== ENCOUNTER 2021-09-15 09:36 | Outpatient (REF) | payer OTHER, SELFPAY ==
[2021-09-15 10:13] LABS: MANUAL DIFF FLAG NO
[2021-09-15 10:44] LABS: Basophils Percent Auto 0.6 % (0-2); Eosinophils Absolute Auto 0.1 X10*3/uL (0.0-0.4); Eosinophils Percent Auto 2.3 % (0-4); Hematocrit 38.4 % (37.0-47.0); Hemoglobin 12.8 g/dl (12.0-16.0); Imm Gran Abs Auto 0.02 X10*3/uL (0.00-0.03); Imm Gran Pct Auto 0.4 % (0.0-0.4); Lymphocytes Percent Auto 20.9 % (20-40); Mean Corpuscular HGB Conc 33.3 g/dl (31.0-35.0); Mean Corpuscular Hemoglobin 31.8 pg (27.0-33.0); Mean Corpuscular Volume 95.5 fL (80.0-98.0); Mean Platelet Volume 9.6 fL (9.4-12.3); Monocytes Absolute Auto 0.4 X10*3/uL (0.1-1.2); Monocytes Percent Auto 9.2 % (2-11); Neutrophils Absolute Auto 3.2 x10*3/uL (2.0-8.3); Neutrophils Percent Auto 66.6 % (45-73); Platelet Count 216 X10*3/uL (160-400); Red Blood Count 4.02 X10*6/uL (4.20-5.50); Red Cell Distribution Width 13.3 % (11.0-16.0); White Blood Count 4.8 X10*3/uL (4.8-10.8)
[2021-09-15 11:07] LABS: Alanine Aminotransferase 19 U/L (0-31); Albumin Level 4.3 g/dL (3.5-5.0); Alkaline Phosphatase 90 U/L (39-117); Anion Gap 14 (12-20); Aspartate Amino Transferase 25 U/L (5-31); Bilirubin Total 0.5 mg/dL (0.0-1.0); Blood Urea Nitrogen 14 mg/dL (9-16); C Reactive Protein 0.24 mg/dL (< or = 0.50); Calcium 9.3 mg/dL (8.4-10.2); Carbon Dioxide 28 mmol/L (22-29); Chloride 99 mmol/L (96-108); Estimated Glomerular Filt Rate 57; Glucose Random 105 mg/dL (60-115); Potassium 3.6 mmol/L (3.3-5.1); Sodium 137 mmol/L (135-145); Total Protein 7.2 g/dL (6.5-8.0)
[2021-09-15 11:46] LABS: Appearance Urine CLEAR; Color Urine YELLOW; Glucose Urine UA NEG (NEG); Leukocyte Esterase Urine NEG (NEG); Nitrite Urine NEG (NEG); Urine Blood NEG (NEG); Urine Ketones NEG (NEG); Urine Protein TRACE MG/DL (NEG-TRACE)
[2021-09-17 16:47] LABS: Immunoglobulin G 1047 mg/dL (600-1640)
== END 2021-09-15 09:37 | disposition home or self-care (01) ==
LOC: HO.LAB 09:36
PROVIDERS: PCP Internal Medicine; Visit Provider Internal Medicine Gastroenterology
DX: R10.13 Epigastric pain (principal); K52.839 Microscopic colitis, unspecified; R30.0 Dysuria; R19.7 Diarrhea, unspecified; K75.81 Nonalcoholic steatohepatitis (NASH)
CPT/HCPCS: 36415; 80053; 81003; 82784; 85025; 86140

== ENCOUNTER 2022-01-13 12:07 | Day surgery (SDC) | payer OTHER, SELFPAY ==
--- NOTE | 2022-01-12 12:30 | HO.ANESPROP2 ---
Documented by User: Miriam Jean-Baptiste NP 01/12/22 12:39 HPI - Anesthesia Eval Consult details Narrative: 56yo F for Upper Endoscopy PMFSH Active Problems Active Problems: All Active Problems (Updated 09/16/21 @ 19:37 by Ana Paula Gregg MD) Cough (Acute) Diarrhea (Acute) Partial gastric outlet obstruction (Acute) Morbid obesity with BMI of 40.0-44.9, adult (Acute) Asthma exacerbation with COPD (chronic obstructive pulmonary disease) (Acute) Epigastric abdominal pain (Acute) Preoperative examination (Acute) Hiatal hernia without gangrene and obstruction (Acute) Past Medical History Medical History Anemia Anxiety Arthritis Asthma Bilateral renal stones Bipolar 1 disorder Chronic anemia COPD (chronic obstructive pulmonary disease) COVID-19 vaccine administered Depression GERD (gastroesophageal reflux disease) Hiatal hernia without gangrene and obstruction HIV (human immunodeficiency virus infection) Hx of anxiety disorder Hx of hepatitis C Morbid (severe) obesity due to excess calories Nicotine dependence, cigarettes, uncomplicated PTSD (post-traumatic stress disorder) Family History Family History Mother Respiratory arrest Father Congestive heart failure Sister No problems noted. Brother No problems noted. Daughter No problems noted. Son No problems noted. Surgical History Surgical History History of section, classical History of cholecystectomy History of colonoscopy (~2020) History of endoscopy (~2020) History of repair of hiatal hernia History of tonsillectomy and adenoidectomy Social History Social History Household Members: None Housing: House Housing Other:: resides at [facility]-will return there post-op Are you a primary lawn caretaker to a significant other at home: No Do you presently have visiting nurse or other home services: No Alcohol intake: never Patient Tobacco Use Status: Current everyday Tobacco user Tobacco use type: Cigarette Cigarette Packs Per Day: 0.5 Cigarettes Per Day: 10.0 Years Smoked: 20 Second Hand Smoke Exposure: No Use of substances other than those prescribed or required for medical reasons: No Are you DNR?: No Advance Directives: No Advance Directives Information Provided: Yes Advance Directives Date on File: 03/18/21 service: No Current occupational status: unemployed and disabled Meds Allergies Allergy/AdvReac Type Severity Reaction Status Date / Time Penicillins [PENICILLINS] Allergy Intermediate SOB/HIVES Verified 05/25/21 13:41 codeine AdvReac Intermediate Nausea and Verified 05/25/21 13:41 Vomiting ketorolac [From Toradol] AdvReac Intermediate Nausea and Verified 05/25/21 13:41 Vomiting Home Medications Medication Instructions Recorded Confirmed Last Taken Type albuterol sulfate 90 mcg/actuation 2 puff INHALATION Q4H PRN 02/16/21 06/25/21 06/25/21 History aerosol inhaler bictegravir 50 mg-emtricitabine 1 tab PO DAILY 02/16/21 06/25/21 06/25/21 History 200 mg-tenofovir alafenam 25 mg tablet (Biktarvy) bupropion HCl 300 mg 24 hr tablet, 300 mg PO DAILY 02/16/21 06/25/21 06/25/21 History extended release clonazepam 1 mg tablet 1 mg PO TID 02/16/21 06/25/21 01/13/22 History duloxetine 30 mg capsule,delayed 30 mg PO DAILY 02/16/21 06/25/21 06/25/21 History release duloxetine 60 mg capsule,delayed 60 mg PO DAILY 02/16/21 06/25/21 06/25/21 History release gabapentin 400 mg capsule 400 mg PO TID 02/16/21 06/25/21 01/13/22 History prazosin 2 mg capsule 4 mg PO BEDTIME 02/16/21 06/25/21 06/24/21 History budesonide-formoterol HFA 80 2 puff INHALATION BID 04/30/21 06/25/21 06/25/21 History mcg-4.5 mcg/actuation aerosol inhaler (Symbicort) quetiapine 400 mg tablet 2 tab PO BEDTIME 05/25/21 06/25/21 06/24/21 History Exam Exam Date and Time: January 12, 2022 1230 Pertinent Lab Results Pertinent Lab Results: Laboratory Tests 09/15/21 09/15/21 10:11 10:11 WBC 4.8 Hgb 12.8 Hct 38.4 Plt Count 216 Sodium 137 Potassium 3.6 Chloride 99 Carbon Dioxide 28 BUN 14 Creatinine 1.01 Narrative Narrative: EKG 06/2021 Vent. Rate : 084 BPM ? ? Atrial Rate : 084 BPM ?? P-R Int : 158 ms? QRS Dur : 078 ms ? ? QT Int : 356 ms ? ? ? P-R-T Axes : 018 027 028 degrees ?? QTc Int : 420 ms ? Normal sinus rhythm Low voltage QRS Cannot rule out Anterior infarct (cited on or before 25-MAY-2021) Abnormal ECG When compared with ECG of 25-MAY-2021 17:06, No significant change was found Assessment and Plan Assessment Anesthesia Assessment: Chart Reviewed Documented by User: Sahra Andersen MD 01/13/22 13:05 [facility] Past Medical History Medical History Anemia Anxiety Arthritis Asthma Bilateral renal stones Bipolar 1 disorder Chronic anemia COPD (chronic obstructive pulmonary disease) COVID-19 vaccine administered Depression GERD (gastroesophageal reflux disease) Hiatal hernia without gangrene and obstruction HIV (human immunodeficiency virus infection) Hx of anxiety disorder Hx of hepatitis C Morbid (severe) obesity due to excess calories Nicotine dependence, cigarettes, uncomplicated PTSD (post-traumatic stress disorder) Family History Family History Mother Respiratory arrest Father Congestive heart failure Sister No problems noted. Brother No problems noted. Daughter No problems noted. Son No problems noted. Family history of problems with anesthesia: No Surgical History Surgical History History of section, classical History of cholecystectomy History of colonoscopy (~2020) History of endoscopy (~2020) History of repair of hiatal hernia History of tonsillectomy and adenoidectomy History of Problems with Anesthesia: No Social History Social History Household Members: None Housing: House Housing Other:: resides at [facility]-will return there post-op Are you a primary lawn caretaker to a significant other at home: No Do you presently have visiting nurse or other home services: No Alcohol intake: never Patient Tobacco Use Status: Current everyday Tobacco user Tobacco use type: Cigarette Cigarette Packs Per Day: 0.5 Cigarettes Per Day: 10.0 Years Smoked: 20 Second Hand Smoke Exposure: No Use of substances other than those prescribed or required for medical reasons: No Are you DNR?: No Advance Directives: No Advance Directives Information Provided: Yes Advance Directives Date on File: 03/18/21 service: No Current occupational status: unemployed and disabled Meds Allergies Allergy/AdvReac Type Severity Reaction Status Date / Time Penicillins [PENICILLINS] Allergy Intermediate SOB/HIVES Verified 05/25/21 13:41 codeine AdvReac Intermediate Nausea and Verified 05/25/21 13:41 Vomiting ketorolac [From Toradol] AdvReac Intermediate Nausea and Verified 05/25/21 13:41 Vomiting Home Medications Medication Instructions Recorded Confirmed Last Taken Type albuterol sulfate 90 mcg/actuation 2 puff INHALATION Q4H PRN 02/16/21 06/25/21 06/25/21 History aerosol inhaler bictegravir 50 mg-emtricitabine 1 tab PO DAILY 02/16/21 06/25/21 06/25/21 History 200 mg-tenofovir alafenam 25 mg tablet (Biktarvy) bupropion HCl 300 mg 24 hr tablet, 300 mg PO DAILY 02/16/21 06/25/21 06/25/21 History extended release clonazepam 1 mg tablet 1 mg PO TID 02/16/21 06/25/21 01/13/22 History duloxetine 30 mg capsule,delayed 30 mg PO DAILY 02/16/21 06/25/21 06/25/21 History release duloxetine 60 mg capsule,delayed 60 mg PO DAILY 02/16/21 06/25/21 06/25/21 History release gabapentin 400 mg capsule 400 mg PO TID 02/16/21 06/25/21 01/13/22 History prazosin 2 mg capsule 4 mg PO BEDTIME 02/16/21 06/25/21 06/24/21 History budesonide-formoterol HFA 80 2 puff INHALATION BID 04/30/21 06/25/21 06/25/21 History mcg-4.5 mcg/actuation aerosol inhaler (Symbicort) quetiapine 400 mg tablet 2 tab PO BEDTIME 05/25/21 06/25/21 06/24/21 History Exam Airway Mallampati Class: II TM Dist: >3cm Neck ROM: Full Heart: rrr Lungs: cta Assessment and Plan Assessment Anesthesia Assessment: Anesthesia Plan Discussed and Chart Reviewed Final Anesthetic Review Family History of Problems with Anesthesia: No History of Problems with Anesthesia: No NPO: Yes ASA Class: III Final Preanesthetic Review: No Changes in Pt Med Stat, Meds/Allgs Chart Reviewed and Consent Obtained/Reviewed Patient Risk: Intermediate Procedure Risk: Intermediate Anesthetic Plan Anesthetic Plan: MAC: Disposition: Standard PACU
[2022-01-13 12:39] VITALS: BP 110/69; PULSE 85; RESP 22; TEMP 36.8; O2SAT 96; BMI 45.1
--- NOTE | 2022-01-13 13:02 | MHC.SHP ---
Pre-Procedural Eval Section A Date of Service: 01/13/22 Section B Chief Complaint: pylorospasm Details of Present Illness: Hx of tight pylorus with prior stretching with 14 mm balloon with good results Relevant Family History (Specify if Yes): No Relevant Social History: Tobacco Use Present Medications: see Short Stay Collaborative assessment Medical History: Significant History (Anemia Anxiety Arthritis Asthma Bilateral renal stones Bipolar 1 disorder Chronic anemia COPD (chronic obstructive pulmonary disease) COVID-19 vaccine administered Depression GERD (gastroesophageal reflux disease) Hiatal hernia without gangrene and obstruction HIV (human immunodeficiency virus infec) History of Previous Operations: Relevant previous surgery/procedure and date(s) (History of section, classical History of cholecystectomy History of colonoscopy (~2020) History of endoscopy (~2020) History of repair of hiatal hernia History of tonsillectomy and adenoidectomy) Allergies: Allergies Allergy/AdvReac Type Severity Reaction Status Date / Time Penicillins [PENICILLINS] Allergy Intermediate SOB/HIVES Verified 05/25/21 13:41 codeine AdvReac Intermediate Nausea and Verified 05/25/21 13:41 Vomiting ketorolac [From Toradol] AdvReac Intermediate Nausea and Verified 05/25/21 13:41 Vomiting Review of Systems Sugical H&P ROS: Negative: Constitution, Cardiovascular, Respiratory, Neurological, Psychiatric, Hem-Onc, Allergic/Immunologic, Gastrointestinal, Genitourinary, Musculoskeletal, Integumentary, Endocrine and Eyes/Ears/Nose/Throat Exam Surgical H&P Exam: Normal: HEENT, Normal: Heart, Normal: Lungs, Normal: Extremities, Normal: Abdomen, Normal: Skin and Normal: Neurological Plan Diagnosis/Plan: Unchanged I have reviewed the history and physical and performed a pertinent physical examination on my patient. No changes have occurred unless specified.
[2022-01-13] MEDS: Lactated Ringers 1,000 ML 100 ML IVCONT (13:04)
--- NOTE | 2022-01-13 13:27 | PM.OP ---
Brief Operative Note Date of Service: 01/13/22 Pre-op diagnosis: Hx of tight pylorus with prior stretching with 14 mm balloon with good results Post-op diagnosis: same Procedure: see op note Surgeon: Ana Paula Gregg MD Anesthesia: MAC Was an Economic Research Analyst used for this Procedure?: No Estimated blood loss (mL): 0 Condition: stable Disposition: PACU
--- NOTE | 2022-01-13 13:28 | W.PM.OPN ---
Operative Note Operative Note Date of Service: 01/13/22 Narrative: Procedure Description: EGD Indication: Hx of tight pylorus with prior stretching with 14 mm balloon with good results, now has recurrence of sx Anesthesia: MAC FLEXIBLE TRANSORAL UPPER GASTROINTESTINAL ENDOSCOPY UPPER ENDOSCOPY Consent: Indications for the procedure and potential complications of bleeding, perforation, reaction to medications and missed diagnosis were discussed with the patient and informed consent was obtained. Instrument: Olympus GIF H 190 J mid size upper endoscope Monitoring: Vital signs and clinical assessment, continuous EKG monitoring, Pulse oximetry, Carbon Dioxide monitoring and blood pressure monitoring were done throughout the procedure. Procedure: The patient was placed in the left lateral decubitis position and pre-procedure medications were administered and a bite block was placed. The endoscope was inserted into the mouth and advanced under direct vision to the third part of duodenum. A careful inspection was made as the upper endoscope was withdrawn including a retroflexed examination of the proximal stomach; Findings and interventions are described below. Findings: Larynx:normal Esophagus: GE junction at 32 cm, diaphragm hiatus at 37 cm, with 5 cm fixed hiatal hernia noted. No varices or esophagitis. The LES seemed v tight so balloon dilated to 17 mm with some heme note,d UES also dilated to 16 mm -no tear noted. Stomach: normal mucosa. hiatal hernia noted on retroflexed examination of the cardia. the pylorus was dilated to 18 mm with no tears seen. Duodenum: Normal bulb and descending duodenum, large duodenal diverticulum noted Intervention: Balloon dilation Impression/Findings: hiatal hernia PLAN: can take normal diet as tolerated today reflux precautions f/u with Dr Leonard, apparently talk of gastric bypass.
[2022-01-13 14:07] VITALS: BP 103/60; PULSE 79; RESP 16; TEMP 36.3; O2SAT 97
[2022-01-13 14:22] VITALS: BP 116/79; PULSE 79; RESP 16; TEMP 36.3; O2SAT 96
== END 2022-01-13 15:25 | disposition home or self-care (01) ==
PROVIDERS: PCP Internal Medicine; Visit Provider Internal Medicine Gastroenterology
PROC: 0DJ08ZZ Inspection of Upper Intestinal Tract, Via Natural or Artificial Opening Endoscopic (ICD-10-PCS; CPT 43235; principal; 2022-01-13 13:50)
DX: R13.10 Dysphagia, unspecified (principal); K22.2 Esophageal obstruction; K31.1 Adult hypertrophic pyloric stenosis; K44.9 Diaphragmatic hernia without obstruction or gangrene; K57.10 Diverticulosis of small intestine without perforation or abscess without bleeding; D64.9 Anemia, unspecified; K21.9 Gastro-esophageal reflux disease without esophagitis; J44.9 Chronic obstructive pulmonary disease, unspecified; B20 Human immunodeficiency virus [HIV] disease; Z86.19 Personal history of other infectious and parasitic diseases; F31.9 Bipolar disorder, unspecified; F43.10 Post-traumatic stress disorder, unspecified; E66.01 Morbid (severe) obesity due to excess calories; Z68.41 Body mass index [BMI] 40.0-44.9, adult; Z79.899 Other long term (current) drug therapy; Z88.0 Allergy status to penicillin; Z88.8 Allergy status to other drugs, medicaments and biological substances; F17.210 Nicotine dependence, cigarettes, uncomplicated
CPT/HCPCS: 43249; 43245; C1726

== ENCOUNTER 2022-05-12 08:01 | Emergency (ER) | payer OTHER, SELFPAY ==
[2022-05-12 08:57] VITALS: BP 118/78; PULSE 85; RESP 18; TEMP 36.7; O2SAT 94; BMI 38.9
[2022-05-12 09:54] LABS: MANUAL DIFF FLAG NO
[2022-05-12 10:14] LABS: Basophils Percent Auto 0.6 % (0-2); Eosinophils Absolute Auto 0.2 X10*3/uL (0.0-0.4); Eosinophils Percent Auto 4.1 % (0-4); Hematocrit 34.4 % (37.0-47.0); Hemoglobin 11.6 g/dl (12.0-16.0); Imm Gran Abs Auto 0.01 X10*3/uL (0.00-0.03); Imm Gran Pct Auto 0.2 % (0.0-0.4); Lymphocytes Absolute Auto 1.2 X10*3/uL (1.2-4.9); Lymphocytes Percent Auto 22.2 % (20-40); Mean Corpuscular HGB Conc 33.7 g/dl (31.0-35.0); Mean Corpuscular Hemoglobin 32.8 pg (27.0-33.0); Mean Corpuscular Volume 97.2 fL (80.0-98.0); Mean Platelet Volume 9.7 fL (9.4-12.3); Monocytes Absolute Auto 0.3 X10*3/uL (0.1-1.2); Monocytes Percent Auto 5.7 % (2-11); Neutrophils Absolute Auto 3.6 x10*3/uL (2.0-8.3); Neutrophils Percent Auto 67.2 % (45-73); Platelet Count 219 X10*3/uL (160-400); Red Blood Count 3.54 X10*6/uL (4.20-5.50); Red Cell Distribution Width 12.7 % (11.0-16.0); White Blood Count 5.4 X10*3/uL (4.8-10.8)
[2022-05-12 10:15] LABS: Anion Gap 12 (12-20); Blood Urea Nitrogen 12 mg/dL (9-16); Calcium 9.2 mg/dL (8.4-10.2); Carbon Dioxide 27 mmol/L (22-29); Chloride 105 mmol/L (96-108); Creatinine Clr Calc Pharmacy 71.7; Estimated Glomerular Filt Rate 57; Glucose Random 126 mg/dL (60-115); Sodium 140 mmol/L (135-145)
[2022-05-12 10:17] LABS: Amphetamine Screen Urine Not Detected (Not Detect); Barbiturates, Urine POSITIVE (Not Detect); Benzodiazepines Screen Urine POSITIVE (Not Detect); Cannabinoid Screen Urine Not Detected (Not Detect); Cocaine Screen Urine POSITIVE (Not Detect); Fentanyl, urine Not Detected (Not Detect); Opiate Screen Urine Not Detected (Not Detect); Phencyclidine Screen Urine Not Detected (Not Detect)
--- NOTE | 2022-05-12 11:36 | ED.MEDCLEAR ---
HPI - Medical Clearance General Chief complaint: Medical Clearance Stated complaint: medical clearence Time Seen by Provider: 05/12/22 11:16 Source: patient Mode of arrival: ambulatory Limitations: no limitations History of Present Illness HPI Narrative: Patient presents to the emergency department requesting medical clearance. She is going to and are [facility], [facility], and is requesting medical clearance for admission there. Reporting that she uses cocaine. She has no physical complaints at this time. She reports medication compliance for chronic diseases. Denies fevers, chills, dizziness, lightheadedness, headache, chest pain palpitations, shortness of breath difficulty breathing, nausea, vomiting, abdominal pain, Weakness, numbness or tingling of the extremities. Related Information Home Medications Medication Instructions Recorded Confirmed albuterol sulfate 90 mcg/actuation 2 puff inhalation Q4H PRN 02/16/21 06/25/21 aerosol inhaler Respiratory Distress bictegravir 50 mg-emtricitabine 1 tab PO DAILY 02/16/21 06/25/21 200 mg-tenofovir alafenam 25 mg tablet (Biktarvy) bupropion HCl 300 mg 24 hr tablet, 300 mg PO DAILY 02/16/21 06/25/21 extended release clonazepam 1 mg tablet 1 mg PO TID 02/16/21 06/25/21 duloxetine 30 mg capsule,delayed 30 mg PO DAILY 02/16/21 06/25/21 release duloxetine 60 mg capsule,delayed 60 mg PO DAILY 02/16/21 06/25/21 release gabapentin 400 mg capsule 400 mg PO TID 02/16/21 06/25/21 prazosin 2 mg capsule 4 mg PO BEDTIME 02/16/21 06/25/21 budesonide-formoterol HFA 80 2 puff inhalation BID 04/30/21 06/25/21 mcg-4.5 mcg/actuation aerosol inhaler (Symbicort) quetiapine 400 mg tablet 2 tab PO BEDTIME 05/25/21 06/25/21 Previous Rx's Medication Instructions Recorded prednisone 20 mg tablet 40 mg PO DAILY 3 days #6 tabs 06/28/21 meclizine 25 mg tablet 25 mg PO BID PRN nausea #20 tabs 07/31/21 sucralfate 100 mg/mL oral 1 g (10 mL) PO QIDACHS #240 mL 08/26/21 suspension metronidazole 500 mg tablet 500 mg PO Q8H #21 tabs 09/13/21 dicyclomine 10 mg capsule 10 mg PO BID #180 caps 10/13/21 famotidine 40 mg tablet 40 mg PO BEDTIME #60 tabs 12/08/21 ondansetron 4 mg disintegrating 4 mg PO Q8H PRN for 12/08/21 tablet nausea/vomiting #20 tabs pantoprazole 40 mg tablet,delayed 40 mg PO DAILY #60 tabs 12/08/21 release ondansetron 4 mg disintegrating 4 mg PO Q8H PRN nausea and 12/21/21 tablet vomiting 0 days #60 tabs dicyclomine 10 mg capsule 20 mg PO TID #60 caps 03/16/22 Allergies Allergy/AdvReac Type Severity Reaction Status Date / Time Penicillins [PENICILLINS] Allergy Intermediate SOB/HIVES Verified 05/25/21 13:41 codeine AdvReac Intermediate Nausea and Verified 05/25/21 13:41 Vomiting ketorolac [From Toradol] AdvReac Intermediate Nausea and Verified 05/25/21 13:41 Vomiting Review of Systems Review of Systems: Constitutional: No weight loss, fever, chills, weakness or fatigue. Skin: No rash or itching. Cardiovascular: No chest pain, chest pressure or chest discomfort. No palpitations or pedal edema. Respiratory: No shortness of breath, cough or sputum production. Gastrointestinal: No anorexia, nausea, vomiting or diarrhea. No abdominal pain or blood in stool. Genitourinary: No burning micturition. No urinary frequency or incontinence. Musculoskeletal: No muscle pain, back pain, joint pain or stiffness. Psychiatric: No depression or anxiety. Yes all other systems are reviewed and are negative [facility] Past Medical History Attestation statement: The following information was validated with the patient. Source: old records reviewed Medical History Anemia Anxiety Arthritis Asthma Bilateral renal stones Bipolar 1 disorder Chronic anemia COPD (chronic obstructive pulmonary disease) COVID-19 vaccine administered Depression Gastritis GERD (gastroesophageal reflux disease) Hiatal hernia without gangrene and obstruction HIV (human immunodeficiency virus infection) Hx of anxiety disorder Hx of hepatitis C Morbid (severe) obesity due to excess calories Nicotine dependence, cigarettes, uncomplicated PTSD (post-traumatic stress disorder) Surgical History History of section, classical History of cholecystectomy History of colonoscopy (~2020) History of endoscopy (~2020) History of repair of hiatal hernia History of tonsillectomy and adenoidectomy Family History Family History Mother Respiratory arrest Father Congestive heart failure Sister No problems noted. Brother No problems noted. Daughter No problems noted. Son No problems noted. Social History Social History Household Members: None Housing: House Housing Other:: resides at [facility]-will return there post-op Are you a primary rn care transition to a significant other at home: No Do you presently have visiting nurse or other home services: No Alcohol intake: never Patient Tobacco Use Status: Current everyday Tobacco user Tobacco use type: Cigarette Cigarette Packs Per Day: 0.5 Cigarettes Per Day: 10.0 Years Smoked: 20 Second Hand Smoke Exposure: No Advance Directives: No Advance Directives Information Provided: No Advance Directives Date on File: 03/18/21 service: No Current occupational status: unemployed and disabled Physical Exam Vital Signs: Vital Signs: Last Vital Signs Temp 98.1 F 05/12/22 08:57 Pulse 85 05/12/22 08:57 Resp 18 05/12/22 08:57 BP 118/78 05/12/22 08:57 Pulse Ox 94 05/12/22 08:57 O2 Del Method 05/12/22 08:57 BMI result Body Mass Index 38.9 Vital signs have been reviewed as normal and appeared to be correct. Blood pressure normal.? Heart rate normal.? Respiration rate normal. Temperature normal.? Oxygen saturation normal. Appearance: Alert.?Oriented to person, place and time. No acute distress.?Normal affect. Eyes: Pupils equal, round and reactive to light.? ENT: Pharynx normal.?? Neck: Normal inspection.? Neck supple.?? CVS: Heart sounds normal. Normal heart rate and rhythm.? Pulses normal.?? Respiratory: No respiratory distress.? Lung sounds clear to auscultation bilaterally?? Abdomen: Soft and non-tender. Normoactive bowel sounds. No pulsatile mass.?? Skin: Skin warm and dry.? Normal skin color.? Normal skin turgor.?? Extremities: No lower extremity edema.? No calf ttp? Neuro: Moves all extremities spontaneously. Sensation intact bilaterally. CN II-XII intact. No focal neuro deficits. Ambulates with normal steady gait. Course Course Course Narrative: Patient is a 56-year-old female past medical history of anemia, anxiety, PTSD, asthma and COPD on inhalers, bipolar disorder, GERD, HIV with undetectable viral load, and insomnia. Who presents emergency department for medical clearance to go to recovery center for cocaine usage. No physical complaints. Physical exam is benign. Vital signs are stable. She is well-appearing, in no apparent distress. CBC and BMP overall unremarkable. Urinalysis positive for barbiturates, benzodiazepines, and cocaine; patient is prescribed benzodiazepines. At this time she is medically cleared for admission to a [facility] a center. Discussed worsening signs and symptoms that she should return back to emergency department for. She was discharged in stable condition. [facility] - Medical Clearance Lab Data Result diagrams: 05/12/22 09:48 05/12/22 09:48 Labs: Lab Results 05/12/22 05/12/22 05/12/22 Range/Units 09:48 09:48 09:50 WBC 5.4 (4.8-10.8) X10*3/uL RBC 3.54 L (4.20-5.50) X10*6/uL Hgb 11.6 L (12.0-16.0) g/dl Hct 34.4 L (37.0-47.0) % MCV 97.2 (80.0-98.0) fL MCH 32.8 (27.0-33.0) pg MCHC 33.7 (31.0-35.0) g/dl RDW 12.7 (11.0-16.0) % Plt Count 219 (160-400) X10*3/uL MPV 9.7 (9.4-12.3) fL Immature Gran % (Auto) 0.2 (0.0-0.4) % Neut % (Auto) 67.2 (45-73) % Lymph % (Auto) 22.2 (20-40) % [place] % (Auto) 5.7 (2-11) % Eos % (Auto) 4.1 H (0-4) % Baso % (Auto) 0.6 (0-2) % Lymph # (Auto) 1.2 (1.2-4.9) X10*3/uL [place] # (Auto) 0.3 (0.1-1.2) X10*3/uL Eos # (Auto) 0.2 (0.0-0.4) X10*3/uL Baso # (Auto) 0.0 (0.0-0.2) X10*3/uL Abs Immat Gran (auto) 0.01 (0.00-0.03) X10*3/uL Absolute Neuts (auto) 3.6 (2.0-8.3) x10*3/uL Absolute Nucleated RBC 0.000 (0.0-0.012) X10*3/uL Nucleated RBC % (auto) 0.0 (0.0-0.2) /100WBC Sodium 140 (135-145) mmol/L Potassium 4.0 (3.3-5.1) mmol/L Chloride 105 (96-108) mmol/L Carbon Dioxide 27 (22-29) mmol/L Anion Gap 12 (12-20) BUN 12 (9-16) mg/dL Creatinine 1.01 (0.5-1.4) mg/dL Estim Creat Clear Calc 71.7 Estimated GFR 57 Random Glucose 126 H (60-115) mg/dL Calcium 9.2 (8.4-10.2) mg/dL Urine Opiates Screen Not Detected (Not Detect) Urine Fentanyl Screen Not Detected (Not Detect) Ur Barbiturates Screen POSITIVE H (Not Detect) Ur Phencyclidine Scrn Not Detected (Not Detect) Ur Amphetamines Screen Not Detected (Not Detect) U Benzodiazepines Scrn POSITIVE H (Not Detect) Urine Cocaine Screen POSITIVE H (Not Detect) U Marijuana (THC) Screen Not Detected (Not Detect) Discharge Plan Discharge Clinical Impression: Substance use disorder Patient Disposition: Home, Self-Care Instructions: Polysubstance Abuse (ED) Additional Instructions: You are medically cleared at this time to enter the and are recovery center, [facility]. The urine toxicology test today was positive for barbiturates, benzodiazepines, and cocaine. You are currently prescribed benzodiazepines by your doctor. Please return to the emergency department with any new or worsening symptoms or concerns Prescriptions: No Action meclizine 25 mg tablet 25 mg PO BID PRN (Reason: nausea) Qty: 20 0RF sucralfate 100 mg/mL suspension 1 g PO QIDACHS Qty: 240 1RF metronidazole 500 mg tablet 500 mg PO Q8H Qty: 21 0RF dicyclomine 10 mg capsule 10 mg PO BID Qty: 180 1RF pantoprazole 40 mg tablet,delayed release (DR/EC) 40 mg PO DAILY Qty: 60 3RF famotidine 40 mg tablet 40 mg PO BEDTIME Qty: 60 3RF ondansetron 4 mg tablet,disintegrating 4 mg PO Q8H PRN (Reason: for nausea/vomiting) Qty: 20 0RF ondansetron 4 mg tablet,disintegrating 4 mg PO Q8H PRN (Reason: nausea and vomiting) Qty: 60 0RF dicyclomine 10 mg capsule 20 mg PO TID Qty: 60 3RF quetiapine 400 mg tablet 2 tab PO BEDTIME bupropion HCl 300 mg Tablet Extended Release 24 Hr 300 mg PO DAILY duloxetine 30 mg Capsule,Delayed Release(Dr/Ec) 30 mg PO DAILY Rx Instructions: TAKES TOGETHER WITH 60 MG CAPSULE FOR TOTAL OF 90 MG duloxetine 60 mg Capsule,Delayed Release(Dr/Ec) 60 mg PO DAILY Rx Instructions: TAKES TOGETHER WITH 30 MG CAPSULE FOR TOTAL OF 90 MG Biktarvy 50-200-25 mg Tablet 1 tab PO DAILY gabapentin 400 mg Capsule 400 mg PO TID clonazepam 1 mg Tablet 1 mg PO TID prazosin 2 mg Capsule 4 mg PO BEDTIME albuterol sulfate 90 mcg/actuation Hfa Aerosol Inhaler 2 puff INHALATION Q4H PRN (Reason: Respiratory Distress) budesonide-formoterol [Symbicort] 80-4.5 mcg/actuation Hfa Aerosol Inhaler 2 puff INHALATION BID prednisone 20 mg tablet 40 mg PO DAILY 3 Days Qty: 6 0RF Interventions: ED Discharge Assessment Last Done: 05/12/22 12:04 Discharge Date/Time: 05/12/22 12:05
== END 2022-05-12 12:05 | disposition home or self-care (01) ==
PROVIDERS: Emergency Provider Emergency Medicine; PCP Internal Medicine
DX: Z02.2 Encounter for examination for admission to residential institution (principal); F19.99 Other psychoactive substance use, unspecified with unspecified psychoactive substance-induced disorder; F31.9 Bipolar disorder, unspecified; F41.9 Anxiety disorder, unspecified; F43.10 Post-traumatic stress disorder, unspecified; B20 Human immunodeficiency virus [HIV] disease; D64.9 Anemia, unspecified; J44.9 Chronic obstructive pulmonary disease, unspecified; F17.210 Nicotine dependence, cigarettes, uncomplicated; E66.01 Morbid (severe) obesity due to excess calories; Z68.38 Body mass index [BMI] 38.0-38.9, adult; Z79.899 Other long term (current) drug therapy
CPT/HCPCS: 36415; 80048; 80307; 85025; 99282; 99283

== ENCOUNTER 2022-07-12 08:26 | Emergency (ER) | payer OTHER, SELFPAY ==
[2022-07-12 09:18] VITALS: BP 128/82; PULSE 84; RESP 18; TEMP 36.7; O2SAT 96; BMI 34.7
--- NOTE | 2022-07-12 09:36 | PC.NURSE ---
security at bedside for ticket dispenser changer
--- NOTE | 2022-07-12 09:55 | PC.NURSE ---
belongings placed in locker #10 by security
[2022-07-12] MEDS: LORazepam 1 MG TABLET PO ×2 (10:44→13:43)
--- NOTE | 2022-07-12 10:50 | ED.PSYCH ---
HPI - Psych General Chief Complaint: Psychiatric Symptoms <RONEN Means - Last Filed: 07/13/22 15:01> Stated Complaint: anxiety <RONEN Means - Last Filed: 07/13/22 15:01> Time Seen by Provider: 07/12/22 10:03 <RONEN Means Last Filed: 07/13/22 15:01> Source: patient <RONEN Means Last Filed: 07/13/22 15:01> Mode of arrival: ambulatory <RONEN Means Last Filed: 07/13/22 15:01> Limitations: no limitations <RONEN Means Last Filed: 07/13/22 15:01> History of Present Illness HPI Narrative: 57-year-old female history of depression anxiety presents to the ED for increased anxiety and suicidal thoughts. patient states she stopped taking clonopin for one month and than her depression and developed suicidal thoughts. Patient stopped taking clonopin at the request of her sponor. patient states pmh of alcohol abuse and cocaine abuse. Patient states she has been sober for the past 2 months. <RONEN Means - Last Filed: 07/13/22 15:01> Related Data Home Medications: Home Medications Medication Instructions Recorded Confirmed albuterol sulfate 90 mcg/actuation 2 puff inhalation Q4H PRN 02/16/21 07/12/22 aerosol inhaler Respiratory Distress bictegravir 50 mg-emtricitabine 1 tab PO DAILY 02/16/21 07/12/22 200 mg-tenofovir alafenam 25 mg tablet (Biktarvy) bupropion HCl 300 mg 24 hr tablet, 300 mg PO DAILY 02/16/21 07/12/22 extended release duloxetine 30 mg capsule,delayed 30 mg PO DAILY 02/16/21 07/12/22 release duloxetine 60 mg capsule,delayed 60 mg PO DAILY 02/16/21 07/12/22 release gabapentin 600 mg tablet 1 tab PO TID 07/12/22 07/12/22 hydroxyzine HCl 50 mg tablet 1 tab PO TID 07/12/22 07/12/22 lurasidone 80 mg tablet (Latuda) 1 tab PO BEDTIME 07/12/22 07/12/22 omeprazole 20 mg tablet,delayed 1 tab PO BIDAC 07/12/22 07/12/22 release trazodone 100 mg tablet 2 tab PO BEDTIME PRN Sleep 07/12/22 07/12/22 Previous Rx's Medication Instructions Recorded famotidine 40 mg tablet 40 mg PO BEDTIME #60 tabs 12/08/21 ondansetron 4 mg disintegrating 4 mg PO Q8H PRN nausea and 12/21/21 tablet vomiting 0 days #60 tabs dicyclomine 10 mg capsule 20 mg PO TID #60 caps 03/16/22 diazepam 2 mg tablet 1 mg PO BID #8 tabs 07/13/22 <RONEN Means - Last Filed: 07/13/22 15:01> Allergies/Adverse Reactions: Allergies Allergy/AdvReac Type Severity Reaction Status Date / Time Penicillins [PENICILLINS] Allergy Intermediate SOB/HIVES Verified 05/25/21 13:41 codeine AdvReac Intermediate Nausea and Verified 05/25/21 13:41 Vomiting ketorolac [From Toradol] AdvReac Intermediate Nausea and Verified 05/25/21 13:41 Vomiting <RONEN Means - Last Filed: 07/13/22 15:01> Review of Systems Review of Systems: Depression, anixety, suicidal thoughts <RONEN Means - Last Filed: 07/13/22 15:01> Yes all other systems are reviewed and are negative <RONEN Means - Last Filed: 07/13/22 15:01> PMFSH Past Medical History Medical History: Medical History Anemia Anxiety Arthritis Asthma Bilateral renal stones Bipolar 1 disorder Chronic anemia COPD (chronic obstructive pulmonary disease) COVID-19 vaccine administered Depression Gastritis GERD (gastroesophageal reflux disease) Hiatal hernia without gangrene and obstruction HIV (human immunodeficiency virus infection) Hx of anxiety disorder Hx of hepatitis C Morbid (severe) obesity due to excess calories Nicotine dependence, cigarettes, uncomplicated PTSD (post-traumatic stress disorder) <RONEN Means - Last Filed: 07/13/22 15:01> Surgical History: Surgical History History of section, classical History of cholecystectomy History of colonoscopy (~2020) History of endoscopy (~2020) History of repair of hiatal hernia History of tonsillectomy and adenoidectomy <RONEN Means - Last Filed: 07/13/22 15:01> Family History Family History: Family History Mother Respiratory arrest Father Congestive heart failure Sister No problems noted. Brother No problems noted. Daughter No problems noted. Son No problems noted. <RONEN Means - Last Filed: 07/13/22 15:01> Social History Social History: Social History Household Members: None Housing: House Housing Other:: resides at [facility]-will return there post-op Are you a primary manager critical care to a significant other at home: No Do you presently have visiting nurse or other home services: No Alcohol intake: never Patient Tobacco Use Status: Current everyday Tobacco user Tobacco use type: Cigarette Cigarette Packs Per Day: 0.5 Cigarettes Per Day: 10.0 Years Smoked: 20 Second Hand Smoke Exposure: No Advance Directives Date on File: 03/18/21 service: No Current occupational status: unemployed and disabled <RONEN Means - Last Filed: 07/13/22 15:01> Physical Exam Vital Signs: Vital Signs: Last Vital Signs Temp 98.5 F 07/13/22 06:32 Pulse 105 H 07/13/22 06:32 Resp 07/13/22 06:32 BP 144/89 H 07/13/22 06:32 Pulse Ox 90 L 07/13/22 06:32 O2 Del Method 07/13/22 06:32 BMI result Body Mass Index 34.7 <RONEN Means - Last Filed: 07/13/22 15:01> Vital Signs: Last Vital Signs Temp 98.5 F 07/13/22 06:32 Pulse 105 H 07/13/22 06:32 Resp 07/13/22 06:32 BP 144/89 H 07/13/22 06:32 Pulse Ox 90 L 07/13/22 06:32 O2 Del Method 07/13/22 06:32 BMI result Body Mass Index 34.7 <Tk Disla MD - Last Filed: 07/13/22 13:54> Const: General: cooperative, healthy appearing, comfortable, no acute distress, well developed, alert, awake and Physically active <Jarvis NinoRONEN Last Filed: 07/13/22 15:01> Orientation/consciousness: oriented to time and patient oriented x3 <Jarvis Nino [facility] Last Filed: 07/13/22 15:01> HEENT: Head: Yes normal to inspection, Yes No palpable skull fracture present, Yes normocephalic, Yes atraumatic and No abrasion <Jarvis Nino [facility] Last Filed: 07/13/22 15:01> Eyes: General: appearance normal, both eyes and all related structures <Jarvis Nino, [facility] Last Filed: 07/13/22 15:01> Neck: Neck: Yes normal visual inspection, Yes full ROM, Yes no lymphadenopathy, Yes no meningeal signs, Yes trachea midline, Yes supple, No anterior neck swelling and No tender <Jarvis Nino [facility] Last Filed: 07/13/22 15:01> Chest: Chest palpation & inspection: normal inspection of the chest and normal palpation of entire chest wall <Jarvis Nino [facility] Last Filed: 07/13/22 15:01> Resp: Effort & Inspection: normal respiratory effort and able to speak in complete sentences <Jarvis Nino [facility] Last Filed: 07/13/22 15:01> Auscultation: clear to auscultation bilaterally <Jarvis Nino [facility] Last Filed: 07/13/22 15:01> Cardio: Jugular venous distension: no JVD <Jarvis Nino [facility] Last Filed: 07/13/22 15:01> Heart sounds: S1 normal heart sound present and S2 normal heart sound present <Jarvis Nino, [facility] Last Filed: 07/13/22 15:01> GI: Inspection: Yes normal to inspection and No abdominal wall ecchymosis <Jarvis Nino, [facility] Last Filed: 07/13/22 15:01> Palpation (GI): nontender <Jarvis Nino, [facility] Last Filed: 07/13/22 15:01> : General: No CVA tenderness and Yes no CVA tenderness <Jarvis Nino, [facility] Last Filed: 07/13/22 15:01> Back/Spine/Pelvis: Back: no CVA tenderness, No CVA tenderness and No back tenderness <RONEN Means Last Filed: 07/13/22 15:01> Skin: General skin exam: no rashes or lesions noted and elasticity normal <RONEN Means Last Filed: 07/13/22 15:01> Neuro: General: oriented to time, patient oriented x3, gait normal, tone normal, no meningeal signs and CN's II-XI intact bilaterally <RONEN Means Last Filed: 07/13/22 15:01> Cranial nerves: Yes CN's II-XII intact bilaterally <RONEN Means Last Filed: 07/13/22 15:01> Extrem: General: Yes normal to inspection and Yes full ROM <RONEN Means Last Filed: 07/13/22 15:01> Psych: Other: depresssed <RONEN Means Last Filed: 07/13/22 15:01> Appearance: grossly normal, well kempt and not disheveled <RONEN Means Last Filed: 07/13/22 15:01> Course Course Course Narrative: Patient labs and BHN consult ordered <RONEN Means Last Filed: 07/13/22 15:01> Reevaluation(s) Reevaluation #1: labs are normal. UA shows UTI. Bridget of Care team evaluated patient and recommend patient receive day showed. She states she spoke with patient's nurse practitioner who sent Klonopin prescription to her pharmacy. Also patient will have follow-up with her nurse practitioner psychiatrist tomorrow. Heel with call patient tomorrow for follow-up. 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 Patient's psychiatrist called the ER and stated patient should not be discharged with Klonopin. Bridget recommends patient be re-evaluated by our psychiatrist. Patient will stay overnight to be evaluated by psychiatrist. Patient to be re-evaluated the morning <RONEN Means - Last Filed: 07/13/22 15:01> Time: 18:29 <RONEN Means - Last Filed: 07/13/22 15:01> Reevaluation #3: Physician observation continued Patient with increased depression awaiting for psych evaluation. At this time unsure if she will be a bed search. <Tk Disla MD - Last Filed: 07/13/22 13:54> Time: 08:47 <Tk Disla MD - Last Filed: 07/13/22 13:54> Additional Reevaluation(s): seen and cleared by crisis will dc home <Tk Disla MD - Last Filed: 07/13/22 13:54> MDM - Psych MDM Narrative Medical decision making narrative: Depression <RONEN Means - Last Filed: 07/13/22 15:01> Lab Data Result diagrams: : 07/12/22 11:43 07/12/22 11:43 <RONEN Means - Last Filed: 07/13/22 15:01> Labs: Lab Results 07/12/22 07/12/22 07/12/22 Range/Units 10:55 10:55 10:55 WBC (4.8-10.8) X10*3/uL RBC (4.20-5.50) X10*6/uL Hgb (12.0-16.0) g/dl Hct (37.0-47.0) % MCV (80.0-98.0) fL MCH (27.0-33.0) pg MCHC (31.0-35.0) g/dl RDW (11.0-16.0) % Plt Count (160-400) X10*3/uL MPV (9.4-12.3) fL Immature Gran % (Auto) (0.0-0.4) % Neut % (Auto) (45-73) % Lymph % (Auto) (20-40) % [place] % (Auto) (2-11) % Eos % (Auto) (0-4) % Baso % (Auto) (0-2) % Lymph # (Auto) (1.2-4.9) X10*3/uL [place] # (Auto) (0.1-1.2) X10*3/uL Eos # (Auto) (0.0-0.4) X10*3/uL Baso # (Auto) (0.0-0.2) X10*3/uL Abs Immat Gran (auto) (0.00-0.03) X10*3/uL Absolute Neuts (auto) (2.0-8.3) x10*3/uL Absolute Nucleated RBC (0.0-0.012) X10*3/uL Nucleated RBC % (auto) (0.0-0.2) /100WBC Sodium (135-145) mmol/L Potassium (3.3-5.1) mmol/L Chloride (96-108) mmol/L Carbon Dioxide (22-29) mmol/L Anion Gap (12-20) BUN (9-16) mg/dL Creatinine (0.5-1.4) mg/dL Estim Creat Clear Calc Estimated GFR Random Glucose (60-115) mg/dL Calcium (8.4-10.2) mg/dL Total Bilirubin (0.0-1.0) mg/dL AST (5-31) U/L ALT (0-31) U/L Alkaline Phosphatase (39-117) U/L Total Protein (6.5-8.0) g/dL Albumin (3.5-5.0) g/dL Urine Color Yellow Urine Appearance Cloudy Urine pH 5.5 (5.0-9.0) Ur Specific [place] 1.015 (1.005-1.025) Urine Protein Negative (Neg-Trace) mg/dL Urine Glucose (UA) Negative (Negative) mg/dL Urine Ketones Negative (Negative) mg/dL Urine Blood Negative (Negative) Urine Nitrite Negative (Negative) Ur Leukocyte Esterase Large (3+) H (Negative) Urine RBC 0-2 (0-2) /HPF Urine WBC >50 H (0-5) /HPF Urine WBC Clumps Present Ur Squamous Epith Cells 6-10 (0-2) /HPF Urine Bacteria 4+ (None Seen) Hyaline Casts 0-2 (0-2) /LPF Urine Test NEGATIVE (NEGATIVE) Urine Opiates Screen Not Detected (Not Detect) Urine Fentanyl Screen POSITIVE H (Not Detect) Ur Barbiturates Screen Not Detected (Not Detect) Ur Phencyclidine Scrn Not Detected (Not Detect) Ur Amphetamines Screen Not Detected (Not Detect) U Benzodiazepines Scrn Not Detected (Not Detect) Urine Cocaine Screen Not Detected (Not Detect) U Marijuana (THC) Screen Not Detected (Not Detect) Ethyl Alcohol mg/dL COVID-19 (ELSI) (Negative) COVID-19 Clin Com 07/12/22 07/12/22 07/12/22 Range/Units 11:43 11:43 17:03 WBC 4.2 L (4.8-10.8) X10*3/uL RBC 3.66 L (4.20-5.50) X10*6/uL Hgb 12.0 (12.0-16.0) g/dl Hct 35.5 L (37.0-47.0) % MCV 97.0 (80.0-98.0) fL MCH 32.8 (27.0-33.0) pg MCHC 33.8 (31.0-35.0) g/dl RDW 12.1 (11.0-16.0) % Plt Count 209 (160-400) X10*3/uL MPV 9.0 L (9.4-12.3) fL Immature Gran % (Auto) 0.2 (0.0-0.4) % Neut % (Auto) 55.3 (45-73) % Lymph % (Auto) 31.3 (20-40) % [place] % (Auto) 8.2 (2-11) % Eos % (Auto) 4.3 H (0-4) % Baso % (Auto) 0.7 (0-2) % Lymph # (Auto) 1.3 (1.2-4.9) X10*3/uL [place] # (Auto) 0.3 (0.1-1.2) X10*3/uL Eos # (Auto) 0.2 (0.0-0.4) X10*3/uL Baso # (Auto) 0.0 (0.0-0.2) X10*3/uL Abs Immat Gran (auto) 0.01 (0.00-0.03) X10*3/uL Absolute Neuts (auto) 2.3 (2.0-8.3) x10*3/uL Absolute Nucleated RBC 0.000 (0.0-0.012) X10*3/uL Nucleated RBC % (auto) 0.0 (0.0-0.2) /100WBC Sodium 140 (135-145) mmol/L Potassium 4.6 (3.3-5.1) mmol/L Chloride 104 (96-108) mmol/L Carbon Dioxide 26 (22-29) mmol/L Anion Gap 15 (12-20) BUN 10 (9-16) mg/dL Creatinine 1.08 (0.5-1.4) mg/dL Estim Creat Clear Calc 59.9 Estimated GFR 53 Random Glucose 101 (60-115) mg/dL Calcium 9.4 (8.4-10.2) mg/dL Total Bilirubin 0.4 (0.0-1.0) mg/dL AST 17 (5-31) U/L ALT 16 (0-31) U/L Alkaline Phosphatase 81 (39-117) U/L Total Protein 6.8 (6.5-8.0) g/dL Albumin 4.3 (3.5-5.0) g/dL Urine Color Urine Appearance Urine pH (5.0-9.0) Ur Specific [place] (1.005-1.025) Urine Protein (Neg-Trace) mg/dL Urine Glucose (UA) (Negative) mg/dL Urine Ketones (Negative) mg/dL Urine Blood (Negative) Urine Nitrite (Negative) Ur Leukocyte Esterase (Negative) Urine RBC (0-2) /HPF Urine WBC (0-5) /HPF Urine WBC Clumps Ur Squamous Epith Cells (0-2) /HPF Urine Bacteria (None Seen) Hyaline Casts (0-2) /LPF Urine Test (NEGATIVE) Urine Opiates Screen (Not Detect) Urine Fentanyl Screen (Not Detect) Ur Barbiturates Screen (Not Detect) Ur Phencyclidine Scrn (Not Detect) Ur Amphetamines Screen (Not Detect) U Benzodiazepines Scrn (Not Detect) Urine Cocaine Screen (Not Detect) U Marijuana (THC) Screen (Not Detect) Ethyl Alcohol < 10 mg/dL COVID-19 (ELSI) Negative (Negative) COVID-19 Clin Com See Note <RONEN Means - Last Filed: 07/13/22 15:01> Lab Results 07/12/22 07/12/22 07/12/22 Range/Units 10:55 10:55 10:55 WBC (4.8-10.8) X10*3/uL RBC (4.20-5.50) X10*6/uL Hgb (12.0-16.0) g/dl Hct (37.0-47.0) % MCV (80.0-98.0) fL MCH (27.0-33.0) pg MCHC (31.0-35.0) g/dl RDW (11.0-16.0) % Plt Count (160-400) X10*3/uL MPV (9.4-12.3) fL Immature Gran % (Auto) (0.0-0.4) % Neut % (Auto) (45-73) % Lymph % (Auto) (20-40) % [place] % (Auto) (2-11) % Eos % (Auto) (0-4) % Baso % (Auto) (0-2) % Lymph # (Auto) (1.2-4.9) X10*3/uL [place] # (Auto) (0.1-1.2) X10*3/uL Eos # (Auto) (0.0-0.4) X10*3/uL Baso # (Auto) (0.0-0.2) X10*3/uL Abs Immat Gran (auto) (0.00-0.03) X10*3/uL Absolute Neuts (auto) (2.0-8.3) x10*3/uL Absolute Nucleated RBC (0.0-0.012) X10*3/uL Nucleated RBC % (auto) (0.0-0.2) /100WBC Sodium (135-145) mmol/L Potassium (3.3-5.1) mmol/L Chloride (96-108) mmol/L Carbon Dioxide (22-29) mmol/L Anion Gap (12-20) BUN (9-16) mg/dL Creatinine (0.5-1.4) mg/dL Estim Creat Clear Calc Estimated GFR Random Glucose (60-115) mg/dL Calcium (8.4-10.2) mg/dL Total Bilirubin (0.0-1.0) mg/dL AST (5-31) U/L ALT (0-31) U/L Alkaline Phosphatase (39-117) U/L Total Protein (6.5-8.0) g/dL Albumin (3.5-5.0) g/dL Urine Color Yellow Urine Appearance Cloudy Urine pH 5.5 (5.0-9.0) Ur Specific [place] 1.015 (1.005-1.025) Urine Protein Negative (Neg-Trace) mg/dL Urine Glucose (UA) Negative (Negative) mg/dL Urine Ketones Negative (Negative) mg/dL Urine Blood Negative (Negative) Urine Nitrite Negative (Negative) Ur Leukocyte Esterase Large (3+) H (Negative) Urine RBC 0-2 (0-2) /HPF Urine WBC >50 H (0-5) /HPF Urine WBC Clumps Present Ur Squamous Epith Cells 6-10 (0-2) /HPF Urine Bacteria 4+ (None Seen) Hyaline Casts 0-2 (0-2) /LPF Urine Test NEGATIVE (NEGATIVE) Urine Opiates Screen Not Detected (Not Detect) Urine Fentanyl Screen POSITIVE H (Not Detect) Ur Barbiturates Screen Not Detected (Not Detect) Ur Phencyclidine Scrn Not Detected (Not Detect) Ur Amphetamines Screen Not Detected (Not Detect) U Benzodiazepines Scrn Not Detected (Not Detect) Urine Cocaine Screen Not Detected (Not Detect) U Marijuana (THC) Screen Not Detected (Not Detect) Ethyl Alcohol mg/dL COVID-19 (ELSI) (Negative) COVID-19 Clin Com 07/12/22 07/12/22 07/12/22 Range/Units 11:43 11:43 17:03 WBC 4.2 L (4.8-10.8) X10*3/uL RBC 3.66 L (4.20-5.50) X10*6/uL Hgb 12.0 (12.0-16.0) g/dl Hct 35.5 L (37.0-47.0) % MCV 97.0 (80.0-98.0) fL MCH 32.8 (27.0-33.0) pg MCHC 33.8 (31.0-35.0) g/dl RDW 12.1 (11.0-16.0) % Plt Count 209 (160-400) X10*3/uL MPV 9.0 L (9.4-12.3) fL Immature Gran % (Auto) 0.2 (0.0-0.4) % Neut % (Auto) 55.3 (45-73) % Lymph % (Auto) 31.3 (20-40) % [place] % (Auto) 8.2 (2-11) % Eos % (Auto) 4.3 H (0-4) % Baso % (Auto) 0.7 (0-2) % Lymph # (Auto) 1.3 (1.2-4.9) X10*3/uL [place] # (Auto) 0.3 (0.1-1.2) X10*3/uL Eos # (Auto) 0.2 (0.0-0.4) X10*3/uL Baso # (Auto) 0.0 (0.0-0.2) X10*3/uL Abs Immat Gran (auto) 0.01 (0.00-0.03) X10*3/uL Absolute Neuts (auto) 2.3 (2.0-8.3) x10*3/uL Absolute Nucleated RBC 0.000 (0.0-0.012) X10*3/uL Nucleated RBC % (auto) 0.0 (0.0-0.2) /100WBC Sodium 140 (135-145) mmol/L Potassium 4.6 (3.3-5.1) mmol/L Chloride 104 (96-108) mmol/L Carbon Dioxide 26 (22-29) mmol/L Anion Gap 15 (12-20) BUN 10 (9-16) mg/dL Creatinine 1.08 (0.5-1.4) mg/dL Estim Creat Clear Calc 59.9 Estimated GFR 53 Random Glucose 101 (60-115) mg/dL Calcium 9.4 (8.4-10.2) mg/dL Total Bilirubin 0.4 (0.0-1.0) mg/dL AST 17 (5-31) U/L ALT 16 (0-31) U/L Alkaline Phosphatase 81 (39-117) U/L Total Protein 6.8 (6.5-8.0) g/dL Albumin 4.3 (3.5-5.0) g/dL Urine Color Urine Appearance Urine pH (5.0-9.0) Ur Specific [place] (1.005-1.025) Urine Protein (Neg-Trace) mg/dL Urine Glucose (UA) (Negative) mg/dL Urine Ketones (Negative) mg/dL Urine Blood (Negative) Urine Nitrite (Negative) Ur Leukocyte Esterase (Negative) Urine RBC (0-2) /HPF Urine WBC (0-5) /HPF Urine WBC Clumps Ur Squamous Epith Cells (0-2) /HPF Urine Bacteria (None Seen) Hyaline Casts (0-2) /LPF Urine Test (NEGATIVE) Urine Opiates Screen (Not Detect) Urine Fentanyl Screen (Not Detect) Ur Barbiturates Screen (Not Detect) Ur Phencyclidine Scrn (Not Detect) Ur Amphetamines Screen (Not Detect) U Benzodiazepines Scrn (Not Detect) Urine Cocaine Screen (Not Detect) U Marijuana (THC) Screen (Not Detect) Ethyl Alcohol < 10 mg/dL COVID-19 (ELSI) Negative (Negative) COVID-19 Clin Com See Note <Tk Disla MD - Last Filed: 07/13/22 13:54> Discharge Plan Discharge Clinical Impression: Depression <RONEN Means - Last Filed: 07/13/22 15:01> Patient Disposition: Home, Self-Care <RONEN Means - Last Filed: 07/13/22 15:01> Instructions: Depression (ED) <RONEN Means - Last Filed: 07/13/22 15:01> Additional Instructions: Return to the ED for any suicidal/homicidal ideation, auditory/visual hallucinations, any physical complaints, any other concerning symptoms. Please follow with primary care provider, therapist, psychiatrist as soon as possible. Recommend picking up your Clonzepam prescription at the pharmacy. <RONEN Means - Last Filed: 07/13/22 15:01> Prescriptions: New diazepam 2 mg tablet 1 mg PO BID Qty: 8 0RF Discontinued clonazepam 1 mg Tablet 1 mg PO TID No Action famotidine 40 mg tablet 40 mg PO BEDTIME Qty: 60 3RF ondansetron 4 mg tablet,disintegrating 4 mg PO Q8H PRN (Reason: nausea and vomiting) Qty: 60 0RF dicyclomine 10 mg capsule 20 mg PO TID Qty: 60 3RF bupropion HCl 300 mg Tablet Extended Release 24 Hr 300 mg PO DAILY duloxetine 30 mg Capsule,Delayed Release(Dr/Ec) 30 mg PO DAILY Rx Instructions: TAKES TOGETHER WITH 60 MG CAPSULE FOR TOTAL OF 90 MG duloxetine 60 mg Capsule,Delayed Release(Dr/Ec) 60 mg PO DAILY Rx Instructions: TAKES TOGETHER WITH 30 MG CAPSULE FOR TOTAL OF 90 MG Biktarvy 50-200-25 mg Tablet 1 tab PO DAILY albuterol sulfate 90 mcg/actuation Hfa Aerosol Inhaler 2 puff INHALATION Q4H PRN (Reason: Respiratory Distress) gabapentin 600 mg tablet 1 tab PO TID hydroxyzine HCl 50 mg tablet 1 tab PO TID trazodone 100 mg tablet 2 tab PO BEDTIME PRN (Reason: Sleep) omeprazole 20 mg tablet,delayed release (DR/EC) 1 tab PO BIDAC Latuda 80 mg tablet 1 tab PO BEDTIME <RONEN Means - Last Filed: 07/13/22 15:01> Referrals: Josie Macario [Physician] - 3 days Raul De La Paz MD [Primary Care Provider] - 1 week <RONEN Means - Last Filed: 07/13/22 15:01> Discharge Date/Time: 07/13/22 14:38 <RONEN Means - Last Filed: 07/13/22 15:01> Print Language: Albanian <RONEN Means - Last Filed: 07/13/22 15:01>
[2022-07-12 11:23] LABS: Appearance Urine Cloudy; Color Urine Yellow; Glucose Urine UA Negative (Negative); Leukocyte Esterase Urine Large (3+) (Negative); Nitrite Urine Negative (Negative); PH 5.5 (5.0-9.0); Specific Gravity - Urine 1.015 (1.005-1.025); UMIC TRIGGER UACC YES; Urine Blood Negative (Negative); Urine Ketones Negative (Negative); Urine Protein Negative (Neg-Trace)
[2022-07-12 11:24] LABS: UPreg QC Valid YES; Urine Pregnancy NEGATIVE (NEGATIVE)
[2022-07-12 11:35] LABS: Amphetamine Screen Urine Not Detected (Not Detect); Barbiturates, Urine Not Detected (Not Detect); Benzodiazepines Screen Urine Not Detected (Not Detect); Cannabinoid Screen Urine Not Detected (Not Detect); Cocaine Screen Urine Not Detected (Not Detect); Fentanyl, urine POSITIVE (Not Detect); Opiate Screen Urine Not Detected (Not Detect); Phencyclidine Screen Urine Not Detected (Not Detect)
[2022-07-12 11:38] LABS: Bacteria Urine 4+ (None Seen); Hyaline Casts Urine 0-2 /LPF (0-2); RBC Urine 0-2 /HPF (0-2); UACC Culture Trigger YES; WBC Clumps Urine Present; WBC Urine >50 /HPF (0-5)
[2022-07-12 11:48] LABS: Basophils Percent Auto 0.7 % (0-2); Eosinophils Absolute Auto 0.2 X10*3/uL (0.0-0.4); Eosinophils Percent Auto 4.3 % (0-4); Hematocrit 35.5 % (37.0-47.0); Imm Gran Abs Auto 0.01 X10*3/uL (0.00-0.03); Imm Gran Pct Auto 0.2 % (0.0-0.4); Lymphocytes Absolute Auto 1.3 X10*3/uL (1.2-4.9); Lymphocytes Percent Auto 31.3 % (20-40); MANUAL DIFF FLAG NO; Mean Corpuscular HGB Conc 33.8 g/dl (31.0-35.0); Mean Corpuscular Hemoglobin 32.8 pg (27.0-33.0); Monocytes Absolute Auto 0.3 X10*3/uL (0.1-1.2); Monocytes Percent Auto 8.2 % (2-11); Neutrophils Absolute Auto 2.3 x10*3/uL (2.0-8.3); Neutrophils Percent Auto 55.3 % (45-73); Platelet Count 209 X10*3/uL (160-400); Red Blood Count 3.66 X10*6/uL (4.20-5.50); Red Cell Distribution Width 12.1 % (11.0-16.0); White Blood Count 4.2 X10*3/uL (4.8-10.8)
[2022-07-12 12:08] LABS: Alanine Aminotransferase 16 U/L (0-31); Albumin Level 4.3 g/dL (3.5-5.0); Alkaline Phosphatase 81 U/L (39-117); Anion Gap 15 (12-20); Aspartate Amino Transferase 17 U/L (5-31); Bilirubin Total 0.4 mg/dL (0.0-1.0); Blood Urea Nitrogen 10 mg/dL (9-16); Calcium 9.4 mg/dL (8.4-10.2); Carbon Dioxide 26 mmol/L (22-29); Chloride 104 mmol/L (96-108); Creatinine Clr Calc Pharmacy 59.9; Estimated Glomerular Filt Rate 53; Ethanol < 10 mg/dL; Glucose Random 101 mg/dL (60-115); Potassium 4.6 mmol/L (3.3-5.1); Sodium 140 mmol/L (135-145); Total Protein 6.8 g/dL (6.5-8.0)
--- NOTE | 2022-07-12 13:46 | PM.EVENT ---
Event Note Date of Service: 07/12/22 Event Note: Pt seen and evaluated by Care Team today. Pt in residential substance use tx program for the past 60 days. Pt worked with OP psych provider to come off clonazepam and completed diazepam taper at pt's request. Pt completed taper but feeling increasingly anxious, wants to go back to clonazepam and has upcoming appointment with provider at [facility] next week on 07/22. will give one time rx of clonazepam 1mg po TID #36- pt medications are managed by her residential program so there is much less potential for abuse or misuse.
[2022-07-12] MEDS: Albuterol Sulfate 90 MCG 8 GM INHALER 2 PUFF INHALE (15:55)
[2022-07-12 17:32] LABS: COVID-19 Test Negative (Negative); IDNOW Serial# 9DB6401D
--- NOTE | 2022-07-12 17:33 | PC.NURSE ---
Pharmacy called for med rec. Awaiting pharmacy.
--- NOTE | 2022-07-12 18:22 | MHC.CARE ---
Plan will be for pt to remain in the ED tonight and see psychiatry in the morning.
--- NOTE | 2022-07-13 06:30 | PC.NURSE ---
Patient slept through the night, no distress observed/reported, HS medication approved late at 0300, medication held due to patient asleep, patient was seen by care team disposition pending psych consult, VS unremarkable, no behavior concerns overnight, will continue to monitor.
[2022-07-13 06:32] VITALS: BP 144/89; PULSE 105; RESP 20; TEMP 36.9; O2SAT 90
[2022-07-13] MEDS: Albuterol Sulfate 90 MCG 8 GM INHALER 2 PUFF INHALE (06:39)
--- NOTE | 2022-07-13 08:12 | PC.NURSE ---
patient appears to remain at rest at present respirations are even and unlabored patient appears in no distress
[2022-07-13] MEDS: DULoxetine HCl 30 MG CAPSULE.DR PO (10:00)
[2022-07-13] MEDS: DULoxetine HCl 60 MG CAPSULE.DR PO (10:00)
[2022-07-13] MEDS: Bictegrav/Emtricit/Tenofov Ala TABLET 1 TAB PO (10:00)
[2022-07-13] MEDS: Gabapentin 600 MG TABLET PO (10:00)
[2022-07-13] MEDS: clonazePAM 1 MG TABLET PO (10:00)
[2022-07-13] MEDS: hydrOXYzine HCL 50 MG TABLET PO (10:00)
[2022-07-13] MEDS: Omeprazole 20 MG CAPSULE.DR PO (10:00)
[2022-07-13] MEDS: buPROPion HCl XL 300 MG TAB.ER.24H PO (10:00)
[2022-07-13] MEDS: Dicyclomine HCl 10 MG CAPSULE 20 MG PO (10:02)
--- NOTE | 2022-07-13 12:35 | P.CNPS_ITS ---
History of Present Illness Date of Service: 07/13/2022 Chief Complaint: anxiety Reason for Consult: increase anxiety/benzo taper Discussed with referring provider: Yes Sources of Information: patient interviewed, chart reviewed and crisis/core team assessment reviewed HPI Narrative: Ms. Wallace is a 57 year-old woman with hx of PTSD, MDD, substance use in early remission who resides at substance use treatment program. She self presented to [facility] due to increase anxious mood, restlessness after completed taper with diazepam with intent to stop benzos completely. Pt reports she used to be on clonazepam 1mg po TID and had asked her OP provider to taper her off as part of her recovery process. She was switched to diazepam. She reports she was taking 1mg diazepam BID for a week prior to stopping completely. She reports increased anxious mood, restless. NO SI/HI. Pt presents as future oriented and very motivated to continue substance use treatment at residential program through [facility] and with her OP psych provider through [facility]. This resume writer tried reached out to provider through [facility] as she is off for the next few days. Explained to pt that decisions to continue benzos is up to her OP psych provider. Pt in agreement to prolong taper until she is seen by her OP psych provider next week- diazepam 1mg po BID which is a low and reasonable dose should benzos are no longer prescribed to her. Pt shows understanding and is in agreement with this plan. All her medications, especially controlled substances are managed by staff at residential program, therefore potential for abuse or misuse are very low. [facility] Medical History Anemia Anxiety Arthritis Asthma Bilateral renal stones Bipolar 1 disorder Chronic anemia COPD (chronic obstructive pulmonary disease) COVID-19 vaccine administered Depression Gastritis GERD (gastroesophageal reflux disease) Hiatal hernia without gangrene and obstruction HIV (human immunodeficiency virus infection) Hx of anxiety disorder Hx of hepatitis C Morbid (severe) obesity due to excess calories Nicotine dependence, cigarettes, uncomplicated PTSD (post-traumatic stress disorder) Surgical History History of section, classical History of cholecystectomy History of colonoscopy (~2020) History of endoscopy (~2020) History of repair of hiatal hernia History of tonsillectomy and adenoidectomy Diagnostics Vital Signs (24Hr): Vital Signs - 24 hr 09/27/22 06:32 Temperature 98.5 F Pulse Rate 105 H Respiratory Rate 20 Blood Pressure 144/89 H Pulse Oximetry 90 L Oxygen Delivery Method Room Air BMI result Body Mass Index 34.7 Labs Results: 07/12/22 11:43 07/12/22 11:43 Labs: Laboratory Results - last 48 hr 07/12/22 07/12/22 07/12/22 10:55 10:55 10:55 WBC RBC Hgb Hct MCV MCH MCHC RDW Plt Count MPV Immature Gran % (Auto) Neut % (Auto) Lymph % (Auto) [place] % (Auto) Eos % (Auto) Baso % (Auto) Lymph # (Auto) [place] # (Auto) Eos # (Auto) Baso # (Auto) Abs Immat Gran (auto) Absolute Neuts (auto) Absolute Nucleated RBC Nucleated RBC % (auto) Sodium Potassium Chloride Carbon Dioxide Anion Gap BUN Creatinine Estim Creat Clear Calc Estimated GFR Random Glucose Calcium Total Bilirubin AST ALT Alkaline Phosphatase Total Protein Albumin Urine Color Yellow Urine Appearance Cloudy Urine pH 5.5 Ur Specific [place] 1.015 Urine Protein Negative Urine Glucose (UA) Negative Urine Ketones Negative Urine Blood Negative Urine Nitrite Negative Ur Leukocyte Esterase Large (3+) H Urine RBC 0-2 Urine WBC >50 H Urine WBC Clumps Present Ur Squamous Epith Cells 6-10 Urine Bacteria 4+ Hyaline Casts 0-2 Urine Test NEGATIVE Urine Opiates Screen Not Detected Urine Fentanyl Screen POSITIVE H Ur Barbiturates Screen Not Detected Ur Phencyclidine Scrn Not Detected Ur Amphetamines Screen Not Detected U Benzodiazepines Scrn Not Detected Urine Cocaine Screen Not Detected U Marijuana (THC) Screen Not Detected Ethyl Alcohol COVID-19 (ELSI) COVID-19 Clin Com 07/12/22 07/12/22 07/12/22 11:43 11:43 17:03 WBC 4.2 L RBC 3.66 L Hgb 12.0 Hct 35.5 L MCV 97.0 MCH 32.8 MCHC 33.8 RDW 12.1 Plt Count 209 MPV 9.0 L Immature Gran % (Auto) 0.2 Neut % (Auto) 55.3 Lymph % (Auto) 31.3 [place] % (Auto) 8.2 Eos % (Auto) 4.3 H Baso % (Auto) 0.7 Lymph # (Auto) 1.3 [place]uel # (Auto) 0.3 Eos # (Auto) 0.2 Baso # (Auto) 0.0 Abs Immat Gran (auto) 0.01 Absolute Neuts (auto) 2.3 Absolute Nucleated RBC 0.000 Nucleated RBC % (auto) 0.0 Sodium 140 Potassium 4.6 Chloride 104 Carbon Dioxide 26 Anion Gap 15 BUN 10 Creatinine 1.08 Estim Creat Clear Calc 59.9 Estimated GFR 53 Random Glucose 101 Calcium 9.4 Total Bilirubin 0.4 AST 17 ALT 16 Alkaline Phosphatase 81 Total Protein 6.8 Albumin 4.3 Urine Color Urine Appearance Urine pH Ur Specific [place] Urine Protein Urine Glucose (UA) Urine Ketones Urine Blood Urine Nitrite Ur Leukocyte Esterase Urine RBC Urine WBC Urine WBC Clumps Ur Squamous Epith Cells Urine Bacteria Hyaline Casts Urine Test Urine Opiates Screen Urine Fentanyl Screen Ur Barbiturates Screen Ur Phencyclidine Scrn Ur Amphetamines Screen U Benzodiazepines Scrn Urine Cocaine Screen U Marijuana (THC) Screen Ethyl Alcohol < 10 COVID-19 (ELSI) Negative COVID-19 Clin Com See Note Mental Status Exam Mental Status Exam Narrative: Appearance: casually groomed, fair hygiene in NAD Behavior:cooperative psychomotor: no psychomotor agitation or retardation noted Speech:clear, normal rate/rhythm/volume, spontaneous Thought process: linear Thought content: no signs of psychosis, future oriented Mood: anxious Affect: congruent SI:none HI:none VH/AH:none Delusions:none Insight/judgment:fair x 2. Memory/cog: alert, oriented x 3. grossly intact to conversational testing. Medications Medications Current Medications Albuterol Sulfate (Albuterol Sulfate 90 Mcg 8 Gm Inhaler) 2 puff INHALE Q4H PRN PRN Reason: Respiratory Distress Last Admin: 07/13/22 06:39 Dose: 2 puff Bictegravir/Emtricitabine/Tenofovir (Bictegrav/Emtricit/Tenofov Ala Tablet) 1 tab PO DAILY GEOVANNA Last Admin: 07/13/22 10:00 Dose: 1 tab Bupropion HCl (Bupropion Hcl Xl 300 Mg Tab.Er.24h) 300 mg PO DAILY GEOVANNA Last Admin: 07/13/22 10:00 Dose: 300 mg Clonazepam (Clonazepam 1 Mg Tablet) 1 mg PO TID GEOVANNA Last Admin: 07/13/22 10:00 Dose: 1 mg Dicyclomine HCl (Dicyclomine Hcl 10 Mg Capsule) 20 mg PO TID GEOVANNA Last Admin: 07/13/22 10:02 Dose: 20 mg Duloxetine HCl (Duloxetine Hcl 30 Mg Capsule.Dr) 30 mg PO DAILY [facility] Last Admin: 07/13/22 10:00 Dose: 30 mg Duloxetine HCl (Duloxetine Hcl 60 Mg Capsule.) 60 mg PO DAILY [facility] Last Admin: 07/13/22 10:00 Dose: 60 mg Famotidine (Famotidine 20 Mg Tablet) 40 mg PO BEDTIME [facility] Last Admin: 07/13/22 03:51 Dose: Not Given Gabapentin (Gabapentin 600 Mg Tablet) 600 mg PO TID [facility] Last Admin: 07/13/22 10:00 Dose: 600 mg Hydroxyzine HCl (Hydroxyzine Hcl 50 Mg Tablet) 50 mg PO TID [facility] Last Admin: 07/13/22 10:00 Dose: 50 mg Lurasidone HCl (Lurasidone Hcl 80 Mg Tablet) 80 mg PO BEDTIME [facility] Last Admin: 07/13/22 03:52 Dose: Not Given Omeprazole (Omeprazole 20 Mg Capsule.) 20 mg PO BIDAC [facility] Last Admin: 07/13/22 10:00 Dose: 20 mg Ondansetron HCl (Ondansetron Odt 4 Mg Tab.Rapdis) 4 mg TRANSLINGU Q8H PRN PRN Reason: nausea and vomiting Pharmacy Consult (Consult Rx Perform Med Rec) 1 each MISCELLANE ONCE PRN PRN Reason: Consult order Trazodone HCl (Trazodone Hcl 100 Mg Tablet) 200 mg PO BEDTIME PRN PRN Reason: Sleep Allergies Allergies Allergy/AdvReac Type Severity Reaction Status Date / Time Penicillins [PENICILLINS] Allergy Intermediate SOB/HIVES Verified 05/25/21 13:41 codeine AdvReac Intermediate Nausea and Verified 05/25/21 13:41 Vomiting ketorolac [From Toradol] AdvReac Intermediate Nausea and Verified 05/25/21 13:41 Vomiting Assessment & Plan Assessment & Plan (1) MDD (major depressive disorder), recurrent episode, moderate: Status: Acute Code(s): F33.1 - Major depressive disorder, recurrent, moderate (2) YOLI (generalized anxiety disorder): Status: Acute Code(s): F41.1 - Generalized anxiety disorder Plan Ms. Wallace is a 57 year-old woman with hx of MDD, PTSD, substance use in remission in a residential program through [facility]. Pt was working with OP providers to taper off benzos and was on diazepam taper of 1mg po BID. ONce pt stopped pt reports increased anxious mood, feeling restless. Pt asking to extend taper until seen by OP provider at [facility]. Her psych provider is off for few days so unable to contact her and speak with her directly. Will extend taper of diaze andrew 1mg po BID until next appointment with pt's OP psych provider next week. Pt's residential program manage all medications, especially controlled substances, therefore risk of misuse or abuse is minimal. Diazepam dose is low enough that if her OP provider decides not to continue any benzo it can stopped with no significant withdrawal symptoms. PLAN: pt does not meet inpt level of care as there is no imminent safety concern in terms of SI/HI. - Pt to follow up with providers through [facility] next week -diazepam 1mg po BID #7 sent to [facility] to be delivered to residential program through [facility]. I spent minutes with the patient and/or on the patient floor today, greater than?50% of which was spent counseling/coordinating care.
== END 2022-07-13 14:38 | disposition home or self-care (01) ==
PROVIDERS: Physician Assistant; Emergency Provider Emergency Medicine; PCP Internal Medicine
DX: F31.9 Bipolar disorder, unspecified (principal); F41.9 Anxiety disorder, unspecified; R45.851 Suicidal ideations; F10.10 Alcohol abuse, uncomplicated; Y90.0 Blood alcohol level of less than 20 mg/100 ml; F14.10 Cocaine abuse, uncomplicated; F43.10 Post-traumatic stress disorder, unspecified; Z20.822 Contact with and (suspected) exposure to COVID-19; B20 Human immunodeficiency virus [HIV] disease; B19.20 Unspecified viral hepatitis C without hepatic coma; F17.210 Nicotine dependence, cigarettes, uncomplicated; E66.9 Obesity, unspecified; Z68.34 Body mass index [BMI] 34.0-34.9, adult; Z79.899 Other long term (current) drug therapy
CPT/HCPCS: 36415; 80053; 80307; 81001; 81025; 82077; 85025; 87086; 87635; 99284; 99285

== ENCOUNTER 2022-09-27 10:30 | Emergency (ER) | payer OTHER, SELFPAY ==
[2022-09-27 10:37] VITALS: PULSE 85; RESP 18; TEMP 36.2; O2SAT 94; BMI 32.9
[2022-09-27 11:16] LABS: Amphetamine Screen Urine Not Detected (Not Detect); Barbiturates, Urine Not Detected (Not Detect); Benzodiazepines Screen Urine POSITIVE (Not Detect); Cannabinoid Screen Urine Not Detected (Not Detect); Cocaine Screen Urine Not Detected (Not Detect); Fentanyl, urine POSITIVE (Not Detect); Opiate Screen Urine Not Detected (Not Detect); Phencyclidine Screen Urine Not Detected (Not Detect)
--- NOTE | 2022-09-27 11:37 | ED.GENADULT ---
HPI - General Adult General Chief complaint: General Medical Stated complaint: Medical clearance/Medication refill Time Seen by Provider: 09/27/22 11:31 Source: patient Mode of arrival: ambulatory Limitations: no limitations History of Present Illness HPI narrative: Patient is a 57 year old assigned female at with a history of asthma and substance use presenting to the emergency department today with wheezing and requesting a drug screen. Patient states that she is concerned that her boyfriend is using drugs again because she tested positive for fentanyl on a random urine drug screen at her sober house. Patient states that she has not used any drugs. Patient denies any dizziness, lightheadedness, abdominal pain, nausea, vomiting, fever, chills, blurry vision, double vision, loss of vision, chest pain, difficulty breathing, shortness of breath, back pain, night sweats, pain with urination, increased urinary frequency, increased urinary urgency, blood in her urine or stool, syncope or a near syncopal episode, recent trauma or falls, bowel incontinence, bladder incontinence, bowel retention, bladder retention, or any other complaints at this time. Severity: mild Severity scale (1-10): 2 Relieving factors: none Exacerbating factors: none Associated symptoms: denies other symptoms Treatments prior to arrival: none Related Data Home Medications Medication Instructions Recorded Confirmed albuterol sulfate 90 mcg/actuation 2 puff inhalation Q4H PRN 02/16/21 07/12/22 aerosol inhaler Respiratory Distress bictegravir 50 mg-emtricitabine 1 tab PO DAILY 02/16/21 07/12/22 200 mg-tenofovir alafenam 25 mg tablet (Biktarvy) bupropion HCl 300 mg 24 hr tablet, 300 mg PO DAILY 02/16/21 07/12/22 extended release duloxetine 30 mg capsule,delayed 30 mg PO DAILY 02/16/21 07/12/22 release duloxetine 60 mg capsule,delayed 60 mg PO DAILY 02/16/21 07/12/22 release gabapentin 600 mg tablet 1 tab PO TID 07/12/22 07/12/22 hydroxyzine HCl 50 mg tablet 1 tab PO TID 07/12/22 07/12/22 lurasidone 80 mg tablet (Latuda) 1 tab PO BEDTIME 07/12/22 07/12/22 trazodone 100 mg tablet 2 tab PO BEDTIME PRN Sleep 07/12/22 07/12/22 Previous Rx's Medication Instructions Recorded ondansetron 4 mg disintegrating 4 mg PO Q8H PRN nausea and 12/21/21 tablet vomiting 0 days #60 tabs dicyclomine 10 mg capsule 20 mg PO TID #60 caps 03/16/22 diazepam 2 mg tablet 1 mg PO BID #8 tabs 07/13/22 famotidine 40 mg tablet 40 mg PO BEDTIME #60 tabs 09/14/22 omeprazole 20 mg tablet,delayed 20 mg PO BIDAC #90 tabs 09/14/22 release albuterol sulfate 90 mcg/actuation 1 inh inhalation QID PRN shortness 09/27/22 aerosol inhaler (Ventolin HFA) of breath or wheezing #6.7 grams albuterol sulfate 90 mcg/actuation 1 inh inhalation Q4-6H PRN 09/27/22 breath activated powder shortness of breath #1 ea inhaler,sensor prednisone 20 mg tablet 20 mg PO DAILY 7 days #7 tabs 09/27/22 Allergies Allergy/AdvReac Type Severity Reaction Status Date / Time Penicillins [PENICILLINS] Allergy Intermediate SOB/HIVES Verified 09/27/22 10:37 codeine AdvReac Intermediate Nausea and Verified 09/27/22 10:37 Vomiting ketorolac [From Toradol] AdvReac Intermediate Nausea and Verified 09/27/22 10:37 Vomiting Review of Systems Constitutional: Constitutional: Reports no additional constitutional complaints, Denies chills, Denies fever(s) and Denies night sweats Eyes: Eyes: Reports no additional eye complaints, Denies blurry vision, Denies change in vision, Denies diplopia, Denies eye discharge, Denies loss of vision and Denies eye pain ENT: Denies dizziness Cardiovascular: Cardiovascular: Reports no additional cardiovascular complaints, Denies chest pain, Denies lightheadedness, Denies Loss of Consciousness and Denies dyspnea Respiratory: Respiratory: Reports no additional respiratory complaints, Denies dyspnea and Reports wheezing Gastrointestinal: Gastrointestinal: Reports no additional gastrointestinal complaints, Denies abdominal pain, Denies melena, Denies hematochezia, Denies change in bowel habits and Denies change in stool character Genitourinary: Genitourinary: Denies hematuria, Denies urinary frequency, Denies dysuria, Denies urinary incontinence, Denies urinary hesitancy and Denies urinary urgency Musculoskeletal: Musculoskeletal: Reports no additional musculoskeletal complaints, Denies numbness and Denies tingling Neurologic: Denies dizziness, Denies loss of vision, Denies numbness and Denies tingling Psychiatric: Psychiatric: Reports no additional psychiatric complaints Endocrine: Endocrine: Reports no additional endocrine complaints Hematologic/Lymphatic: Hematologic/Lymphatic: Reports no additional hematologic/lymphatic complaints Allergic/Immunologic: Allergic/Immunologic: Reports no additional allergic/immunologic complaints and Reports wheezing PMFSH Past Medical History Attestation statement: The following information was validated with the patient. Source: old records reviewed and nursing notes reviewed Medical History Anemia Anxiety Arthritis Asthma Bilateral renal stones Bipolar 1 disorder Chronic anemia COPD (chronic obstructive pulmonary disease) COVID-19 vaccine administered Depression Gastritis GERD (gastroesophageal reflux disease) Hiatal hernia without gangrene and obstruction HIV (human immunodeficiency virus infection) Hx of anxiety disorder Hx of hepatitis C Morbid (severe) obesity due to excess calories Nicotine dependence, cigarettes, uncomplicated PTSD (post-traumatic stress disorder) Surgical History History of section, classical History of cholecystectomy History of colonoscopy (~2020) History of endoscopy (~2020) History of repair of hiatal hernia History of tonsillectomy and adenoidectomy Family History Family History Mother Respiratory arrest Father Congestive heart failure Sister No problems noted. Brother No problems noted. Daughter No problems noted. Son No problems noted. Social History Social History Household Members: None Housing: House Housing Other:: resides at [facility]-will return there post-op Are you a primary career technical counselor to a significant other at home: No Do you presently have visiting nurse or other home services: No Alcohol intake: never Patient Tobacco Use Status: Current everyday Tobacco user Tobacco use type: Cigarette Cigarette Packs Per Day: 0.5 Cigarettes Per Day: 10.0 Years Smoked: 20 Second Hand Smoke Exposure: No Advance Directives: Yes Advance Directives on File: Yes Advance Directives Date on File: 03/18/21 service: No Current occupational status: unemployed and disabled Physical Exam ED Vital Signs: Vital Signs - 24 hr 09/27/22 10:37 Temperature 97.1 F Pulse Rate 85 Respiratory Rate 18 Pulse Oximetry 94 Oxygen Delivery Method Room Air BMI result Body Mass Index 32.9 Const General: cooperative, no acute distress, alert and awake Nutritional Appearance: well nourished Orientation/consciousness: patient oriented x3 Limitations: no limitations HENMT Head: Yes normal to inspection and Yes atraumatic Ears: hearing grossly normal bilaterally and external ears normal General nose exam: Normal external nose present, no nasal discharge noted and no epistaxis Face and sinus: Yes normal facial exam, No abrasion and No laceration Mouth: Normal oral and palatal mucosa present, no drooling and no muffled voice Eyes General: appearance normal, both eyes and all related structures Periorbital: periorbital findings normal Eyelids: Yes eyelids normal Conjunctivae: conjunctivae normal Pupils: Equal, round and reactive pupils present EOM: EOMs intact bilaterally Neck Neck: Yes normal visual inspection, Yes full ROM and Yes no lymphadenopathy Chest Chest palpation & inspection: normal inspection of the chest Resp Effort & Inspection: normal respiratory effort and able to speak in complete sentences Auscultation: wheezes throughout Cardio Rate: regular rate Rhythm: regular rhythm GI Inspection: Yes normal to inspection Neuro General: patient oriented x3 and moves all extremities Cranial nerves: Yes Equal, round and reactive pupils present Cognition (Neuro): normal cognition Motor exam (neuro): 5/5 motor strength present throughout Sensory Exam: Normal double simultaneous stimulation for sensation Coordination: [id number] test normal Extrem General: Yes normal to inspection, Yes full ROM and Yes capillary refill normal Psych Appearance: grossly normal Mental Status: mental status grossly normal Affect: normal affect Attitude: cooperative Thought process: Normal thought process present Thought content: Normal thought content present Insight: Good insight present (Psych) Medical Decision Making Medical Decision Making MDM Narrative: Patient is a 57 year old assigned female at with a history of asthma and substance use presenting to the emergency department today with wheezing and requesting a drug screen. Patient's physical exam showed diffuse wheezing but was otherwise unremarkable. Patient's urine drug screen was positive for benzos and fentanyl. Patient is prescribed multiple psychiatric medications that may have a false positive effect on a urine drug screen. I explained my physical exam findings as well as all test results to the patient. I answered all questions asked by the patient. I stressed the importance of the patient taking her medication as prescribed. I stressed the importance of the patient following up with her primary care provider. I stressed the importance of the patient returning to the emergency department immediately if her symptoms were to worsen or if she were to develop any dizziness, shortness of breath, difficulty breathing, chest pain, blurry vision, loss of vision, nausea, vomiting, abdominal pain, fever, chills, back pain, or any other complaints. Patient verbalized agreement and understanding with this treatment plan and discharge. Differential Diagnosis Differential Diagnoses: The differential diagnosis associated with the presentation includes wheezing, asthma exacerbation, drug screening Lab Data MDM Lab Attestation statement: I reviewed the patient's lab results. Labs: Lab Results 09/27/22 Range/Units 10:54 Urine Opiates Screen Not Detected (Not Detect) Urine Fentanyl Screen POSITIVE H (Not Detect) Ur Barbiturates Screen Not Detected (Not Detect) Ur Phencyclidine Scrn Not Detected (Not Detect) Ur Amphetamines Screen Not Detected (Not Detect) U Benzodiazepines Scrn POSITIVE H (Not Detect) Urine Cocaine Screen Not Detected (Not Detect) U Marijuana (THC) Screen Not Detected (Not Detect) Discharge Plan Discharge Clinical Impression: Encounter for drug screening, Diffuse wheezing Patient Disposition: Home, Self-Care Instructions: Wheezing (ED) Additional Instructions: Many psychiatric medications including trazodone and seroquel can cause false positive results on urine drug screening tests. If there is concern for use in this patient, they should have a serum drug test performed which we do not perform here at [facility]. Follow up with your primary care provider. Return to the emergency department immediately if your symptoms worsen or if you develop any dizziness, shortness of breath, difficulty breathing, chest pain, blurry vision, loss of vision, nausea, vomiting, abdominal pain, fever, chills, back pain, or any other complaints. Prescriptions: New prednisone 20 mg tablet 20 mg PO DAILY 7 Days Qty: 7 0RF albuterol sulfate 90 mcg/actuation aero powdr breath act w/sensor 1 inh inhalation Q4-6H PRN (Reason: shortness of breath) Qty: 1 0RF albuterol sulfate [Ventolin HFA] 90 mcg/actuation HFA aerosol inhaler 1 inh inhalation QID PRN (Reason: shortness of breath or wheezing) Qty: 6.7 0RF No Action ondansetron 4 mg tablet,disintegrating 4 mg PO Q8H PRN (Reason: nausea and vomiting) Qty: 60 0RF dicyclomine 10 mg capsule 20 mg PO TID Qty: 60 3RF famotidine 40 mg tablet 40 mg PO BEDTIME Qty: 60 3RF omeprazole 20 mg tablet,delayed release (DR/EC) 20 mg PO BIDAC Qty: 90 3RF bupropion HCl 300 mg Tablet Extended Release 24 Hr 300 mg PO DAILY duloxetine 30 mg Capsule,Delayed Release(Dr/Ec) 30 mg PO DAILY Rx Instructions: TAKES TOGETHER WITH 60 MG CAPSULE FOR TOTAL OF 90 MG duloxetine 60 mg Capsule,Delayed Release(Dr/Ec) 60 mg PO DAILY Rx Instructions: TAKES TOGETHER WITH 30 MG CAPSULE FOR TOTAL OF 90 MG Biktarvy 50-200-25 mg Tablet 1 tab PO DAILY albuterol sulfate 90 mcg/actuation Hfa Aerosol Inhaler 2 puff INHALATION Q4H PRN (Reason: Respiratory Distress) gabapentin 600 mg tablet 1 tab PO TID hydroxyzine HCl 50 mg tablet 1 tab PO TID trazodone 100 mg tablet 2 tab PO BEDTIME PRN (Reason: Sleep) Latuda 80 mg tablet 1 tab PO BEDTIME diazepam 2 mg tablet 1 mg PO BID Qty: 8 0RF Referrals: Raul De La Paz MD [Primary Care Provider] - Interventions: ED Discharge Assessment Last Done: 09/27/22 12:14 Discharge Date/Time: 09/27/22 12:15 Print Language: Hong Kong[place]
== END 2022-09-27 12:15 | disposition home or self-care (01) ==
PROVIDERS: Emergency Provider Emergency Medicine; PCP Internal Medicine
DX: Z02.83 Encounter for blood-alcohol and blood-drug test (principal); R06.2 Wheezing; F17.210 Nicotine dependence, cigarettes, uncomplicated
CPT/HCPCS: 80307; 99282; 99283

== ENCOUNTER 2022-10-06 11:43 | Day surgery (SDC) | payer OTHER, SELFPAY ==
[2022-10-01 10:15] VITALS: BMI 46.5
--- NOTE | 2022-10-05 12:16 | HO.ANESPROP2 ---
Documented by User: Miriam Jean-Baptiste NP 10/05/22 12:18 HPI - Anesthesia Eval Consult details Narrative: 57yo F for Upper Endoscopy with Balloon Dilitation s/p EGD 12/2021 with MAC PMF Active Problems Active Problems: All Active Problems (Updated 09/28/22 @ 00:03 by Background Daemon) Preoperative examination (Acute) Epigastric abdominal pain (Acute) Asthma exacerbation with COPD (chronic obstructive pulmonary disease) (Acute) Morbid obesity with BMI of 40.0-44.9, adult (Acute) Partial gastric outlet obstruction (Acute) Diarrhea (Acute) Cough (Acute) MDD (major depressive disorder), recurrent episode, moderate (Acute) YOLI (generalized anxiety disorder) (Acute) Hiatal hernia without gangrene and obstruction (Acute) Past Medical History Medical History (Updated 09/28/22 @ 00:03 by Background Daemon) Anemia Anxiety Arthritis Asthma Bilateral renal stones Bipolar 1 disorder Chronic anemia COPD (chronic obstructive pulmonary disease) COVID-19 vaccine administered Depression Gastritis GERD (gastroesophageal reflux disease) Hiatal hernia without gangrene and obstruction HIV (human immunodeficiency virus infection) Hx of anxiety disorder Hx of hepatitis C Morbid (severe) obesity due to excess calories Nicotine dependence, cigarettes, uncomplicated PTSD (post-traumatic stress disorder) Family History Family History Mother Respiratory arrest Father Congestive heart failure Sister No problems noted. Brother No problems noted. Daughter No problems noted. Son No problems noted. Family history of problems with anesthesia: No Surgical History Surgical History (Updated 10/01/22 @ 10:06 by Lucille Almaraz RN) History of section, classical History of cholecystectomy History of colonoscopy (~2020) History of endoscopy (~2020) History of repair of hiatal hernia History of tonsillectomy and adenoidectomy History of Problems with Anesthesia: No Social History Social History Household Members: None Housing: House Housing Other:: resides at [facility]-will return there post-op Are you a primary home care specialist to a significant other at home: No Do you presently have visiting nurse or other home services: No Alcohol intake: never Patient Tobacco Use Status: Current everyday Tobacco user Tobacco use type: Cigarette Cigarette Packs Per Day: 0.5 Cigarettes Per Day: 10 Years Smoked: 20 Second Hand Smoke Exposure: No Use of substances other than those prescribed or required for medical reasons: No Are you DNR?: No Advance Directives: Yes Advance Directives on File: Yes Advance Directives Date on File: 03/18/21 service: No Current occupational status: unemployed and disabled Meds Allergies Allergy/AdvReac Type Severity Reaction Status Date / Time Penicillins [PENICILLINS] Allergy Intermediate SOB/HIVES Verified 09/27/22 10:37 codeine AdvReac Intermediate Nausea and Verified 09/27/22 10:37 Vomiting ketorolac [From Toradol] AdvReac Intermediate Nausea and Verified 09/27/22 10:37 Vomiting Home Medications Medication Instructions Recorded Confirmed Last Taken Type albuterol sulfate 90 mcg/actuation 2 puff inhalation Q4H PRN 02/16/21 07/12/22 06/25/21 History aerosol inhaler Respiratory Distress bictegravir 50 mg-emtricitabine 1 tab PO DAILY 02/16/21 07/12/22 06/25/21 History 200 mg-tenofovir alafenam 25 mg tablet (Biktarvy) bupropion HCl 300 mg 24 hr tablet, 300 mg PO DAILY 02/16/21 07/12/22 06/25/21 History extended release duloxetine 30 mg capsule,delayed 30 mg PO DAILY 02/16/21 07/12/22 06/25/21 History release duloxetine 60 mg capsule,delayed 60 mg PO DAILY 02/16/21 07/12/22 06/25/21 History release gabapentin 600 mg tablet 1 tab PO TID 07/12/22 07/12/22 Unknown History hydroxyzine HCl 50 mg tablet 1 tab PO TID 07/12/22 07/12/22 Unknown History lurasidone 80 mg tablet (Latuda) 1 tab PO BEDTIME 07/12/22 07/12/22 Unknown History trazodone 100 mg tablet 2 tab PO BEDTIME PRN Sleep 07/12/22 07/12/22 Unknown History Exam Exam Date and Time: October 05, 2022 1216 Height,Weight and Vital Signs: Height 5 ft 3 in Weight 119.295 kg Pertinent Lab Results Pertinent Lab Results: Laboratory Tests 07/12/22 07/12/22 11:43 11:43 WBC 4.2 L Hgb 12.0 Hct 35.5 L Plt Count 209 Sodium 140 Potassium 4.6 Chloride 104 Carbon Dioxide 26 BUN 10 Creatinine 1.08 Assessment and Plan Assessment Anesthesia Assessment: Chart Reviewed Final Anesthetic Review Family History of Problems with Anesthesia: No History of Problems with Anesthesia: No Documented by User: Narciso Mason MD 10/06/22 14:04 [facility] Past Medical History Medical History (Updated 09/28/22 @ 00:03 by Rafat Pitt) Anemia Anxiety Arthritis Asthma Bilateral renal stones Bipolar 1 disorder Chronic anemia COPD (chronic obstructive pulmonary disease) COVID-19 vaccine administered Depression Gastritis GERD (gastroesophageal reflux disease) Hiatal hernia without gangrene and obstruction HIV (human immunodeficiency virus infection) Hx of anxiety disorder Hx of hepatitis C Morbid (severe) obesity due to excess calories Nicotine dependence, cigarettes, uncomplicated PTSD (post-traumatic stress disorder) Family History Family History Mother Respiratory arrest Father Congestive heart failure Sister No problems noted. Brother No problems noted. Daughter No problems noted. Son No problems noted. Surgical History Surgical History (Updated 10/01/22 @ 10:06 by Lucille Almaraz RN) History of section, classical History of cholecystectomy History of colonoscopy (~2020) History of endoscopy (~2020) History of repair of hiatal hernia History of tonsillectomy and adenoidectomy Social History Social History Household Members: None Housing: House Housing Other:: resides at [facility]-will return there post-op Are you a primary home care specialist to a significant other at home: No Do you presently have visiting nurse or other home services: No Alcohol intake: never Patient Tobacco Use Status: Current everyday Tobacco user Tobacco use type: Cigarette Cigarette Packs Per Day: 0.5 Cigarettes Per Day: 10 Years Smoked: 20 Second Hand Smoke Exposure: No Use of substances other than those prescribed or required for medical reasons: No Are you DNR?: No Advance Directives: Yes Advance Directives on File: Yes Advance Directives Date on File: 03/18/21 service: No Current occupational status: unemployed and disabled Meds Allergies Allergy/AdvReac Type Severity Reaction Status Date / Time Penicillins [PENICILLINS] Allergy Intermediate SOB/HIVES Verified 09/27/22 10:37 codeine AdvReac Intermediate Nausea and Verified 09/27/22 10:37 Vomiting ketorolac [From Toradol] AdvReac Intermediate Nausea and Verified 09/27/22 10:37 Vomiting Home Medications Medication Instructions Recorded Confirmed Last Taken Type albuterol sulfate 90 mcg/actuation 2 puff inhalation Q4H PRN 02/16/21 07/12/22 06/25/21 History aerosol inhaler Respiratory Distress bictegravir 50 mg-emtricitabine 1 tab PO DAILY 02/16/21 07/12/22 06/25/21 History 200 mg-tenofovir alafenam 25 mg tablet (Biktarvy) bupropion HCl 300 mg 24 hr tablet, 300 mg PO DAILY 02/16/21 07/12/22 06/25/21 History extended release duloxetine 30 mg capsule,delayed 30 mg PO DAILY 02/16/21 07/12/22 06/25/21 History release duloxetine 60 mg capsule,delayed 60 mg PO DAILY 02/16/21 07/12/22 06/25/21 History release gabapentin 600 mg tablet 1 tab PO TID 07/12/22 07/12/22 Unknown History hydroxyzine HCl 50 mg tablet 1 tab PO TID 07/12/22 07/12/22 Unknown History lurasidone 80 mg tablet (Latuda) 1 tab PO BEDTIME 07/12/22 07/12/22 Unknown History trazodone 100 mg tablet 2 tab PO BEDTIME PRN Sleep 07/12/22 07/12/22 Unknown History Exam Airway Mallampati Class: II TM Dist: >3cm Neck ROM: Full Loose/Missing/Broken Teeth: No Heart: rrr Lungs: some scattered rhonchi Assessment and Plan Final Anesthetic Review NPO: Yes ASA Class: III Final Preanesthetic Review: No Changes in Pt Med Stat, Meds/Allgs Chart Reviewed, Consent Obtained/Reviewed and Anes Risks/Benef Reviewed Patient Risk: Intermediate Procedure Risk: Low Anesthetic Plan Anesthetic Plan: MAC: and Regional Block
--- NOTE | 2022-10-06 12:56 | MHC.SHP ---
Pre-Procedural Eval Section A Date of Service: 10/06/22 Section B Chief Complaint: Dysphagia, Relevant Family History (Specify if Yes): No Relevant Social History: Tobacco Use Present Medications: see Short Stay Collaborative assessment Medical History: Significant History (Anemia Anxiety Arthritis Asthma Bilateral renal stones Bipolar 1 disorder Chronic anemia COPD (chronic obstructive pulmonary disease) COVID-19 vaccine administered Depression Gastritis GERD (gastroesophageal reflux disease) Hiatal hernia without gangrene and obstruction HIV (human immunodeficiency v) History of Previous Operations: Relevant previous surgery/procedure and date(s) (History of section, classical History of cholecystectomy History of colonoscopy (~2020) History of endoscopy (~2020) History of repair of hiatal hernia History of tonsillectomy and adenoidectomy) Allergies: Allergies Allergy/AdvReac Type Severity Reaction Status Date / Time Penicillins [PENICILLINS] Allergy Intermediate SOB/HIVES Verified 09/27/22 10:37 codeine AdvReac Intermediate Nausea and Verified 09/27/22 10:37 Vomiting ketorolac [From Toradol] AdvReac Intermediate Nausea and Verified 09/27/22 10:37 Vomiting Review of Systems Sugical H&P ROS: Negative: Constitution, Cardiovascular, Respiratory, Neurological, Psychiatric, Hem-Onc, Allergic/Immunologic, Gastrointestinal, Genitourinary, Musculoskeletal, Integumentary, Endocrine and Eyes/Ears/Nose/Throat Exam Surgical H&P Exam: Normal: HEENT, Normal: Heart, Normal: Lungs, Normal: Extremities, Normal: Abdomen, Normal: Skin and Normal: Neurological Plan Diagnosis/Plan: Unchanged I have reviewed the history and physical and performed a pertinent physical examination on my patient. No changes have occurred unless specified. Time Spent With Patient Time: Total time managing care of this patient today ____ minutes.
[2022-10-06 13:30] VITALS: BP 100/69; PULSE 79; RESP 18; TEMP 36.1; O2SAT 94
[2022-10-06 13:58] LABS: Amphetamine Screen Urine Not Detected (Not Detect); Barbiturates, Urine Not Detected (Not Detect); Benzodiazepines Screen Urine POSITIVE (Not Detect); Cannabinoid Screen Urine Not Detected (Not Detect); Cocaine Screen Urine Not Detected (Not Detect); Fentanyl, urine POSITIVE (Not Detect); Opiate Screen Urine Not Detected (Not Detect); Phencyclidine Screen Urine Not Detected (Not Detect)
--- NOTE | 2022-10-06 14:09 | PC.NURSE ---
anesthesia aware of saldivar results
--- NOTE | 2022-10-06 14:33 | W.PM.OPN ---
Operative Note Operative Note Date of Service: 10/06/22 Narrative: Procedure Description: EGD Indication: dysphagia and post prandial diarrhea Anesthesia: MAC FLEXIBLE TRANSORAL UPPER GASTROINTESTINAL ENDOSCOPY UPPER ENDOSCOPY Consent: Indications for the procedure and potential complications of bleeding, perforation, reaction to medications and missed diagnosis were discussed with the patient and informed consent was obtained. Instrument: Olympus GIF H 190 J mid size upper endoscope Monitoring: Vital signs and clinical assessment, continuous EKG monitoring, Pulse oximetry, Carbon Dioxide monitoring and blood pressure monitoring were done throughout the procedure. Procedure: The patient was placed in the left lateral decubitis position and pre-procedure medications were administered and a bite block was placed. The endoscope was inserted into the mouth and advanced under direct vision to the third part of duodenum. A careful inspection was made as the upper endoscope was withdrawn including a retroflexed examination of the proximal stomach; Findings and interventions are described below. Findings: Larynx:normal Esophagus: GE junction at 34 cm, diaphragm hiatus at 37 cm, consistent with 3 cm sliding hiatal hernia, ballon dilation of GEJ to 19 mm and UES to 19 mm with resistance felt but no tears seen. Stomach: Patchy streaky gastric erythema. Biopsies were obtained. Grade 2 flap valve on retroflexed examination of the cardia. Pylorus dilated with balloon to 18 mm with resistance felt, no tears Duodenum: Normal bulb and descending duodenum, bx taken, duodenal diverticulum noted as before in second part Intervention: Biopsies as noted above, balloon dilation Impression/Findings: gastritis sliding hiatal hernia PLAN: regular diet as tolerated avoid opiates as can affect motility (u tox pos for fentyl today) check compliance with PPI, can increase dose if taking or commence if not taking
[2022-10-06 14:58] VITALS: BP 85/55; PULSE 77; RESP 16; TEMP 36.1; O2SAT 96
[2022-10-06 15:02] VITALS: BP 125/82; PULSE 74; RESP 16; TEMP 36.1; O2SAT 97
== END 2022-10-06 15:35 | disposition home or self-care (01) ==
PROVIDERS: Nurse Practitioner; PCP Internal Medicine; Visit Provider Internal Medicine Gastroenterology
PROC: (CPT 43249; principal; 2022-10-06 13:10)
DX: R13.10 Dysphagia, unspecified (principal); K29.50 Unspecified chronic gastritis without bleeding; K57.10 Diverticulosis of small intestine without perforation or abscess without bleeding; K44.9 Diaphragmatic hernia without obstruction or gangrene; K21.9 Gastro-esophageal reflux disease without esophagitis; D64.9 Anemia, unspecified; J44.9 Chronic obstructive pulmonary disease, unspecified; Z21 Asymptomatic human immunodeficiency virus [HIV] infection status; E66.01 Morbid (severe) obesity due to excess calories; Z68.41 Body mass index [BMI] 40.0-44.9, adult; Z79.899 Other long term (current) drug therapy; Z79.51 Long term (current) use of inhaled steroids; Z88.0 Allergy status to penicillin; Z88.8 Allergy status to other drugs, medicaments and biological substances; Z86.19 Personal history of other infectious and parasitic diseases; Z90.49 Acquired absence of other specified parts of digestive tract; F17.210 Nicotine dependence, cigarettes, uncomplicated
CPT/HCPCS: 43249; 43239; 80307; 88305; 88342; C1726

== ENCOUNTER 2023-02-18 12:25 | Inpatient (IN) | payer OTHER, SELFPAY ==
--- NOTE | 2023-02-18 | ECG_ITS ---
Test Reason : DRUG USE Blood Pressure : / mmHG Vent. Rate : 087 BPM Atrial Rate : 087 BPM P-R Int : 158 ms QRS Dur : 082 ms QT Int : 364 ms P-R-T Axes : 071 012 026 degrees QTc Int : 438 ms Normal sinus rhythm Inferior infarct , age undetermined Abnormal ECG When compared with ECG of 25-JUN-2021 10:28, Inferior infarct is now Present Referred By: Ramona Stevens Electronically Signed By:HARINI MARCIAL MD
[2023-02-18 12:30] VITALS: BP 120/82; PULSE 101; RESP 16; TEMP 36.3; O2SAT 95; BMI 35.9
--- NOTE | 2023-02-18 12:31 | ED_ITS ---
HPI - Psych General Chief Complaint: Psychiatric Symptoms <RONEN Yao Last Filed: 02/18/23 12:37> Stated Complaint: CRISIS <RONEN Yao Last Filed: 02/18/23 12:37> Time Seen by Provider: 02/18/23 12:45 <RONEN Yao Last Filed: 02/18/23 12:37> Source: patient <RONEN Mendez Last Filed: 02/18/23 16:13> Mode of arrival: ambulatory <RONEN Mendez Last Filed: 02/18/23 16:13> Limitations: no limitations <RONEN Mendez Last Filed: 02/18/23 16:13> History of Present Illness HPI Narrative: Patient is a 57 year old assigned female at with a history of MDD, YOLI, and asthma presenting to the emergency department today with suicidal ideation. Patient states that for the last week she has felt generally unsafe and suicidal. Patient denies any dizziness, lightheadedness, abdominal pain, nausea, vomiting, fever, chills, blurry vision, double vision, loss of vision, chest pain, difficulty breathing, shortness of breath, back pain, night sweats, pain with urination, increased urinary frequency, increased urinary urgency, blood in her urine or stool, syncope or a near syncopal episode, recent trauma or falls, bowel incontinence, bladder incontinence, bowel retention, bladder retention, or any other complaints at this time. <RONEN Mendez Last Filed: 02/18/23 16:13> MD complaint: suicidal ideation and feels depressed <RONEN Mendez Last Filed: 02/18/23 16:13> Onset (ago): week(s) (1) <RONEN Mendez Last Filed: 02/18/23 16:13> Duration: constant <RONEN Mendez Last Filed: 02/18/23 16:13> Relieving factors: none <RONEN Mendez Last Filed: 02/18/23 16:13> Exacerbating factors: none <RONEN Mendez Last Filed: 02/18/23 16:13> Associated psychiatric symptoms: depression and suicidal ideation <RONEN Mendez Last Filed: 02/18/23 16:13> Associated symptoms: denies other symptoms <RONEN Mendez Last Filed: 02/18/23 16:13> Treatments prior to arrival: none <RONEN Mendez - Last Filed: 02/18/23 16:13> Related Data Home Medications: Home Medications Medication Instructions Recorded Confirmed alprazolam 1 mg tablet 1 mg PO TID PRN Anxiety 02/18/23 02/18/23 bictegravir 50 mg-emtricitabine 1 tab PO DAILY 02/18/23 02/18/23 200 mg-tenofovir alafenam 25 mg tablet (Biktarvy) bupropion HCl 300 mg 24 hr tablet, 300 mg PO QAM 02/18/23 02/18/23 extended release clonidine HCl 0.2 mg tablet 0.2 mg PO BEDTIME 02/18/23 02/18/23 dicyclomine 20 mg tablet 20 mg PO TID 02/18/23 02/18/23 doxepin 100 mg capsule 100 mg PO BEDTIME 02/18/23 02/18/23 duloxetine 60 mg capsule,delayed 90 mg PO DAILY 02/18/23 02/18/23 release famotidine 40 mg tablet 40 mg PO BEDTIME 02/18/23 02/18/23 gabapentin 300 mg tablet 300 mg PO TID 02/18/23 02/18/23 lorazepam 1 mg tablet 1 mg PO TID PRN breakthrough 02/18/23 02/18/23 anxiety lurasidone 80 mg tablet (Latuda) 80 mg PO DAILY 02/18/23 02/18/23 omeprazole 20 mg tablet,delayed 20 mg PO DAILY 02/18/23 02/18/23 release <RONEN Yao Last Filed: 02/18/23 12:37> Allergies/Adverse Reactions: Allergies Allergy/AdvReac Type Severity Reaction Status Date / Time Penicillins [PENICILLINS] Allergy Intermediate SOB/HIVES Verified 09/27/22 10:37 codeine AdvReac Intermediate Nausea and Verified 09/27/22 10:37 Vomiting ketorolac [From Toradol] AdvReac Intermediate Nausea and Verified 09/27/22 10:37 Vomiting <RONEN Yao Last Filed: 02/18/23 12:37> Review of Systems Constitutional: Constitutional: Reports no additional constitutional complaints, Denies chills, Denies fever(s) and Denies night sweats <RONEN Mendez - Last Filed: 02/18/23 16:13> Eyes: Eyes: Reports no additional eye complaints, Denies blurry vision, Denies change in vision, Denies diplopia, Denies eye discharge, Denies loss of vision and Denies eye pain <RONEN Mendez - Last Filed: 02/18/23 16:13> ENT: Denies dizziness <RONEN Mendez - Last Filed: 02/18/23 16:13> Cardiovascular: Cardiovascular: Reports no additional cardiovascular complaints, Denies chest pain, Denies lightheadedness, Denies Loss of Consciousness and Denies dyspnea <RONEN Mendez - Last Filed: 02/18/23 16:13> Respiratory: Respiratory: Reports no additional respiratory complaints and Denies dyspnea <RONEN Mendez - Last Filed: 02/18/23 16:13> Gastrointestinal: Gastrointestinal: Reports no additional gastrointestinal complaints, Denies abdominal pain, Denies melena, Denies hematochezia, Denies change in bowel habits and Denies change in stool character <RONEN Mendez - Last Filed: 02/18/23 16:13> Genitourinary: Genitourinary: Denies hematuria, Denies urinary frequency, Denies dysuria, Denies urinary incontinence, Denies urinary hesitancy and Denies urinary urgency <RONEN Mendez - Last Filed: 02/18/23 16:13> Musculoskeletal: Musculoskeletal: Reports no additional musculoskeletal complaints, Denies numbness and Denies tingling <RONEN Mendez - Last Filed: 02/18/23 16:13> Neurologic: Denies dizziness, Denies loss of vision, Denies numbness and Denies tingling <RONEN Mendez - Last Filed: 02/18/23 16:13> Psychiatric: Psychiatric: Reports no additional psychiatric complaints and Reports suicidal ideation <RONEN Mendez - Last Filed: 02/18/23 16:13> Endocrine: Endocrine: Reports no additional endocrine complaints <RONEN Mendez - Last Filed: 02/18/23 16:13> Hematologic/Lymphatic: Hematologic/Lymphatic: Reports no additional yue tologic/lymphatic complaints <RONEN Mendez - Last Filed: 02/18/23 16:13> Allergic/Immunologic: Allergic/Immunologic: Reports no additional allergic/immunologic complaints <RONEN Mendez - Last Filed: 02/18/23 16:13> [facility] Past Medical History Attestation statement: The following information was validated with the patient. <RONEN Mendez - Last Filed: 02/18/23 16:13> Source: old records reviewed and nursing notes reviewed <RONEN Mendez - Last Filed: 02/18/23 16:13> Medical History: Medical History Anemia Anxiety Arthritis Asthma Bilateral renal stones Bipolar 1 disorder Chronic anemia COPD (chronic obstructive pulmonary disease) COVID-19 vaccine administered Depression Gastritis GERD (gastroesophageal reflux disease) Hiatal hernia without gangrene and obstruction HIV (human immunodeficiency virus infection) Hx of anxiety disorder Hx of hepatitis C Morbid (severe) obesity due to excess calories Nicotine dependence, cigarettes, uncomplicated PTSD (post-traumatic stress disorder) <RONEN Yao - Last Filed: 02/18/23 12:37> Surgical History: Surgical History History of section, classical History of cholecystectomy History of colonoscopy (~2020) History of endoscopy (~2020) History of repair of hiatal hernia History of tonsillectomy and adenoidectomy <RONEN Yao - Last Filed: 02/18/23 12:37> Family History Family History: Family History Mother Respiratory arrest Father Congestive heart failure Sister No problems noted. Brother No problems noted. Daughter No problems noted. Son No problems noted. <RONEN Yao - Last Filed: 02/18/23 12:37> Social History Social History: Social History Household Members: None Housing: House Housing Other:: resides at [facility]-will return there post-op Are you a primary intensive care medicine specialist to a significant other at home: No Do you presently have visiting nurse or other home services: No Alcohol intake: never Patient Tobacco Use Status: Current everyday Tobacco user Tobacco use type: Cigarette Cigarette Packs Per Day: 0.5 Cigarettes Per Day: 10 Years Smoked: 20 Second Hand Smoke Exposure: No Advance Directives: Yes Advance Directives on File: Yes Advance Directives Date on File: 03/18/21 service: No Current occupational status: unemployed and disabled <RONEN Yao - Last Filed: 02/18/23 12:37> Physical Exam Vital Signs: Vital Signs: Last Vital Signs Temp 97.3 F 02/18/23 12:30 Pulse 101 H 02/18/23 12:30 Resp 16 02/18/23 12:30 BP 120/82 02/18/23 12:30 Pulse Ox 95 02/18/23 12:30 O2 Del Method Room Air 02/18/23 12:30 BMI result Body Mass Index 35.9 <RONEN Yao - Last Filed: 02/18/23 12:37> Vital Signs: Last Vital Signs Temp 97.3 F 02/18/23 12:30 Pulse 101 H 02/18/23 12:30 Resp 16 02/18/23 12:30 BP 120/82 02/18/23 12:30 Pulse Ox 95 02/18/23 12:30 O2 Del Method Room Air 02/18/23 12:30 BMI result Body Mass Index 35.9 <RONEN Mendez - Last Filed: 02/18/23 16:13> Const: General: cooperative, no acute distress, alert and awake <RONEN Mendez Last Filed: 02/18/23 16:13> Nutritional Appearance: well nourished <RONEN Mendez - Last Filed: 02/18/23 16:13> Orientation/consciousness: patient oriented x3 <RONEN Mendez Last Filed: 02/18/23 16:13> Limitations: no limitations <RONEN Mendez Last Filed: 02/18/23 16:13> HEENT: Head: Yes normal to inspection and Yes atraumatic <RONEN Mendez Last Filed: 02/18/23 16:13> Ears: hearing grossly normal bilaterally and external ears normal <RONEN Mendez Last Filed: 02/18/23 16:13> General nose exam: Normal external nose present, no nasal discharge noted and no epistaxis <Ramona Stevens PA - Last Filed: 02/18/23 16:13> Face and sinus: Yes normal facial exam, No abrasion and No laceration <Ramonalashonda Husseindeisy PA - Last Filed: 02/18/23 16:13> Mouth: Normal oral and palatal mucosa present, no drooling and no muffled voice <Ramona Stevens PA - Last Filed: 02/18/23 16:13> Eyes: General: appearance normal, both eyes and all related structures <Ramona Stevens PA - Last Filed: 02/18/23 16:13> Periorbital: periorbital findings normal <Ramona Stevens PA - Last Filed: 02/18/23 16:13> Eyelids: Yes eyelids normal <Ramona Stevens PA - Last Filed: 02/18/23 16:13> Conjunctivae: conjunctivae normal <Ramona Stevens PA - Last Filed: 0 02/18/23 16:13> Pupils: Equal, round and reactive pupils present <Ramona Stevens PA - Last Filed: 02/18/23 16:13> EOM: EOMs intact bilaterally <Ramona Stevens PA - Last Filed: 02/18/23 16:13> Neck: Neck: Yes normal visual inspection, Yes full ROM and Yes no lymphadenopathy <Ramona Stevens PA - Last Filed: 02/18/23 16:13> Chest: Chest palpation & inspection: normal inspection of the chest <Ramona Stevens PA - Last Filed: 02/18/23 16:13> Resp: Effort & Inspection: normal respiratory effort and able to speak in complete sentences <Ramona Stevens PA - Last Filed: 02/18/23 16:13> GI: Inspection: Yes normal to inspection <Ramona Stevens PA - Last File d: 02/18/23 16:13> Neuro: General: patient oriented x3 and moves all extremities <Ramona Stevens PA - Last Filed: 02/18/23 16:13> Cranial nerves: Yes Equal, round and reactive pupils present <Ramona Stevens PA - Last Filed: 02/18/23 16:13> Cognition (Neuro): normal cognition <RONEN Mendez - Last Filed: 02/18/23 16:13> Motor exam (neuro): 5/5 motor strength present throughout <RONEN Mendez - Last Filed: 02/18/23 16:13> Sensory Exam: Normal double simultaneous stimulation for sensation <RONEN Mendez - Last Filed: 02/18/23 16:13> Coordination: padrea-xv-pmac test normal <RONEN Mendez - Last Filed: 02/18/23 16:13> Extrem: General: Yes normal to inspection, Yes full ROM and Yes capillary refill normal <RONEN Mendez - Last Filed: 02/18/23 16:13> Psych: Appearance: grossly normal <RONEN Mendez - Last Filed: 02/18/23 16:13> Mental Status: mental status grossly normal <RONEN Mendez - Last Filed: 02/18/23 16:13> Affect: normal affect <RONEN Mendez - Last Filed: 02/18/23 16:13> Attitude: cooperative <RONEN Mendez - Last Filed: 02/18/23 16:13> Thought process: Normal thought process present <RONEN Mendez - Last Filed: 02/18/23 16:13> Thought content: Normal thought content present <RONEN Mendez - Last Filed: 02/18/23 16:13> Insight: Good insight present (Psych) <RONEN Mendez - Last Filed: 02/18/23 16:13> Course Course Course Narrative: RME - 57 y/o female with history of bipolar 1 disorder, depression, PTSD, COPD, active smoker, currently homeless who presents to the ER for evaluation of worsening depression and suicidal thoughts. She feels unsafe. She has a plan to overdose with history of Flexeril OD in the past. She admits to intermittently forgetting to take her medications. She relapsed yesterday with crack. Plan: medically clear then have CARE team evaluation <RONEN Yao - Last Filed: 02/18/23 12:37> Medications Administered Generic Name Dose Route Start Last Admin Trade Name Freq PRN Reason Stop Dose Admin Bupropion HCl 300 mg 02/18/23 13:30 05/05/23 14:05 Bupropion Hcl Xl 300 Mg Tab.Er.24h PO Not Given DAILY GEOVANNA Dicyclomine HCl 20 mg 02/18/23 15:00 02/18/23 14:25 Dicyclomine Hcl 10 Mg Capsule PO 20 mg TID GEOVANNA Administration Gabapentin 300 mg 02/18/23 15:00 02/18/23 14:25 Gabapentin 300 Mg Capsule PO 300 mg TID GEOVANNA Administration Omeprazole 20 mg 02/18/23 14:00 02/18/23 14:05 Omeprazole 20 Mg Capsule.Dr PO Not Given DAILY@0630 GEOVANNA <RONEN Yao - Last Filed: 02/18/23 12:37> Medications Administered Generic Name Dose Route Start Last Admin Trade Name Jarrod PRN Reason Stop Dose Admin Bupropion HCl 300 mg 02/18/23 13:30 02/18/23 14:05 Bupropion Hcl Xl 300 Mg Tab.Er.24h PO Not Given DAILY GEOVANNA Dicyclomine HCl 20 mg 02/18/23 15:00 02/18/23 14:25 Dicyclomine Hcl 10 Mg Capsule PO 20 mg TID GEOVANNA Administration Gabapentin 300 mg 02/18/23 15:00 02/18/23 14:25 Gabapentin 300 Mg Capsule PO 300 mg TID GEOVANNA Administration Omeprazole 20 mg 02/18/23 14:00 02/18/23 14:05 Omeprazole 20 Mg Capsule.Dr PO Not Given DAILY@0630 GEOVANNA <RONEN Mendez - Last Filed: 02/18/23 16:13> Medical Decision Making Medical Decision Making [facility] Narrative: Patient is a 57 year old assigned female at with a history of asthma, MDD, and YOLI presenting to the emergency department today with suicidal ideation. Patient's physical exam was unremarkable. Patient's blood work was unremarkable. I explained my physical exam findings as well as all test results to the patient. I answered all questions asked by the patient. Patient is awaiting CARE team evaluation. <RONEN Mendez Last Filed: 02/18/23 16:13> Differential Diagnosis Differential Diagnoses: The differential diagnosis associated with the presentation includes <RONEN eMndez Last Filed: 02/18/23 16:13> suicidal ideation <RONEN Mendez Last Filed: 02/18/23 16:13> Lab Data MDM Lab Attestation statement: I reviewed the patient's lab results. <RONEN Mendez - Last Filed: 02/18/23 16:13> Result Diagrams: 02/18/23 14:41 02/18/23 14:41 <RONEN Yao - Last Filed: 02/18/23 12:37> Labs: Lab Results 02/18/23 02/18/23 02/18/23 Range/Units 13:03 13:03 13:03 WBC (4.8-10.8) X10*3/uL RBC (4.20-5.50) X10*6/uL Hgb (12.0-16.0) g/dl Hct (37.0-47.0) % MCV (80.0-98.0) fL MCH (27.0-33.0) pg MCHC (31.0-35.0) g/dl RDW (11.0-16.0) % Plt Count (160-400) X10*3/uL MPV (9.4-12.3) fL Immature Gran % (Auto) (0.0-0.4) % Neut % (Auto) (45-73) % Lymph % (Auto) (20-40) % [place] % (Auto) (2-11) % Eos % (Auto) (0-4) % Baso % (Auto) (0-2) % Lymph # (Auto) (1.2-4.9) X10*3/uL [place] # (Auto) (0.1-1.2) X10*3/uL Eos # (Auto) (0.0-0.4) X10*3/uL Baso # (Auto) (0.0-0.2) X10*3/uL Abs Immat Gran (auto) (0.00-0.03) X10*3/uL Absolute Neuts (auto) (2.0-8.3) x10*3/uL Absolute Nucleated RBC (0.0-0.012) X10*3/uL Nucleated RBC % (auto) (0.0-0.2) /100WBC Sodium (135-145) mmol/L Potassium (3.3-5.1) mmol/L Chloride (96-108) mmol/L Carbon Dioxide (22-29) mmol/L Anion Gap (12-20) BUN (9-16) mg/dL Creatinine (0.5-1.4) mg/dL Estim Creat Clear Calc Estimated GFR Random Glucose (60-115) mg/dL Calcium (8.4-10.2) mg/dL Magnesium (1.6-2.6) mg/dL Total Bilirubin (0.0-1.0) mg/dL Direct Bilirubin (0.0-0.5) mg/dL AST (5-31) U/L ALT (0-31) U/L Alkaline Phosphatase (39-117) U/L Total Protein (6.5-8.0) g/dL Albumin (3.5-5.0) g/dL Urine Color Dark Yellow Urine Appearance Cloudy Urine pH 6.0 (5.0-9.0) Ur Specific Diamond >= 1.030 H (1.005-1.025) Urine Protein 30 (1+) H (Neg-Trace) mg/dL Urine Glucose (UA) Negative (Negative) mg/dL Urine Ketones Trace (Negative) mg/dL Urine Blood Negative (Negative) Urine Nitrite Negative (Negative) Ur Leukocyte Esterase Small (1+) H (Negative) Urine RBC 3-5 H (0-2) /HPF Urine WBC 11-20 H (0-5) /HPF Ur Squamous Epith Cells >20 (0-2) /HPF Urine Bacteria 4+ (None Seen) Hyaline Casts 0-2 (0-2) /LPF Urine Opiates Screen Not Detected (Not Detect) Urine Fentanyl Screen Not Detected (Not Detect) Ur Barbiturates Screen Not Detected (Not Detect) Ur Phencyclidine Scrn Not Detected (Not Detect) Ur Amphetamines Screen Not Detected (Not Detect) U Benzodiazepines Scrn POSITIVE H (Not Detect) Urine Cocaine Screen POSITIVE H (Not Detect) U Marijuana (THC) Screen POSITIVE H (Not Detect) Ethyl Alcohol mg/dL COVID-19 (ELSI) Negative (Negative) COVID-19 Clin Com See Note 02/18/23 02/18/23 Range/Units 14:41 14:41 WBC 6.2 (4.8-10.8) X10*3/uL RBC 3.76 L (4.20-5.50) X10*6/uL Hgb 12.3 (12.0-16.0) g/dl Hct 36.5 L (37.0-47.0) % MCV 97.1 (80.0-98.0) fL MCH 32.7 (27.0-33.0) pg MCHC 33.7 (31.0-35.0) g/dl RDW 13.0 (11.0-16.0) % Plt Count 208 (160-400) X10*3/uL MPV 9.3 L (9.4-12.3) fL Immature Gran % (Auto) 0.3 (0.0-0.4) % Neut % (Auto) 62.1 (45-73) % Lymph % (Auto) 24.6 (20-40) % [place] % (Auto) 9.3 (2-11) % Eos % (Auto) 3.1 (0-4) % Baso % (Auto) 0.6 (0-2) % Lymph # (Auto) 1.5 (1.2-4.9) X10*3/uL [place] # (Auto) 0.6 (0.1-1.2) X10*3/uL Eos # (Auto) 0.2 (0.0-0.4) X10*3/uL Baso # (Auto) 0.0 (0.0-0.2) X10*3/uL Abs Immat Gran (auto) 0.02 (0.00-0.03) X10*3/uL Absolute Neuts (auto) 3.9 (2.0-8.3) x10*3/uL Absolute Nucleated RBC 0.000 (0.0-0.012) X10*3/uL Nucleated RBC % (auto) 0.0 (0.0-0.2) /100WBC Sodium 139 (135-145) mmol/L Potassium 3.8 (3.3-5.1) mmol/L Chloride 104 (96-108) mmol/L Carbon Dioxide 26 (22-29) mmol/L Anion Gap 13 (12-20) BUN 10 (9-16) mg/dL Creatinine 1.09 (0.5-1.4) mg/dL Estim Creat Clear Calc 60.4 Estimated GFR 52 Random Glucose 94 (60-115) mg/dL Calcium 9.3 (8.4-10.2) mg/dL Magnesium 2.0 (1.6-2.6) mg/dL Total Bilirubin 0.7 (0.0-1.0) mg/dL Direct Bilirubin 0.2 (0.0-0.5) mg/dL AST 35 H (5-31) U/L ALT 51 H (0-31) U/L Alkaline Phosphatase 92 (39-117) U/L Total Protein 6.1 L (6.5-8.0) g/dL Albumin 3.9 (3.5-5.0) g/dL Urine Color Urine Appearance Urine pH (5.0-9.0) Ur Specific Diamond (1.005-1.025) Urine Protein (Neg-Trace) mg/dL Urine Glucose (UA) (Negative) mg/dL Urine Ketones (Negative) mg/dL Urine Blood (Negative) Urine Nitrite (Negative) Ur Leukocyte Esterase (Negative) Urine RBC (0-2) /HPF Urine WBC (0-5) /HPF Ur Squamous Epith Cells (0-2) /HPF Urine Bacteria (None Seen) Hyaline Casts (0-2) /LPF Urine Opiates Screen (Not Detect) Urine Fentanyl Screen (Not Detect) Ur Barbiturates Screen (Not Detect) Ur Phencyclidine Scrn (Not Detect) Ur Amphetamines Screen (Not Detect) U Benzodiazepines Scrn (Not Detect) Urine Cocaine Screen (Not Detect) U Marijuana (THC) Screen (Not Detect) Ethyl Alcohol < 10 mg/dL COVID-19 (ELSI) (Negative) COVID-19 Clin Com <RONEN Yao - Last Filed: 02/18/23 12:37> Lab Results 02/18/23 02/18/23 02/18/23 Range/Units 13:03 13:03 13:03 WBC (4.8-10.8) X10*3/uL RBC (4.20-5.50) X10*6/uL Hgb (12.0-16.0) g/dl Hct (37.0-47.0) % MCV (80.0-98.0) fL MCH (27.0-33.0) pg MCHC (31.0-35.0) g/dl RDW (11.0-16.0) % Plt Count (160-400) X10*3/uL MPV (9.4-12.3) fL Immature Gran % (Auto) (0.0-0.4) % Neut % (Auto) (45-73) % Lymph % (Auto) (20-40) % [place] % (Auto) (2-11) % Eos % (Auto) (0-4) % Baso % (Auto) (0-2) % Lymph # (Auto) (1.2-4.9) X10*3/uL [place] # (Auto) (0.1-1.2) X10*3/uL Eos # (Auto) (0.0-0.4) X10*3/uL Baso # (Auto) (0.0-0.2) X10*3/uL Abs Immat Gran (auto) (0.00-0.03) X10*3/uL Absolute Neuts (auto) (2.0-8.3) x10*3/uL Absolute Nucleated RBC (0.0-0.012) X10*3/uL Nucleated RBC % (auto) (0.0-0.2) /100WBC Sodium (135-145) mmol/L Potassium (3.3-5.1) mmol/L Chloride (96-108) mmol/L Carbon Dioxide (22-29) mmol/L Anion Gap (12-20) BUN (9-16) mg/dL Creatinine (0.5-1.4) mg/dL Estim Creat Clear Calc Estimated GFR Random Glucose (60-115) mg/dL Calcium (8.4-10.2) mg/dL Magnesium (1.6-2.6) mg/dL Total Bilirubin (0.0-1.0) mg/dL Direct Bilirubin (0.0-0.5) mg/dL AST (5-31) U/L ALT (0-31) U/L Alkaline Phosphatase (39-117) U/L Total Protein (6.5-8.0) g/dL Albumin (3.5-5.0) g/dL Urine Color Dark Yellow Urine Appearance Cloudy Urine pH 6.0 (5.0-9.0) Ur Specific Diamond >= 1.030 H (1.005-1.025) Urine Protein 30 (1+) H (Neg-Trace) mg/dL Urine Glucose (UA) Negative (Negative) mg/dL Urine Ketones Trace (Negative) mg/dL Urine Blood Negative (Negative) Urine Nitrite Negative (Negative) Ur Leukocyte Esterase Small (1+) H (Negative) Urine RBC 3-5 H (0-2) /HPF Urine WBC 11-20 H (0-5) /HPF Ur Squamous Epith Cells >20 (0-2) /HPF Urine Bacteria 4+ (None Seen) Hyaline Casts 0-2 (0-2) /LPF Urine Opiates Screen Not Detected (Not Detect) Urine Fentanyl Screen Not Detected (Not Detect) Ur Barbiturates Screen Not Detected (Not Detect) Ur Phencyclidine Scrn Not Detected (Not Detect) Ur Amphetamines Screen Not Detected (Not Detect) U Benzodiazepines Scrn POSITIVE H (Not Detect) Urine Cocaine Screen POSITIVE H (Not Detect) U Marijuana (THC) Screen POSITIVE H (Not Detect) Ethyl Alcohol mg/dL COVID-19 (ELSI) Negative (Negative) COVID-19 Clin Com See Note 02/18/23 02/18/23 Range/Units 14:41 14:41 WBC 6.2 (4.8-10.8) X10*3/uL RBC 3.76 L (4.20-5.50) X10*6/uL Hgb 12.3 (12.0-16.0) g/dl Hct 36.5 L (37.0-47.0) % MCV 97.1 (80.0-98.0) fL MCH 32.7 (27.0-33.0) pg MCHC 33.7 (31.0-35.0) g/dl RDW 13.0 (11.0-16.0) % Plt Count 208 (160-400) X10*3/uL MPV 9.3 L (9.4-12.3) fL Immature Gran % (Auto) 0.3 (0.0-0.4) % Neut % (Auto) 62.1 (45-73) % Lymph % (Auto) 24.6 (20-40) % [place] % (Auto) 9.3 (2-11) % Eos % (Auto) 3.1 (0-4) % Baso % (Auto) 0.6 (0-2) % Lymph # (Auto) 1.5 (1.2-4.9) X10*3/uL [place] # (Auto) 0.6 (0.1-1.2) X10*3/uL Eos # (Auto) 0.2 (0.0-0.4) X10*3/uL Baso # (Auto) 0.0 (0.0-0.2) X10*3/uL Abs Immat Gran (auto) 0.02 (0.00-0.03) X10*3/uL Absolute Neuts (auto) 3.9 (2.0-8.3) x10*3/uL Absolute Nucleated RBC 0.000 (0.0-0.012) X10*3/uL Nucleated RBC % (auto) 0.0 (0.0-0.2) /100WBC Sodium 139 (135-145) mmol/L Potassium 3.8 (3.3-5.1) mmol/L Chloride 104 (96-108) mmol/L Carbon Dioxide 26 (22-29) mmol/L Anion Gap 13 (12-20) BUN 10 (9-16) mg/dL Creatinine 1.09 (0.5-1.4) mg/dL Estim Creat Clear Calc 60.4 Estimated GFR 52 Random Glucose 94 (60-115) mg/dL Calcium 9.3 (8.4-10.2) mg/dL Magnesium 2.0 (1.6-2.6) mg/dL Total Bilirubin 0.7 (0.0-1.0) mg/dL Direct Bilirubin 0.2 (0.0-0.5) mg/dL AST 35 H (5-31) U/L ALT 51 H (0-31) U/L Alkaline Phosphatase 92 (39-117) U/L Total Protein 6.1 L (6.5-8.0) g/dL Albumin 3.9 (3.5-5.0) g/dL Urine Color Urine Appearance Urine pH (5.0-9.0) Ur Specific Diamond (1.005-1.025) Urine Protein (Neg-Trace) mg/dL Urine Glucose (UA) (Negative) mg/dL Urine Ketones (Negative) mg/dL Urine Blood (Negative) Urine Nitrite (Negative) Ur Leukocyte Esterase (Negative) Urine RBC (0-2) /HPF Urine WBC (0-5) /HPF Ur Squamous Epith Cells (0-2) /HPF Urine Bacteria (None Seen) Hyaline Casts (0-2) /LPF Urine Opiates Screen (Not Detect) Urine Fentanyl Screen (Not Detect) Ur Barbiturates Screen (Not Detect) Ur Phencyclidine Scrn (Not Detect) Ur Amphetamines Screen (Not Detect) U Benzodiazepines Scrn (Not Detect) Urine Cocaine Screen (Not Detect) U Marijuana (THC) Screen (Not Detect) Ethyl Alcohol < 10 mg/dL COVID-19 (ELIS) (Negative) COVID-19 Clin Com <RONEN Mendez - Last Filed: 02/18/23 16:13> Discharge Plan Discharge Clinical Impression: Suicidal ideation <RONEN Yao - Last Filed: 02/18/23 12:37> Patient Disposition: Still a Patient <RONEN Yao - Last Filed: 02/18/23 12:37> Prescriptions: No Action lurasidone [Latuda] 80 mg Tablet 80 mg PO DAILY Rx Instructions: must administer with Dinner (at least 350 calories) famotidine 40 mg Tablet 40 mg PO BEDTIME dicyclomine 20 mg Tablet 20 mg PO TID doxepin 100 mg Capsule 100 mg PO BEDTIME lorazepam 1 mg Tablet 1 mg PO TID PRN (Reason: breakthrough anxiety) bupropion HCl 300 mg Tablet Extended Release 24 Hr 300 mg PO QAM duloxetine 60 mg Capsule,Delayed Release(Dr/Ec) 90 mg PO DAILY gabapentin 300 mg Tablet 300 mg PO TID Biktarvy 50-200-25 mg Tablet 1 tab PO DAILY alprazolam 1 mg tablet 1 mg PO TID PRN (Reason: Anxiety) clonidine HCl 0.2 mg tablet 0.2 mg PO BEDTIME omeprazole 20 mg tablet,delayed release (DR/EC) 20 mg PO DAILY <RONEN Yao - Last Filed: 02/18/23 12:37> Interventions: [place]-Suicide Risk Severity Scale Last Done: 02/18/23 12:38 <RONEN Yao - Last Filed: 02/18/23 12:37>
[2023-02-18 13:11] LABS: Appearance Urine Cloudy; Color Urine Dark Yellow; Glucose Urine UA Negative (Negative); Leukocyte Esterase Urine Small (1+) (Negative); Nitrite Urine Negative (Negative); Specific Gravity - Urine >= 1.030 (1.005-1.025); UMIC TRIGGER UACC YES; Urine Blood Negative (Negative); Urine Ketones Trace mg/dL (Negative); Urine Protein 30 (1+) mg/dL (Neg-Trace)
[2023-02-18 13:21] LABS: Bacteria Urine 4+ (None Seen); Hyaline Casts Urine 0-2 /LPF (0-2); Squamous Epithelial Cell Urine >20 /HPF (0-2); UACC Culture Trigger YES
[2023-02-18 13:27] LABS: COVID-19 Test Negative (Negative); IDNOW Serial# 08D9AD1C
[2023-02-18 13:37] LABS: Amphetamine Screen Urine Not Detected (Not Detect); Barbiturates, Urine Not Detected (Not Detect); Benzodiazepines Screen Urine POSITIVE (Not Detect); Cannabinoid Screen Urine POSITIVE (Not Detect); Cocaine Screen Urine POSITIVE (Not Detect); Fentanyl, urine Not Detected (Not Detect); Opiate Screen Urine Not Detected (Not Detect); Phencyclidine Screen Urine Not Detected (Not Detect)
--- NOTE | 2023-02-18 13:49 | PHA.MEDREC ---
Pharmacy Consult ? Medication Reconciliation Pharmacy has completed the medication reconciliation.
[2023-02-18] MEDS: Gabapentin 300 MG CAPSULE PO ×2 (14:25→20:49)
[2023-02-18] MEDS: Dicyclomine HCl 10 MG CAPSULE 20 MG PO ×2 (14:25→20:48)
[2023-02-18 14:45] LABS: MANUAL DIFF FLAG NO
[2023-02-18 14:56] LABS: Basophils Percent Auto 0.6 % (0-2); Eosinophils Absolute Auto 0.2 X10*3/uL (0.0-0.4); Eosinophils Percent Auto 3.1 % (0-4); Hematocrit 36.5 % (37.0-47.0); Hemoglobin 12.3 g/dl (12.0-16.0); Imm Gran Abs Auto 0.02 X10*3/uL (0.00-0.03); Imm Gran Pct Auto 0.3 % (0.0-0.4); Lymphocytes Absolute Auto 1.5 X10*3/uL (1.2-4.9); Lymphocytes Percent Auto 24.6 % (20-40); Mean Corpuscular HGB Conc 33.7 g/dl (31.0-35.0); Mean Corpuscular Hemoglobin 32.7 pg (27.0-33.0); Mean Corpuscular Volume 97.1 fL (80.0-98.0); Mean Platelet Volume 9.3 fL (9.4-12.3); Monocytes Absolute Auto 0.6 X10*3/uL (0.1-1.2); Monocytes Percent Auto 9.3 % (2-11); Neutrophils Absolute Auto 3.9 x10*3/uL (2.0-8.3); Neutrophils Percent Auto 62.1 % (45-73); Platelet Count 208 X10*3/uL (160-400); Red Blood Count 3.76 X10*6/uL (4.20-5.50); White Blood Count 6.2 X10*3/uL (4.8-10.8)
[2023-02-18 15:49] LABS: Alanine Aminotransferase 51 U/L (0-31); Albumin Level 3.9 g/dL (3.5-5.0); Alkaline Phosphatase 92 U/L (39-117); Anion Gap 13 (12-20); Aspartate Amino Transferase 35 U/L (5-31); Bilirubin Direct 0.2 mg/dL (0.0-0.5); Bilirubin Total 0.7 mg/dL (0.0-1.0); Blood Urea Nitrogen 10 mg/dL (9-16); Calcium 9.3 mg/dL (8.4-10.2); Carbon Dioxide 26 mmol/L (22-29); Chloride 104 mmol/L (96-108); Creatinine Clr Calc Pharmacy 60.4; Estimated Glomerular Filt Rate 52; Ethanol < 10 mg/dL; Glucose Random 94 mg/dL (60-115); Potassium 3.8 mmol/L (3.3-5.1); Sodium 139 mmol/L (135-145); Total Protein 6.1 g/dL (6.5-8.0)
[2023-02-18 16:00] VITALS: BP 98/57; PULSE 82; RESP 16; TEMP 36.9; O2SAT 97
[2023-02-18] MEDS: Famotidine 20 MG TABLET 40 MG PO (20:49)
[2023-02-18] MEDS: cloNIDine HCL 0.2 MG TABLET PO (20:49)
[2023-02-18] MEDS: LORazepam 1 MG TABLET PO (20:50)
[2023-02-18] MEDS: Doxepin HCl 25 MG CAPSULE 100 MG PO (21:23)
--- NOTE | 2023-02-18 22:00 | MHC.EDTECH ---
Patient given sandwich and juice. Patient resting quietlty
[2023-02-19 06:17] VITALS: BP 98/60; PULSE 76; RESP 15; TEMP 36.9; O2SAT 95
--- NOTE | 2023-02-19 06:25 | PC.NURSE ---
Patient slept through the night, no distress observed/reported, behavior non concerning, disposition per care team is voluntary inpatient bed search, medication compliant, VSS, labs completed/resulted, continue to monitor.
[2023-02-19] MEDS: DULoxetine HCl 30 MG CAPSULE.DR 90 MG PO (09:57)
[2023-02-19] MEDS: Dicyclomine HCl 10 MG CAPSULE 20 MG PO ×3 (09:58→20:57)
[2023-02-19] MEDS: buPROPion HCl XL 300 MG TAB.ER.24H PO (09:58)
[2023-02-19] MEDS: Omeprazole 20 MG CAPSULE.DR PO (09:59)
[2023-02-19] MEDS: Gabapentin 300 MG CAPSULE PO ×3 (09:59→20:57)
[2023-02-19] MEDS: Lurasidone HCl 80 MG TABLET PO (10:31)
[2023-02-19] MEDS: Bictegrav/Emtricit/Tenofov Ala TABLET 1 TAB PO (10:31)
[2023-02-19] MEDS: ALPRAZolam 0.5 MG TABLET 1 MG PO (15:07)
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
[2023-02-19] MEDS: Famotidine 20 MG TABLET 40 MG PO (20:57)
[2023-02-19] MEDS: cloNIDine HCL 0.2 MG TABLET PO (20:57)
[2023-02-19 20:59] VITALS: BP 129/93; PULSE 93; RESP 18; TEMP 36.6; O2SAT 99
[2023-02-19] MEDS: Doxepin HCl 25 MG CAPSULE 100 MG PO (21:01)
[2023-02-19] MEDS: LORazepam 1 MG TABLET PO (21:05)
[2023-02-20] MEDS: Omeprazole 20 MG CAPSULE.DR PO (05:51)
[2023-02-20 05:56] VITALS: BP 106/65; PULSE 73; RESP 16; TEMP 36.5; O2SAT 93
--- NOTE | 2023-02-20 06:02 | PC.NURSE ---
Addendum entered by Abhay Walters RN 02/20/23 06:02: NO update on bed search thus far Original Note: Patient slept through the night, no distress observed/reported, behavior non concerning, disposition per care team is voluntary inpatient bed search, medication compliant, VSS, labs completed/resulted, continue to monitor.
[2023-02-20] MEDS: DULoxetine HCl 30 MG CAPSULE.DR 90 MG PO (09:20)
[2023-02-20] MEDS: Dicyclomine HCl 10 MG CAPSULE 20 MG PO ×3 (09:20→20:11)
[2023-02-20] MEDS: Gabapentin 300 MG CAPSULE PO ×3 (09:21→20:11)
[2023-02-20] MEDS: Bictegrav/Emtricit/Tenofov Ala TABLET 1 TAB PO (09:21)
[2023-02-20] MEDS: Lurasidone HCl 80 MG TABLET PO (09:21)
[2023-02-20] MEDS: buPROPion HCl XL 300 MG TAB.ER.24H PO (09:21)
[2023-02-20] MEDS: LORazepam 1 MG TABLET PO (11:41)
--- NOTE | 2023-02-20 13:14 | PC.NURSE ---
pt woke up for lunch. Continues to c/o anxiety, medicated as ordered with effect noted.
--- NOTE | 2023-02-20 13:33 | MHC.CARE ---
[facility]wide bedsearch completed. [facility] has beds but are not accepting referrals for review at this time due to unit acuity and staffing. Bedsearch exhausted for today.
[2023-02-20] MEDS: ALPRAZolam 0.5 MG TABLET 1 MG PO (19:39)
[2023-02-20 19:54] VITALS: BP 117/60; PULSE 81; RESP 16; TEMP 36.8; O2SAT 96
[2023-02-20] MEDS: Famotidine 20 MG TABLET 40 MG PO (20:11)
[2023-02-20] MEDS: cloNIDine HCL 0.2 MG TABLET PO (20:11)
[2023-02-21 05:33] VITALS: BP 107/61; PULSE 83; RESP 18; TEMP 36.3; O2SAT 95
[2023-02-21] MEDS: Omeprazole 20 MG CAPSULE.DR PO (05:45)
[2023-02-21] MEDS: Gabapentin 300 MG CAPSULE PO ×3 (09:25→20:22)
[2023-02-21] MEDS: buPROPion HCl XL 300 MG TAB.ER.24H PO (09:25)
[2023-02-21] MEDS: Dicyclomine HCl 10 MG CAPSULE 20 MG PO ×3 (09:25→20:20)
[2023-02-21] MEDS: ALPRAZolam 0.5 MG TABLET 1 MG PO ×2 (09:25→20:21)
[2023-02-21] MEDS: DULoxetine HCl 30 MG CAPSULE.DR 90 MG PO (09:25)
[2023-02-21] MEDS: Ondansetron ODT 4 MG TAB.RAPDIS TRANSLINGU (09:33)
[2023-02-21] MEDS: Lurasidone HCl 80 MG TABLET PO (12:39)
[2023-02-21] MEDS: Bictegrav/Emtricit/Tenofov Ala TABLET 1 TAB PO (12:39)
[2023-02-21] MEDS: LORazepam 1 MG TABLET PO (15:54)
[2023-02-21 16:05] VITALS: BP 126/75; PULSE 95; RESP 18; TEMP 36.6; O2SAT 95
[2023-02-21 17:32] VITALS: BMI 35.9
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
[2023-02-21 20:05] VITALS: BP 116/76; PULSE 89; RESP 18; TEMP 36.4; O2SAT 94
[2023-02-21] MEDS: cloNIDine HCL 0.2 MG TABLET PO (20:20)
[2023-02-21] MEDS: Doxepin HCl 25 MG CAPSULE 100 MG PO (20:20)
[2023-02-21] MEDS: traZODone HCL 50 MG TABLET PO (20:22)
[2023-02-21] MEDS: Famotidine 20 MG TABLET 40 MG PO (20:22)
--- NOTE | 2023-02-21 22:26 | PC.NURSE ---
Addendum entered by Ina Cooper RN 02/21/23 22:45: she endorses depression and anxiety 06/26. she denies homicidal ideation and auditory/visual hallucinations Original Note: Zeinab is noted to have been visible in the day room during the early evening. she has a flat affect but is pleasant upon approach. she states that she always has underlying suicidal ideation but that she is safe on the unit and will come to staff if the feelings become overwhelming. she requested PRN Trazodone and Xanax with her HS medications. no behavioral concerns, monitor for safety, continue Plan of Care
[2023-02-22 05:35] LABS: Estimated Average Glucose 97 mg/dL
[2023-02-22 05:47] LABS: Alanine Aminotransferase 20 U/L (0-31); Albumin Level 3.5 g/dL (3.5-5.0); Alkaline Phosphatase 78 U/L (39-117); Anion Gap 12 (12-20); Aspartate Amino Transferase 13 U/L (5-31); Bilirubin Total 0.3 mg/dL (0.0-1.0); Blood Urea Nitrogen 14 mg/dL (9-16); Carbon Dioxide 31 mmol/L (22-29); Chloride 103 mmol/L (96-108); Cholesterol 206 mg/dL; Creatinine Clr Calc Pharmacy 67.2; Estimated Glomerular Filt Rate 59; Glucose Fasting 104 mg/dL (60-99); HDL Cholesterol 36 mg/dL; LDL Cholesterol Calculated 135 mg/dl; Potassium 4.7 mmol/L (3.3-5.1); Sodium 141 mmol/L (135-145); Total Protein 5.6 g/dL (6.5-8.0); Triglycerides 177 mg/dL
[2023-02-22 06:16] LABS: Folate 4.2 ng/mL (> or = 4.0); Free T4 (Free Thyroxine) 0.92 ng/dL (0.71-1.85); Thyroid Stimulating Hormone 1.02 uIU/mL (0.32-4.0); Vitamin B12 269 pg/mL (200-900)
[2023-02-22] MEDS: Omeprazole 20 MG CAPSULE.DR PO (06:42)
[2023-02-22 09:00] VITALS: BP 111/53; PULSE 69; RESP 18; TEMP 36.5; O2SAT 95
[2023-02-22] MEDS: DULoxetine HCl 30 MG CAPSULE.DR 90 MG PO (09:16)
[2023-02-22] MEDS: buPROPion HCl XL 300 MG TAB.ER.24H PO (09:17)
[2023-02-22] MEDS: Bictegrav/Emtricit/Tenofov Ala TABLET 1 TAB PO (09:17)
[2023-02-22] MEDS: Lurasidone HCl 80 MG TABLET PO (09:18)
[2023-02-22] MEDS: Gabapentin 300 MG CAPSULE PO ×2 (09:18→14:25)
[2023-02-22] MEDS: ALPRAZolam 0.5 MG TABLET 1 MG PO ×2 (09:35→15:51)
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
[2023-02-22] MEDS: Dicyclomine HCl 10 MG CAPSULE 20 MG PO ×2 (14:25→20:24)
[2023-02-22 20:00] VITALS: BP 113/74; PULSE 84; RESP 16; TEMP 36.6; O2SAT 97
[2023-02-22] MEDS: cloNIDine HCL 0.1 MG TABLET 0.3 MG PO (20:22)
[2023-02-22] MEDS: Famotidine 20 MG TABLET 40 MG PO (20:23)
[2023-02-22] MEDS: Doxepin HCl 25 MG CAPSULE 100 MG PO (20:23)
[2023-02-22] MEDS: Gabapentin 300 MG CAPSULE 600 MG PO (20:24)
[2023-02-22] MEDS: traZODone HCL 50 MG TABLET PO (20:25)
[2023-02-23] MEDS: Omeprazole 20 MG CAPSULE.DR PO (06:46)
[2023-02-23 08:33] VITALS: BP 123/66; PULSE 105; RESP 18; TEMP 35.9; O2SAT 99
[2023-02-23] MEDS: Gabapentin 300 MG CAPSULE 600 MG PO ×3 (09:02→20:06)
[2023-02-23] MEDS: Fluticasone/Vilanterol 100/25 BLST.W.DEV 1 PUFF INHALE (09:02)
[2023-02-23] MEDS: DULoxetine HCl 30 MG CAPSULE.DR 90 MG PO (09:03)
[2023-02-23] MEDS: Ondansetron ODT 4 MG TAB.RAPDIS TRANSLINGU (09:04)
[2023-02-23] MEDS: Dicyclomine HCl 10 MG CAPSULE 20 MG PO ×3 (09:04→20:06)
[2023-02-23] MEDS: ALPRAZolam 0.5 MG TABLET 1 MG PO (09:04)
[2023-02-23] MEDS: buPROPion HCl XL 300 MG TAB.ER.24H PO (09:04)
[2023-02-23] MEDS: Bictegrav/Emtricit/Tenofov Ala TABLET 1 TAB PO (09:04)
[2023-02-23] MEDS: Lurasidone HCl 80 MG TABLET PO (09:05)
[2023-02-23] MEDS: clonazePAM 1 MG TABLET PO ×2 (13:09→20:09)
--- NOTE | 2023-02-23 15:02 | P.PNPSI_ITS ---
Subjective Subjective Date of Service: 02/23/23 Reason For Visit: Depression/ Si Interim History: calm, cooperative. agreeable to DC xanax and replace with klonopin. also slept better last night but not well, denies and s/e of clonidine increase last night, agreeable to increase clonidine to 0.4 mg at HS. denies SI/SIBI. per staff, anx/dep 9. isolative. attending groups. unsafe outside hospital. derogatory voices. active, appropriate. DFA. no SI/HI/AVH. med-compliant. had xanax x2. slept well overnight. Mental Status Exam Mental Status Exam Narrative: adequately dressed and groomed. cooperative, no PMA/PMR. speech nml rate, amount, loudness, tone, latency. thoughts linear and logical. affect constricted, normo-intense, non-labile. mood depressed. denies SI/SIBI. no HI/AVH expressed. Diagnostics Vital Signs (24Hr): Vital Signs - 24 hr 02/22/23 20:00 02/23/23 08:33 Temperature 97.8 F 96.7 F L Pulse Rate 84 105 H Respiratory Rate 16 18 Blood Pressure 113/74 123/66 Pulse Oximetry 97 99 Oxygen Delivery Method Room Air Room Air BMI result Body Mass Index 35.9 Labs 02/18/23 14:41 02/22/23 05:11 Labs: Laboratory Results - last 48 hr 02/22/23 02/22/23 05:11 05:11 Sodium 141 Potassium 4.7 D Chloride 103 Carbon Dioxide 31 H Anion Gap 12 BUN 14 Creatinine 0.98 Estim Creat Clear Calc 67.2 Estimated GFR 59 Fasting Glucose 104 H Estimat Average Glucose 97 Hemoglobin A1c % 5.0 Calcium 9.0 Total Bilirubin 0.3 AST 13 ALT 20 Alkaline Phosphatase 78 Total Protein 5.6 L Albumin 3.5 Triglycerides 177 Cholesterol 206 LDL Cholesterol, Calc 135 HDL Cholesterol 36 Vitamin B12 269 Folate 4.2 TSH 1.02 Free T4 0.92 Medications Medications Current Medications Acetaminophen (Acetaminophen 325 Mg Tablet) 650 mg PO Q6H PRN PRN Reason: Headache/Pain Mild Scale (1-3) Al Hydroxide/Mg Hydroxide (Magnesium Hydrox/Alum Hydrox 30 Ml Oral.Susp) 30 ml PO Q6H PRN PRN Reason: Heartburn/Nausea Albuterol Sulfate (Albuterol Sulfate 90 Mcg 8 Gm Inhaler) 2 puff INHALE RQ4H PRN PRN Reason: Shortness of Breath Bictegravir/Emtricitabine/Tenofovir (Bictegrav/Emtricit/Tenofov Ala Tablet) 1 tab PO DAILY [facility] Last Admin: 02/23/23 09:04 Dose: 1 tab Bupropion HCl (Bupropion Hcl Xl 300 Mg Tab.Er.24h) 300 mg PO DAILY [facility] Last Admin: 02/23/23 09:04 Dose: 300 mg Clonazepam (Clonazepam 1 Mg Tablet) 1 mg PO TID PRN PRN Reason: severe anxiety Last Admin: 02/23/23 13:09 Dose: 1 mg Clonidine HCl (Clonidine Hcl 0.2 Mg Tablet) 0.4 mg PO BEDTIME [facility]; Protocol Dicyclomine HCl (Dicyclomine Hcl 10 Mg Capsule) 20 mg PO TID [facility] Last Admin: 02/23/23 09:04 Dose: 20 mg Doxepin HCl (Doxepin Hcl 25 Mg Capsule) 100 mg PO BEDTIME [facility] Last Admin: 02/22/23 20:23 Dose: 100 mg Duloxetine HCl (Duloxetine Hcl 30 Mg Capsule.Dr) 90 mg PO DAILY [facility] Last Admin: 02/23/23 09:03 Dose: 90 mg Famotidine (Famotidine 20 Mg Tablet) 40 mg PO BEDTIME [facility] Last Admin: 02/22/23 20:23 Dose: 40 mg Fluticasone/Vilanterol (Fluticasone/Vilanterol 100/25 Blst.W.Dev) 1 puff INHALE RDAILY [facility] Last Admin: 02/23/23 09:02 Dose: 1 puff Gabapentin (Gabapentin 300 Mg Capsule) 600 mg PO TID [facility] Last Admin: 02/23/23 09:02 Dose: 600 mg Hydroxyzine HCl (Hydroxyzine Hcl 25 Mg Tablet) 25 mg PO Q6H PRN PRN Reason: Anxiety Lurasidone HCl (Lurasidone Hcl 80 Mg Tablet) 80 mg PO DAILY [facility] Last Admin: 02/23/23 09:05 Dose: 80 mg Magnesium Hydroxide (Milk Of Magnesia 30 Ml Oral.Susp) 30 ml PO DAILY PRN PRN Reason: Constipation Nicotine Polacrilex (Nicotine Polacrilex 2 Mg Gum) 4 mg BUCCAL Q2H PRN PRN Reason: Nicotine Cravings Omeprazole (Omeprazole 20 Mg Capsule.Dr) 20 mg PO DAILY@0630 [facility] Last Admin: 02/23/23 06:46 Dose: 20 mg Ondansetron HCl (Ondansetron Odt 4 Mg Tab.Rapdis) 4 mg TRANSLINGU Q6H PRN PRN Reason: Nausea Last Admin: 02/23/23 09:04 Dose: 4 mg Trazodone HCl (Trazodone Hcl 50 Mg Tablet) 50 mg PO BEDTIME MRX1 PRN PRN Reason: Insomnia Last Admin: 02/22/23 20:25 Dose: 50 mg Allergies Allergies Allergy/AdvReac Type Severity Reaction Status Date / Time Penicillins [PENICILLINS] Allergy Intermediate SOB/HIVES Verified 02/19/23 17:26 codeine AdvReac Intermediate Nausea and Verified 02/19/23 17:26 Vomiting ketorolac [From Toradol] AdvReac Intermediate Nausea and Verified 02/19/23 17:26 Vomiting Assessment & Plan Assessment & Plan (1) MDD (major depressive disorder), recurrent episode, moderate: Status: Acute Code(s): F33.1 - Major depressive disorder, recurrent, moderate (2) Chronic post-traumatic stress disorder (PTSD): Status: Acute Code(s): F43.12 - Post-traumatic stress disorder, chronic (3) Cocaine use disorder: Status: Acute Code(s): F14.10 - Cocaine abuse, uncomplicated Plan 02/22: increase clonidine at HS from 0.2 to 0.3, otherwise continue home meds. collateral from [employer] re benzo switch request. left message today. 02/23: no call from [employer]. DC xanax and start klonopin. SI resolved. planning for DC tomorrow to addiction program. Reason for continued inpatient stay Substantial Risk for: inability to function and rapid decompensation Time Spent With Patient Time: Total time managing care of this patient today __25__ minutes.
[2023-02-23 20:00] VITALS: BP 101/82; PULSE 72; RESP 16; TEMP 36.4; O2SAT 100
[2023-02-23] MEDS: Doxepin HCl 25 MG CAPSULE 100 MG PO (20:05)
[2023-02-23] MEDS: Famotidine 20 MG TABLET 40 MG PO (20:06)
[2023-02-23] MEDS: cloNIDine HCL 0.2 MG TABLET 0.4 MG PO (20:07)
[2023-02-23] MEDS: traZODone HCL 50 MG TABLET PO (20:07)
[2023-02-24] MEDS: Ondansetron ODT 4 MG TAB.RAPDIS TRANSLINGU (04:04)
[2023-02-24] MEDS: clonazePAM 1 MG TABLET PO (04:05)
[2023-02-24] MEDS: Omeprazole 20 MG CAPSULE.DR PO (06:45)
[2023-02-24 08:51] LABS: COVID-19 Test Negative (Negative); IDNOW Serial# BCCEAD1C
[2023-02-24 08:55] VITALS: BP 93/54; PULSE 66; RESP 16; TEMP 36.6; O2SAT 98
[2023-02-24] MEDS: Dicyclomine HCl 10 MG CAPSULE 20 MG PO (09:00)
[2023-02-24] MEDS: DULoxetine HCl 30 MG CAPSULE.DR 90 MG PO (09:00)
[2023-02-24] MEDS: buPROPion HCl XL 300 MG TAB.ER.24H PO (09:00)
[2023-02-24] MEDS: Bictegrav/Emtricit/Tenofov Ala TABLET 1 TAB PO (09:00)
[2023-02-24] MEDS: Lurasidone HCl 80 MG TABLET PO (09:00)
[2023-02-24] MEDS: Gabapentin 300 MG CAPSULE 600 MG PO (09:00)
[2023-02-24] MEDS: Fluticasone/Vilanterol 100/25 BLST.W.DEV 1 PUFF INHALE (09:05)
--- NOTE | 2023-02-24 09:50 | PC.NURSE ---
Zeinab is alert, fully oriented, pleasant and cooperative with discharge process. SHe denies ideation, plan or intent to harms self or others. She denies physical complaint. She verbalizes understanding of discharge plan including disposition, meds and appointments.
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
== END 2023-02-24 10:33 | disposition home or self-care (01) | DRG 751 ==
LOC: HO.ED 16:13 → HO.PADLT16 02-21 15:11
PROVIDERS: Physician Assistant; Admitting Provider Psychiatry & Neurology Psychiatry; Emergency Provider Emergency Medicine; PCP Internal Medicine; Visit Provider Psychiatry & Neurology Psychiatry
DX: F33.1 Major depressive disorder, recurrent, moderate (principal); F14.10 Cocaine abuse, uncomplicated; F17.210 Nicotine dependence, cigarettes, uncomplicated; F43.12 Post-traumatic stress disorder, chronic; Z21 Asymptomatic human immunodeficiency virus [HIV] infection status; Z20.822 Contact with and (suspected) exposure to COVID-19; Z59.02 Unsheltered homelessness; Z86.19 Personal history of other infectious and parasitic diseases; Z71.6 Tobacco abuse counseling; Z88.0 Allergy status to penicillin; Z88.5 Allergy status to narcotic agent; Z79.51 Long term (current) use of inhaled steroids; Z79.899 Other long term (current) drug therapy
CPT/HCPCS: 36415; 80048; 80053; 80061; 80076; 80307; 81001; 82607; 82746; 83036; 83735; 84439; 84443; 85025; 87086; 87635; 93005; 99285; S9485

== ENCOUNTER 2023-05-19 08:50 | Emergency (ER) | payer OTHER, SELFPAY ==
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
[2023-05-19 09:09] VITALS: BP 121/71; PULSE 82; RESP 19; TEMP 36.6; O2SAT 98; BMI 40.3
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
[2023-05-19 10:39] LABS: MANUAL DIFF FLAG NO
[2023-05-19 10:42] LABS: Eosinophils Absolute Auto 0.2 X10*3/uL (0.0-0.4); Eosinophils Percent Auto 3.9 % (0-4); Hematocrit 34.7 % (37.0-47.0); Hemoglobin 11.3 g/dl (12.0-16.0); Imm Gran Abs Auto 0.01 X10*3/uL (0.00-0.03); Imm Gran Pct Auto 0.3 % (0.0-0.4); Lymphocytes Absolute Auto 1.2 X10*3/uL (1.2-4.9); Mean Corpuscular HGB Conc 32.6 g/dl (31.0-35.0); Mean Corpuscular Hemoglobin 31.8 pg (27.0-33.0); Mean Corpuscular Volume 97.7 fL (80.0-98.0); Mean Platelet Volume 8.9 fL (9.4-12.3); Monocytes Absolute Auto 0.3 X10*3/uL (0.1-1.2); Monocytes Percent Auto 8.5 % (2-11); Neutrophils Absolute Auto 2.1 x10*3/uL (2.0-8.3); Neutrophils Percent Auto 54.3 % (45-73); Platelet Count 217 X10*3/uL (160-400); Red Blood Count 3.55 X10*6/uL (4.20-5.50); Red Cell Distribution Width 12.2 % (11.0-16.0); White Blood Count 3.9 X10*3/uL (4.8-10.8)
[2023-05-19] MEDS: 0.9 % Sodium Chloride 1,000 ML 999 ML IV (10:54)
[2023-05-19 10:56] LABS: Alanine Aminotransferase 20 U/L (0-31); Albumin Level 3.9 g/dL (3.5-5.0); Alkaline Phosphatase 89 U/L (39-117); Anion Gap 16 (12-20); Aspartate Amino Transferase 25 U/L (5-31); Bilirubin Total 0.3 mg/dL (0.0-1.0); Blood Urea Nitrogen 9 mg/dL (9-16); Calcium 9.2 mg/dL (8.4-10.2); Carbon Dioxide 24 mmol/L (22-29); Chloride 103 mmol/L (96-108); Creatinine Clr Calc Pharmacy 84.7; Estimated Glomerular Filt Rate > 60; Glucose Random 101 mg/dL (60-115); Magnesium 2.2 mg/dL (1.6-2.6); Potassium 4.6 mmol/L (3.3-5.1); Sodium 138 mmol/L (135-145); Total Protein 6.8 g/dL (6.5-8.0)
[2023-05-19] MEDS: ondansetron HCL 4 MG/2 ML VIAL IVPUSH ×2 (10:56→14:18)
[2023-05-19 11:00] LABS: COVID-19 Test Negative (Negative); IDNOW Serial# 6674DD1D
[2023-05-19] MEDS: Pantoprazole Sodium 40 MG/10 ML VIAL IVPUSH (11:00)
[2023-05-19 11:06] LABS: INTERNATIONAL NORM RATIO 0.8 (0.9-1.1); Prothrombin Time 10.1 SEC (11.1-13.3)
[2023-05-19 11:08] VITALS: RESP 16
[2023-05-19] MEDS: HYDROmorphone HCl 1 MG/ML SYRINGE IVPUSH ×2 (11:08→14:24)
[2023-05-19 11:09] LABS: Partial Thromboplastin Time 31.8 SEC (26.0-36.4)
[2023-05-19] MEDS: Magnesium Hydrox/Alum Hydrox 30 ML ORAL.SUSP 15 ML PO (11:56)
[2023-05-19] MEDS: iohexoL 350 MG/ML 100 ML INFUS..BTL 85 ML IV (12:32)
[2023-05-19 14:20] LABS: MANUAL DIFF FLAG NO
[2023-05-19 14:21] LABS: Basophils Percent Auto 0.7 % (0-2); Eosinophils Absolute Auto 0.1 X10*3/uL (0.0-0.4); Eosinophils Percent Auto 2.4 % (0-4); Hematocrit 32.4 % (37.0-47.0); Hemoglobin 10.5 g/dl (12.0-16.0); Imm Gran Abs Auto 0.01 X10*3/uL (0.00-0.03); Imm Gran Pct Auto 0.2 % (0.0-0.4); Lymphocytes Percent Auto 24.6 % (20-40); Mean Corpuscular HGB Conc 32.4 g/dl (31.0-35.0); Mean Corpuscular Hemoglobin 31.1 pg (27.0-33.0); Mean Corpuscular Volume 95.9 fL (80.0-98.0); Mean Platelet Volume 8.6 fL (9.4-12.3); Monocytes Absolute Auto 0.4 X10*3/uL (0.1-1.2); Monocytes Percent Auto 8.3 % (2-11); Neutrophils Absolute Auto 2.7 x10*3/uL (2.0-8.3); Neutrophils Percent Auto 63.8 % (45-73); Platelet Count 171 X10*3/uL (160-400); Red Blood Count 3.38 X10*6/uL (4.20-5.50); Red Cell Distribution Width 12.2 % (11.0-16.0); White Blood Count 4.2 X10*3/uL (4.8-10.8)
[2023-05-19 14:24] VITALS: RESP 16
[2023-05-19 15:05] VITALS: BP 124/93; PULSE 84; RESP 18; O2SAT 94
== END 2023-05-19 15:33 | disposition home or self-care (01) ==
PROVIDERS: Physician Assistant Medical; Emergency Provider Student in an Organized Health Care Education/Training Program; PCP Internal Medicine
DX: K44.9 Diaphragmatic hernia without obstruction or gangrene (principal); R11.2 Nausea with vomiting, unspecified; F17.210 Nicotine dependence, cigarettes, uncomplicated; Z71.6 Tobacco abuse counseling; Z79.899 Other long term (current) drug therapy
CPT/HCPCS: 36415; 74178; 80053; 83735; 85025; 85610; 85730; 86850; 86870; 86885; 86900; 86901; 86902; 86920; 86922; 87635; 96361; 96374; 96375; 96376; 99284; J1170; J2405; Q9967

== ENCOUNTER 2023-06-27 13:40 | Outpatient (REF) | payer OTHER, SELFPAY ==
[2023-06-27 15:49] LABS: Estimated Average Glucose 103 mg/dL; Hemoglobin A1c % 5.2 % (<6.0)
== END 2023-06-27 13:41 | disposition home or self-care (01) ==
LOC: HO.LAB 13:40
PROVIDERS: PCP Internal Medicine; Visit Provider Surgery
DX: K44.9 Diaphragmatic hernia without obstruction or gangrene (principal); E66.01 Morbid (severe) obesity due to excess calories; Z68.41 Body mass index [BMI] 40.0-44.9, adult; B20 Human immunodeficiency virus [HIV] disease; J44.9 Chronic obstructive pulmonary disease, unspecified; F14.10 Cocaine abuse, uncomplicated; R16.0 Hepatomegaly, not elsewhere classified; K42.9 Umbilical hernia without obstruction or gangrene; F17.210 Nicotine dependence, cigarettes, uncomplicated; Z71.6 Tobacco abuse counseling
CPT/HCPCS: 83036; 84134; 99212

== ENCOUNTER 2023-06-27 13:40 | Outpatient (AMB) | payer OTHER, SELFPAY ==
--- NOTE | 2023-06-27 13:41 | A.OFFVIS_ITS ---
Intake Vital Signs 06/27/23 13:44 Height 5 ft 1.5 in Weight 236 lb 12.423 oz BMI 44.0 BP 144/73 H Blood Pressure Location Rt brachial Position Sitting Pulse 107 H Pulse Source Pulse Oximeter Temp 97.8 F Temp Source Tympanic Pulse Oximetry (%) 97 Oxygen Delivery Method Room Air Intake Visit Reasons: diaphragmatic hernia Associate Property Manager Required: No Manager Metal: Manager Metal offered & declined Allergies Penicillins [PENICILLINS] Allergy (Intermediate, Verified 06/27/23 13:45) SOB/HIVES codeine Adverse Reaction (Intermediate, Verified 06/27/23 13:45) Nausea and Vomiting ketorolac [From Toradol] Adverse Reaction (Intermediate, Verified 06/27/23 13:45) Nausea and Vomiting Medication List - Last Reconciled 06/27/23 by Darinel Chan MD albuterol sulfate 90 mcg/actuation (Ventolin HFA) 2 puffs inhalation RQ4H PRN 30 days enbtuqolz-fpkaauat-xnzsjll ala 50-200-25 mg (Biktarvy) 1 tab PO DAILY 30 days bupropion HCl 300 mg PO QAM 30 days clonazepam 1 mg PO TID PRN 30 days clonidine HCl 0.4 mg See Protocol PO BEDTIME 30 days dicyclomine 20 mg PO TID 90 days doxepin 100 mg PO BEDTIME 30 days duloxetine 90 mg (1.5 x 60 mg) PO DAILY 30 days famotidine 40 mg PO BEDTIME 90 days fluticasone furoate-vilanterol 100-25 mcg/dose (Breo Ellipta) 1 puff inhalation RDAILY 30 days gabapentin 600 mg (2 x 300 mg) PO TID 30 days lurasidone (Latuda) 80 mg PO DAILY 30 days omeprazole 20 mg PO DAILY 90 days ondansetron 4 mg translingual Q6H PRN trazodone 50 mg PO BEDTIME MRX1 PRN 30 days HPI HPI Comments History of Present Illness Details The patient is a 58-year-old woman who has a history of morbid obesity with a BMI of 44.0/236.8 lbs, h/o COPD/asthma, history of a hiatal hernia repair April,, cigarette smoking, HIV, history of hepatitis-C, who presents with a recurrent hiatal hernia. The patient reports she is at the heaviest of her adult life and has been interested in some sort of bariatric operation. Patient hand-delivered on endoscopy report with pictures form a foreign body removal dated 06/16/2023 that was done at [facility]. Patient apparently had accidentally swallowed a toothpick or would in skewer requiring retrieval. I do not have access to any of the ER notes from [facility], but the patient notes that she is been there twice due to ongoing upper GI complaints and is currently taking omeprazole in the morning and Pepcid at night given her ongoing GI complaints. She notes ongoing nicotine use, interest in cessation and notes both heartburn, epigastric abdominal pain but denies any hematemesis or odynophagia. GERD questionnaire 40 ESS 0 The patient reports ongoing depressive eating and believes her depression is getting worse. However, she notes that she is changed her psychiatrist's appointment next month. The importance of discussing nicotine cessation and her underlying depression treatment was discussed and apparently understood. The patient does note that she is in recovery and that she walks 3 blocks 5 times a week for her recovery meetings. [facility] Medical History Nicotine dependence, cigarettes, uncomplicated HIV (human immunodeficiency virus infection) Gastritis COVID-19 vaccine administered Arthritis GERD (gastroesophageal reflux disease) Hx of anxiety disorder Depression Hx of hepatitis C Chronic anemia Bilateral renal stones Hiatal hernia without gangrene and obstruction Anemia COPD (chronic obstructive pulmonary disease) Morbid (severe) obesity due to excess calories Anxiety PTSD (post-traumatic stress disorder) Bipolar 1 disorder Asthma Surgical History History of repair of hiatal hernia History of tonsillectomy and adenoidectomy History of section, classical History of colonoscopy (~2020) History of endoscopy (~2020) History of cholecystectomy Family History Mother Respiratory arrest Father Congestive heart failure Sister No problems noted. Brother No problems noted. Daughter No problems noted. Son No problems noted. Social History Household Members: Significant Other Housing: Homeless Housing Other:: resides at [facility]-will return there post-op Are you a primary aged or disabled carer to a significant other at home: No Do you presently have visiting nurse or other home services: No Alcohol intake: current Alcohol intake frequency: does not drink Alcohol type: wine Patient Tobacco Use Status: Current everyday Tobacco user Tobacco use type: Cigarette Cigarette Packs Per Day: 1 Cigarettes Per Day: 20.0 Years Smoked: 20 Second Hand Smoke Exposure: No Substance Use Type: Crack/Cocaine Advance Directives Date on File: 03/18/21 service: No Current occupational status: unemployed and disabled Sexual orientation: Straight/Heterosexual Review of Systems Const All systems reviewed & are unremarkable except as noted in HPI and below Reports as per HPI Physical Exam Vital Signs: BMI result Body Mass Index 44.0 The patient is non-toxic & in good spirits NC/AT, PERRLA, EOMI Mood, affect & judgment all appear appropriate Sclera anicteric conjunctiva pink and moist Oropharynx is clear with no aphthous ulcers, Mallampati class 4, mucous membranes moist Neck is supple with no masses, adenopathy or bruits Heart is regular, normal S1-S2 no rubs or murmurs Lungs are clear and equal anteriorly with no audible wheezing, rubs or dullness to percussion Abdomen is obese with no demonstrable hernias secondary to her habitus and centripetal obesity. No HSM, rebound, rigidity, guarding, masses or bruits are present. She reports palpable epigastric abdominal pain with no peritoneal sign on evaluation. Rectal exam is deferred Skin has good turgor and is free of rashes Extremities free of cyanosis clubbing edema Results Reviewed Results Reviewed: Labs 05/19/2023 Hemoglobin 10.5, white blood cell count 4.2, platelet count 171k INR 0.8, PT 10.1, PTT 31.8 Hemoglobin A1c from Feb, 2023 is 5.3 LFTs, lipids, lytes wnl Urine + cocaine & BDZ February 2023 CT A/P dated 05/19/2023 shows recurrent hiatal hernia, hepatomegaly and umbilical hernia. I have reviewed both the images and the reports. Assessment & Plan Assessment & Plan (1) Hiatal hernia without gangrene and obstruction: Code(s): K44.9 - Diaphragmatic hernia without obstruction or gangrene (2) Morbid obesity with BMI of 40.0-44.9, adult: Code(s): E66.01 - Morbid (severe) obesity due to excess calories; Z68.41 - Body mass index [BMI] 40.0-44.9, adult (3) Asthma: Comment: taking symbicort inhaler BID Code(s): J45.909 - Unspecified asthma, uncomplicated (4) HIV (human immunodeficiency virus infection): Comment: dx 2016-undetectable now Code(s): B20 - Human immunodeficiency virus [HIV] disease (5) COPD (chronic obstructive pulmonary disease): Code(s): J44.9 - Chronic obstructive pulmonary disease, unspecified (6) Nicotine dependence, cigarettes, uncomplicated: Code(s): F17.210 - Nicotine dependence, cigarettes, uncomplicated (7) Cocaine use disorder: Code(s): F14.10 - Cocaine abuse, uncomplicated (8) Umbilical hernia: Code(s): K42.9 - Umbilical hernia without obstruction or gangrene (9) Hepatomegaly: Code(s): R16.0 - Hepatomegaly, not elsewhere classified Plan We discussed the patient's recurrent hiatal hernia, obesity, ongoing nicotine use and risk factors for hernia recurrence/operative failure regarding hiatal hernia. I also reviewed current recommendations by AHS, MODESTA & ASMBS regarding addressing the underlying contributing factors of obesity with respect to recurrent hernias. The patient seems to understand the importance of a long- term goal of maintaining a healthy weight in addition to preoperative weight loss an absolute nicotine cessation. We discussed high-protein/low carbohydrate/low-fat diet and some handouts were provided to the patient. Patient indicated she will contact her PCP and psychiatrist regarding nicotine cessation and would like to follow-up in several weeks and is considering possibly joining the surgical weight loss program. The importance of a healthy diet and increased activity to augment surgical weight loss was discussed. The option of hiatal hernia repair and sleeve gastrectomy as a concomitant procedure was discussed; patient repeatedly asked about gastric bypass, but given her nicotine cessation and HIV medications, this may not be advised given risk for marginal ulcer/perforation and unclear affect on medication absorption. Patient will return in 2-3 weeks for follow-up discussion. She is encouraged to reach out to her psychiatrist given her report of worsening depression. Orders: Orders Nicotine and Metabolite Ur, Qt Today E66.01 - Morbid (severe) obesity due to excess calories, K44.9 - Diaphragmatic hernia without obstruction or gangrene, Z68.41 - Body mass index [BMI] 40.0-44.9, adult Hemoglobin A1c Today E66.01 - Morbid (severe) obesity due to excess calories, Z68.41 - Body mass index [BMI] 40.0-44.9, adult Drug Screen Urine Today E66.01 - Morbid (severe) obesity due to excess calories, K44.9 - Diaphragmatic hernia without obstruction or gangrene, Z68.41 - Body mass index [BMI] 40.0-44.9, adult Prealbumin Today E66.01 - Morbid (severe) obesity due to excess calories, K44.9 - Diaphragmatic hernia without obstruction or gangrene, Z68.41 - Body mass index [BMI] 40.0-44.9, adult [place] upper GI series Today E66.01 - Morbid (severe) obesity due to excess calories, K44.9 - Diaphragmatic hernia without obstruction or gangrene, Z68.41 - Body mass index [BMI] 40.0-44.9, adult Coding Level of Care Code New Pt Level 4 (50418) Diagnoses Hiatal hernia without gangrene and obstruction K44.9 Morbid obesity with BMI of 40.0-44.9, adult E66.01; Z68.41 Asthma J45.909 HIV (human immunodeficiency virus infection) B20 COPD (chronic obstructive pulmonary disease) J44.9 Nicotine dependence, cigarettes, uncomplicated F17.210 Cocaine use disorder F14.10 Umbilical hernia K42.9 Hepatomegaly R16.0
[2023-06-27 13:44] VITALS: BP 144/73; PULSE 107; TEMP 36.6; O2SAT 97; BMI 44.0
== END 2023-06-27 14:34 | disposition home or self-care (01) ==
PROVIDERS: PCP Internal Medicine; Visit Provider Surgery
DX: K44.9 Diaphragmatic hernia without obstruction or gangrene (principal); E66.01 Morbid (severe) obesity due to excess calories; Z68.41 Body mass index [BMI] 40.0-44.9, adult; B20 Human immunodeficiency virus [HIV] disease; J44.9 Chronic obstructive pulmonary disease, unspecified; F17.210 Nicotine dependence, cigarettes, uncomplicated; F14.10 Cocaine abuse, uncomplicated; K42.9 Umbilical hernia without obstruction or gangrene; R16.0 Hepatomegaly, not elsewhere classified
CPT/HCPCS: 99214

== ENCOUNTER 2023-07-15 11:56 | Outpatient (AMB) | payer OTHER, SELFPAY ==
--- NOTE | 2023-07-15 11:56 | MHC.OFFVIS ---
Intake Intake Visit Reasons: ED f/u, Esophageal Narrowing Intake Note: Zeinab presents as a video call today. CC: She would like to discuss her plan moving forward. She also states she needs some refills. 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 Allergies Penicillins [PENICILLINS] Allergy (Intermediate, Verified 07/15/23 11:57) SOB/HIVES codeine Adverse Reaction (Intermediate, Verified 07/15/23 11:57) Nausea and Vomiting ketorolac [From Toradol] Adverse Reaction (Intermediate, Verified 07/15/23 11:57) Nausea and Vomiting HPI ED f/u, Esophageal Narrowing HPI Details 56-year-old female w hx of chronic anemia, asthma/COPD, GERD, HIV, hep C and bipolar disorder who I am calling for f/u RECAP: initially seen by me for epigastric pain, Of note she had lap hiatal hernia repair by Dr Hill on 05/06 with large paraesophageal hernia noted, 10x 6 cm defect noted thru which the hernia was arising. EGD 03/2021-- 8 cm hiatal hernia, with duodenal diverticulum She had EGD 02/2021 for severe anemia and melena with no active bleeding source seen, hiatal hernia was noted with duodenal diverticulum. Capsule endoscopy was also done, again no lesions or bleeding was noted. ?She underwent EGD at [facility] on December 04 2020 with finding? suggestive of grade B esophagitis.? She had colonoscopy at [facility] on December 08, 2020 with finding? of internal hemorrhoids. I last dilated her EGD 09/2022 both esophgaus and pylorus --3 cm hiatal hernia noted INTERIM: She had admission 2 wk to [facility] with GIB, coffee ground emesis she had dilation her sx are better, no trouble swallowing, no pain she is taking bentyl, famotidine, omeprazoel in the AM she saw DR Chan possible bariatric surgery, but has to stop smoking before can do surgery she needs zofran for nausea EXAM: good color, talking easily A/P: 1/ Recurrent need for dilation, GERD, gastritis PLAN: 1/ Schedule for repeat EGD with dilation in 4-6 months 2/ change to protonix as she feels it works better than omeprazole [facility] Medical History Nicotine dependence, cigarettes, uncomplicated HIV (human immunodeficiency virus infection) Gastritis COVID-19 vaccine administered Arthritis GERD (gastroesophageal reflux disease) Hx of anxiety disorder Depression Hx of hepatitis C Chronic anemia Bilateral renal stones Hiatal hernia without gangrene and obstruction Anemia COPD (chronic obstructive pulmonary disease) Morbid (severe) obesity due to excess calories Anxiety PTSD (post-traumatic stress disorder) Bipolar 1 disorder Asthma Surgical History History of repair of hiatal hernia History of tonsillectomy and adenoidectomy History of section, classical History of colonoscopy (~2020) History of endoscopy (~2020) History of cholecystectomy Family History Mother Respiratory arrest Father Congestive heart failure Sister No problems noted. Brother No problems noted. Daughter No problems noted. Son No problems noted. Social History Household Members: Significant Other Housing: Homeless Housing Other:: resides at [facility]-will return there post-op Are you a primary adult daycare coordinator to a significant other at home: No Do you presently have visiting nurse or other home services: No Alcohol intake: current Alcohol intake frequency: does not drink Alcohol type: wine Patient Tobacco Use Status: Current everyday Tobacco user Tobacco use type: Cigarette Cigarette Packs Per Day: 1 Cigarettes Per Day: 20.0 Years Smoked: 20 Second Hand Smoke Exposure: No Substance Use Type: Crack/Cocaine Advance Directives Date on File: 03/18/21 service: No Current occupational status: unemployed and disabled Sexual orientation: Straight/Heterosexual Assessment & Plan Assessment & Plan Medications: New pantoprazole (Protonix) 20 mg PO DAILY 90 tabs 2RF Refilled ondansetron 4 mg translingual Q6H PRN 30 tabs 2RF Nausea dicyclomine 20 mg PO TID 90 days 270 tabs 1RF famotidine 40 mg PO BEDTIME 90 days 90 tabs 4RF Discontinued omeprazole Discontinued Reason: Doctor's Order 20 mg PO DAILY 90 days 90 tabs 1RF Telehealth Telehealth Location of provider rendering services: practice address Location of patient: address on file Patient Identification confirmed using: Name, : Yes Telehealth method: video Patient verbally consented to treatment: Yes Patient verbally consented to billing insurance company: Yes Patient informed of any privacy concerns related to visit: Yes Minutes spent on Phone/Video with Pt.: 6 Coding Level of Care Code Tele Est Pt Level 3 (51253)
== END 2023-07-15 14:00 | disposition home or self-care (01) ==
LOC: HO.HGI 11:56
PROVIDERS: PCP Internal Medicine; Visit Provider Internal Medicine Gastroenterology
DX: K21.9 Gastro-esophageal reflux disease without esophagitis (principal); K29.70 Gastritis, unspecified, without bleeding
CPT/HCPCS: 99213

== ENCOUNTER → 2023-07-15 11:56 | Outpatient (BNVA) | payer OTHER, SELFPAY | PROVIDERS: PCP Internal Medicine; Visit Provider Internal Medicine Gastroenterology ==